=== PATIENT | female | born 1990 | race Caucasian/White ===

== ENCOUNTER 2019-01-01 15:24 | Inpatient (IN) | payer OTHER ==
[~2019-01-01] VITALS: Ht 180.3 cm; Wt 105.2 kg
[2019-01-01 16:10] VITALS: BP 137/78
[2019-01-01] MEDS ORDERED: IV DEXTROSE 5% 250 ML BAG. IV PRN (16:45)
[2019-01-01] MEDS ORDERED: HYOSCYAMINE 0.125 MG TAB.RAPDIS PO PRN (16:45)
[2019-01-01] MEDS ORDERED: hydrOXYzine 25 MG TABLET PO PRN (16:45)
[2019-01-01] MEDS ORDERED: traZODone 100 MG TABLET. PO PRN (16:45)
[2019-01-01] MEDS ORDERED: ONDANSETRON PF 4 MG/2 ML VIAL. IV PRN (16:45)
[2019-01-01] MEDS ORDERED: DEXTROSE 50% 25 GM / 50ML DISP.SYRIN. IV PRN (16:45)
[2019-01-01] MEDS: VANCOMYCIN PER PHARMACY MC PRN (16:48)
[2019-01-01] MEDS: LURASIDONE 40 MG TABLET. PO SCH (17:15)
[2019-01-01] MEDS: metFORMIN 500 MG TABLET PO SCH (17:15)
[2019-01-01] MEDS ORDERED: FLU VAX QS 2019-20 (36MOS+)/PF 0.5 ML SYRINGE. VAX IM ONE (17:15)
[2019-01-01] MEDS: HYDROmorphone 2 MG/ML VIAL IV PRN ×2 (17:16→20:37)
[2019-01-01] MEDS: INSULIN LISPRO 300 UNITS/3 ML VIAL. SQ SCH (17:24)
[2019-01-01 19:00] VITALS: BP 145/85
[2019-01-01] MEDS: FLUoxetine HCL 20 MG CAPSULE PO SCH (20:36)
[2019-01-01] MEDS: INSULIN GLARGINE SYRINGE. SQ SCH (20:51)
--- NOTE | 2019-01-01 20:52 | NUR ---
hold christiano/Dr Gaytan for tonight.
[2019-01-01] MEDS: IV NORMAL SALINE 1000ML BAG 1,000 ML IV SCH (21:22)
[2019-01-01 21:59] LABS: VANC TR 6.6 mcg/mL (10.0-20.0)
[2019-01-01] MEDS ORDERED: VANCOMYCIN 1.5 GM in IV NORMAL SALINE 500ML BAG 500 ML IV SCH (22:00)
[2019-01-01 23:00] VITALS: BP 134/77
[2019-01-02] VITALS (7 sets, daily range): BP systolic 107–138; BP diastolic 54–80
[2019-01-02] MEDS: VANCOMYCIN PER PHARMACY MC PRN ×2 (00:10→16:14)
--- NOTE | 2019-01-02 00:11 | NUR ---
Pharmacy Vancomycin Dosing Note S: Consulted to monitor and dose vancomycin started 12/30/18. O: NELDA SMALLWOOD is a 28 year old F with Abscess Cellulitis, . Other Antibiotics: LABS: Last BUN: 6 Last Creatinine: 0.5 Creatinine Clearance: >200 mL/min Last WBC: 4 Last Procalcitonin: Tmax (past 24 hours): 100 Microbiology: I/O: Drug Levels: Last Trough level: 6.6 on 01/01/19 at 2135 Last dose given 01/01/19 at 2250 Vancomycin Dosing: Dosing Weight: Actual Target Trough: 10-20 A: Based on: Trough, Actual Wt and CrCl P: 1. 01/02/19 0700 Increase Vancomycin 2000 mg IV q8h 2. Follow up Trough level on 01/03/19 at 0630 3. Pharmacy will continue to monitor, follow and adjust therapy as needed. MAYA STEVENSON RPH, 01/02/19 0011 Signed: 01/02/19 at 0012 by MAYA STEVENSON RPH PHA
[2019-01-02] MEDS: HYDROmorphone 2 MG/ML VIAL IV PRN ×5 (01:07→18:14)
[2019-01-02 05:10] LABS: CREATININE 0.5 mg/dL (0.6-1.0); GFR 146.9
[2019-01-02] MEDS: VANCOMYCIN 2 GM in IV NORMAL SALINE 500ML BAG 500 ML IV SCH ×3 (06:37→21:30)
[2019-01-02] MEDS: INSULIN LISPRO 300 UNITS/3 ML VIAL. SQ SCH ×3 (08:00→17:19)
--- NOTE | 2019-01-02 08:50 | PDOC2 ---
JUANA PIZANO Ina HEATING REPAIR TECHNICIAN 01/02/19 0850: CONSULT Date of Consult Date of Consult DATE: 01/02/19 TIME: 08:40 Reason for Consult Reason for Consult: gluteal abscess Referring Physician Referring Physician: Dr Gaytan Identification/Chief Complaint Chief Complaint buttock pain Source Source: Chart review, Patient History of Present Illness Reason for Visit: Reports 1 week of gluteal pain and swelling. No known injury. No similar skin infections in past. Treated with bedside I&D x 2, abx--has not improved US at [facility] reviewed, complex fluid collection vs phlegmon Past Medical History Past Medical History DM, factor V Leiden, hx dvt, bipolar Past Surgical History Past Surgical History: , Other (open heart surgery) Family History Family History: Other (noncontribuutory to current illness ) Social History Quit (over a year ago) ALCOHOL: rare Drugs: None Lives: with Family Current Medications Current Medications Current Medications Fluoxetine HCl (PROzac) 80 mg HS PO Last administered on 01/01/19at 20:37; Start 01/01/19 at 21:00 Hydromorphone HCl (Dilaudid) 1 mg PRN Q3HRS PRN IV PAIN Last administered on 01/02/19at 06:44; Start 01/01/19 at 16:45 Hyoscyamine (Anaspaz) 0.125 mg PRN Q4HRS PRN PO STOMACH CRAMPING; Start 01/01/19 at 16:45 Insulin Glargine (Lantus Syringe) 80 unit QHS SQ ; Start 01/01/19 at 21:00 Lurasidone HCl (Latuda) 120 mg DAILYWSUP PO Last administered on 01/01/19at 17:25; Start 01/01/19 at 17:00 Metoprolol Tartrate (Lopressor) 25 mg DAILY PO ; Start 01/02/19 at 09:00 Ondansetron HCl (Zofran) 4 mg PRN Q6HRS PRN IV NAUSEA/VOMITING; Start 01/01/19 at 16:45 Vancomycin HCl 1.5 gm/Sodium Chloride 500 ml @ 250 mls/hr Q8HRS IV Last administered on 01/01/19at 22:50; Start 01/01/19 at 22:00; Stop 01/02/19 at 00:03; Status DC Vancomycin HCl (Vanco Per Pharmacy) 1 each PRN DAILY PRN MC SEE COMMENTS Last administered on 01/02/19at 00:10; Start 01/01/19 at 16:45 Hydroxyzine HCl (Atarax) 25 mg PRN TID PRN PO ITCHING; Start 01/01/19 at 16:45 Metformin HCl (Glucophage) 1,000 mg BIDWMEALS PO Last administered on 01/01/19at 17:25; Start 01/01/19 at 17:00 Trazodone HCl (Desyrel) 100 mg PRN QHS PRN PO INSOMNIA; Start 01/01/19 at 16:45 Insulin Human Lispro (HumaLOG) 0-7 UNITS TIDWMEALS SQ Last administered on 01/01/19at 17:25; Start 01/01/19 at 17:00 Dextrose (Dextrose 50%-Water Syringe) 12.5 gm PRN Q15MIN PRN IV SEE COMMENTS; Start 01/01/19 at 16:45 Dextrose 250 ml PRN Q15MIN PRN IV SEE COMMENTS; Start 01/01/19 at 16:45 Vancomycin HCl (Vancomycin Trough Level) 1 each 1X ONCE MC Last administered on 01/01/19at 22:52; Start 01/01/19 at 21:30; Stop 01/01/19 at 21:31; Status DC Influenza Virus Vaccine Quadrival (Afluria Quad 2019-20 (3yr Up) Syringe) 0.5 ml ONCE ONCE VAX IM ; Start 01/01/19 at 17:15; Stop 01/01/19 at 17:16; Status UNV Sodium Chloride 1,000 ml @ 100 mls/hr Q10H IV Last administered on 01/01/19at 21:22; Start 01/01/19 at 21:00 Vancomycin HCl 2 gm/Sodium Chloride 500 ml @ 250 mls/hr Q8H IV Last administered on 01/02/19at 06:37; Start 01/02/19 at 07:00 Vancomycin HCl (Vancomycin Trough Level) 1 each 1X ONCE MC ; Start 01/03/19 at 06:30; Stop 01/03/19 at 06:31 Allergies Allergies: Coded Allergies: latex (Verified Allergy, Intermediate, 01/01/19) lisinopril (Verified Allergy, Intermediate, 01/01/19) quetiapine (Verified Allergy, Intermediate, 01/01/19) warfarin (Verified Allergy, Intermediate, 01/01/19) ROS General: No: Chills, Other (fevers ) PSYCHOLOGICAL ROS: No: Anxiety, Depression Eyes: No Blurry vision, No Double vision HEENT: No: Heacaches, Sore Throat Hematological and Lymphatic: YES: Bleeding Problems, Blood Clots Respiratory: No: Cough, Shortness of breath Cardiovascular: No Chest Pain, No Palpitations Gastrointestinal: No Nausea, No Vomiting, No Abdominal Pain Genitourinary: No Dysuria Musculoskeletal: No Joint Pain, No Muscle Pain Neurological: No Confusion, No Impaired Coord/balance Skin: Yes Other (see hpi) Physical Exam General: Alert, Oriented X3, Cooperative, No acute distress HEENT: Atraumatic, PERRLA Lungs: Clear to auscultation, Normal air movement Heart: Regular rate, Normal S1, Normal S2 Abdomen: Soft, No tenderness Extremities: No clubbing, No cyanosis Skin: Other (left buttock, small amount of drainage, some induration, some cent ral fluctuance) Neuro: Normal speech, Sensation intact Psych/Mental Status: Mental status NL, Mood NL MUSCULOSKELETAL: No deformity, No swelling Vitals VITALS Vital Signs Date Time Temp Pulse Resp B/P (MAP) Pulse Ox O2 Delivery O2 Flow Rate FiO2 01/02/19 08:21 Room Air 01/02/19 07:00 97.8 82 14 124/64 (84) 94 97.8 Labs Labs Laboratory Tests Test 01/01/19 17:07 01/01/19 20:40 01/01/19 21:35 01/02/19 04:05 Glucose (Fingerstick) 348 mg/dL (70-99) 229 mg/dL (70-99) Vancomycin Level Trough 6.6 mcg/mL (10.0-20.0) Vancomycin Last Dose Date Unk Vancomycin Last Dose Time Unk Creatinine 0.5 mg/dL (0.6-1.0) Estimated GFR (Cockcroft-Gault) 146.9 Test 01/02/19 07:44 Glucose (Fingerstick) 199 mg/dL (70-99) Laboratory Tests Test 01/01/19 17:07 01/01/19 20:40 01/01/19 21:35 01/02/19 04:05 Glucose (Fingerstick) 348 mg/dL (70-99) 229 mg/dL (70-99) Vancomycin Level Trough 6.6 mcg/mL (10.0-20.0) Vancomycin Last Dose Date Unk Vancomycin Last Dose Time Unk Creatinine 0.5 mg/dL (0.6-1.0) Estimated GFR (Cockcroft-Gault) 146.9 Test 01/02/19 07:44 Glucose (Fingerstick) 199 mg/dL (70-99) Assessment/Plan Assessment/Plan left buttock abscess I&D in ER x 2, abx-not improving will have Dr Iqbal FU and consider for surgical I&D MARCELLO IQBAL MD 01/02/19 0954: CONSULT Assessment/Plan Assessment/Plan pt seen interviewed and examined rec I and D explained risks including but not limited to bleeding, infection, DVT she will proceed thanks for consult JUANA PIZANO APRN Jan 02, 2019 08:50 MARCELLO IQBAL MD Jan 02, 2019 09:54
[2019-01-02] MEDS ORDERED: IV RINGERS,LACTATED 1000ML 1,000 ML IV SCH (09:56)
[2019-01-02] MEDS ORDERED: HYDROmorphone 2 MG/ML VIAL IV PRN (10:00)
[2019-01-02] MEDS ORDERED: fentaNYL PF VIAL 100 MCG/2 ML VIAL IV PRN (10:00)
[2019-01-02] MEDS ORDERED: BUPIVACAINE-EPI 0.5%-1:200000 MPF 30 ML VIAL. INJ ONE (10:00)
[2019-01-02] MEDS ORDERED: ONDANSETRON PF 4 MG/2 ML VIAL. IV PRN (10:00)
[2019-01-02] MEDS ORDERED: PROCHLORPERAZINE 10 MG/2 ML VIAL. IV PRN (10:00)
[2019-01-02] MEDS ORDERED: DEXAMETHASONE SOD PHOS 4 MG/ML VIAL ONE (10:03)
[2019-01-02] MEDS ORDERED: LIDOCAINE 2% PF 5 ML VIAL. ONE (10:03)
[2019-01-02] MEDS ORDERED: ONDANSETRON PF 4 MG/2 ML VIAL. ONE (10:03)
[2019-01-02] MEDS ORDERED: FAMOTIDINE 20 MG/2 ML VIAL ONE (10:03)
[2019-01-02] MEDS ORDERED: PROPOFOL 20 ML IV ONE ×2 (10:03→10:55)
[2019-01-02 10:24] LABS: PREG TEST PT QUAL NEGATIVE (NEG)
[2019-01-02] MEDS ORDERED: KETOROLAC 30 MG/ML VIAL. ONE (10:41)
[2019-01-02] MEDS ORDERED: KETAMINE HCL IN NACL, ISO-OSM 50 MG/5 ML SYRINGE ONE (10:41)
[2019-01-02] MEDS ORDERED: MIDAZOLAM HCL/PF 2 MG/2 ML VIAL. ONE (10:41)
[2019-01-02] MEDS ORDERED: SURGICEL HEMOSTAT 2X3 EACH. ONE (11:03)
[2019-01-02] MEDS ORDERED: SEVOFLURANE 31 TO 60 MINUTES. IH ONE (11:13)
[2019-01-02] MEDS ORDERED: IV NORMAL SALINE 1000ML BAG 1,000 ML IV SCH (11:25)
[2019-01-02] MEDS ORDERED: 0.9 % SODIUM CHLORIDE 10 ML DISP.SYRIN. IV PRN (11:30)
[2019-01-02] MEDS ORDERED: diphenhydrAMINE HCL 25 MG CAPSULE PO PRN (11:30)
[2019-01-02] MEDS ORDERED: oxyCODONE/APAP 5/325 1 TAB TABLET PO PRN (11:30)
[2019-01-02] MEDS ORDERED: NALOXONE 0.4 MG/ML VIAL. IV PRN (11:30)
--- NOTE | 2019-01-02 11:34 | PDOC ---
BRIEF OPERATIVE NOTE Date: Jan 02, 2019 Pre-Op Diagnosis left buttocks abscess Post-Op Diagnosis same Procedure Performed excisional debridement of skin and subcutaneous tissue Surgeon Rasheed Anesthesia Type: General Blood Loss 10cc IV Fluid 275cc Specimens Obtained culture Findings necrotic subcutaneous tissue Complications none Operative Note Wk # [id number] MARCELLO FLETCHER MD Jan 02, 2019 11:34
--- NOTE | 2019-01-02 11:47 | OP ---
DATE OF SURGERY: 01/02/2019 PREOPERATIVE DIAGNOSIS: Abscess, left buttock. POSTOPERATIVE DIAGNOSIS: Abscess, left buttock. PROCEDURE: Excisional debridement of skin and subcutaneous tissue. SURGEON: Marcello Fletcher MD ANESTHESIA: General LMA. ESTIMATED BLOOD LOSS: 10. INTRAVENOUS FLUIDS: 275. DESCRIPTION OF PROCEDURE: The patient brought to the OR, given a general LMA and placed in the dorsal lithotomy position. The left buttock and perianal area were prepped and draped in usual sterile fashion. The point of drainage was probed with a hemostat and using that as a guide, an ellipse of skin was incised and the skin and underlying necrotic fatty tissue was debrided. Culture made. Hemostasis with cautery after irrigating the wound with saline. Wound dressed with Surgicel, 1/2-inch plain Nu Gauze moistened with saline, 4 x 4s. The patient taken out of the lithotomy position, awakened from her anesthetic, and taken to the recovery room in satisfactory condition. MARCELLO FLETCHER MD DR: MARK/nts JOB#: [id number] / [id number]
[2019-01-02] MEDS ORDERED: fentaNYL PF VIAL 100 MCG/2 ML VIAL ONE (11:56)
[2019-01-02] MEDS: fentaNYL PF VIAL 100 MCG/2 ML VIAL IV PRN ×2 (12:00→12:08)
[2019-01-02] MEDS ORDERED: MORPHINE SULFATE 2 MG/ML VIAL. ONE (12:18)
[2019-01-02] MEDS: MORPHINE SULFATE 2 MG/ML VIAL. IV PRN ×2 (12:23→12:34)
[2019-01-02] MEDS: INSULIN LISPRO 100 UNIT/ML 3ML VIAL for OP,RR ONLY. SQ PRN ×2 (12:45→13:48)
[2019-01-02] MEDS: oxyCODONE/APAP 5/325 1 TAB TABLET PO PRN ×2 (13:32→17:15)
[2019-01-02] MEDS: metFORMIN 500 MG TABLET PO SCH ×2 (13:33→17:14)
[2019-01-02] MEDS: METOPROLOL TART IMMED RELEASE 25 MG TABLET. PO SCH (13:33)
--- NOTE | 2019-01-02 14:41 | NUR ---
wound care patient had surgery today for the left buttock wound, wound care will f/u tomorrow.
[2019-01-02] MEDS: IV NORMAL SALINE 1000ML BAG 1,000 ML IV SCH ×2 (15:01→21:30)
[2019-01-02] MEDS: ONDANSETRON PF 4 MG/2 ML VIAL. IV PRN (16:49)
[2019-01-02] MEDS: LURASIDONE 40 MG TABLET. PO SCH (17:15)
[2019-01-02] MEDS: DOCUSATE SODIUM 100 MG CAPSULE. PO SCH (21:28)
[2019-01-02] MEDS: LACTOBACILLUS RHAMNOSUS GG 1 CAPSULE. PO SCH (21:28)
[2019-01-02] MEDS: FLUoxetine HCL 20 MG CAPSULE PO SCH (21:28)
[2019-01-02] MEDS: ENOXAPARIN 40 MG/0.4 ML SYRINGE. SQ SCH (21:31)
[2019-01-02] MEDS: INSULIN GLARGINE SYRINGE. SQ SCH (21:36)
[2019-01-03] MEDS: ONDANSETRON PF 4 MG/2 ML VIAL. IV PRN ×2 (00:03→12:25)
[2019-01-03] MEDS: HYDROmorphone 2 MG/ML VIAL IV PRN ×6 (00:04→18:14)
[2019-01-03 03:00] VITALS: BP 124/78
[2019-01-03] MEDS: IV NORMAL SALINE 1000ML BAG 1,000 ML IV SCH ×3 (03:00→21:30)
[2019-01-03] MEDS: oxyCODONE/APAP 5/325 1 TAB TABLET PO PRN ×3 (03:23→13:41)
[2019-01-03 07:00] VITALS: BP 119/74
[2019-01-03 07:57] LABS: CREATININE 0.7 mg/dL (0.6-1.0); GFR 99.6
[2019-01-03] MEDS: INSULIN LISPRO 300 UNITS/3 ML VIAL. SQ SCH ×3 (08:00→17:13)
[2019-01-03] MEDS: metFORMIN 500 MG TABLET PO SCH ×2 (08:24→17:08)
[2019-01-03] MEDS: DOCUSATE SODIUM 100 MG CAPSULE. PO SCH ×2 (08:24→21:12)
[2019-01-03] MEDS: LACTOBACILLUS RHAMNOSUS GG 1 CAPSULE. PO SCH ×2 (08:24→21:12)
[2019-01-03] MEDS: ENOXAPARIN 40 MG/0.4 ML SYRINGE. SQ SCH ×2 (08:25→21:13)
[2019-01-03] MEDS: METOPROLOL TART IMMED RELEASE 25 MG TABLET. PO SCH (08:25)
[2019-01-03] MEDS: VANCOMYCIN PER PHARMACY MC PRN (08:25)
--- NOTE | 2019-01-03 08:25 | PDOC ---
SURGICAL PROGRESS NOTE Subjective up to bedside having regular breakfast still has pain Vital Signs Vital Signs Date Time Temp Pulse Resp B/P (MAP) Pulse Ox O2 Delivery O2 Flow Rate FiO2 01/03/19 07:00 97.6 64 14 119/74 (89) 98 Room Air 97.6 01/02/19 12:58 8.0 I&O Intake and Output 01/03/19 06:59 Intake Total 850 ml Output Total 10 ml Balance 840 ml Intake Oral 450 ml IV Total 400 ml Output Estimated Blood Loss 10 ml # Voids 3 PATIENT HAS A PICKENS: No General: Alert, No acute distress Labs Laboratory Tests Test 01/01/19 17:07 01/01/19 20:40 01/01/19 21:35 01/02/19 04:05 Glucose (Fingerstick) 348 mg/dL (70-99) 229 mg/dL (70-99) Vancomycin Level Trough 6.6 mcg/mL (10.0-20.0) Vancomycin Last Dose Date Unk Vancomycin Last Dose Time Unk Creatinine 0.5 mg/dL (0.6-1.0) Estimated GFR (Cockcroft-Gault) 146.9 Serum Test, Qualitative Negative (NEG) Test 01/02/19 07:44 01/02/19 12:30 01/02/19 13:41 01/02/19 16:33 Glucose (Fingerstick) 199 mg/dL (70-99) 326 mg/dL (70-99) 239 mg/dL (70-99) 256 mg/dL (70-99) Test 01/02/19 20:11 01/03/19 06:50 01/03/19 07:21 Glucose (Fingerstick) 303 mg/dL (70-99) 207 mg/dL (70-99) Creatinine 0.7 mg/dL (0.6-1.0) Estimated GFR (Cockcroft-Gault) 99.6 Vancomycin Level Trough 9.0 mcg/mL (10.0-20.0) Vancomycin Last Dose Date 01/02/19 Vancomycin Last Dose Time 2300 Laboratory Tests Test 01/02/19 12:30 01/02/19 13:41 01/02/19 16:33 01/02/19 20:11 Glucose (Fingerstick) 326 mg/dL (70-99) 239 mg/dL (70-99) 256 mg/dL (70-99) 303 mg/dL (70-99) Test 01/03/19 06:50 01/03/19 07:21 Creatinine 0.7 mg/dL (0.6-1.0) Estimated GFR (Cockcroft-Gault) 99.6 Vancomycin Level Trough 9.0 mcg/mL (10.0-20.0) Vancomycin Last Dose Date 01/02/19 Vancomycin Last Dose Time 2300 Glucose (Fingerstick) 207 mg/dL (70-99) Assessment/Plan POD 1 debridement left gluteal abscess wound care Dr Rodney available over the weekend if needed MARCELLO FLETCHER MD Jan 03, 2019 08:25
[2019-01-03] MEDS: VANCOMYCIN 2 GM in IV NORMAL SALINE 500ML BAG 500 ML IV SCH (08:27)
--- NOTE | 2019-01-03 08:28 | NUR ---
Pharmacy Vancomycin Dosing Note S:Consulted to monitor and dose vancomycin started 12/30/18. O:NELDA SMALLWOOD is a 28 year old F with left gluteal abscess/cellulitis. Height: 5 feet, 11 inches Weight: 105.083800 kg [place] Body Weight: 70.80 Adjusted Body Weight: 84.56 Dosing Weight: Actual Other Antibiotics: None LABS: Last BUN: 6 Last Creatinine: 0.7 Creatinine Clearance: >200 mL/min Last WBC: 4 Last Procalcitonin: None Tmax (past 24 hours): 98.5 [facility] culture: Staphylococcus aureus4 + AEROBIC RES 2 Preliminary Mixed skin catalina 4+ I/O: 850/10 + voids Drug Levels: Last Trough level: 9 on 01/03/19 @ 06:50, TRUE TROUGH ESTIMATED TO BE ABOUT 12-14 Last dose given 01/02/19 at 2136 Vancomycin Dosing: Loading Dose: x1 Dosing Weight: Actual Target Trough: 10-20 A: Based on: Patient's renal function, PMH, severity of suspected infection and vancomycin trough level drawn a little over an hour late P: 1. Continue Vancomycin 2000 mg IV q8h 2. Follow up Trough level as needed 3. Pharmacy will continue to monitor, follow and adjust therapy as needed. HERMAN KOWALSKI, [facility], 01/03/19 [id number]
[2019-01-03] MEDS ORDERED: cefTRIAXone IV Push 1 GM VIAL. IVP SCH (10:00)
[2019-01-03 11:00] VITALS: BP 133/83
--- NOTE | 2019-01-03 11:10 | PDOC ---
Infectious Disease Note Vital Sign Vital Signs Vital Signs Date Time Temp Pulse Resp B/P (MAP) Pulse Ox O2 Delivery O2 Flow Rate FiO2 01/03/19 09:26 16 98 Room Air 01/03/19 09:13 8.0 01/03/19 08:43 64 119/74 01/03/19 07:00 97.6 97.6 Labs Lab Laboratory Tests Test 01/02/19 12:30 01/02/19 13:41 01/02/19 16:33 01/02/19 20:11 Glucose (Fingerstick) 326 mg/dL (70-99) 239 mg/dL (70-99) 256 mg/dL (70-99) 303 mg/dL (70-99) Test 01/03/19 06:50 01/03/19 07:21 Creatinine 0.7 mg/dL (0.6-1.0) Estimated GFR (Cockcroft-Gault) 99.6 Vancomycin Level Trough 9.0 mcg/mL (10.0-20.0) Vancomycin Last Dose Date 01/02/19 Vancomycin Last Dose Time 2300 Glucose (Fingerstick) 207 mg/dL (70-99) Objective Assessment Buttock abscess s/p I and D 01/02 Staph aureus- failed Bactrim Yeast skin rash H/o MRSA screen + Obesity Dm Plan Plan of Care D/c high dose Vanc avoid DANYEL Begin Zyvox and fluconazole She s/p Dexamethasone 01/02 F/u staph aureus sens from [place] collected 12/30 Wound care per Gen surg/wound team Thank you # [id number] KAYLIE KITCHEN MD Jan 03, 2019 11:10
--- NOTE | 2019-01-03 11:16 | HP ---
ADMIT DATE: 01/01/2019 HISTORY OF PRESENT ILLNESS: The patient is a 28-year-old female patient who was originally admitted to [facility] on 12/30/2018. She was seen originally at 3 days prior to recent admission in the Emergency Room with left buttock cellulitis and abscess that was incised and drained. She was placed on Bactrim; however, although she has been taking her medication as prescribed, the area has grown in size and pain and was not getting any better. She could not follow with her primary care physician and therefore she came to the Emergency Room, and the abscess was incised and cultures were sent and she was started on IV vancomycin and ceftriaxone and was admitted for inpatient antibiotic treatment. However, we did ultrasound of that area. She continued to complain of pain and an ultrasound showed that there is a heterogenous collection at the site of concern in the left buttock region, which may be due to phlegmon or very complex fluid, does not have sonographic features suggestive of simple fluid and therefore, the patient was transferred to [facility] to consult the surgical team to do again surgical incision and drainage, as the other 2 incisions were done at the bedside. PAST MEDICAL HISTORY: Significant for type 2 diabetes mellitus. She has also factor V Leiden. She has deep vein thrombosis done twice before, bipolar disorder. PAST SURGICAL HISTORY: Significant for two C-sections, open heart surgery for atrial septal defect repair done which was about 18 years old. She has a left ring finger open reduction and internal fixation. ALLERGIES: SHE IS ALLERGIC TO LISINOPRIL, SHE DEVELOPED ANGIONEUROTIC EDEMA, COUMADIN CAUSED HIVES AND SEROQUEL CAUSED HALLUCINATION. FAMILY HISTORY: She has 2 brothers and 2 sisters, 1 brother and 1 sister older, one brother, one sister younger. Her father is alive at age of 50. He is alcoholic and mother is still alive and has Crohn's disease and she is 46 years old. SOCIAL HISTORY: She is . She has 2 sons. She does not smoke, drink alcohol or use any recreational drugs. She used marijuana about 2 weeks ago. She is [id number] mom and her boyfriend takes care of her and her children according to her. MEDICATIONS: She was transferred to this hospital to continue on following medications: She is on Lovenox 40 mg subcutaneously twice a day, oxycodone/APAP she takes 2 tablets every 4 hours, diphenhydramine 25 mg every 6 hours, metoprolol 25 mg twice a day, vancomycin as per pharmacy recommendation. She is on metformin 1000 mg twice a day, fluoxetine 80 mg at bedtime, Lantus insulin 80 units at bedtime. She is on trazodone 100 mg at bedtime, hydroxyzine 25 mg 3 times a day and Anaspaz 0.25 mg every 4 hours. PHYSICAL EXAMINATION: GENERAL: On arrival to [facility], she looked well and was clearly in no apparent respiratory distress. No pallor, jaundice, cyanosis or thyromegaly. No jugular venous distention. No lower limb edema. VITAL SIGNS: Her heart rate was 76, blood pressure was 137/78, temperature was 97.8, respiratory rate was 14 and oxygen saturation was 94%. HEAD, EYES, EARS, NOSE AND THROAT: Showed normocephalic, atraumatic. NECK: Supple. HEART: Showed normal first and second heart sounds with no gallop or murmur. CHEST: Clear to auscultation. No crepitation or rhonchi. ABDOMEN: Distended, soft, nontender. NEUROLOGIC: She is awake, alert, responding appropriately. Cranial nerves intact. EXTREMITIES: She moves extremities without difficulty. Examination of the left gluteal area shows she has left buttock abscess that apparently was incised twice at the Emergency Room and antibiotic and without any improvement despite IV antibiotic. We will consult surgical team for evaluation and possible further surgical incision and drainage. DONA WHITE MD DR: NAVEED/bhavik JOB#: [id number] / [id number]
[2019-01-03] MEDS: POLYETHYLENE GLYCOL 3350 17 GM PACKET. PO SCH (11:39)
[2019-01-03] MEDS: FLUCONAZOLE 100 MG TABLET. PO SCH (11:40)
[2019-01-03] MEDS: LINEZOLID 600 MG TABLET PO SCH ×2 (11:40→21:12)
--- NOTE | 2019-01-03 13:38 | NUR ---
Wound Care Wound care consult for left buttock abscess. Pt had I&D yesterday on left buttock abscess. Cleansed wound and applied wound vac with silver foam at 125 mmHg continuous pressure. No other wounds noted on full skin inspection. Pt educated on PU prevention and offloading of wound. Addendum: 01/03/19 at 1348 by VIRGINIA OTOOLE RN Home vac application done.
--- NOTE | 2019-01-03 14:50 | NUR ---
SW following pt for dc planning. Chart reviewed and pt lives at home with family. Pt is a transfer from [facility]. Wound care, ID and gen Sx following. No dc recommendations noted at this time. Will continue to follow pending dc needs.
[2019-01-03 15:00] VITALS: BP 138/81
[2019-01-03] MEDS: LURASIDONE 40 MG TABLET. PO SCH (17:07)
[2019-01-03 19:00] VITALS: BP 120/63
--- NOTE | 2019-01-03 20:41 | PN ---
DATE: 01/03/2019 SUBJECTIVE: The patient is resting slightly propped up in bed, in no apparent distress. She apparently continued to complain of severe pain. We did increase her hydromorphone to be given 2 mg every 2 hours. PHYSICAL EXAMINATION: GENERAL: When I examined her; however, she seemed to be flushed although continued to be afebrile. VITAL SIGNS: Her heart rate was 64, blood pressure was 119/74, temperature was 97.6, respiratory rate was 14 and oxygen saturation was 98%. HEAD, EYES, EARS, NOSE AND THROAT: Showed normocephalic, atraumatic. NECK: Supple. HEART: Showed normal first and second heart sounds. No gallop or murmur. CHEST: Clear to auscultation. No crepitation or rhonchi. ABDOMEN: Distended, soft, nontender. NEUROLOGIC: She was awake, alert, responding appropriately. Her cranial nerves are intact. EXTREMITIES: She moves extremities without difficulty. Her surgical incision in the left foot is covered with dressing. LABORATORY DATA: No lab works available today. Her vancomycin trough level was 9 mcg/mL and the vancomycin is adjusted by the pharmacy. PLAN: My plan is to continue with IV vancomycin. I added ceftriaxone and we will continue with pain management, IV antibiotic, wound care. I will consult also the Infectious Disease to assist with her management as she has had this abscess, this is third time. I did add ceftriaxone. DONA WHITE MD DR: NAVEED/bhavik JOB#: [id number] / [id number]
[2019-01-03] MEDS: FLUoxetine HCL 20 MG CAPSULE PO SCH (21:12)
[2019-01-03] MEDS: MULTIVITAMIN with MINERAL TABLET. PO SCH (21:12)
[2019-01-03] MEDS: INSULIN GLARGINE SYRINGE. SQ SCH (21:19)
[2019-01-03 23:00] VITALS: BP 125/65
[2019-01-04] MEDS: oxyCODONE/APAP 5/325 1 TAB TABLET PO PRN ×4 (00:21→17:33)
[2019-01-04] MEDS: HYDROmorphone 2 MG/ML VIAL IV PRN ×5 (01:49→18:19)
[2019-01-04 03:00] VITALS: BP 129/73
--- NOTE | 2019-01-04 05:20 | CONS ---
DATE OF CONSULTATION: 01/03/2019 LOCATION: The patient's room, 572. REQUESTING PHYSICIAN: Dr. Gaytan. REASON FOR CONSULTATION: Buttock abscess. HISTORY OF PRESENT ILLNESS: The patient is a 28-year-old female with history of morbid obesity, diabetes who developed gluteal pain approximately a week or so ago. She denies any known trauma. She does have a history of MRSA screen positive in her nose. She had been to [facility], underwent outpatient I and D x 2. She was placed on Bactrim. Despite taking Bactrim for 3 days, she continued to worsen and she was brought to [facility] and on 01/02 underwent I and D in the operating room by Dr. Iqbal. Cultures collected from the 12/30 are now showing a Staph aureus as well as some yeast. Currently, she is feeling some better. She did not have any fever, chills or sweats. She has no nausea or vomiting. She has passed her urine without complications. No diarrhea. PAST MEDICAL HISTORY: Positive for morbid obesity, diabetes, factor V Leiden, history of DVT, bipolar disorder. MRSA screen positive. PAST SURGICAL HISTORY: Positive for , also open heart surgery for a VSD. REVIEW OF SYSTEMS: Otherwise negative except for what is mentioned above. ALLERGIES: LISTED LATEX, LISINOPRIL, QUETIAPINE, AND WARFARIN. SOCIAL HISTORY: She has 2 children, ages 1 and 5. She quit smoking. Has a dog at home. Very rare alcohol. CURRENT MEDICATIONS: Include vancomycin 2 grams q.8 hours, IV Rocephin 1 g q.24, Lovenox, Prozac, insulin, lactobacillus, Latuda, metformin, trazodone. PHYSICAL EXAMINATION: VITAL SIGNS: She is afebrile, temperature 97.6, pulse 64, respirations 16, blood pressure 119/74, satting 98% on room air. CONSTITUTIONAL: She is a pleasant lady. She is sitting upright in bed. She is morbidly obese, in no acute distress. HEENT: Pupils are equal and reactive to light and accommodation. Oral cavity, pharynx is clear. NECK: Supple. Good range of motion. LUNGS: Clear to auscultation bilaterally. HEART: S1, S2. ABDOMEN: Morbidly obese, soft, nontender, no guarding or rebound. Left buttock area has an abscess approximately 3.5-4 x 2 x 3 x 2-3 deep. There is no surrounding gross erythema. There is no purulence. There is no drainage. She does have some yeast in her perineal area. SKIN: Otherwise, warm to touch without signs of rash. NEUROLOGIC: She is nonfocal. PSYCHIATRIC: Affect is appropriate. LABORATORY VALUES: She has creatinine of 0.7, glucose was 207. No imaging studies here. IMPRESSION: 1. Buttock abscess, status post I and D on 01/02. 2. Staph aureus, failed Bactrim. 3. Yeast skin rash. 4. History of positive methicillin-resistant Staphylococcus aureus screen. 5. Obesity. 6. Diabetes. RECOMMENDATIONS: We will discontinue the high dose vancomycin with acute kidney injury. Begin p.o. Zyvox, p.o. fluconazole. She is status post dexamethasone 01/02. Follow up Staph aureus sensitivities from [facility], collected on 12/30. Wound care per General Surgery and wound team. Dr. Gaytan, thank you for allowing me to participate in the patient's care. Should you have any further questions, please do not hesitate to contact me. KAYLIE KITCHEN MD DR: BOWEN/bhavik JOB#: [id number] / [id number]
[2019-01-04 06:04] LABS: CREATININE 0.6 mg/dL (0.6-1.0)
[2019-01-04] MEDS: IV NORMAL SALINE 1000ML BAG 1,000 ML IV SCH (06:51)
[2019-01-04 07:00] VITALS: BP 133/63
[2019-01-04] MEDS: INSULIN LISPRO 300 UNITS/3 ML VIAL. SQ SCH ×3 (08:00→17:00)
[2019-01-04] MEDS: ONDANSETRON PF 4 MG/2 ML VIAL. IV PRN ×2 (08:01→16:23)
[2019-01-04] MEDS: LACTOBACILLUS RHAMNOSUS GG 1 CAPSULE. PO SCH ×2 (08:58→20:37)
[2019-01-04] MEDS: FLUCONAZOLE 100 MG TABLET. PO SCH (08:58)
[2019-01-04] MEDS: metFORMIN 500 MG TABLET PO SCH ×2 (08:58→17:33)
[2019-01-04] MEDS: LINEZOLID 600 MG TABLET PO SCH ×2 (08:58→20:37)
[2019-01-04] MEDS: DOCUSATE SODIUM 100 MG CAPSULE. PO SCH ×2 (08:58→20:37)
[2019-01-04] MEDS: POLYETHYLENE GLYCOL 3350 17 GM PACKET. PO SCH (08:59)
[2019-01-04] MEDS: MULTIVITAMIN with MINERAL TABLET. PO SCH (08:59)
[2019-01-04] MEDS: ENOXAPARIN 40 MG/0.4 ML SYRINGE. SQ SCH ×2 (08:59→20:37)
[2019-01-04] MEDS: METOPROLOL TART IMMED RELEASE 25 MG TABLET. PO SCH (08:59)
--- NOTE | 2019-01-04 09:38 | PN ---
DATE: 01/04/2019 SUBJECTIVE: The patient is resting, slightly propped up in bed, in no apparent respiratory distress. She continued to complain of pain, requesting IV Dilaudid; however, her left buttock abscess was incised and drained surgically and her cultures collected on 12/30 showing Staphylococcus aureus as well as some yeast. PHYSICAL EXAMINATION: GENERAL: When I saw her this morning, she looked well and was clearly in no apparent respiratory distress. No pallor, jaundice, cyanosis or thyromegaly. No jugular venous distention. No limb edema. VITAL SIGNS: Her heart rate was 83, blood pressure was 133/63, temperature was 98.1, respiratory rate 20, and oxygen saturation was 99%. The rest of clinical exam is stable. Her left foot wound is covered with wound vacuum assisted closure device. Her intake and output were incompletely recorded. LABORATORY DATA: Her blood sugar seems to be much better controlled. Her lab work still pending at the time of this dictation. ASSESSMENT: 1. Left buttock abscess, status post surgical incision and drainage. Her cultures have grown methicillin-resistant Staphylococcus aureus as well as yeast. She was seen by Dr. Carver yesterday and was started her on oral Zyvox as well as fluconazole and discontinued all other medication. Other medical problems include type 2 diabetes, seems to be reasonably controlled. 2. Factor V Leiden with deep vein thrombosis twice; however, SHE IS ALLERGIC TO COUMADIN, bipolar disorder. PLAN: To continue with pain management. Continue with antibiotic. Continue with wound VAC. We will discontinue the IV fluid. DONA WHITE MD DR: NAVEED/bhavik JOB#: [id number] / [id number]
--- NOTE | 2019-01-04 10:15 | PDOC ---
Infectious Disease Note Subjective Subjective Comfortable Some nausea Denies F/C/S/vomiting/diarrhea ROS ROS per HPI Vital Sign Vital Signs Vital Signs Date Time Temp Pulse Resp B/P (MAP) Pulse Ox O2 Delivery O2 Flow Rate FiO2 01/04/19 09:00 Room Air 01/04/19 08:59 83 133/63 01/04/19 07:00 98.1 20 99 98.1 01/03/19 11:58 8.0 Physical Exam PHYSICAL EXAM GENERAL: Lying down, awake, NAD HEENT: Oral cavity, pharynx is clear. NECK: Supple. Good range of motion. LUNGS: Clear to auscultation bilaterally. HEART: S1, S2. ABDOMEN: Morbidly obese, soft, nontender SKIN: Left buttock wound vac in place, no area redness or induration NEUROLOGIC: Nonfocal. PIV Labs Lab Laboratory Tests Test 01/03/19 11:23 01/03/19 12:38 01/03/19 16:31 01/03/19 21:03 Glucose (Fingerstick) 63 mg/dL (70-99) 154 mg/dL (70-99) 162 mg/dL (70-99) 149 mg/dL (70-99) Test 01/04/19 05:30 01/04/19 07:16 Creatinine 0.6 mg/dL (0.6-1.0) Estimated GFR (Cockcroft-Gault) 119.0 Glucose (Fingerstick) 126 mg/dL (70-99) Micro 01/02. GRAM STAIN RES 2 Final No organisms seen Objective Assessment Buttock abscess, status post I and D on 01/02. culture pending Staph aureus, failed Bactrim. Yeast skin rash. History of positive methicillin-resistant Staphylococcus aureus screen. Obesity. Diabetes. Plan Plan of Care Continue Zyvox and fluconazole s/p Dexamethasone 01/02 F/u staph aureus sens from [place] collected 12/30 Wound care per Gen surg/wound team D/w nursing Attending Co-Sign The patient was seen and interviewed as well as examined at the bedside. The chart was reviewed. The case was discussed. Agree with the plan of care. DANA CUELLAR APRN Jan 04, 2019 10:15 GLORIA LUCAS MD Jan 04, 2019 12:09
[2019-01-04 11:00] VITALS: BP 133/87
[2019-01-04 15:00] VITALS: BP 127/79
[2019-01-04] MEDS: LURASIDONE 40 MG TABLET. PO SCH (17:32)
[2019-01-04 19:00] VITALS: BP 120/78
[2019-01-04] MEDS: FLUoxetine HCL 20 MG CAPSULE PO SCH (20:38)
[2019-01-04] MEDS: INSULIN GLARGINE SYRINGE. SQ SCH (20:45)
[2019-01-04 23:00] VITALS: BP 110/66
[2019-01-05 03:04] VITALS: BP 121/72
[2019-01-05 06:54] LABS: ALBUMIN 2.9 g/dL (3.4-5.0); ALBUMIN/GLOBULIN RATIO 0.8 (1.0-1.7); CALCIUM 9.4 mg/dL (8.5-10.1); CREATININE 0.5 mg/dL (0.6-1.0); GFR 146.9; POTASSIUM 3.8 mmol/L (3.5-5.1); TOTAL BILIRUBIN 0.2 mg/dL (0.2-1.0); TOTAL PROTEIN 6.5 g/dL (6.4-8.2)
[2019-01-05 06:55] LABS: HEMATOCRIT 33.9 % (36.0-47.0); HEMOGLOBIN 11.5 g/dL (12.0-15.5); RED BLOOD COUNT 3.75 x10^6/uL (3.50-5.40); RED CELL DISTRIBUTION WIDTH 14.1 % (11.5-14.5); WHITE BLOOD COUNT 4.2 x10^3/uL (4.0-11.0)
[2019-01-05 07:22] VITALS: BP 125/72
[2019-01-05] MEDS: oxyCODONE/APAP 5/325 1 TAB TABLET PO PRN ×3 (07:46→17:05)
[2019-01-05] MEDS: INSULIN LISPRO 300 UNITS/3 ML VIAL. SQ SCH ×3 (08:00→17:00)
--- NOTE | 2019-01-05 08:39 | PN ---
DATE: 01/05/2019 SUBJECTIVE: The patient is resting, slightly propped up in bed, in no apparent respiratory distress. She stated that she has continued to have pain. She had just received 2 Percocet tablets waiting for them to take effect, although apparently she has not received any pain medication overnight and slept well. PHYSICAL EXAMINATION: GENERAL: When I examined her, she looked well and was clearly in no apparent respiratory distress, slightly pale, but no jaundice, cyanosis or thyromegaly. No jugular venous distention. No limb edema. VITAL SIGNS: Her heart rate was 94, blood pressure was 125/72, temperature was 98.1, respiratory rate was 16, and oxygen saturation was 98%. HEAD, EYES, EARS, NOSE AND THROAT: Showed normocephalic, atraumatic. NECK: Supple. HEART: Showed normal first and second heart sounds. No gallop, rub or murmur. CHEST: Clear to auscultation. No crepitation or rhonchi. ABDOMEN: Distended, soft, nontender. NEUROLOGIC: She is awake, alert, responding appropriately. All cranial nerves intact. She moves extremities without difficulty. She ambulates without assistance or assistive devices. The wound in the left buttock area is covered with wound vacuum assisted closure device. Her intake was 514, output as recorded. LABORATORY DATA: Her lab work this morning showed a serum sodium 140, potassium 3.8, chloride 102, bicarbonate 29, anion gap of 9, BUN 13, creatinine 0.5, estimated GFR was 146 mL per minute. Her glucose 113, calcium was 9.4. Total bilirubin, AST, ALT, alkaline phosphatase were normal. Total protein was 6.5, albumin 2.9. White cell count was 4200, hemoglobin 11.5, hematocrit 33.9, MCV 90 and platelet count 264,000. ASSESSMENT: 1. Left buttock abscess, status post surgical incision and drainage. 2. Her cultures have grown methicillin-resistant Staphylococcus aureus as well as some yeast. She is now on oral Zyvox as well as fluconazole. 3. Other medical problems include: A. Type 2 diabetes mellitus. B. Factor V Leiden with history of deep vein thrombosis twice before. C. Bipolar disorder. PLAN: To continue with pain management. Continue with oral antibiotic. Continue with wound VAC. We will evaluate her tomorrow if she remains stable, she can be discharged home to continue with oral antibiotic and dressing changes can be done on a daily basis at [facility]. DONA WHITE MD DR: NAVEED/bhavik JOB#: [id number] / [id number]
[2019-01-05] MEDS: HYDROmorphone 2 MG/ML VIAL IV PRN ×3 (10:59→17:45)
[2019-01-05] MEDS: ONDANSETRON PF 4 MG/2 ML VIAL. IV PRN (10:59)
--- NOTE | 2019-01-05 11:07 | PDOC ---
Infectious Disease Note Subjective Subjective Sore, otherwise doing alright Denies F/C/S/N/V/D ROS ROS per HPI Vital Sign Vital Signs Vital Signs Date Time Temp Pulse Resp B/P (MAP) Pulse Ox O2 Delivery O2 Flow Rate FiO2 01/05/19 07:46 98 Room Air 8.0 01/05/19 07:22 98.1 94 16 125/72 (89) 98.1 Physical Exam PHYSICAL EXAM GENERAL: Lying down, awake, NAD HEENT: Oral cavity, pharynx is clear. NECK: Supple. Good range of motion. LUNGS: Clear to auscultation bilaterally. HEART: S1, S2. ABDOMEN: Morbidly obese, soft, nontender SKIN: Left buttock wound vac in place, no area redness or induration NEUROLOGIC: Nonfocal. PIV Labs Lab Laboratory Tests Test 01/04/19 11:23 01/04/19 16:42 01/04/19 20:20 01/05/19 05:15 Glucose (Fingerstick) 170 mg/dL (70-99) 141 mg/dL (70-99) 226 mg/dL (70-99) White Blood Count 4.2 x10^3/uL (4.0-11.0) Red Blood Count 3.75 x10^6/uL (3.50-5.40) Hemoglobin 11.5 g/dL (12.0-15.5) Hematocrit 33.9 % (36.0-47.0) Mean Corpuscular Volume 90 fL (79-100) Mean Corpuscular Hemoglobin 31 pg (25-35) Mean Corpuscular Hemoglobin Concent 34 g/dL (31-37) Red Cell Distribution Width 14.1 % (11.5-14.5) Platelet Count 264 x10^3/uL (140-400) Sodium Level 140 mmol/L (136-145) Potassium Level 3.8 mmol/L (3.5-5.1) Chloride Level 102 mmol/L (98-107) Carbon Dioxide Level 29 mmol/L (21-32) Anion Gap 9 (6-14) Blood Urea Nitrogen 13 mg/dL (7-20) Creatinine 0.5 mg/dL (0.6-1.0) Estimated GFR (Cockcroft-Gault) 146.9 BUN/Creatinine Ratio 26 (6-20) Glucose Level 113 mg/dL (70-99) Calcium Level 9.4 mg/dL (8.5-10.1) Total Bilirubin 0.2 mg/dL (0.2-1.0) Aspartate Amino Transf (AST/SGOT) 13 U/L (15-37) Alanine Aminotransferase (ALT/SGPT) 19 U/L (14-59) Alkaline Phosphatase 99 U/L (46-116) Total Protein 6.5 g/dL (6.4-8.2) Albumin 2.9 g/dL (3.4-5.0) Albumin/Globulin Ratio 0.8 (1.0-1.7) Test 01/05/19 07:58 Glucose (Fingerstick) 145 mg/dL (70-99) Micro ANAEROBIC RES 1 PENDING AEROBIC CULT Preliminary Preliminary report AEROBIC RES 1 Preliminary Comment No growth in 36 - 48 hours. 12/30. [facility] AEROBIC RES 1 Final Staphylococcus aureus AEROBIC RES 2 Final Mixed skin catalina Antibiotic RSLT#1 Ciprofloxacin S<=0.5 Clindamycin S<=0.25 Erythromycin R>=8 Gentamicin S<=0.5 Levofloxacin S =0.25 Linezolid S =2 Moxifloxacin S<=0.25 Oxacillin S =1 Penicillin R>=0.5 Quinupristin/Dalfopristin S<=0.25 Rifampin S<=0.5 Tetracycline S<=1 Trimethoprim/Sulfa S<=10 Vancomycin S =1 GRAM STAIN RESULT 2 Final Comment Many gram positive cocci. GRAM STAIN RESULT 3 Final Comment Small amount of yeast seen. Objective Assessment Buttock abscess, status post I and D on 01/02. culture neg so far MSSA from 12/30 ([facility]), failed Bactrim. Yeast skin rash. History of positive methicillin-resistant Staphylococcus aureus screen. Obesity. Diabetes. Plan Plan of Care Continue Zyvox and fluconazole Wound care per Gen surg/wound team Attending Co-Sign The patient was seen and interviewed as well as examined at the bedside. The chart was reviewed. The case was discussed. Agree with the plan of care. DANA CUELLAR APRN Jan 05, 2019 11:07 GLORIA LUCAS MD Jan 05, 2019 11:21
[2019-01-05 11:40] VITALS: BP 122/76
[2019-01-05] MEDS: POLYETHYLENE GLYCOL 3350 17 GM PACKET. PO SCH (12:11)
[2019-01-05] MEDS: MULTIVITAMIN with MINERAL TABLET. PO SCH (12:12)
[2019-01-05] MEDS: FLUCONAZOLE 100 MG TABLET. PO SCH (12:12)
[2019-01-05] MEDS: LACTOBACILLUS RHAMNOSUS GG 1 CAPSULE. PO SCH ×2 (12:12→21:00)
[2019-01-05] MEDS: DOCUSATE SODIUM 100 MG CAPSULE. PO SCH ×2 (12:12→21:00)
[2019-01-05] MEDS: metFORMIN 500 MG TABLET PO SCH ×2 (12:13→17:05)
[2019-01-05] MEDS: METOPROLOL TART IMMED RELEASE 25 MG TABLET. PO SCH (12:13)
[2019-01-05] MEDS: LINEZOLID 600 MG TABLET PO SCH ×2 (12:13→21:00)
[2019-01-05] MEDS: ENOXAPARIN 40 MG/0.4 ML SYRINGE. SQ SCH (12:18)
[2019-01-05 15:15] VITALS: BP 125/77
[2019-01-05] MEDS: LURASIDONE 40 MG TABLET. PO SCH (17:45)
[2019-01-05 19:00] VITALS: BP_SYST 136; BP_SYST 95; BP_DIAS 52; BP_DIAS 81
[2019-01-05] MEDS: FLUoxetine HCL 20 MG CAPSULE PO SCH (21:00)
[2019-01-05] MEDS: INSULIN GLARGINE SYRINGE. SQ SCH (21:05)
[2019-01-05 23:07] VITALS: BP 96/58
[2019-01-06 03:54] VITALS: BP 137/73
[2019-01-06] MEDS: oxyCODONE/APAP 5/325 1 TAB TABLET PO PRN ×3 (03:54→13:42)
[2019-01-06] MEDS: HYDROmorphone 2 MG/ML VIAL IV PRN ×2 (04:21→11:05)
[2019-01-06 07:00] VITALS: BP 107/65
[2019-01-06] MEDS: INSULIN LISPRO 300 UNITS/3 ML VIAL. SQ SCH ×2 (08:00→12:00)
--- NOTE | 2019-01-06 08:45 | PDOC ---
SURGICAL PROGRESS NOTE Subjective pain persists tolerating diet Vital Signs Vital Signs Date Time Temp Pulse Resp B/P (MAP) Pulse Ox O2 Delivery O2 Flow Rate FiO2 01/06/19 07:00 98.1 79 18 107/65 (79) 99 Room Air 98.1 01/05/19 07:46 8.0 I&O Intake and Output 01/06/19 06:59 Intake Total 240 ml Balance 240 ml Intake Oral 240 ml # Voids 1 General: Alert, Cooperative Skin: Other (vac in place) Labs Laboratory Tests Test 01/04/19 11:23 01/04/19 16:42 01/04/19 20:20 01/05/19 05:15 Glucose (Fingerstick) 170 mg/dL (70-99) 141 mg/dL (70-99) 226 mg/dL (70-99) White Blood Count 4.2 x10^3/uL (4.0-11.0) Red Blood Count 3.75 x10^6/uL (3.50-5.40) Hemoglobin 11.5 g/dL (12.0-15.5) Hematocrit 33.9 % (36.0-47.0) Mean Corpuscular Volume 90 fL (79-100) Mean Corpuscular Hemoglobin 31 pg (25-35) Mean Corpuscular Hemoglobin Concent 34 g/dL (31-37) Red Cell Distribution Width 14.1 % (11.5-14.5) Platelet Count 264 x10^3/uL (140-400) Sodium Level 140 mmol/L (136-145) Potassium Level 3.8 mmol/L (3.5-5.1) Chloride Level 102 mmol/L (98-107) Carbon Dioxide Level 29 mmol/L (21-32) Anion Gap 9 (6-14) Blood Urea Nitrogen 13 mg/dL (7-20) Creatinine 0.5 mg/dL (0.6-1.0) Estimated GFR (Cockcroft-Gault) 146.9 BUN/Creatinine Ratio 26 (6-20) Glucose Level 113 mg/dL (70-99) Calcium Level 9.4 mg/dL (8.5-10.1) Total Bilirubin 0.2 mg/dL (0.2-1.0) Aspartate Amino Transf (AST/SGOT) 13 U/L (15-37) Alanine Aminotransferase (ALT/SGPT) 19 U/L (14-59) Alkaline Phosphatase 99 U/L (46-116) Total Protein 6.5 g/dL (6.4-8.2) Albumin 2.9 g/dL (3.4-5.0) Albumin/Globulin Ratio 0.8 (1.0-1.7) Test 01/05/19 07:58 01/05/19 11:43 01/05/19 14:06 01/05/19 17:10 Glucose (Fingerstick) 145 mg/dL (70-99) 307 mg/dL (70-99) 150 mg/dL (70-99) 116 mg/dL (70-99) Test 01/05/19 20:50 01/06/19 03:35 01/06/19 04:07 01/06/19 07:31 Glucose (Fingerstick) 167 mg/dL (70-99) 51 mg/dL (70-99) 119 mg/dL (70-99) 129 mg/dL (70-99) Laboratory Tests Test 01/05/19 11:43 01/05/19 14:06 01/05/19 17:10 01/05/19 20:50 Glucose (Fingerstick) 307 mg/dL (70-99) 150 mg/dL (70-99) 116 mg/dL (70-99) 167 mg/dL (70-99) Test 01/06/19 03:35 01/06/19 04:07 01/06/19 07:31 Glucose (Fingerstick) 51 mg/dL (70-99) 119 mg/dL (70-99) 129 mg/dL (70-99) Problem List Problems Medical Problems: (1) Diabetes Status: Chronic (2) Skin yeast infection Status: Acute Assessment/Plan continue wound care JUANA PIZANO APRN Jan 06, 2019 08:45
[2019-01-06] MEDS ORDERED: ENOXAPARIN 40 MG/0.4 ML SYRINGE. SQ SCH (09:00)
[2019-01-06] MEDS: metFORMIN 500 MG TABLET PO SCH (09:00)
[2019-01-06] MEDS: FLUCONAZOLE 100 MG TABLET. PO SCH (09:00)
[2019-01-06] MEDS: METOPROLOL TART IMMED RELEASE 25 MG TABLET. PO SCH (09:01)
[2019-01-06] MEDS: LINEZOLID 600 MG TABLET PO SCH (09:01)
[2019-01-06] MEDS: MULTIVITAMIN with MINERAL TABLET. PO SCH (09:01)
[2019-01-06] MEDS: DOCUSATE SODIUM 100 MG CAPSULE. PO SCH (09:01)
[2019-01-06] MEDS: POLYETHYLENE GLYCOL 3350 17 GM PACKET. PO SCH (09:03)
[2019-01-06] MEDS ORDERED: OXYC1TAB15 PO (10:59)
[2019-01-06 11:00] VITALS: BP 124/77
--- NOTE | 2019-01-06 11:02 | SNU/HH DC ---
DISCHARGE WITH HOME HEALTH DISCHARGE INFORMATION: Discharge Date: Jan 06, 2019 Final Diagnosis: Problems Medical Problems: (1) Diabetes Status: Chronic (2) Skin yeast infection Status: Acute Condition on Discharge: Stable CODE STATUS: Code Status: Full HOME HEALTH: Face to Face: I certify this patient is under my care and that I, or a nurse practitioner or physician's clinical education assistant working with me, had a face to face encounter that meets the physician face to face encounter requirements with this patient on 01/06/19 Medical Complications: Other RN For Eval/Treatment: Yes Pt Meets Homebound Status: Other: POST DISCHARGE ORDERS: Activity Instructions for Disc: Resume previous activity DIET AFTER DISCHARGE: ADA Wound/Incision Care: Other, see below Other wound/incision instructi: the nurse change wound vac three times per week TREATMENT/EQUIPMENT ORDERS: Adaptive Equipment Issued: None CERTIFICATION STATEMENT: Certification Statement: Certification Statement: Based on the above finding, I certify that this patient is confined to the home and needs intermittent fci care, physical therapy and/or speech therapy, or continues to need occupational therapy.~ This patient is under my care, and I have initiated the establishment of the plan of care.~ This patient will be followed by myself or a community physician who will periodically review the plan of care. DONA WHITE MD Jan 06, 2019 11:02
--- NOTE | 2019-01-06 11:04 | PDOC ---
Infectious Disease Note Subjective Subjective Sore, otherwise doing alright Denies F/C/S/N/V/D Vital Sign Vital Signs Vital Signs Date Time Temp Pulse Resp B/P (MAP) Pulse Ox O2 Delivery O2 Flow Rate FiO2 01/06/19 09:03 Room Air 01/06/19 09:03 79 107/65 01/06/19 07:00 98.1 18 99 98.1 01/05/19 07:46 8.0 Physical Exam PHYSICAL EXAM GENERAL: Lying down, awake, NAD HEENT: Oral cavity, pharynx is clear. NECK: Supple. Good range of motion. LUNGS: Clear to auscultation bilaterally. HEART: S1, S2. ABDOMEN: Morbidly obese, soft, nontender SKIN: Left buttock wound vac in place, no area redness or induration NEUROLOGIC: Nonfocal. PIV Labs Lab Laboratory Tests Test 01/05/19 11:43 01/05/19 14:06 01/05/19 17:10 01/05/19 20:50 Glucose (Fingerstick) 307 mg/dL (70-99) 150 mg/dL (70-99) 116 mg/dL (70-99) 167 mg/dL (70-99) Test 01/06/19 03:35 01/06/19 04:07 01/06/19 07:31 Glucose (Fingerstick) 51 mg/dL (70-99) 119 mg/dL (70-99) 129 mg/dL (70-99) Micro Microbiology 01/02/19 Anaerobic/Aerobic Culture, Resulted Pending 01/02/19 Anaerobic Culture Result 1 (EDWIN), Resulted Pending 01/02/19 Aerobic Culture - Final, Resulted 01/02/19 Aerobic Culture Result 1 (EDWIN) - Final, Resulted 01/02/19 Gram Stain - Final, Resulted 01/02/19 Gram Stain Result 1 (EDWIN) - Final, Resulted 01/02/19 Gram Stain Result 2 (EDWIN) - Final, Resulted Objective Assessment Buttock abscess, status post I and D on 01/02. culture neg so far MSSA from 12/30 ([facility]), failed Bactrim. Yeast skin rash. History of positive methicillin-resistant Staphylococcus aureus screen. Obesity. Diabetes. Plan Plan of Care d/c on po augmentin wound care as per surgery GLORIA LUCAS MD Jan 06, 2019 11:04
[2019-01-06] MEDS: LACTOBACILLUS RHAMNOSUS GG 1 CAPSULE. PO SCH (11:05)
--- NOTE | 2019-01-06 11:29 | DS ---
DATE OF DISCHARGE: HOSPITAL COURSE: The patient is sitting on the edge of the bed comfortably in no apparent distress, awake, alert, continued to complain of pain in her left gluteal area. She has a wound VAC in place; however, she is hemodynamically stable, afebrile, and decision was made to discharge her home with home health to continue with wound VAC. Continue with oral antibiotic in the form of Augmentin. She will be discharged home with home health to continue with wound VAC. Continue with oral antibiotic. Continue with pain management. PHYSICAL EXAMINATION: GENERAL: When I examined her this morning, she looked well and was clearly in no apparent respiratory distress. No pallor, jaundice, cyanosis or thyromegaly. No jugular venous distention or limb edema. VITAL SIGNS: Her heart rate was 79, blood pressure was 107/65, temperature was 98.1, respiratory rate was 18 and oxygen saturation was 99%. HEAD, EYES, EARS, NOSE AND THROAT: Showed normocephalic, atraumatic. NECK: Supple. HEART: Showed normal first and second heart sounds. No gallop. No rub or murmur. CHEST: Clear to auscultation. No crepitation or rhonchi. ABDOMEN: Distended, soft, nontender. No guarding or rigidity. No organomegaly. All hernial orifice intact. Bowel sounds normal. NEUROLOGIC: She was awake, alert, responding appropriately. All cranial nerves intact. She moves extremities without difficulty. She ambulates without assistance or assistive devices. Her intake and output are incompletely recorded. LABORATORY DATA: Showed her white cell count was 4200, hemoglobin 11.5, hematocrit 33.9, MCV 90 and platelet count 264,000. Her chemistry showed a serum sodium 140, potassium 3.8, chloride 102, bicarbonate 29, anion gap of 9, BUN 13, creatinine 0.5, estimated GFR was 146 mL per minute. Her glucose was 113, calcium was 9.4. Total bilirubin, AST, ALT, alkaline phosphatase were normal. Total protein was 6.5, albumin 2.9. DISCHARGE MEDICATIONS: The patient was discharged home to continue on Augmentin 875 mg twice a day, multivitamin 1 tablet once a day, oxycodone/APAP 5/325 one to two tablets every 4 hours as needed, metoprolol tartrate 25 mg daily, Lantus insulin 80 units at bedtime, fluoxetine 80 mg at bedtime, metformin 1000 mg twice a day, Latuda 120 mg once a day. FINAL DISCHARGE DIAGNOSES: 1. Left buttock abscess, status post surgical incision and drainage. Cultures have grown methicillin-resistant Staphylococcus aureus as well as some yeast. She was on Zyvox and fluconazole and was discharged on p.o. Augmentin. 2. She has multiple other medical problems including: A. Type 2 diabetes mellitus. B. Factor V Leiden with history of deep vein thrombosis twice before. C. Bipolar disorder. DONA WHITE MD DR: NAVEED/bhavik JOB#: [id number] / [id number]
[2019-01-06 15:00] VITALS: BP 117/71
--- NOTE | 2019-01-06 15:21 | NUR ---
Wound Care: Pt to DC home today with home vac, consent signed. Vac dressing care education provided, no concerns. DC instructions described in packet. Pictured and measured (see detailed assessment). ashly AG packed into wound base, one piece of black foam, bridged to L anterior thigh. Will follow up with pt in clinic.
--- NOTE | 2019-01-06 15:51 | NUR ---
Discharge Note: NELDA SMALLWOOD [address] Discharge instructions and discharge home medications reviewed with Patient and a copy given. All questions have been answered and understanding verbalized. The following instructions and handouts were given: patient visit report, medication information, education. Discontinued lines and drains: peripheral IV, tip intact. Patient discharged to home with home health via private vehicle. Patient left unit awake, in stable condition with all personal belongings.
== END 2019-01-06 15:41 | disposition home health service (06) | DRG 571 ==
LOC: 5 SOUTH 16:27
PROVIDERS: ADMIT Internal Medicine; ATTEND Internal Medicine
PROC: 0JB90ZZ Excision of Buttock Subcutaneous Tissue and Fascia, Open Approach (ICD-10-PCS; principal; 2019-01-02 10:30)
DX: L02.31 Cutaneous abscess of buttock (principal); D68.51 Activated protein C resistance; L03.317 Cellulitis of buttock; B37.2 Candidiasis of skin and nail; E11.9 Type 2 diabetes mellitus without complications; E66.01 Morbid (severe) obesity due to excess calories; F31.9 Bipolar disorder, unspecified; Z86.718 Personal history of other venous thrombosis and embolism; Z87.74 Personal history of (corrected) congenital malformations of heart and circulatory system; Z87.891 Personal history of nicotine dependence; Z68.32 Body mass index [BMI] 32.0-32.9, adult; Z88.8 Allergy status to other drugs, medicaments and biological substances; Z91.040 Latex allergy status; Z86.14 Personal history of Methicillin resistant Staphylococcus aureus infection; Z79.4 Long term (current) use of insulin; Z79.899 Other long term (current) drug therapy
CPT/HCPCS: 36415; 80053; 80202; 82565; 82962; 84703; 85027; 87071; 87075; A7015; J1100; J1170; J1650; J1815; J1885; J2001; J2250; J2270; J2405; J2704; J3010; J3370; J3490; J7030; J7040; J7120; A4461; G0378

== ENCOUNTER 2019-01-16 16:49 | Inpatient (IN) | payer OTHER ==
[~2019-01-16] VITALS: Ht 180.3 cm; Wt 97.1 kg
[~2019-01-16 16:49] MED LIST: OXYC1TAB15 PO
[2019-01-16] MEDS ORDERED: INSULIN REGULAR 100 UNIT/ML 3ML VIAL. IV STA (17:14)
[2019-01-16] MEDS ORDERED: IV NORMAL SALINE 1000ML BAG 1,000 ML IV ONE ×2 (17:15→17:45)
--- NOTE | 2019-01-16 17:30 | PHYS DOC ---
Adult General Chief Complaint Chief Complaint: BLOOD SUGAR PROBLEM HPI HPI Patient is a 28 year old female who presents with shortness of breath, hyperglycemia, and tachycardia. She states that she woke up this morning her blood sugar was in the 200s and states his been going up all day long. The patient states taking her insulin at home she's post 2. The patient states he started feeling short of breath. The patient states she is been treated for a pressure ulcer on her behind and states she has a wound VAC attached her at this time for that. The patient also states she has a history of pulmonary embolisms and has factor V. She is not currently on any blood thinners. Review of Systems Review of Systems Constitutional: Denies fever or chills [] Eyes: Denies change in visual acuity, redness, or eye pain [] HENT: Denies nasal congestion or sore throat [] Respiratory: Reports shortness of breath [] Cardiovascular: No additional information not addressed in HPI [] GI: Denies abdominal pain, Reports nausea, vomiting, and diarrhea [] : Denies dysuria or hematuria [] Musculoskeletal: Denies back pain or joint pain [] Integument: Denies rash or skin lesions [] Neurologic: Denies headache, focal weakness or sensory changes [] Endocrine: Denies polyuria or polydipsia [] Complete systems were reviewed and found to be within normal limits, except as documented in this note. Current Medications Current Medications Current Medications Medications (Trade) Dose Ordered Sig/[facility] Start Time Stop Time Status Last Admin Dose Admin Enoxaparin Sodium (Lovenox 100mg Syringe) 100 mg 1X STAT 01/16/19 17:50 01/16/19 17:57 DC 01/16/19 18:10 100 MG Insulin Human Regular (HumuLIN R VIAL) 5 unit 1X STAT 01/16/19 17:14 01/16/19 17:19 DC 01/16/19 17:42 5 UNIT Ondansetron HCl (Zofran) 4 mg STK-MED ONCE 01/16/19 17:37 01/16/19 17:37 DC Sodium Chloride 1,000 ml @ 100 mls/hr Q10H 01/16/19 17:57 01/16/19 18:45 DC Allergies Allergies Allergies Coded Allergies Type Severity Reaction Last Updated Verified latex Allergy Intermediate 01/01/19 Yes lisinopril Allergy Intermediate 01/01/19 Yes quetiapine Allergy Intermediate 01/01/19 Yes warfarin Allergy Intermediate 01/01/19 Yes Physical Exam Physical Exam Constitutional: Well developed, well nourished, acute distress, toxic appearance. [] HENT: Normocephalic, atraumatic, bilateral external ears normal, oropharynx moist, no oral exudates, nose normal. [] Eyes: PERRLA, EOMI, conjunctiva normal, no discharge. [] Neck: Normal range of motion, no tenderness, supple, no stridor. [] Cardiovascular:Heart rate regular rhythm but tachycardic, no murmur [] Lungs & Thorax: Bilateral breath sounds clear to auscultation [] Abdomen: Bowel sounds normal, soft, no tenderness, no masses, no pulsatile masses. [] Skin: Warm, dry, no erythema, no rash. [] Back: No tenderness, no CVA tenderness. [] Extremities: No tenderness, no cyanosis, no clubbing, ROM intact, no edema. [] Neurologic: Alert and oriented X 3, normal motor function, normal sensory function, no focal deficits noted. [] Psychologic: Affect normal, judgement normal, mood normal. [] Current Patient Data Vital Signs Vital Signs Date Time Temp Pulse Resp B/P (MAP) Pulse Ox O2 Delivery O2 Flow Rate FiO2 01/16/19 17:34 114 115/71 (86) 99 Room Air 01/16/19 17:00 98.1 36 98.1 Lab Values Laboratory Tests Test 01/16/19 17:04 01/16/19 17:10 01/16/19 17:14 Glucose (Fingerstick) 456 mg/dL (70-99) H White Blood Count 6.2 x10^3/uL (4.0-11.0) Red Blood Count 4.52 x10^6/uL (3.50-5.40) Hemoglobin 13.9 g/dL (12.0-15.5) Hematocrit 41.3 % (36.0-47.0) Mean Corpuscular Volume 91 fL (79-100) Mean Corpuscular Hemoglobin 31 pg (25-35) Mean Corpuscular Hemoglobin Concent 34 g/dL (31-37) Red Cell Distribution Width 14.0 % (11.5-14.5) Platelet Count 304 x10^3/uL (140-400) Neutrophils (%) (Auto) 67 % (31-73) Lymphocytes (%) (Auto) 25 % (24-48) Monocytes (%) (Auto) 8 % (0-9) Eosinophils (%) (Auto) 1 % (0-3) Basophils (%) (Auto) 1 % (0-3) Neutrophils # (Auto) 4.1 x10^3/uL (1.8-7.7) Lymphocytes # (Auto) 1.5 x10^3/uL (1.0-4.8) Monocytes # (Auto) 0.5 x10^3/uL (0.0-1.1) Eosinophils # (Auto) 0.0 x10^3/uL (0.0-0.7) Basophils # (Auto) 0.0 x10^3/uL (0.0-0.2) Prothrombin Time 12.9 SEC (11.7-14.0) Prothrombin Time INR 1.0 (0.8-1.1) Activated Partial Thromboplast Time 27 SEC (24-38) Sodium Level 131 mmol/L (136-145) L Potassium Level 3.9 mmol/L (3.5-5.1) Chloride Level 96 mmol/L (98-107) L Carbon Dioxide Level 13 mmol/L (21-32) L Anion Gap 22 (6-14) H Blood Urea Nitrogen 8 mg/dL (7-20) Creatinine 1.4 mg/dL (0.6-1.0) H Estimated GFR (Cockcroft-Gault) 44.8 BUN/Creatinine Ratio 6 (6-20) Glucose Level 464 mg/dL (70-99) H Lactic Acid Level 10.1 mmol/L (0.4-2.0) *H Calcium Level 9.7 mg/dL (8.5-10.1) Total Bilirubin 0.4 mg/dL (0.2-1.0) Aspartate Amino Transferase (AST) 12 U/L (15-37) L Alanine Aminotransferase (ALT) 24 U/L (14-59) Alkaline Phosphatase 118 U/L (46-116) H Total Protein 8.0 g/dL (6.4-8.2) Albumin 3.8 g/dL (3.4-5.0) Albumin/Globulin Ratio 0.9 (1.0-1.7) L Serum Test, Qualitative Negative (NEG) Acetone Level Sm pos (NEG) O2 Saturation 99 % (92-99) Arterial Blood pH 7.44 (7.35-7.45) Arterial Blood pCO2 at Patient Temp 22 mmHg (35-46) L Arterial Blood pO2 at Patient Temp 116 mmHg (85-108) H Arterial Blood HCO3 14 mmol/L (21-28) L Arterial Blood Base Excess -8 mmol/L (-3-3) L Oxyhemoglobin 97.6 % Methemoglobin 0.2 % (0.0-1.9) Carbon Monoxide, Quantitative 0.8 % (0.0-1.9) FiO2 Room air Laboratory Tests 01/16/19 17:10 Laboratory Tests 01/16/19 17:10 EKG EKG EKG interpreted by Dr. Parrish Sinus tachycardia with rate of 128. No STEMI.[] Radiology/Procedures Radiology/Procedures [] Course & Med Decision Making Course & Med Decision Making Pertinent Labs and Imaging studies reviewed. (See chart for details) Patient has hx of PE with factor V and is tachycardic with shortness of breath--Will get CT angio. Patient has hx of DKA with Type 1 Diabetes and BS of 456 will get Labs, ABG, and give fluids/insulin. Patient is currently being treated for infection with wound vac will get labs and lactic. Labs: WBC is 6.2, Lactic acid is 10.1 likely elevated due to DKA., Acetone is positive, CO2 is 13, Gap is 22, Glucose is [address] angio due to GFR of 44.8. Will order V/Q scan and start on Lovenox overnight. Discussed case with Dr. Faye and he accepts admission to ICU at 1800. Dragon Disclaimer Dragon Disclaimer This electronic medical record was generated, in whole or in part, using a voice recognition dictation system. Departure Departure Impression: Primary Impression: DKA (diabetic ketoacidoses) Disposition: 09 ADMITTED INPATIENT Admitting Physician: AMMY Condition: CRITICAL Referrals: CLARISSA COLLADO MD (PCP) HAYES ROJAS APRN Jan 16, 2019 17:30
[2019-01-16 17:31] LABS: BASO % 1 % (0-3); EOS % 1 % (0-3); HEMATOCRIT 41.3 % (36.0-47.0); HEMOGLOBIN 13.9 g/dL (12.0-15.5); LYMPH # 1.5 x10^3/uL (1.0-4.8); LYMPH % 25 % (24-48); MEAN CORPUSCULAR HEMOGLOBIN 31 pg (25-35); MEAN CORPUSCULAR HGB CONC 34 g/dL (31-37); MEAN CORPUSCULAR VOLUME 91 fL (79-100); MONO # 0.5 x10^3/uL (0.0-1.1); MONO % 8 % (0-9); NEUT # 4.1 x10^3/uL (1.8-7.7); NEUT % 67 % (31-73); PLATELET COUNT 304 x10^3/uL (140-400); RED BLOOD COUNT 4.52 x10^6/uL (3.50-5.40); WHITE BLOOD COUNT 6.2 x10^3/uL (4.0-11.0)
[2019-01-16] MEDS ORDERED: ONDANSETRON PF 4 MG/2 ML VIAL. ONE (17:37)
[2019-01-16 17:41] LABS: PROTHROMBIN TIME PATIENT 12.9 SEC (11.7-14.0)
[2019-01-16 17:42] LABS: ANION GAP 22 (6-14); BLOOD UREA NITROGEN 8 mg/dL (7-20); BUN/CREATININE RATIO 6 (6-20); CALCIUM 9.7 mg/dL (8.5-10.1); CARBON DIOXIDE 13 mmol/L (21-32); CHLORIDE 96 mmol/L (98-107); CREATININE 1.4 mg/dL (0.6-1.0); GFR 44.8; GLUCOSE 464 mg/dL (70-99); POTASSIUM 3.9 mmol/L (3.5-5.1); SODIUM 131 mmol/L (136-145)
[2019-01-16 17:43] LABS: PREG TEST PT QUAL NEGATIVE (NEG)
[2019-01-16] MEDS ORDERED: ONDANSETRON PF 4 MG/2 ML VIAL. IV ONE (17:45)
[2019-01-16 17:47] LABS: ALBUMIN 3.8 g/dL (3.4-5.0); ALBUMIN/GLOBULIN RATIO 0.9 (1.0-1.7); ALK PHOS 118 U/L (46-116); AST (SGOT) 12 U/L (15-37); TOTAL BILIRUBIN 0.4 mg/dL (0.2-1.0)
[2019-01-16] MEDS ORDERED: IV NORMAL SALINE 1000ML BAG 1,000 ML IV SCH ×2 (17:57→18:45)
[2019-01-16] MEDS ORDERED: MORPHINE SULFATE 2 MG/ML VIAL. IV PRN (18:00)
[2019-01-16] MEDS ORDERED: INSULIN,REGULAR 150 UNIT DRIP 150 ML IV ONE (18:00)
[2019-01-16] MEDS ORDERED: ONDANSETRON PF 4 MG/2 ML VIAL. IV PRN (18:00)
[2019-01-16 18:14] LABS: ALT (SGPT) 24 U/L (14-59)
[2019-01-16 19:00] VITALS: BP 129/70
[2019-01-16 19:15] VITALS: BP 117/66
[2019-01-16 19:30] VITALS: BP 90/50
[2019-01-16 19:45] VITALS: BP 117/73
[2019-01-16] MEDS: MORPHINE SULFATE 4 MG/ML VIAL. IV PRN ×2 (19:49→23:01)
--- NOTE | 2019-01-16 19:51 | PDOC1 ---
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 She states that she woke up this morning her blood sugar was in the 200s and states his been going up all day long. She also notes on ROS that she has central sharp chest pain with associated shortness of breath. The patient states she is been treated for a pressure ulcer on her behind and She developed gluteal pain approximately 12/27/18 and was admitted to [facility], underwent outpatient I and D x 2. Failed bactrim outpatient therapy and came to [facility], 01/02 underwent I and D in the operating room by Dr. Iqbal. Cultures collected from the 12/30 operation show no growth. She continues to state her buttock wound had MRSA, she has just completed a course of augmentin. Upon review of cultures at [facility] this was MSSA, sensitive to augmentin. 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 In ED notably tachycardic in the 120s with glucose> 400 and HCO2 of 13, gap of 22. Cr 1.4 and Lactate of 10.1. Afebrile. Past Medical History Cardiovascular: No pertinent hx Pulmonary: No pertinent hx GI: No pertinent hx Heme/Onc: Other (FV) Hepatobiliary: No pertinent hx Psych: No pertinent hx Rheumatologic: No pertinent hx Infectious disease: No pertinent hx ENT: No pertinent hx Renal/: No pertinent hx Endocrine: Diabetes Dermatology: No pertinent hx Past Surgical History Past Surgical History: , Other (VSD repair) Family History Family History: Other Social History Smoke: No ALCOHOL: rare Drugs: None Current Medications Current Medications Current Medications Sodium Chloride 1,000 ml @ 1,000 mls/hr 1X ONCE IV Last administered on 01/16/19at 17:41; Start 01/16/19 at 17:15; Stop 01/16/19 at 18:14; Status DC Insulin Human Regular (HumuLIN R VIAL) 5 unit 1X STAT IV Last administered on 01/16/19at 17:42; Start 01/16/19 at 17:14; Stop 01/16/19 at 17:19; Status DC Sodium Chloride 1,000 ml @ 1,000 mls/hr 1X ONCE IV Last administered on 01/16/19at 17:41; Start 01/16/19 at 17:45; Stop 01/16/19 at 18:44; Status DC Ondansetron HCl (Zofran) 4 mg 1X ONCE IV Last administered on 01/16/19at 17:41; Start 01/16/19 at 17:45; Stop 01/16/19 at 17:46; Status DC Ondansetron HCl (Zofran) 4 mg STK-MED ONCE .ROUTE ; Start 01/16/19 at 17:37; Stop 01/16/19 at 17:37; Status DC Enoxaparin Sodium (Lovenox 100mg Syringe) 100 mg 1X STAT SQ Last administered on 01/16/19at 18:10; Start 01/16/19 at 17:50; Stop 01/16/19 at 17:57; Status DC Insulin Human Regular 150 ml @ 0 mls/hr 1X ONCE IV Last administered on 01/16/19at 18:23; Start 01/16/19 at 18:00; Stop 01/16/19 at 18:01; Status DC Ondansetron HCl (Zofran) 4 mg PRN Q8HRS PRN IV NAUSEA/VOMITING; Start 01/16/19 at 18:00; Stop 01/17/19 at 17:59 Morphine Sulfate (Morphine Sulfate) 2 mg PRN Q2HR PRN IV PAIN Last administered on 01/16/19at 18:10; Start 01/16/19 at 18:00; Stop 01/17/19 at 17:59 Sodium Chloride 1,000 ml @ 100 mls/hr Q10H IV ; Start 01/16/19 at 17:57; Stop 01/16/19 at 18:45; Status DC Sodium Chloride 1,000 ml @ 250 mls/hr Q4H IV ; Start 01/16/19 at 18:45 Morphine Sulfate (Morphine Sulfate) 4 mg PRN Q3HRS PRN IV MODERATE TO SEVERE PAIN; Start 01/16/19 at 19:45 Potassium Chloride/Water 100 ml @ 100 mls/hr Q1H IV ; Start 01/16/19 at 20:00; Stop 01/16/19 at 23:59 Active Scripts Active Percocet 5-325 Mg Tablet (Oxycodone/Acetaminophen) 1 Each Tablet 1 Tab PO Q4H PRN 10 Days Allergies Allergies: Coded Allergies: latex (Verified Allergy, Intermediate, 01/01/19) lisinopril (Verified Allergy, Intermediate, 01/01/19) quetiapine (Verified Allergy, Intermediate, 01/01/19) warfarin (Verified Allergy, Intermediate, 01/01/19) ROS General: YES: Fatigue, Malaise, Appetite; No: Chills, Night Sweats, Other PSYCHOLOGICAL ROS: YES: Anxiety; No: Behavioral Disorder, Concentration difficultie, Decreased libido, Depression, Disorientation, Hallucinations, Hostility, Irritablity, Memory difficulties, Mood Swings, Obsessive thoughts, Physical abuse, Sexual abuse, Sleep disturbances, Suicidal ideation, Other Eyes: No Blurry vision, No Decreased vision, No Double vision, No Dry eyes, No Excessive tearing, No Eye Pain, No Itchy Eyes, No Loss of vision, No Photophobia, No Scotomata, No Uses contacts, No Uses glasses, No Other HEENT: No: Heacaches, Visual Changes, Hearing change, Nasal congestion, Nasal discharge, Oral lesions, Sinus pain, Sore Throat, Epistaxis, Sneezing, Snoring, Tinnitus, Vertigo, Vocal changes, Other ALLERGY AND IMMUNOLOGY: No: Hives, Insect Bite Sensitivity, Itchy/Watery Eyes, Nasal Congestion, Post Nasal Drip, Seasonal Allergies, Other Hematological and Lymphatic: YES: Blood Clots; No: Bleeding Problems, Blood Transfusions, Brusing, Night Sweats, Pallor, Swollen Lymph Nodes, Other ENDOCRINE: No: Breast Changes, Galactorrhea, Hair Pattern Changes, Hot Flashes, Malaise/lethargy, Mood Swings, Palpitations, Polydipsia/polyuria, Skin Changes, Temperature Intolerance, Unexpected Weight Changes, Other Breast: No New/Changing Breast Lumps, No Nipple changes, No Nipple discharge, No Other Respiratory: YES: Cough, Shortness of breath; No: Hemoptysis, Orthopnea, Pleuritic Pain, SOB with excertion, Sputum Changes, Stridor, Tachypnea, Wheezing, Other Cardiovascular: yes Chest Pain; No Palpitations, No Orthopnea, No Paroxysmal Noc. Dyspnea, No Edema, No Lt Headedness, No Other Gastrointestinal: Yes Nausea, Yes Vomiting, Yes Abdominal Pain, Yes Diarrhea; No Constipation, No Melena, No Hematochezia, No Other Genitourinary: No Dysuria, No Frequency, No Incontinence, No Hematuria, No Retention, No Discharge, No Urgency, No Pain, No Flank Pain, No Other, No , No , No , No , No , No , No Musculoskeletal: No Gait Disturbance, No Joint Pain, No Joint Stiffness, No Joint Swelling, No Muscle Pain, No Muscular Weakness, No Pain In:, No Swelling In:, No Other Neurological: No Behavorial Changes, No Bowel/Bladder ControlChng, No Confusion, No Dizziness, No Gait Disturbance, No Headaches, No Impaired Coord/balance, No Memory Loss, No Numbness/Tingling, No Seizures, No Speech Problems, No Tremors, No Visual Changes, No Weakness, No Other Skin: Yes Rash, Yes Skin Lesion Changes; No Dry Skin, No Eczema, No Hair Changes, No Lumps, No Mole Changes, No Mottling, No Nail Changes, No Pruritus, No Other, No Acne Physical Exam General: Alert, Oriented X3, Cooperative, mild distress HEENT: Atraumatic, PERRLA, EOMI, Mucous membr. moist/pink Lungs: Clear to auscultation, Normal air movement Heart: S1S2, no gallops, no murmurs, other (Tachycardic) Abdomen: Normal bowel sounds, Soft, No tenderness, No hepatosplenomegaly, No masses Rectal Exam: not examined Extremities: No clubbing, No cyanosis, No edema, Normal pulses, No tenderness/swelling Skin: Other (Gluteal wound with wound vac in place) Neuro: Normal gait, Normal speech, Strength at 5/5 X4 ext, Normal tone, Sensation intact, Cranial nerves 3-12 NL, Reflexes 2+ Psych/Mental Status: Mood NL, Other (Unusual affect) Vitals Vitals Vital Signs Date Time Temp Pulse Resp B/P (MAP) Pulse Ox O2 Delivery O2 Flow Rate FiO2 01/16/19 18:40 20 98 Room Air 01/16/19 18:34 117/82 (94) 01/16/19 18:04 134 01/16/19 17:00 98.1 98.1 Labs Labs Laboratory Tests Test 01/16/19 17:04 01/16/19 17:10 01/16/19 18:12 01/16/19 19:00 Glucose (Fingerstick) 456 mg/dL (70-99) 425 mg/dL (70-99) 286 mg/dL (70-99) White Blood Count 6.2 x10^3/uL (4.0-11.0) Red Blood Count 4.52 x10^6/uL (3.50-5.40) Hemoglobin 13.9 g/dL (12.0-15.5) Hematocrit 41.3 % (36.0-47.0) Mean Corpuscular Volume 91 fL (79-100) Mean Corpuscular Hemoglobin 31 pg (25-35) Mean Corpuscular Hemoglobin Concent 34 g/dL (31-37) Red Cell Distribution Width 14.0 % (11.5-14.5) Platelet Count 304 x10^3/uL (140-400) Neutrophils (%) (Auto) 67 % (31-73) Lymphocytes (%) (Auto) 25 % (24-48) Monocytes (%) (Auto) 8 % (0-9) Eosinophils (%) (Auto) 1 % (0-3) Basophils (%) (Auto) 1 % (0-3) Neutrophils # (Auto) 4.1 x10^3/uL (1.8-7.7) Lymphocytes # (Auto) 1.5 x10^3/uL (1.0-4.8) Monocytes # (Auto) 0.5 x10^3/uL (0.0-1.1) Eosinophils # (Auto) 0.0 x10^3/uL (0.0-0.7) Basophils # (Auto) 0.0 x10^3/uL (0.0-0.2) Prothrombin Time 12.9 SEC (11.7-14.0) Prothromb Time International Ratio 1.0 (0.8-1.1) Activated Partial Thromboplast Time 27 SEC (24-38) Sodium Level 131 mmol/L (136-145) Potassium Level 3.9 mmol/L (3.5-5.1) Chloride Level 96 mmol/L (98-107) Carbon Dioxide Level 13 mmol/L (21-32) Anion Gap 22 (6-14) Blood Urea Nitrogen 8 mg/dL (7-20) Creatinine 1.4 mg/dL (0.6-1.0) Estimated GFR (Cockcroft-Gault) 44.8 BUN/Creatinine Ratio 6 (6-20) Glucose Level 464 mg/dL (70-99) Lactic Acid Level 10.1 mmol/L (0.4-2.0) Calcium Level 9.7 mg/dL (8.5-10.1) Total Bilirubin 0.4 mg/dL (0.2-1.0) Aspartate Amino Transf (AST/SGOT) 12 U/L (15-37) Alanine Aminotransferase (ALT/SGPT) 24 U/L (14-59) Alkaline Phosphatase 118 U/L (46-116) Total Protein 8.0 g/dL (6.4-8.2) Albumin 3.8 g/dL (3.4-5.0) Albumin/Globulin Ratio 0.9 (1.0-1.7) Serum Test, Qualitative Negative (NEG) Acetone Level Sm pos (NEG) Laboratory Tests Test 01/16/19 17:04 01/16/19 17:10 01/16/19 18:12 01/16/19 19:00 Glucose (Fingerstick) 456 mg/dL (70-99) 425 mg/dL (70-99) 286 mg/dL (70-99) White Blood Count 6.2 x10^3/uL (4.0-11.0) Red Blood Count 4.52 x10^6/uL (3.50-5.40) Hemoglobin 13.9 g/dL (12.0-15.5) Hematocrit 41.3 % (36.0-47.0) Mean Corpuscular Volume 91 fL (79-100) Mean Corpuscular Hemoglobin 31 pg (25-35) Mean Corpuscular Hemoglobin Concent 34 g/dL (31-37) Red Cell Distribution Width 14.0 % (11.5-14.5) Platelet Count 304 x10^3/uL (140-400) Neutrophils (%) (Auto) 67 % (31-73) Lymphocytes (%) (Auto) 25 % (24-48) Monocytes (%) (Auto) 8 % (0-9) Eosinophils (%) (Auto) 1 % (0-3) Basophils (%) (Auto) 1 % (0-3) Neutrophils # (Auto) 4.1 x10^3/uL (1.8-7.7) Lymphocytes # (Auto) 1.5 x10^3/uL (1.0-4.8) Monocytes # (Auto) 0.5 x10^3/uL (0.0-1.1) Eosinophils # (Auto) 0.0 x10^3/uL (0.0-0.7) Basophils # (Auto) 0.0 x10^3/uL (0.0-0.2) Prothrombin Time 12.9 SEC (11.7-14.0) Prothromb Time International Ratio 1.0 (0.8-1.1) Activated Partial Thromboplast Time 27 SEC (24-38) Sodium Level 131 mmol/L (136-145) Potassium Level 3.9 mmol/L (3.5-5.1) Chloride Level 96 mmol/L (98-107) Carbon Dioxide Level 13 mmol/L (21-32) Anion Gap 22 (6-14) Blood Urea Nitrogen 8 mg/dL (7-20) Creatinine 1.4 mg/dL (0.6-1.0) Estimated GFR (Cockcroft-Gault) 44.8 BUN/Creatinine Ratio 6 (6-20) Glucose Level 464 mg/dL (70-99) Lactic Acid Level 10.1 mmol/L (0.4-2.0) Calcium Level 9.7 mg/dL (8.5-10.1) Total Bilirubin 0.4 mg/dL (0.2-1.0) Aspartate Amino Transf (AST/SGOT) 12 U/L (15-37) Alanine Aminotransferase (ALT/SGPT) 24 U/L (14-59) Alkaline Phosphatase 118 U/L (46-116) Total Protein 8.0 g/dL (6.4-8.2) Albumin 3.8 g/dL (3.4-5.0) Albumin/Globulin Ratio 0.9 (1.0-1.7) Serum Test, Qualitative Negative (NEG) Acetone Level Sm pos (NEG) VTE Prophylaxis Ordered VTE Prophylaxis Devices: Yes VTE Pharmacological Prophylaxi: Yes Assessment/Plan Assessment/Plan A/P: DKA - with gap, hyperglcyemia, hyponatremia. Will start insulin GTT in ICU. DKA protocol Nausea/Vomiting/Diarrhea - possibly gastroenteritis, likely viral and possible etiology of her DKA Lactic acidosis - likely 2/2 DKA, but could be sign of sepsis, she does meet SIRS criteria, will trend Chest pain - with tachycardia and h/o VTE, will empirically treat for PE while awaiting VQ scan. After hydration she will likely be ok for CTPA. Will check echo as well, trend trops SIRS - with DANYEL as end organ dysfunction. It is not clearly sepsis as she is in DKA and it seems her gluteal wound is actually improved and resolving well. Culture blood x2, urine, wound DANYEL - cr 1.4, previously 0.5, likely vasomotor nephropathy from poor PO intake and DKA. Will hydrate aggressively Morbid obesity - counseled on weight loss, diet Diabetes - she is on metformin and high dose lantus outpatient. Unclear if she is actually type 2 Bipolar disorder - seems currently disorganized, manic. On trazodone, fluoxetine, and hydroxyzine outpatient. 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 Will try to obtain records. With prior DVT and PE if she is homozygous should be on lifelong anticoagulationio Gluteal wound - will consult wound care, culture wound. Empiric cefazolin after her cultures are obtained FEN - NPO for DKA PPX - therapeutic lovenox FULL CODE Dispo - ICU for DKA CC time 36 minutes JAMES KENT MD Jan 16, 2019 19:51
[2019-01-16] MEDS ORDERED: POTASSIUM CHLORIDE 10MEQ 100 ML IV SCH (20:00)
[2019-01-16] MEDS ORDERED: ACETAMINOPHEN 325 MG TABLET. PO PRN (20:15)
[2019-01-16] MEDS ORDERED: IV DEXTROSE 5% - 0.9 % NACL 1,000 ML IV SCH (20:30)
[2019-01-16 20:36] LABS: BASE EXCESS COOX -8 mmol/L (-3-3); HCO3 COOX 14 mmol/L (21-28); METHEMOGLOBIN 0.2 % (0.0-1.9); OXYHEMOGLOBIN 97.6 %; PCO2 COOX 22 mmHg (35-46); PO2 COOX 116 mmHg (85-108); SAT O2 COOX 99 % (92-99)
[2019-01-16] MEDS ORDERED: ZIPRASIDONE 20 MG CAPSULE PO PRN (20:45)
[2019-01-16] MEDS ORDERED: hydrOXYzine 25 MG TABLET PO PRN (20:45)
[2019-01-16 20:51] LABS: BILIRUBIN,URINE MODERATE (NEG); CLARITY,URINE CLEAR; COLOR,URINE YELLOW; NITRITE,URINE NEGATIVE (NEG); PROTEIN,URINE NEGATIVE (NEG-TRACE); UROBILINOGEN,URINE 0.2 mg/dL (0.2 mg/dL)
[2019-01-16 20:57] LABS: SQUAMOUS EPITHELIAL CELL,UR FEW /LPF
[2019-01-16 20:58] LABS: BACTERIA,URINE 0 /HPF (0-FEW); RBC,URINE 0 /HPF (0-2); YEAST,URINE PRESENT /HPF
[2019-01-16] MEDS: traZODone 100 MG TABLET. PO SCH (21:00)
[2019-01-16] MEDS ORDERED: INSULIN GLARGINE SYRINGE. SQ SCH (21:00)
--- NOTE | 2019-01-16 21:00 | NUR ---
Dr. Faye paged regarding pain medication and wound culture orders. Dr Stapleton ordered 4mg morphine Q3hrs and wanted to leave the wound vac on until wound care sees pt in the a.m. Wound vac removed due to battery dying and wet to dry dressing placed on pt wound.
[2019-01-16 21:18] LABS: CREATININE 0.9 mg/dL (0.6-1.0); GFR 74.6; MAGNESIUM 1.6 mg/dL (1.8-2.4); PHOSPHORUS 2.4 mg/dL (2.6-4.7); POTASSIUM 3.4 mmol/L (3.5-5.1)
[2019-01-16 21:23] LABS: BARBITURATES NEG (NEG); BENZODIAZEPINES NEG (NEG); CANNABINOIDS NEG (NEG); COCAINE NEG (NEG); METHADONE NEG (NEG); OPIATES POS (NEG); PHENCYCLIDINE NEG (NEG)
[2019-01-16 21:24] LABS: AMPHETAMINE/METHAMPHETAMINE NEG (NEG)
[2019-01-16 22:00] VITALS: BP 113/77
[2019-01-16] MEDS ORDERED: DEXTROSE 50% 25 GM / 50ML DISP.SYRIN. IV PRN (22:00)
[2019-01-16] MEDS: FLUoxetine HCL 20 MG CAPSULE PO SCH (22:11)
[2019-01-16] MEDS ORDERED: MAGNESIUM SULFATE 4GM 100 ML IV ONE (22:30)
[2019-01-16] MEDS: POTASSIUM CHLORIDE 10MEQ 100 ML IV SCH ×2 (22:37→23:54)
[2019-01-16] MEDS: INSULIN GLARGINE SYRINGE. SQ SCH (22:41)
[2019-01-16 23:00] VITALS: BP 105/81
[2019-01-16] MEDS: POTASSIUM & SODIUM PHOSPHATES PACKET. PO SCH (23:58)
[2019-01-17] VITALS (14 sets, daily range): BP systolic 106–186; BP diastolic 61–89
--- NOTE | 2019-01-17 | NUR ---
Dr. Faye Paged at 2330 regarding pt Gap closed. Dr. Faye returned page and ordered 40 units of Lantus now and to stop the insulin drip and fluid. Due to electrolyte imbalance, Dr. Faye ordered 40K, 4g Magnesium, and Potassium Phosphate oral powder to be given. Pt is currently stable will continue to monitor.
[2019-01-17] MEDS: POTASSIUM CHLORIDE 10MEQ 100 ML IV SCH ×4 (01:11→10:40)
[2019-01-17] MEDS: MORPHINE SULFATE 4 MG/ML VIAL. IV PRN ×7 (02:02→23:45)
[2019-01-17] MEDS ORDERED: MORPHINE SULFATE 4 MG/ML VIAL. IV ONE (03:00)
[2019-01-17] MEDS ORDERED: MORPHINE SULFATE 10 MG/ML VIAL. IV PRN (03:00)
[2019-01-17] MEDS: ONDANSETRON PF 4 MG/2 ML VIAL. IV PRN ×2 (03:44→17:09)
[2019-01-17 06:07] LABS: ALBUMIN 2.8 g/dL (3.4-5.0); CALCIUM 8.4 mg/dL (8.5-10.1); CREATININE 0.5 mg/dL (0.6-1.0); GFR 146.9; MAGNESIUM 2.1 mg/dL (1.8-2.4); PHOSPHORUS 3.9 mg/dL (2.6-4.7); POTASSIUM 3.6 mmol/L (3.5-5.1)
--- NOTE | 2019-01-17 06:14 | EKG ---
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
[2019-01-17] MEDS ORDERED: INFLUENZA VAX SCREEN BY RX. MC PRN (06:45)
[2019-01-17] MEDS: INSULIN LISPRO 300 UNITS/3 ML VIAL. SQ SCH ×3 (08:00→17:12)
[2019-01-17] MEDS ORDERED: FLU VAX QS 2019-20 (36MOS+)/PF 0.5 ML SYRINGE. VAX IM ONE (09:00)
--- NOTE | 2019-01-17 09:41 | RAD ---
Examination: LUNG VENT/PERFUSION SCAN(VQ) History: Chest pain, shortness of breath, dyspnea Comparison/Correlation: 01/16/2019 AP view of the chest Findings: 13 mCi xenon-133 gas was administered for ventilation imaging. Imaging in the anterior and posterior projections was performed. No ventilation defect identified. 5.5 mCi technetium 99m MAA was intravenously administered for perfusion imaging. Imaging was performed in 8 projections. No mismatch defects. No suspicious mass defect. Impression: Low probability for pulmonary embolism. Electronically signed by: Feng Rosa MD (01/17/2019 9:38 AM) [facility]
[2019-01-17] MEDS: POTASSIUM & SODIUM PHOSPHATES PACKET. PO SCH (09:43)
--- NOTE | 2019-01-17 09:45 | PDOC ---
PROGRESS NOTES Chief Complaint Chief Complaint DKA - with gap, h improved, off insulin gtt Nausea/Vomiting/Diarrhea - acute viral gastroenteritis, - improved Lactic acidosis - sepsis, improved, Chest pain VQ pending, still on lovenox, dm2 coag disorder well. [facility] DANYEL - vasomotor nephropathy and DKA. Bipolar disorder - seems currently disorganized, manic. On trazodone, fluoxetine, and hydroxyzine outpatient. Gluteal wound - will consult wound care, culture wound. Empiric cefazolin after her cultures are obtained History of Present Illness History of Present Illness feels better low blood sugar this AM, took 40 lantus, she reports not eating much last night, will try again transfer out of ICU wound care, may need wound vac Vitals Vitals Vital Signs Date Time Temp Pulse Resp B/P (MAP) Pulse Ox O2 Delivery O2 Flow Rate FiO2 01/17/19 09:00 94 16 123/77 (92) 100 Room Air 01/17/19 08:00 98.1 98.1 Physical Exam General: Alert, Oriented X3, Cooperative, mild distress Heart: Regular rate Abdomen: Normal bowel sounds, Soft, No tenderness, No hepatosplenomegaly, No masses Extremities: No clubbing, No cyanosis, No edema, Normal pulses, No tenderness/swelling Skin: Other (Gluteal wound with wound vac in place) Labs LABS Laboratory Tests Test 01/16/19 17:04 01/16/19 17:10 01/16/19 17:14 01/16/19 18:12 Glucose (Fingerstick) 456 mg/dL (70-99) 425 mg/dL (70-99) White Blood Count 6.2 x10^3/uL (4.0-11.0) Red Blood Count 4.52 x10^6/uL (3.50-5.40) Hemoglobin 13.9 g/dL (12.0-15.5) Hematocrit 41.3 % (36.0-47.0) Mean Corpuscular Volume 91 fL (79-100) Mean Corpuscular Hemoglobin 31 pg (25-35) Mean Corpuscular Hemoglobin Concent 34 g/dL (31-37) Red Cell Distribution Width 14.0 % (11.5-14.5) Platelet Count 304 x10^3/uL (140-400) Neutrophils (%) (Auto) 67 % (31-73) Lymphocytes (%) (Auto) 25 % (24-48) Monocytes (%) (Auto) 8 % (0-9) Eosinophils (%) (Auto) 1 % (0-3) Basophils (%) (Auto) 1 % (0-3) Neutrophils # (Auto) 4.1 x10^3/uL (1.8-7.7) Lymphocytes # (Auto) 1.5 x10^3/uL (1.0-4.8) Monocytes # (Auto) 0.5 x10^3/uL (0.0-1.1) Eosinophils # (Auto) 0.0 x10^3/uL (0.0-0.7) Basophils # (Auto) 0.0 x10^3/uL (0.0-0.2) Prothrombin Time 12.9 SEC (11.7-14.0) Prothromb Time International Ratio 1.0 (0.8-1.1) Activated Partial Thromboplast Time 27 SEC (24-38) Sodium Level 131 mmol/L (136-145) Potassium Level 3.9 mmol/L (3.5-5.1) Chloride Level 96 mmol/L (98-107) Carbon Dioxide Level 13 mmol/L (21-32) Anion Gap 22 (6-14) Blood Urea Nitrogen 8 mg/dL (7-20) Creatinine 1.4 mg/dL (0.6-1.0) Estimated GFR (Cockcroft-Gault) 44.8 BUN/Creatinine Ratio 6 (6-20) Glucose Level 464 mg/dL (70-99) Lactic Acid Level 10.1 mmol/L (0.4-2.0) Calcium Level 9.7 mg/dL (8.5-10.1) Total Bilirubin 0.4 mg/dL (0.2-1.0) Aspartate Amino Transf (AST/SGOT) 12 U/L (15-37) Alanine Aminotransferase (ALT/SGPT) 24 U/L (14-59) Alkaline Phosphatase 118 U/L (46-116) Total Protein 8.0 g/dL (6.4-8.2) Albumin 3.8 g/dL (3.4-5.0) Albumin/Globulin Ratio 0.9 (1.0-1.7) Serum Test, Qualitative Negative (NEG) Acetone Level Sm pos (NEG) O2 Saturation 99 % (92-99) Arterial Blood pH 7.44 (7.35-7.45) Arterial Blood pCO2 at Patient Temp 22 mmHg (35-46) Arterial Blood pO2 at Patient Temp 116 mmHg (85-108) Arterial Blood HCO3 14 mmol/L (21-28) Arterial Blood Base Excess -8 mmol/L (-3-3) Oxyhemoglobin 97.6 % Methemoglobin 0.2 % (0.0-1.9) Carbon Monoxide, Quantitative 0.8 % (0.0-1.9) FiO2 Room air Test 01/16/19 19:00 01/16/19 20:10 01/16/19 20:35 01/16/19 20:40 Glucose (Fingerstick) 286 mg/dL (70-99) 204 mg/dL (70-99) Sodium Level 137 mmol/L (136-145) Potassium Level 3.4 mmol/L (3.5-5.1) Chloride Level 105 mmol/L (98-107) Carbon Dioxide Level 20 mmol/L (21-32) Anion Gap 12 (6-14) Blood Urea Nitrogen 9 mg/dL (7-20) Creatinine 0.9 mg/dL (0.6-1.0) Estimated GFR (Cockcroft-Gault) 74.6 Glucose Level 234 mg/dL (70-99) Lactic Acid Level 4.0 mmol/L (0.4-2.0) Calcium Level 9.0 mg/dL (8.5-10.1) Phosphorus Level 2.4 mg/dL (2.6-4.7) Magnesium Level 1.6 mg/dL (1.8-2.4) Urine Collection Type Unknown Urine Color Yellow Urine Clarity Clear Urine pH 6.0 Urine Specific [place] >=1.030 Urine Protein Negative mg/dL (NEG-TRACE) Urine Glucose (UA) >=1000 mg/dL (NEG) Urine Ketones (Stick) Trace mg/dL (NEG) Urine Blood Negative (NEG) Urine Nitrite Negative (NEG) Urine Bilirubin Moderate (NEG) Urine Urobilinogen Dipstick 0.2 mg/dL (0.2 mg/dL) Urine Leukocyte Esterase Negative (NEG) Urine RBC 0 /HPF (0-2) Urine WBC 1-4 /HPF (0-4) Urine Squamous Epithelial Cells Few /LPF Urine Bacteria 0 /HPF (0-FEW) Urine Mucus Slight /LPF Urine Yeast Present /HPF Urine Opiates Screen Pos (NEG) Urine Methadone Screen Neg (NEG) Urine Barbiturates Neg (NEG) Urine Phencyclidine Screen Neg (NEG) Urine Amphetamine/Methamphetamine Neg (NEG) Urine Benzodiazepines Screen Neg (NEG) Urine Cocaine Screen Neg (NEG) Urine Cannabinoids Screen Neg (NEG) Urine Ethyl Alcohol Neg (NEG) Test 01/16/19 21:29 01/16/19 22:43 01/16/19 23:47 01/17/19 00:15 Glucose (Fingerstick) 154 mg/dL (70-99) 133 mg/dL (70-99) 93 mg/dL (70-99) Troponin I Quantitative < 0.017 ng/mL (0.000-0.055) Test 01/17/19 01:03 01/17/19 05:17 01/17/19 07:50 01/17/19 09:23 Glucose (Fingerstick) 122 mg/dL (70-99) 47 mg/dL (70-99) 122 mg/dL (70-99) Sodium Level 141 mmol/L (136-145) Potassium Level 3.6 mmol/L (3.5-5.1) Chloride Level 110 mmol/L (98-107) Carbon Dioxide Level 24 mmol/L (21-32) Anion Gap 7 (6-14) Blood Urea Nitrogen 7 mg/dL (7-20) Creatinine 0.5 mg/dL (0.6-1.0) Estimated GFR (Cockcroft-Gault) 146.9 Glucose Level 92 mg/dL (70-99) Calcium Level 8.4 mg/dL (8.5-10.1) Phosphorus Level 3.9 mg/dL (2.6-4.7) Magnesium Level 2.1 mg/dL (1.8-2.4) Troponin I Quantitative < 0.017 ng/mL (0.000-0.055) Albumin 2.8 g/dL (3.4-5.0) Review of Systems Review of Systems no n.v.d some abd pain slept well Comment Review of Relevant I have reviewed the following items lily (where applicable) has been applied. Labs Laboratory Tests Test 01/16/19 17:04 01/16/19 17:10 01/16/19 17:14 01/16/19 18:12 Glucose (Fingerstick) 456 mg/dL (70-99) 425 mg/dL (70-99) White Blood Count 6.2 x10^3/uL (4.0-11.0) Red Blood Count 4.52 x10^6/uL (3.50-5.40) Hemoglobin 13.9 g/dL (12.0-15.5) Hematocrit 41.3 % (36.0-47.0) Mean Corpuscular Volume 91 fL (79-100) Mean Corpuscular Hemoglobin 31 pg (25-35) Mean Corpuscular Hemoglobin Concent 34 g/dL (31-37) Red Cell Distribution Width 14.0 % (11.5-14.5) Platelet Count 304 x10^3/uL (140-400) Neutrophils (%) (Auto) 67 % (31-73) Lymphocytes (%) (Auto) 25 % (24-48) Monocytes (%) (Auto) 8 % (0-9) Eosinophils (%) (Auto) 1 % (0-3) Basophils (%) (Auto) 1 % (0-3) Neutrophils # (Auto) 4.1 x10^3/uL (1.8-7.7) Lymphocytes # (Auto) 1.5 x10^3/uL (1.0-4.8) Monocytes # (Auto) 0.5 x10^3/uL (0.0-1.1) Eosinophils # (Auto) 0.0 x10^3/uL (0.0-0.7) Basophils # (Auto) 0.0 x10^3/uL (0.0-0.2) Prothrombin Time 12.9 SEC (11.7-14.0) Prothromb Time International Ratio 1.0 (0.8-1.1) Activated Partial Thromboplast Time 27 SEC (24-38) Sodium Level 131 mmol/L (136-145) Potassium Level 3.9 mmol/L (3.5-5.1) Chloride Level 96 mmol/L (98-107) Carbon Dioxide Level 13 mmol/L (21-32) Anion Gap 22 (6-14) Blood Urea Nitrogen 8 mg/dL (7-20) Creatinine 1.4 mg/dL (0.6-1.0) Estimated GFR (Cockcroft-Gault) 44.8 BUN/Creatinine Ratio 6 (6-20) Glucose Level 464 mg/dL (70-99) Lactic Acid Level 10.1 mmol/L (0.4-2.0) Calcium Level 9.7 mg/dL (8.5-10.1) Total Bilirubin 0.4 mg/dL (0.2-1.0) Aspartate Amino Transf (AST/SGOT) 12 U/L (15-37) Alanine Aminotransferase (ALT/SGPT) 24 U/L (14-59) Alkaline Phosphatase 118 U/L (46-116) Total Protein 8.0 g/dL (6.4-8.2) Albumin 3.8 g/dL (3.4-5.0) Albumin/Globulin Ratio 0.9 (1.0-1.7) Serum Test, Qualitative Negative (NEG) Acetone Level Sm pos (NEG) O2 Saturation 99 % (92-99) Arterial Blood pH 7.44 (7.35-7.45) Arterial Blood pCO2 at Patient Temp 22 mmHg (35-46) Arterial Blood pO2 at Patient Temp 116 mmHg (85-108) Arterial Blood HCO3 14 mmol/L (21-28) Arterial Blood Base Excess -8 mmol/L (-3-3) Oxyhemoglobin 97.6 % Methemoglobin 0.2 % (0.0-1.9) Carbon Monoxide, Quantitative 0.8 % (0.0-1.9) FiO2 Room air Test 01/16/19 19:00 01/16/19 20:10 01/16/19 20:35 01/16/19 20:40 Glucose (Fingerstick) 286 mg/dL (70-99) 204 mg/dL (70-99) Sodium Level 137 mmol/L (136-145) Potassium Level 3.4 mmol/L (3.5-5.1) Chloride Level 105 mmol/L (98-107) Carbon Dioxide Level 20 mmol/L (21-32) Anion Gap 12 (6-14) Blood Urea Nitrogen 9 mg/dL (7-20) Creatinine 0.9 mg/dL (0.6-1.0) Estimated GFR (Cockcroft-Gault) 74.6 Glucose Level 234 mg/dL (70-99) Lactic Acid Level 4.0 mmol/L (0.4-2.0) Calcium Level 9.0 mg/dL (8.5-10.1) Phosphorus Level 2.4 mg/dL (2.6-4.7) Magnesium Level 1.6 mg/dL (1.8-2.4) Urine Collection Type Unknown Urine Color Yellow Urine Clarity Clear Urine pH 6.0 Urine Specific [place] >=1.030 Urine Protein Negative mg/dL (NEG-TRACE) Urine Glucose (UA) >=1000 mg/dL (NEG) Urine Ketones (Stick) Trace mg/dL (NEG) Urine Blood Negative (NEG) Urine Nitrite Negative (NEG) Urine Bilirubin Moderate (NEG) Urine Urobilinogen Dipstick 0.2 mg/dL (0.2 mg/dL) Urine Leukocyte Esterase Negative (NEG) Urine RBC 0 /HPF (0-2) Urine WBC 1-4 /HPF (0-4) Urine Squamous Epithelial Cells Few /LPF Urine Bacteria 0 /HPF (0-FEW) Urine Mucus Slight /LPF Urine Yeast Present /HPF Urine Opiates Screen Pos (NEG) Urine Methadone Screen Neg (NEG) Urine Barbiturates Neg (NEG) Urine Phencyclidine Screen Neg (NEG) Urine Amphetamine/Methamphetamine Neg (NEG) Urine Benzodiazepines Screen Neg (NEG) Urine Cocaine Screen Neg (NEG) Urine Cannabinoids Screen Neg (NEG) Urine Ethyl Alcohol Neg (NEG) Test 01/16/19 21:29 01/16/19 22:43 01/16/19 23:47 01/17/19 00:15 Glucose (Fingerstick) 154 mg/dL (70-99) 133 mg/dL (70-99) 93 mg/dL (70-99) Troponin I Quantitative < 0.017 ng/mL (0.000-0.055) Test 01/17/19 01:03 01/17/19 05:17 01/17/19 07:50 01/17/19 09:23 Glucose (Fingerstick) 122 mg/dL (70-99) 47 mg/dL (70-99) 122 mg/dL (70-99) Sodium Level 141 mmol/L (136-145) Potassium Level 3.6 mmol/L (3.5-5.1) Chloride Level 110 mmol/L (98-107) Carbon Dioxide Level 24 mmol/L (21-32) Anion Gap 7 (6-14) Blood Urea Nitrogen 7 mg/dL (7-20) Creatinine 0.5 mg/dL (0.6-1.0) Estimated GFR (Cockcroft-Gault) 146.9 Glucose Level 92 mg/dL (70-99) Calcium Level 8.4 mg/dL (8.5-10.1) Phosphorus Level 3.9 mg/dL (2.6-4.7) Magnesium Level 2.1 mg/dL (1.8-2.4) Troponin I Quantitative < 0.017 ng/mL (0.000-0.055) Albumin 2.8 g/dL (3.4-5.0) Laboratory Tests Test 01/16/19 17:04 01/16/19 17:10 01/16/19 17:14 01/16/19 18:12 Glucose (Fingerstick) 456 mg/dL (70-99) 425 mg/dL (70-99) White Blood Count 6.2 x10^3/uL (4.0-11.0) Red Blood Count 4.52 x10^6/uL (3.50-5.40) Hemoglobin 13.9 g/dL (12.0-15.5) Hematocrit 41.3 % (36.0-47.0) Mean Corpuscular Volume 91 fL (79-100) Mean Corpuscular Hemoglobin 31 pg (25-35) Mean Corpuscular Hemoglobin Concent 34 g/dL (31-37) Red Cell Distribution Width 14.0 % (11.5-14.5) Platelet Count 304 x10^3/uL (140-400) Neutrophils (%) (Auto) 67 % (31-73) Lymphocytes (%) (Auto) 25 % (24-48) Monocytes (%) (Auto) 8 % (0-9) Eosinophils (%) (Auto) 1 % (0-3) Basophils (%) (Auto) 1 % (0-3) Neutrophils # (Auto) 4.1 x10^3/uL (1.8-7.7) Lymphocytes # (Auto) 1.5 x10^3/uL (1.0-4.8) Monocytes # (Auto) 0.5 x10^3/uL (0.0-1.1) Eosinophils # (Auto) 0.0 x10^3/uL (0.0-0.7) Basophils # (Auto) 0.0 x10^3/uL (0.0-0.2) Prothrombin Time 12.9 SEC (11.7-14.0) Prothromb Time International Ratio 1.0 (0.8-1.1) Activated Partial Thromboplast Time 27 SEC (24-38) Sodium Level 131 mmol/L (136-145) Potassium Level 3.9 mmol/L (3.5-5.1) Chloride Level 96 mmol/L (98-107) Carbon Dioxide Level 13 mmol/L (21-32) Anion Gap 22 (6-14) Blood Urea Nitrogen 8 mg/dL (7-20) Creatinine 1.4 mg/dL (0.6-1.0) Estimated GFR (Cockcroft-Gault) 44.8 BUN/Creatinine Ratio 6 (6-20) Glucose Level 464 mg/dL (70-99) Lactic Acid Level 10.1 mmol/L (0.4-2.0) Calcium Level 9.7 mg/dL (8.5-10.1) Total Bilirubin 0.4 mg/dL (0.2-1.0) Aspartate Amino Transf (AST/SGOT) 12 U/L (15-37) Alanine Aminotransferase (ALT/SGPT) 24 U/L (14-59) Alkaline Phosphatase 118 U/L (46-116) Total Protein 8.0 g/dL (6.4-8.2) Albumin 3.8 g/dL (3.4-5.0) Albumin/Globulin Ratio 0.9 (1.0-1.7) Serum Test, Qualitative Negative (NEG) Acetone Level Sm pos (NEG) O2 Saturation 99 % (92-99) Arterial Blood pH 7.44 (7.35-7.45) Arterial Blood pCO2 at Patient Temp 22 mmHg (35-46) Arterial Blood pO2 at Patient Temp 116 mmHg (85-108) Arterial Blood HCO3 14 mmol/L (21-28) Arterial Blood Base Excess -8 mmol/L (-3-3) Oxyhemoglobin 97.6 % Methemoglobin 0.2 % (0.0-1.9) Carbon Monoxide, Quantitative 0.8 % (0.0-1.9) FiO2 Room air Test 01/16/19 19:00 01/16/19 20:10 01/16/19 20:35 01/16/19 20:40 Glucose (Fingerstick) 286 mg/dL (70-99) 204 mg/dL (70-99) Sodium Level 137 mmol/L (136-145) Potassium Level 3.4 mmol/L (3.5-5.1) Chloride Level 105 mmol/L (98-107) Carbon Dioxide Level 20 mmol/L (21-32) Anion Gap 12 (6-14) Blood Urea Nitrogen 9 mg/dL (7-20) Creatinine 0.9 mg/dL (0.6-1.0) Estimated GFR (Cockcroft-Gault) 74.6 Glucose Level 234 mg/dL (70-99) Lactic Acid Level 4.0 mmol/L (0.4-2.0) Calcium Level 9.0 mg/dL (8.5-10.1) Phosphorus Level 2.4 mg/dL (2.6-4.7) Magnesium Level 1.6 mg/dL (1.8-2.4) Urine Collection Type Unknown Urine Color Yellow Urine Clarity Clear Urine pH 6.0 Urine Specific [place] >=1.030 Urine Protein Negative mg/dL (NEG-TRACE) Urine Glucose (UA) >=1000 mg/dL (NEG) Urine Ketones (Stick) Trace mg/dL (NEG) Urine Blood Negative (NEG) Urine Nitrite Negative (NEG) Urine Bilirubin Moderate (NEG) Urine Urobilinogen Dipstick 0.2 mg/dL (0.2 mg/dL) Urine Leukocyte Esterase Negative (NEG) Urine RBC 0 /HPF (0-2) Urine WBC 1-4 /HPF (0-4) Urine Squamous Epithelial Cells Few /LPF Urine Bacteria 0 /HPF (0-FEW) Urine Mucus Slight /LPF Urine Yeast Present /HPF Urine Opiates Screen Pos (NEG) Urine Methadone Screen Neg (NEG) Urine Barbiturates Neg (NEG) Urine Phencyclidine Screen Neg (NEG) Urine Amphetamine/Methamphetamine Neg (NEG) Urine Benzodiazepines Screen Neg (NEG) Urine Cocaine Screen Neg (NEG) Urine Cannabinoids Screen Neg (NEG) Urine Ethyl Alcohol Neg (NEG) Test 01/16/19 21:29 01/16/19 22:43 01/16/19 23:47 01/17/19 00:15 Glucose (Fingerstick) 154 mg/dL (70-99) 133 mg/dL (70-99) 93 mg/dL (70-99) Troponin I Quantitative < 0.017 ng/mL (0.000-0.055) Test 01/17/19 01:03 01/17/19 05:17 01/17/19 07:50 01/17/19 09:23 Glucose (Fingerstick) 122 mg/dL (70-99) 47 mg/dL (70-99) 122 mg/dL (70-99) Sodium Level 141 mmol/L (136-145) Potassium Level 3.6 mmol/L (3.5-5.1) Chloride Level 110 mmol/L (98-107) Carbon Dioxide Level 24 mmol/L (21-32) Anion Gap 7 (6-14) Blood Urea Nitrogen 7 mg/dL (7-20) Creatinine 0.5 mg/dL (0.6-1.0) Estimated GFR (Cockcroft-Gault) 146.9 Glucose Level 92 mg/dL (70-99) Calcium Level 8.4 mg/dL (8.5-10.1) Phosphorus Level 3.9 mg/dL (2.6-4.7) Magnesium Level 2.1 mg/dL (1.8-2.4) Troponin I Quantitative < 0.017 ng/mL (0.000-0.055) Albumin 2.8 g/dL (3.4-5.0) Medications Current Medications Sodium Chloride 1,000 ml @ 1,000 mls/hr 1X ONCE IV Last administered on 01/16/19 17:41; Start 01/16/19 at 17:15; Stop 01/16/19 at 18:14; Status DC Insulin Human Regular (HumuLIN R VIAL) 5 unit 1X STAT IV Last administered on 01/16/19at 17:42; Start 01/16/19 at 17:14; Stop 01/16/19 at 17:19; Status DC Sodium Chloride 1,000 ml @ 1,000 mls/hr 1X ONCE IV Last administered on 01/16/19at 17:41; Start 01/16/19 at 17:45; Stop 01/16/19 at 18:44; Status DC Ondansetron HCl (Zofran) 4 mg 1X ONCE IV Last administered on 01/16/19at 17:41; Start 01/16/19 at 17:45; Stop 01/16/19 at 17:46; Status DC Ondansetron HCl (Zofran) 4 mg STK-MED ONCE .ROUTE ; Start 01/16/19 at 17:37; Stop 01/16/19 at 17:37; Status DC Enoxaparin Sodium (Lovenox 100mg Syringe) 100 mg 1X STAT SQ Last administered on 01/16/19at 18:10; Start 01/16/19 at 17:50; Stop 01/16/19 at 17:57; Status DC Insulin Human Regular 150 ml @ 0 mls/hr 1X ONCE IV Last administered on 01/16/19at 18:23; Start 01/16/19 at 18:00; Stop 01/16/19 at 21:57; Status DC Ondansetron HCl (Zofran) 4 mg PRN Q8HRS PRN IV NAUSEA/VOMITING; Start 01/16/19 at 18:00; Stop 01/16/19 at 20:10; Status DC Morphine Sulfate (Morphine Sulfate) 2 mg PRN Q2HR PRN IV PAIN Last administered on 01/16/19at 18:10; Start 01/16/19 at 18:00; Stop 01/16/19 at 20:10; Status DC Sodium Chloride 1,000 ml @ 100 mls/hr Q10H IV ; Start 01/16/19 at 17:57; Stop 01/16/19 at 18:45; Status DC Sodium Chloride 1,000 ml @ 250 mls/hr Q4H IV ; Start 01/16/19 at 18:45; Stop 01/16/19 at 20:22; Status DC Morphine Sulfate (Morphine Sulfate) 4 mg PRN Q3HRS PRN IV MODERATE TO SEVERE PAIN Last administered on 01/17/19at 07:24; Start 01/16/19 at 19:45 Potassium Chloride/Water 100 ml @ 100 mls/hr Q1H IV ; Start 01/16/19 at 20:00; Stop 01/16/19 at 22:06; Status DC Ondansetron HCl (Zofran) 4 mg PRN Q6HRS PRN IV NAUSEA/VOMITING Last administered on 01/17/19at 03:44; Start 01/16/19 at 20:15 Acetaminophen (Tylenol) 650 mg PRN Q6HRS PRN PO MILD PAIN / TEMP Last administered on 01/17/19at 03:44; Start 01/16/19 at 20:15 Enoxaparin Sodium (Lovenox 100mg Syringe) 100 mg Q12HR SQ ; Start 01/17/19 at 09:00 Cefazolin Sodium/ Dextrose 50 ml @ 100 mls/hr Q8HRS IV Last administered on 01/17/19at 06:20; Start 01/16/19 at 22:00 Dextrose/Sodium Chloride 1,000 ml @ 250 mls/hr Q4H IV ; Start 01/16/19 at 20:30; Stop 01/16/19 at 21:57; Status DC Fluoxetine HCl (PROzac) 40 mg QHS PO Last administered on 01/16/19at 22:11; Start 01/16/19 at 21:00 Trazodone HCl (Desyrel) 100 mg QHS PO ; Start 01/16/19 at 21:00 Hydroxyzine HCl (Atarax) 25 mg PRN Q6HRS PRN PO ITCHING; Start 01/16/19 at 20:45 Ziprasidone (Geodon) 20 mg PRN BID PRN PO AGITATION; Start 01/16/19 at 20:45 Insulin Glargine (Lantus Syringe) 40 unit QHS SQ ; Start 01/16/19 at 21:00; Status UNV Insulin Human Lispro (HumaLOG) 0-7 UNITS TIDWMEALS SQ ; Start 01/17/19 at 08:00 Dextrose (Dextrose 50%-Water Syringe) 12.5 gm PRN Q15MIN PRN IV SEE COMMENTS; Start 01/16/19 at 22:00 Potassium Phos/ Sodium Phos (Phos-Nak) 1 pkt DAILY PO Last administered on 01/16/19at 23:58; Start 01/16/19 at 22:00 Magnesium Sulfate 100 ml @ 25 mls/hr 1X ONCE IV Last administered on 01/16/19at 22:41; Start 01/16/19 at 22:30; Stop 01/17/19 at 02:29; Status DC Potassium Chloride/Water 100 ml @ 100 mls/hr Q1H IV Last administered on 01/17at 02:00; Start 01/16/19 at 22:30; Stop 01/17/19 at 02:29; Status DC Insulin Glargine (Lantus Syringe) 40 unit QHS SQ Last administered on 01/16/19at 22:41; Start 01/16/19 at 22:30 Morphine Sulfate (Morphine Sulfate) 4 mg 1X ONCE IV Last administered on 01/17/19at 03:17; Start 01/17/19 at 03:00; Stop 01/17/19 at 03:06; Status DC Morphine Sulfate (Morphine Sulfate) 10 mg PRN Q3HRS PRN IV PAIN; Start 01/17/19 at 03:00 Influenza Virus Vaccine Quadrival (Afluria Quad 2019-20 (3yr Up) Syringe) 0.5 ml ONCE ONCE VAX IM ; Start 01/17/19 at 09:00; Stop 01/17/19 at 09:01; Status DC Info (FLU VACCINE SCREEN per RX) 1 each PRN 1X PRN MC SEE COMMENTS; Start 01/17/19 at 06:45; Status Cancel Potassium Chloride/Water 100 ml @ 100 mls/hr Q1H IV Last administered on 01/17/19at 08:59; Start 01/17/19 at 08:30; Stop 01/17/19 at 10:29 Active Scripts Active Percocet 5-325 Mg Tablet (Oxycodone/Acetaminophen) 1 Each Tablet 1 Tab PO Q4H PRN 10 Days Vitals/I & O Vital Sign - Last 24 Hours 01/16/19 01/16/19 01/16/19 01/16/19 17:00 17:34 18:04 18:10 Temp 98.1 98.1 Pulse 127 114 134 Resp 36 18 20 B/P (MAP) 132/82 (99) 115/71 (86) 109/74 (86) Pulse Ox 99 99 99 99 O2 Delivery Room Air Room Air Room Air Room Air 01/16/19 01/16/19 01/16/19 01/16/19 18:34 18:40 19:00 19:00 Temp 98.5 98.5 Pulse 106 Resp 20 18 B/P (MAP) 117/82 (94) 129/70 (89) Pulse Ox 98 99 O2 Delivery Room Air Room Air Room Air Room Air 01/16/19 01/16/19 01/16/19 01/16/19 19:15 19:30 19:45 19:49 Pulse 106 104 112 Resp 24 14 26 18 B/P (MAP) 117/66 (83) 90/50 (63) 117/73 (88) Pulse Ox 99 99 98 98 O2 Delivery Room Air Room Air Room Air Room Air 01/16/19 01/16/19 01/16/19 01/16/19 20:00 22:00 22:13 23:00 Pulse 100 98 Resp 20 12 18 B/P (MAP) 113/77 (89) 105/81 (89) Pulse Ox 99 98 99 O2 Delivery Room Air Room Air Room Air Room Air 01/16/19 01/16/19 01/17/19 01/17/19 23:01 23:31 00:00 00:00 Temp 98.9 98.9 Pulse 96 Resp 18 17 B/P (MAP) 117/83 (94) Pulse Ox 98 98 98 O2 Delivery Room Air Room Air Room Air 01/17/19 01/17/19 01/17/19 01/17/19 01:00 02:00 02:02 02:32 Pulse 88 91 Resp 21 18 18 B/P (MAP) 106/63 (77) 116/71 (86) Pulse Ox 99 99 98 98 O2 Delivery Room Air Room Air Room Air Room Air 01/17/19 01/17/19 01/17/19 01/17/19 03:00 03:17 03:47 04:00 Pulse 92 Resp 16 18 B/P (MAP) 118/62 (80) Pulse Ox 98 98 98 O2 Delivery Room Air Room Air Room Air Room Air 01/17/19 01/17/19 01/17/19 01/17/19 04:00 05:00 06:00 07:00 Temp 98.6 98.6 Pulse 98 98 83 87 Resp 18 17 18 16 B/P (MAP) 115/66 (82) 109/61 (77) 114/61 (78) 109/62 (78) Pulse Ox 98 98 98 99 O2 Delivery Room Air Room Air Room Air Room Air 01/17/19 01/17/19 01/17/19 01/17/19 07:24 07:54 08:00 08:00 Temp 98.1 98.1 Pulse 95 Resp 16 16 32 B/P (MAP) 123/77 (92) Pulse Ox 99 99 99 O2 Delivery Room Air Room Air Room Air Room Air 01/17/19 09:00 Pulse 94 Resp 16 B/P (MAP) 123/77 (92) Pulse Ox 100 O2 Delivery Room Air Intake and Output 01/16/19 01/16/19 01/17/19 15:00 23:00 07:00 Intake Total 450 ml Output Total 220 ml 0 ml Balance -220 ml 450 ml LISA COFFMAN MD Jan 17, 2019 09:45
[2019-01-17] MEDS: ANTI-COAG MONITOR BY PHARMACY. MC PRN (10:10)
--- NOTE | 2019-01-17 10:21 | RAD ---
CHEST AP ONLY Clinical Indication: Shortness of breath Comparison: None. Findings: Upright portable frontal view chest was obtained. Sternal wires are present. The cardiomediastinal silhouette is normal. Lungs are clear. There is no pneumothorax. No pleural effusion is appreciated. No acute bone abnormality. IMPRESSION: No acute cardiopulmonary process. Electronically signed by: Feng Rosa MD (01/17/2019 10:18 AM) [facility]
--- NOTE | 2019-01-17 11:24 | CARD ---
MR#: [id number] Date of Study: 01/17/2019 Ordering Physician: JAMES KENT, Referring Physician: JAMES KENT, Tech: Donna Manuel APPROVED REPORT EXAM: Two-dimensional and M-mode echocardiogram with Doppler and color Doppler. Other Information Quality : AverageHR: 85bpm Rhythm : NSRAtrial Fibrillation INDICATION Chest Pain Surgery/Intervention ASD repair 10 years ago 2D DIMENSIONS RVDd3.6 (2.9-3.5cm)Left Atrium(2D)4.3 (1.6-4.0cm) IVSd0.9 (0.7-1.1cm)Aortic Root(2D)2.8 (2.0-3.7cm) LVDd4.9 (3.9-5.9cm)LVOT Diameter2.0 (1.8-2.4cm) PWd0.9 (0.7-1.1cm)LVDs3.7 (2.5-4.0cm) FS (%) 23.1 %SV51.2 ml Aortic Valve AoV Peak Thiago.134.8cm/sAoV VTI25.9cm AO Peak GR.7.3mmHgLVOT VTI 19.19cm AO Mean GR.4mmHg Mitral Valve MV E Dzdhkdxq81.3cm/sMV DECEL [id number] MV A Ezfztgbr89.3cm/sE/A Ratio1.4 TDI Lateral E' P. V12.49cm/sMedial E' P. V8.11cm/s E/Lateral E'6.4E/Medial E'9.9 Tricuspid Valve TR P. Ygqoznpl842ki/sRAP QTMAJFNG1onNe TR Peak Gr.[id number] Pulmonary Vein S1 Jgjmcfpg33.9cm/sS2 Jghfeduo40.31cm/s D2 Tmcwxmgj53.3cm/sPVa sjhhujqp81xbcm LEFT VENTRICLE The left ventricle is normal size. There is normal left ventricular wall thickness. The left ventricu lar systolic function is normal. The Ejection Fraction is 50-55%. There is normal LV segmental wall m otion. Transmitral Doppler flow pattern is Grade II-pseudonormal filling dynamics. RIGHT VENTRICLE The right ventricle is borderline dilated. There is normal right ventricular wall thickness. The righ t ventricular systolic function is normal. ATRIA The left atrium size is normal. The right atrium is borderline dilated. The interatrial septum is int act with no evidence for an atrial septal defect or patent foramen ovale as noted on 2-D or Doppler i maging. AORTIC VALVE The aortic valve is normal in structure and function. Doppler and Color Flow revealed no significant aortic regurgitation. There is no significant aortic valvular stenosis. MITRAL VALVE The mitral valve is normal in structure and function. There is no evidence of mitral valve prolapse. There is no mitral valve stenosis. Doppler and Color Flow revealed no mitral valve regurgitation note d. TRICUSPID VALVE The tricuspid valve is normal in structure and function. Doppler and Color Flow revealed trace tricus pid regurgitation with an estimated PAP of 20 mmHg. There is no tricuspid valve prolapse or vegetatio n. There is no tricuspid valve stenosis. PULMONIC VALVE The pulmonary valve is normal in structure and function. Doppler and Color Flow revealed no pulmonic valvular regurgitation. GREAT VESSELS The aortic root is normal in size. The IVC is normal in size and collapses >50% with inspiration. PERICARDIAL EFFUSION There is no evidence of significant pericardial effusion. Critical Notification Critical Value: No <Conclusion> The left ventricle is normal size. The left ventricular systolic function is normal. The Ejection Fraction is 50-55%. There is normal LV segmental wall motion. There is no significant aortic valvular stenosis. Doppler and Color Flow revealed no significant aortic regurgitation. Doppler and Color Flow revealed no mitral valve regurgitation noted. Doppler and Color Flow revealed trace tricuspid regurgitation with an estimated PAP of 20 mmHg. There is no evidence of significant pericardial effusion. Signed by : Edison Soler MD Electronically Approved : 01/17/2019 11:24:11
--- NOTE | 2019-01-17 12:52 | NUR ---
Report called to [facility] on .
--- NOTE | 2019-01-17 15:17 | NUR ---
Wound Care Wound care consult for left buttock abscess. Pt is known to team and is scheduled to follow in [facility] on Sunday. Cleansed wound, packed with medihoney alginate and covered with aquacel ag and foam dressing. Recommend to change dressing every 2 days. No other wounds noted on skin inspection. WC will continue to follow for possible changes. Pt educated on PU prevention.
--- NOTE | 2019-01-17 16:28 | NUR ---
SS following for discharge planning. SS reviewed pt chart. Pt is from home and is currently on room air. Pt previously on services with [facility], ; fax [phone]. SS will continue to follow for discharge planning.
[2019-01-17] MEDS: oxyCODONE/APAP 5/325 1 TAB TABLET PO PRN ×2 (18:27→22:52)
[2019-01-17] MEDS: FLUoxetine HCL 20 MG CAPSULE PO SCH (20:23)
[2019-01-17] MEDS: traZODone 100 MG TABLET. PO SCH (20:24)
[2019-01-17] MEDS: INSULIN GLARGINE SYRINGE. SQ SCH (22:18)
[2019-01-18 03:00] VITALS: BP 123/70
[2019-01-18] MEDS: MORPHINE SULFATE 4 MG/ML VIAL. IV PRN (05:44)
[2019-01-18 07:00] VITALS: BP 134/69
[2019-01-18] MEDS: INSULIN LISPRO 300 UNITS/3 ML VIAL. SQ SCH ×2 (08:00→14:30)
[2019-01-18] MEDS ORDERED: LACTOBACILLUS RHAMNOSUS GG 1 CAPSULE. PO SCH (09:00)
--- NOTE | 2019-01-18 09:02 | PDOC ---
PROGRESS NOTES Chief Complaint Chief Complaint A/P: DKA - with gap, h improved, off insulin gtt Nausea/Vomiting/Diarrhea - acute viral gastroenteritis, - improved Lactic acidosis - sepsis, improved, Chest pain VQ negative, lovenox d/c'd Dm Coag disorder well. FV leiden DANYEL - vasomotor nephropathy and DKA. Bipolar disorder - seems currently disorganized, manic. On trazodone, fluoxetine, and hydroxyzine outpatient. Gluteal wound - will consult wound care, culture wound. 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 She states that she woke up this morning her blood sugar was in the 200s and states his been going up all day long. She also notes on ROS that she has central sharp chest pain with associated shortness of breath. The patient states she is been treated for a pressure ulcer on her behind and She developed gluteal pain approximately 12/27/18 and was admitted to [facility], underwent outpatient I and D x 2. Failed bactrim outpatient therapy and came to [facility], 01/02 underwent I and D in the operating room by Dr. Iqbal. Cultures collected from the 12/30 operation show no growth. She continues to state her buttock wound had MRSA, she has just completed a course of augmentin. Upon review of cultures at [place] this was MSSA, sensitive to augmentin. She did have an MRSA nares positive, however, histo rically. In ED notably tachycardic in the 120s with glucose> 400 and HCO2 of 13, gap of 22. Cr 1.4 and Lactate of 10.1. Afebrile. 01/18: Feels better, low blood sugar this AM, took 40 lantus, she reports not eating much at night. Transferred out of ICU. Wound care, may need wound vac Feeling much better today. Labs normalized. Glucose improved. Has gluteal pain. Dressing changed per wound nurse and she has f/u on 01/20/19. Wishes to go home today. Vitals Vitals Vital Signs Date Time Temp Pulse Resp B/P (MAP) Pulse Ox O2 Delivery O2 Flow Rate FiO2 10/5/19 07:00 98.2 77 16 134/69 (90) 95 Room Air 98.2 Physical Exam General: Alert, Oriented X3, Cooperative, mild distress Heart: Regular rate Abdomen: Normal bowel sounds, Soft, No tenderness, No hepatosplenomegaly, No masses Extremities: No clubbing, No cyanosis, No edema, Normal pulses, No tenderness/swelling Skin: Other (Gluteal wound with wound vac in place) Labs LABS Laboratory Tests Test 01/17/19 09:23 01/17/19 12:08 01/17/19 16:54 01/17/19 21:16 Glucose (Fingerstick) 122 mg/dL (70-99) 158 mg/dL (70-99) 174 mg/dL (70-99) 281 mg/dL (70-99) Test 01/18/19 07:29 Glucose (Fingerstick) 110 mg/dL (70-99) Comment Review of Relevant I have reviewed the following items lily (where applicable) has been applied. Labs Laboratory Tests Test 01/16/19 17:04 01/16/19 17:10 01/16/19 17:14 01/16/19 18:12 Glucose (Fingerstick) 456 mg/dL (70-99) 425 mg/dL (70-99) White Blood Count 6.2 x10^3/uL (4.0-11.0) Red Blood Count 4.52 x10^6/uL (3.50-5.40) Hemoglobin 13.9 g/dL (12.0-15.5) Hematocrit 41.3 % (36.0-47.0) Mean Corpuscular Volume 91 fL (79-100) Mean Corpuscular Hemoglobin 31 pg (25-35) Mean Corpuscular Hemoglobin Concent 34 g/dL (31-37) Red Cell Distribution Width 14.0 % (11.5-14.5) Platelet Count 304 x10^3/uL (140-400) Neutrophils (%) (Auto) 67 % (31-73) Lymphocytes (%) (Auto) 25 % (24-48) Monocytes (%) (Auto) 8 % (0-9) Eosinophils (%) (Auto) 1 % (0-3) Basophils (%) (Auto) 1 % (0-3) Neutrophils # (Auto) 4.1 x10^3/uL (1.8-7.7) Lymphocytes # (Auto) 1.5 x10^3/uL (1.0-4.8) Monocytes # (Auto) 0.5 x10^3/uL (0.0-1.1) Eosinophils # (Auto) 0.0 x10^3/uL (0.0-0.7) Basophils # (Auto) 0.0 x10^3/uL (0.0-0.2) Prothrombin Time 12.9 SEC (11.7-14.0) Prothromb Time International Ratio 1.0 (0.8-1.1) Activated Partial Thromboplast Time 27 SEC (24-38) Sodium Level 131 mmol/L (136-145) Potassium Level 3.9 mmol/L (3.5-5.1) Chloride Level 96 mmol/L (98-107) Carbon Dioxide Level 13 mmol/L (21-32) Anion Gap 22 (6-14) Blood Urea Nitrogen 8 mg/dL (7-20) Creatinine 1.4 mg/dL (0.6-1.0) Estimated GFR (Cockcroft-Gault) 44.8 BUN/Creatinine Ratio 6 (6-20) Glucose Level 464 mg/dL (70-99) Lactic Acid Level 10.1 mmol/L (0.4-2.0) Calcium Level 9.7 mg/dL (8.5-10.1) Total Bilirubin 0.4 mg/dL (0.2-1.0) Aspartate Amino Transf (AST/SGOT) 12 U/L (15-37) Alanine Aminotransferase (ALT/SGPT) 24 U/L (14-59) Alkaline Phosphatase 118 U/L (46-116) Total Protein 8.0 g/dL (6.4-8.2) Albumin 3.8 g/dL (3.4-5.0) Albumin/Globulin Ratio 0.9 (1.0-1.7) Serum Test, Qualitative Negative (NEG) Acetone Level Sm pos (NEG) O2 Saturation 99 % (92-99) Arterial Blood pH 7.44 (7.35-7.45) Arterial Blood pCO2 at Patient Temp 22 mmHg (35-46) Arterial Blood pO2 at Patient Temp 116 mmHg (85-108) Arterial Blood HCO3 14 mmol/L (21-28) Arterial Blood Base Excess -8 mmol/L (-3-3) Oxyhemoglobin 97.6 % Methemoglobin 0.2 % (0.0-1.9) Carbon Monoxide, Quantitative 0.8 % (0.0-1.9) FiO2 Room air Test 01/16/19 19:00 01/16/19 20:10 01/16/19 20:35 01/16/19 20:40 Glucose (Fingerstick) 286 mg/dL (70-99) 204 mg/dL (70-99) Sodium Level 137 mmol/L (136-145) Potassium Level 3.4 mmol/L (3.5-5.1) Chloride Level 105 mmol/L (98-107) Carbon Dioxide Level 20 mmol/L (21-32) Anion Gap 12 (6-14) Blood Urea Nitrogen 9 mg/dL (7-20) Creatinine 0.9 mg/dL (0.6-1.0) Estimated GFR (Cockcroft-Gault) 74.6 Glucose Level 234 mg/dL (70-99) Lactic Acid Level 4.0 mmol/L (0.4-2.0) Calcium Level 9.0 mg/dL (8.5-10.1) Phosphorus Level 2.4 mg/dL (2.6-4.7) Magnesium Level 1.6 mg/dL (1.8-2.4) Urine Collection Type Unknown Urine Color Yellow Urine Clarity Clear Urine pH 6.0 Urine Specific [place] >=1.030 Urine Protein Negative mg/dL (NEG-TRACE) Urine Glucose (UA) >=1000 mg/dL (NEG) Urine Ketones (Stick) Trace mg/dL (NEG) Urine Blood Negative (NEG) Urine Nitrite Negative (NEG) Urine Bilirubin Moderate (NEG) Urine Urobilinogen Dipstick 0.2 mg/dL (0.2 mg/dL) Urine Leukocyte Esterase Negative (NEG) Urine RBC 0 /HPF (0-2) Urine WBC 1-4 /HPF (0-4) Urine Squamous Epithelial Cells Few /LPF Urine Bacteria 0 /HPF (0-FEW) Urine Mucus Slight /LPF Urine Yeast Present /HPF Urine Opiates Screen Pos (NEG) Urine Methadone Screen Neg (NEG) Urine Barbiturates Neg (NEG) Urine Phencyclidine Screen Neg (NEG) Urine Amphetamine/Methamphetamine Neg (NEG) Urine Benzodiazepines Screen Neg (NEG) Urine Cocaine Screen Neg (NEG) Urine Cannabinoids Screen Neg (NEG) Urine Ethyl Alcohol Neg (NEG) Test 01/16/19 21:29 01/16/19 22:43 01/16/19 23:47 01/17/19 00:15 Glucose (Fingerstick) 154 mg/dL (70-99) 133 mg/dL (70-99) 93 mg/dL (70-99) Troponin I Quantitative < 0.017 ng/mL (0.000-0.055) Test 01/17/19 01:03 01/17/19 05:17 01/17/19 07:50 01/17/19 09:23 Glucose (Fingerstick) 122 mg/dL (70-99) 47 mg/dL (70-99) 122 mg/dL (70-99) Sodium Level 141 mmol/L (136-145) Potassium Level 3.6 mmol/L (3.5-5.1) Chloride Level 110 mmol/L (98-107) Carbon Dioxide Level 24 mmol/L (21-32) Anion Gap 7 (6-14) Blood Urea Nitrogen 7 mg/dL (7-20) Creatinine 0.5 mg/dL (0.6-1.0) Estimated GFR (Cockcroft-Gault) 146.9 Glucose Level 92 mg/dL (70-99) Calcium Level 8.4 mg/dL (8.5-10.1) Phosphorus Level 3.9 mg/dL (2.6-4.7) Magnesium Level 2.1 mg/dL (1.8-2.4) Troponin I Quantitative < 0.017 ng/mL (0.000-0.055) Albumin 2.8 g/dL (3.4-5.0) Test 01/17/19 12:08 01/17/19 16:54 01/17/19 21:16 01/18/19 07:29 Glucose (Fingerstick) 158 mg/dL (70-99) 174 mg/dL (70-99) 281 mg/dL (70-99) 110 mg/dL (70-99) Laboratory Tests Test 01/17/19 09:23 01/17/19 12:08 01/17/19 16:54 01/17/19 21:16 Glucose (Fingerstick) 122 mg/dL (70-99) 158 mg/dL (70-99) 174 mg/dL (70-99) 281 mg/dL (70-99) Test 01/18/19 07:29 Glucose (Fingerstick) 110 mg/dL (70-99) Microbiology 01/16/19 Blood Culture - Preliminary, Resulted NO GROWTH AFTER 1 DAY Medications Current Medications Sodium Chloride 1,000 ml @ 1,000 mls/hr 1X ONCE IV Last administered on 01/16/19at 17:41; Start 01/16/19 at 17:15; Stop 01/16/19 at 18:14; Status DC Insulin Human Regular (HumuLIN R VIAL) 5 unit 1X STAT IV Last administered on 01/16/19at 17:42; Start 01/16/19 at 17:14; Stop 01/16/19 at 17:19; Status DC Sodium Chloride 1,000 ml @ 1,000 mls/hr 1X ONCE IV Last administered on 01/16/19at 17:41; Start 01/16/19 at 17:45; Stop 01/16/19 at 18:44; Status DC Ondansetron HCl (Zofran) 4 mg 1X ONCE IV Last administered on 01/16/19at 17:41; Start 01/16/19 at 17:45; Stop 01/16/19 at 17:46; Status DC Ondansetron HCl (Zofran) 4 mg STK-MED ONCE .ROUTE ; Start 01/16/19 at 17:37; Stop 01/16/19 at 17:37; Status DC Enoxaparin Sodium (Lovenox 100mg Syringe) 100 mg 1X STAT SQ Last administered on 01/16/19at 18:10; Start 01/16/19 at 17:50; Stop 01/16/19 at 17:57; Status DC Insulin Human Regular 150 ml @ 0 mls/hr 1X ONCE IV Last administered on 01/16/19at 18:23; Start 01/16/19 at 18:00; Stop 01/16/19 at 21:57; Status DC Ondansetron HCl (Zofran) 4 mg PRN Q8HRS PRN IV NAUSEA/VOMITING; Start 01/16/19 at 18:00; Stop 01/16/19 at 20:10; Status DC Morphine Sulfate (Morphine Sulfate) 2 mg PRN Q2HR PRN IV PAIN Last administered on 01/16/19at 18:10; Start 01/16/19 at 18:00; Stop 01/16/19 at 20:10; Status DC Sodium Chloride 1,000 ml @ 100 mls/hr Q10H IV ; Start 01/16/19 at 17:57; Stop 01/16/19 at 18:45; Status DC Sodium Chloride 1,000 ml @ 250 mls/hr Q4H IV ; Start 01/16/19 at 18:45; Stop 01/16/19 at 20:22; Status DC Morphine Sulfate (Morphine Sulfate) 4 mg PRN Q3HRS PRN IV MODERATE PAIN Last administered on 01/18/19at 05:44; Start 01/16/19 at 19:45 Potassium Chloride/Water 100 ml @ 100 mls/hr Q1H IV ; Start 01/16/19 at 20:00; Stop 01/16/19 at 22:06; Status DC Ondansetron HCl (Zofran) 4 mg PRN Q6HRS PRN IV NAUSEA/VOMITING Last administered on 01/17/19at 17:09; Start 01/16/19 at 20:15 Acetaminophen (Tylenol) 650 mg PRN Q6HRS PRN PO MILD PAIN / TEMP Last administered on 01/17/19at 03:44; Start 01/16/19 at 20:15 Enoxaparin Sodium (Lovenox 100mg Syringe) 100 mg Q12HR SQ Last administered on 01/17/19at 20:24; Start 01/17/19 at 09:00 Cefazolin Sodium/ Dextrose 50 ml @ 100 mls/hr Q8HRS IV Last administered on 01/18/19at 05:30; Start 01/16/19 at 22:00 Dextrose/Sodium Chloride 1,000 ml @ 250 mls/hr Q4H IV ; Start 01/16/19 at 20:30; Stop 01/16/19 at 21:57; Status DC Fluoxetine HCl (PROzac) 40 mg QHS PO Last administered on 01/17/19at 20:23; Start 01/16/19 at 21:00 Trazodone HCl (Desyrel) 100 mg QHS PO ; Start 01/16/19 at 21:00 Hydroxyzine HCl (Atarax) 25 mg PRN Q6HRS PRN PO ITCHING; Start 01/16/19 at 20:4 5 Ziprasidone (Geodon) 20 mg PRN BID PRN PO AGITATION; Start 01/16/19 at 20:45 Insulin Glargine (Lantus Syringe) 40 unit QHS SQ ; Start 01/16/19 at 21:00; Status UNV Insulin Human Lispro (HumaLOG) 0-7 UNITS TIDWMEALS SQ Last administered on 01/17/19at 17:12; Start 01/17/19 at 08:00 Dextrose (Dextrose 50%-Water Syringe) 12.5 gm PRN Q15MIN PRN IV SEE COMMENTS; Start 01/16/19 at 22:00 Potassium Phos/ Sodium Phos (Phos-Nak) 1 pkt DAILY PO Last administered on 01/17/19at 09:43; Start 01/16/19 at 22:00 Magnesium Sulfate 100 ml @ 25 mls/hr 1X ONCE IV Last administered on 01/16/19at 22:41; Start 01/16/19 at 22:30; Stop 01/17/19 at 02:29; Status DC Potassium Chloride/Water 100 ml @ 100 mls/hr Q1H IV Last administered on 01/17/19at 02:00; Start 01/16/19 at 22:30; Stop 01/17/19 at 02:29; Status DC Insulin Glargine (Lantus Syringe) 40 unit QHS SQ Last administered on 01/17/19at 22:18; Start 01/16/19 at 22:30 Morphine Sulfate (Morphine Sulfate) 4 mg 1X ONCE IV Last administered on 01/17/19at 03:17; Start 01/17/19 at 03:00; Stop 01/17/19 at 03:06; Status DC Morphine Sulfate (Morphine Sulfate) 10 mg PRN Q3HRS PRN IV SEVERE PAIN; Start 01/17/19 at 03:00 Influenza Virus Vaccine Quadrival (Afluria Quad 2019-20 (3yr Up) Syringe) 0.5 ml ONCE ONCE VAX IM Last administered on 01/17/19at 09:50; Start 01/17/19 at 09:00; Stop 01/17/19 at 09:01; Status DC Info (FLU VACCINE SCREEN per RX) 1 each PRN 1X PRN MC SEE COMMENTS; Start 01/17/19 at 06:45; Status Cancel Potassium Chloride/Water 100 ml @ 100 mls/hr Q1H IV Last administered on 01/17/19at 10:40; Start 01/17/19 at 08:30; Stop 01/17/19 at 10:29; Status DC Info (Anti-Coagulation Monitoring By Pharmacy) 1 each PRN DAILY PRN MC SEE COMMENTS Last administered on 01/17/19at 10:10; Start 01/17/19 at 10:15 Oxycodone/ Acetaminophen (Percocet 5/325) 1 tab PRN Q4HRS PRN PO MODERATE - SEVERE PAIN Last administered on 01/17/19at 22:52; Start 01/17/19 at 18:30 Lactobacillus Rhamnosus (Culturelle) 1 cap BID PO ; Start 01/18/19 at 09:00 Active Scripts Active Percocet 5-325 Mg Tablet (Oxycodone/Acetaminophen) 1 Each Tablet 1 Tab PO Q4H PRN 10 Days Vitals/I & O Vital Sign - Last 24 Hours 01/17/19 01/17/19 01/17/19 01/17/19 09:00 10:40 11:00 11:10 Temp 98.3 98.3 Pulse 94 80 Resp 16 18 23 16 B/P (MAP) 123/77 (92) 107/64 (78) Pulse Ox 100 99 100 98 O2 Delivery Room Air Room Air Room Air Room Air 01/17/19 01/17/19 01/17/19 01/17/19 13:54 14:39 15:00 15:12 Temp 97.5 97.5 Pulse 81 Resp 14 B/P (MAP) 130/74 (92) Pulse Ox 99 98 O2 Delivery Room Air Room Air Room Air Room Air 01/17/19 01/17/19 01/17/19 01/17/19 17:08 18:15 18:27 19:00 Temp 98.3 98.3 Pulse 77 Resp 20 B/P (MAP) 141/84 (103) Pulse Ox 98 98 O2 Delivery Room Air Room Air Room Air 01/17/19 01/17/19 01/17/19 01/17/19 19:33 20:00 20:14 20:44 O2 Delivery Room Air Room Air Room Air Room Air 01/17/19 01/17/19 01/17/19 01/17/19 22:52 23:00 23:45 23:54 Temp 97.9 97.9 Pulse 76 Resp 20 B/P (MAP) 134/77 (96) Pulse Ox 98 O2 Delivery Room Air Room Air Room Air Room Air 01/18/19 01/18/19 01/18/19 01/18/19 00:22 03:00 05:44 06:16 Temp 98.0 98.0 Pulse 75 Resp 18 B/P (MAP) 123/70 (87) Pulse Ox 96 O2 Delivery Room Air Room Air Room Air 01/18/19 07:00 Temp 98.2 98.2 Pulse 77 Resp 16 B/P (MAP) 134/69 (90) Pulse Ox 95 O2 Delivery Room Air Intake and Output 01/17/19 01/17/19 01/18/19 15:00 23:00 07:00 Intake Total 1040 ml 290 ml Output Total 900 ml Balance 140 ml 290 ml Nutrition Consultation Dietary Evaluation: Recommendations by RD: Protein supplementation Comments: Continue w/ADA diet as ordered, honor food preferences, and provide snacks as requested REC Jerardo BID - wound healing, either flavor REC MVI - wound healing Expected Outcomes/Goals: PO intake to meet >75% est needs Interpretation of weight loss: >20% in 1 year Malnutrition Findings: Food and Nutrition Intake (Mod: <75% est energy req 7days Weight Status: Overweight JAMES KENT MD Jan 18, 2019 09:01
[2019-01-18] MEDS: oxyCODONE/APAP 5/325 1 TAB TABLET PO PRN (09:54)
[2019-01-18] MEDS ORDERED: HYDR25TA PO (10:07)
[2019-01-18] MEDS ORDERED: TRAZ-86 PO (10:07)
[2019-01-18] MEDS ORDERED: INSU100V8 SQ (10:07)
[2019-01-18] MEDS ORDERED: ACET-704 PO (10:07)
[2019-01-18] MEDS ORDERED: ASPI325T11 PO (10:07)
[2019-01-18] MEDS ORDERED: FLUO20CA8 PO (10:07)
--- NOTE | 2019-01-18 10:12 | PDOC3 ---
Discharge Summary Visit Information Date of Admission: Jan 16, 2019 Date of Discharge: Jan 18, 2019 Admitting Diagnosis: DKA, gastroenteritis Final Diagnosis DKA, gastroenteritis, left gluteal wound Brief Hospital Course Allergies Allergies Coded Allergies Type Severity Reaction Last Updated Verified latex Allergy Intermediate 01/01/19 Yes lisinopril Allergy Intermediate 01/01/19 Yes quetiapine Allergy Intermediate 01/01/19 Yes warfarin Allergy Intermediate 01/01/19 Yes Vital Signs Vital Signs Date Time Temp Pulse Resp B/P (MAP) Pulse Ox O2 Delivery O2 Flow Rate FiO2 01/18/19 09:54 20 95 Room Air 01/18/19 07:00 98.2 77 134/69 (90) 98.2 Lab Results Laboratory Tests Test 01/16/19 17:04 01/16/19 17:10 01/16/19 17:14 01/16/19 18:12 Glucose (Fingerstick) 456 mg/dL (70-99) 425 mg/dL (70-99) White Blood Count 6.2 x10^3/uL (4.0-11.0) Red Blood Count 4.52 x10^6/uL (3.50-5.40) Hemoglobin 13.9 g/dL (12.0-15.5) Hematocrit 41.3 % (36.0-47.0) Mean Corpuscular Volume 91 fL (79-100) Mean Corpuscular Hemoglobin 31 pg (25-35) Mean Corpuscular Hemoglobin Concent 34 g/dL (31-37) Red Cell Distribution Width 14.0 % (11.5-14.5) Platelet Count 304 x10^3/uL (140-400) Neutrophils (%) (Auto) 67 % (31-73) Lymphocytes (%) (Auto) 25 % (24-48) Monocytes (%) (Auto) 8 % (0-9) Eosinophils (%) (Auto) 1 % (0-3) Basophils (%) (Auto) 1 % (0-3) Neutrophils # (Auto) 4.1 x10^3/uL (1.8-7.7) Lymphocytes # (Auto) 1.5 x10^3/uL (1.0-4.8) Monocytes # (Auto) 0.5 x10^3/uL (0.0-1.1) Eosinophils # (Auto) 0.0 x10^3/uL (0.0-0.7) Basophils # (Auto) 0.0 x10^3/uL (0.0-0.2) Prothrombin Time 12.9 SEC (11.7-14.0) Prothromb Time International Ratio 1.0 (0.8-1.1) Activated Partial Thromboplast Time 27 SEC (24-38) Sodium Level 131 mmol/L (136-145) Potassium Level 3.9 mmol/L (3.5-5.1) Chloride Level 96 mmol/L (98-107) Carbon Dioxide Level 13 mmol/L (21-32) Anion Gap 22 (6-14) Blood Urea Nitrogen 8 mg/dL (7-20) Creatinine 1.4 mg/dL (0.6-1.0) Estimated GFR (Cockcroft-Gault) 44.8 BUN/Creatinine Ratio 6 (6-20) Glucose Level 464 mg/dL (70-99) Lactic Acid Level 10.1 mmol/L (0.4-2.0) Calcium Level 9.7 mg/dL (8.5-10.1) Total Bilirubin 0.4 mg/dL (0.2-1.0) Aspartate Amino Transf (AST/SGOT) 12 U/L (15-37) Alanine Aminotransferase (ALT/SGPT) 24 U/L (14-59) Alkaline Phosphatase 118 U/L (46-116) Total Protein 8.0 g/dL (6.4-8.2) Albumin 3.8 g/dL (3.4-5.0) Albumin/Globulin Ratio 0.9 (1.0-1.7) Serum Test, Qualitative Negative (NEG) Acetone Level Sm pos (NEG) O2 Saturation 99 % (92-99) Arterial Blood pH 7.44 (7.35-7.45) Arterial Blood pCO2 at Patient Temp 22 mmHg (35-46) Arterial Blood pO2 at Patient Temp 116 mmHg (85-108) Arterial Blood HCO3 14 mmol/L (21-28) Arterial Blood Base Excess -8 mmol/L (-3-3) Oxyhemoglobin 97.6 % Methemoglobin 0.2 % (0.0-1.9) Carbon Monoxide, Quantitative 0.8 % (0.0-1.9) FiO2 Room air Test 01/16/19 19:00 01/16/19 20:10 01/16/19 20:35 01/16/19 20:40 Glucose (Fingerstick) 286 mg/dL (70-99) 204 mg/dL (70-99) Sodium Level 137 mmol/L (136-145) Potassium Level 3.4 mmol/L (3.5-5.1) Chloride Level 105 mmol/L (98-107) Carbon Dioxide Level 20 mmol/L (21-32) Anion Gap 12 (6-14) Blood Urea Nitrogen 9 mg/dL (7-20) Creatinine 0.9 mg/dL (0.6-1.0) Estimated GFR (Cockcroft-Gault) 74.6 Glucose Level 234 mg/dL (70-99) Lactic Acid Level 4.0 mmol/L (0.4-2.0) Calcium Level 9.0 mg/dL (8.5-10.1) Phosphorus Level 2.4 mg/dL (2.6-4.7) Magnesium Level 1.6 mg/dL (1.8-2.4) Urine Collection Type Unknown Urine Color Yellow Urine Clarity Clear Urine pH 6.0 Urine Specific [place] >=1.030 Urine Protein Negative mg/dL (NEG-TRACE) Urine Glucose (UA) >=1000 mg/dL (NEG) Urine Ketones (Stick) Trace mg/dL (NEG) Urine Blood Negative (NEG) Urine Nitrite Negative (NEG) Urine Bilirubin Moderate (NEG) Urine Urobilinogen Dipstick 0.2 mg/dL (0.2 mg/dL) Urine Leukocyte Esterase Negative (NEG) Urine RBC 0 /HPF (0-2) Urine WBC 1-4 /HPF (0-4) Urine Squamous Epithelial Cells Few /LPF Urine Bacteria 0 /HPF (0-FEW) Urine Mucus Slight /LPF Urine Yeast Present /HPF Urine Opiates Screen Pos (NEG) Urine Methadone Screen Neg (NEG) Urine Barbiturates Neg (NEG) Urine Phencyclidine Screen Neg (NEG) Urine Amphetamine/Methamphetamine Neg (NEG) Urine Benzodiazepines Screen Neg (NEG) Urine Cocaine Screen Neg (NEG) Urine Cannabinoids Screen Neg (NEG) Urine Ethyl Alcohol Neg (NEG) Test 01/16/19 21:29 01/16/19 22:43 01/16/19 23:47 01/17/19 00:15 Glucose (Fingerstick) 154 mg/dL (70-99) 133 mg/dL (70-99) 93 mg/dL (70-99) Troponin I Quantitative < 0.017 ng/mL (0.000-0.055) Test 01/17/19 01:03 01/17/19 05:17 01/17/19 07:50 01/17/19 09:23 Glucose (Fingerstick) 122 mg/dL (70-99) 47 mg/dL (70-99) 122 mg/dL (70-99) Sodium Level 141 mmol/L (136-145) Potassium Level 3.6 mmol/L (3.5-5.1) Chloride Level 110 mmol/L (98-107) Carbon Dioxide Level 24 mmol/L (21-32) Anion Gap 7 (6-14) Blood Urea Nitrogen 7 mg/dL (7-20) Creatinine 0.5 mg/dL (0.6-1.0) Estimated GFR (Cockcroft-Gault) 146.9 Glucose Level 92 mg/dL (70-99) Calcium Level 8.4 mg/dL (8.5-10.1) Phosphorus Level 3.9 mg/dL (2.6-4.7) Magnesium Level 2.1 mg/dL (1.8-2.4) Troponin I Quantitative < 0.017 ng/mL (0.000-0.055) Albumin 2.8 g/dL (3.4-5.0) Test 01/17/19 12:08 01/17/19 16:54 01/17/19 21:16 01/18/19 07:29 Glucose (Fingerstick) 158 mg/dL (70-99) 174 mg/dL (70-99) 281 mg/dL (70-99) 110 mg/dL (70-99) Laboratory Tests Test 01/17/19 12:08 01/17/19 16:54 01/17/19 21:16 01/18/19 07:29 Glucose (Fingerstick) 158 mg/dL (70-99) 174 mg/dL (70-99) 281 mg/dL (70-99) 110 mg/dL (70-99) Brief Hospital Course Ms Bright is a 28 yo F w/ PMHx morbid obesity, diabetes, bipolar disorder, 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 She states that she woke up the morning of admission her blood sugar was in the 200s She also notes on ROS that she has central sharp chest pain with associated shortness of breath. The patient states she is been treated for a pressure ulcer on her behind and she developed gluteal pain approximately 12/27/18 and was admitted to [facility], underwent outpatient I and D x 2. Failed bactrim outpatient therapy and came to [facility], 01/02 underwent I and D in the operating room by Dr. Iqbal. Cultures collected from the 12/30 operation show no growth. She continues to state her buttock wound had MRSA, she has just completed a course of augmentin. Upon review of cultures at [facility] this was MSSA, sensitive to augmentin. 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 In ED notably tachycardic in the 120s with glucose> 400 and HCO2 of 13, gap of 22. Cr 1.4 and Lactate of 10.1. Afebrile. 01/18: Feels better, low blood sugar this AM, took 40 lantus, she reports not eating much at night. Transferred out of ICU. Wound care, may need wound vac. Echo normal. VQ scan low probability of PE. Chest pain resolved. Feeling much better today. Labs normalized. Glucose improved. Has gluteal pain. Dressing changed per wound nurse and she has f/u on 01/20/19. Wishes to go home today. A/P: DKA - with gap, h improved, off insulin gtt Nausea/Vomiting/Diarrhea - acute viral gastroenteritis, - improved Lactic acidosis - sepsis, improved, Chest pain VQ negative, lovenox d/c'd Dm Coag disorder well. FV leiden. Will take ASA 325mg BID DANYEL - vasomotor nephropathy and DKA. Bipolar disorder - seems currently disorganized, manic. On trazodone, fluoxetine, and hydroxyzine outpatient. Gluteal wound - will consult wound care, culture wound. Empiric cefazolin after her cultures are obtained. will d/c on no antibiotics, completed augmentin course. Has wound care f/u Greater than 30 minutes spent on d/c Discharge Information Condition at Discharge: Improved Follow Up: Weeks (1) Disposition/Orders: D/C to Home Scheduled Aspirin (Aspirin Ec) 325 Mg Tablet., 1 TAB PO BID for FV Leiden for 30 Days, #60 Ref 11 Prescribed by: JAMES KENT MD on 01/18/19 1007 Fluoxetine Hcl (Fluoxetine Hcl) 20 Mg Capsule, 40 MG PO QHS for Mood for 30 Da ys, #60 Prescribed by: JAMES KENT MD on 01/18/19 1007 Insulin Glargine,Hum.rec.anlog (Lantus) 100 Unit/1 Ml Vial, 30 UNIT SQ QHS for DM for 30 Days, #1 Prescribed by: JAMES KENT MD on 01/18/19 1007 Trazodone Hcl (Trazodone Hcl) 100 Mg Tablet, 100 MG PO QHS for Mood for 30 Days, #30 Prescribed by: JAMES KNET MD on 01/18/19 1007 Scheduled PRN Acetaminophen With Codeine (Tylenol With Codeine #3 Tablet) 1 Each Tablet, 1 TAB PO PRN Q6HRS PRN for PAIN for 3 Days, #6 Prescribed by: JAMES KENT MD on 01/18/19 1007 Hydroxyzine Hcl (Hydroxyzine Hcl) 25 Mg Tablet, 25 MG PO PRN Q6HRS PRN for ANXIETY for 30 Days, #30 Prescribed by: JAMES KENT MD on 01/18/19 1007 Discontinued Medications Oxycodone/Apap 5-325 (Percocet 5-325 Mg Tablet ) 1 Each Tablet, 1 TAB PO Q4H PRN for PAIN for 10 Days, #60 Ref 0 Prescribed by: CHRISTOPHER CARCAMO on 01/06/19 1059 JAMES KENT MD Jan 18, 2019 10:12
[2019-01-18] MEDS: POTASSIUM & SODIUM PHOSPHATES PACKET. PO SCH (10:40)
[2019-01-18] MEDS: ANTI-COAG MONITOR BY PHARMACY. MC PRN (10:49)
[2019-01-18 11:00] VITALS: BP 126/78
[2019-01-18] MEDS ORDERED: MORPHINE SULFATE 4 MG/ML VIAL. IV PRN (11:00)
[2019-01-18 15:00] VITALS: BP 109/49
--- NOTE | 2019-01-18 16:51 | NUR ---
Discharge teaching provided written and verbal to pt,understanding verbalized. Dismissed to home with all belongings accompanied by her boyfriend. transported to exit per w/c at 1615.
[2019-01-18] MEDS ORDERED: INSULIN GLARGINE SYRINGE. SQ SCH (21:00)
== END 2019-01-18 16:15 | disposition home or self-care (01) | DRG 871 ==
LOC: ER 16:49 → 1 WEST ICU 17:59 → 5 SOUTH 01-17 13:50
PROVIDERS: ADMIT Internal Medicine; ATTEND Internal Medicine
DX: A41.9 Sepsis, unspecified organism (principal); E11.10 Type 2 diabetes mellitus with ketoacidosis without coma; N17.0 Acute kidney failure with tubular necrosis; E87.1 Hypo-osmolality and hyponatremia; D68.9 Coagulation defect, unspecified; A08.4 Viral intestinal infection, unspecified; L89.90 Pressure ulcer of unspecified site, unspecified stage; F31.9 Bipolar disorder, unspecified; E66.01 Morbid (severe) obesity due to excess calories; Z68.29 Body mass index [BMI] 29.0-29.9, adult; Z79.4 Long term (current) use of insulin; Z86.711 Personal history of pulmonary embolism; Z88.8 Allergy status to other drugs, medicaments and biological substances; Z91.040 Latex allergy status; Z86.718 Personal history of other venous thrombosis and embolism; Z86.14 Personal history of Methicillin resistant Staphylococcus aureus infection; Z22.322 Carrier or suspected carrier of Methicillin resistant Staphylococcus aureus; L89.329 Pressure ulcer of left buttock, unspecified stage
CPT/HCPCS: 36415; 36600; 71045; 78582; 80048; 80053; 80069; 80307; 81001; 82010; 82805; 82962; 83605; 83735; 84100; 84484; 84703; 85025; 85610; 85730; 87040; 90471; 90686; 93005; 93306; 96374; A9540; A9558; J0696; J1650; J1815; J2270; J2405; J3475; J3480; J7030; G0378

== ENCOUNTER 2019-01-27 19:02 | Inpatient (IN) | payer OTHER ==
[2019-01-27] VITALS (7 sets, daily range): BP systolic 94–124; BP diastolic 59–73
[~2019-01-27] VITALS: Ht 180.3 cm; Wt 112.1 kg
[~2019-01-27 19:02] MED LIST changes: +ACET-704 PO; +ASPI325T11 PO; +FLUO20CA8 PO; +HYDR25TA PO; +INSU100V8 SQ; +TRAZ-86 PO
--- NOTE | 2019-01-27 19:28 | PHYS DOC ---
Past Medical History Past Medical History: Bipolar, Diabetes-Type I, Hypertension, MRSA, Other Additional Past Medical Histor: boderline personality disorder, insomnia, ASD Past Surgical History: , Other Additional Past Surgical Histo: open heart (repair ASD), debridment Alcohol Use: Occasionally Drug Use: Marijuana Adult General Chief Complaint Chief Complaint: MULTIPLE COMPLAINTS HPI HPI Patient is a 28 year old female with history of diabetes type 1 on post, hypertension, open heart surgery for ASD repair, factor V defect not on any blood thinners who presents to the ED today with multiple complaints. Patient is complaining of high blood sugars since yesterday, she states her sugars have been running in the 450s. She is also complaining of substernal chest pain rated at 8 out of 10 described as sharp and constant radiating to her back, she states the pain began this morning. Patient denies any exacerbating or relieving factors to her pain. She is also complaining of nausea. Denies vomiting. Review of Systems Review of Systems Constitutional: Denies fever or chills [] Eyes: Denies change in visual acuity, redness, or eye pain [] HENT: Denies nasal congestion or sore throat [] Respiratory: Denies cough or shortness of breath [] Cardiovascular: Reports chest pain GI: Reports nausea. Denies abdominal pain, bloody stools or diarrhea [] : Denies dysuria or hematuria [] Musculoskeletal: Denies back pain or joint pain [] Integument: Denies rash or skin lesions [] Neurologic: Denies headache, focal weakness or sensory changes [] Endocrine: Reports hyperglycemia All other systems were reviewed and found to be within normal limits, except as documented in this note. Current Medications Current Medications Current Medications Medications (Trade) Dose Ordered Sig/[facility] Start Time Stop Time Status Last Admin Dose Admin Aspirin (Lynn Aspirin) 325 mg 1X ONCE 01/27/19 19:30 01/27/19 19:31 DC 01/27/19 19:43 325 MG Insulin Human Regular 150 ml @ 9.7 mls/hr 1X ONCE 01/27/19 20:15 01/28/19 11:42 01/27/19 20:35 9.7 MLS/HR Insulin Human Regular 150 unit/ Sodium Chloride 151.5 ml @ 0 mls/hr CONT PRN PRN 01/27/19 20:15 UNV Morphine Sulfate (Morphine Sulfate) 4 mg PRN Q15MIN PRN 01/27/19 19:30 01/28/19 19:29 01/27/19 19:43 4 MG Potassium Chloride/Water 100 ml @ 100 mls/hr PRN Q1HR PRN 01/27/19 20:15 Sodium Chloride 1,000 ml @ 125 mls/hr 1X ONCE 01/27/19 20:15 01/27/19 22:49 DC Allergies Allergies Allergies Coded Allergies Type Severity Reaction Last Updated Verified latex Allergy Intermediate 01/01/19 Yes lisinopril Allergy Intermediate 01/01/19 Yes quetiapine Allergy Intermediate 01/01/19 Yes warfarin Allergy Intermediate 01/01/19 Yes Physical Exam Physical Exam Constitutional: Well developed, well nourished, no acute distress, non-toxic appearance. [] HENT: Normocephalic, atraumatic, bilateral external ears normal, oropharynx moist, no oral exudates, nose normal. [] Eyes: PERRLA, EOMI, conjunctiva normal, no discharge. [] Neck: Normal range of motion, no tenderness, supple, no stridor. [] Cardiovascular:Old healed surgical incision midline chest. Heart rate regular rhythm, with aortic click Lungs & Thorax: Bilateral breath sounds clear to auscultation [] Abdomen: Bowel sounds normal, soft, no tenderness, no masses, no pulsatile masses. [] Skin: Warm, dry, no erythema, no rash. [] Back: No tenderness, no CVA tenderness. [] Extremities: No tenderness, no cyanosis, no clubbing, ROM intact, no edema. [] Neurologic: Alert and oriented X 3, normal motor function, normal sensory function, no focal deficits noted. [] Psychologic: Affect normal, judgement normal, mood normal. [] Current Patient Data Vital Signs Vital Signs Date Time Temp Pulse Resp B/P (MAP) Pulse Ox O2 Delivery O2 Flow Rate FiO2 01/27/19 20:19 109 139/61 (87) 98 Room Air 01/27/19 19:49 21 01/27/19 19:10 97.7 97.7 Lab Values Laboratory Tests Test 01/27/19 19:10 01/27/19 19:18 01/27/19 19:23 01/27/19 19:30 Urine Collection Type Unknown Urine Color Yellow Urine Clarity Clear Urine pH 5.5 Urine Specific [place] >=1.030 Urine Protein Negative mg/dL (NEG-TRACE) Urine Glucose (UA) >=1000 mg/dL (NEG) Urine Ketones (Stick) 15 mg/dL (NEG) Urine Blood Negative (NEG) Urine Nitrite Negative (NEG) Urine Bilirubin Small (NEG) Urine Urobilinogen Dipstick 0.2 mg/dL (0.2 mg/dL) Urine Leukocyte Esterase Negative (NEG) Urine RBC 0 /HPF (0-2) Urine WBC 1-4 /HPF (0-4) Urine Squamous Epithelial Cells Mod /LPF Urine Bacteria Few /HPF (0-FEW) Urine Mucus Slight /LPF Urine Yeast Present /HPF Urine Opiates Screen Neg (NEG) Urine Methadone Screen Neg (NEG) Urine Barbiturates Neg (NEG) Urine Phencyclidine Screen Neg (NEG) Urine Amphetamine/Methamphetamine Neg (NEG) Urine Benzodiazepines Screen Neg (NEG) Urine Cocaine Screen Neg (NEG) Urine Cannabinoids Screen Neg (NEG) Urine Ethyl Alcohol Neg (NEG) Glucose (Fingerstick) 513 mg/dL (70-99) *H POC Urine HCG, Qualitative Hcg negative (Negative) White Blood Count 5.5 x10^3/uL (4.0-11.0) Red Blood Count 4.72 x10^6/uL (3.50-5.40) Hemoglobin 14.4 g/dL (12.0-15.5) Hematocrit 43.6 % (36.0-47.0) Mean Corpuscular Volume 92 fL (79-100) Mean Corpuscular Hemoglobin 31 pg (25-35) Mean Corpuscular Hemoglobin Concent 33 g/dL (31-37) Red Cell Distribution Width 13.7 % (11.5-14.5) Platelet Count 321 x10^3/uL (140-400) Neutrophils (%) (Auto) 54 % (31-73) Lymphocytes (%) (Auto) 33 % (24-48) Monocytes (%) (Auto) 10 % (0-9) H Eosinophils (%) (Auto) 3 % (0-3) Basophils (%) (Auto) 0 % (0-3) Neutrophils # (Auto) 3.0 x10^3/uL (1.8-7.7) Lymphocytes # (Auto) 1.8 x10^3/uL (1.0-4.8) Monocytes # (Auto) 0.5 x10^3/uL (0.0-1.1) Eosinophils # (Auto) 0.2 x10^3/uL (0.0-0.7) Basophils # (Auto) 0.0 x10^3/uL (0.0-0.2) Prothrombin Time 12.8 SEC (11.7-14.0) Prothrombin Time INR 1.0 (0.8-1.1) D-Dimer (Kelli) 0.29 ug/mlFEU (0.00-0.50) Sodium Level 130 mmol/L (136-145) L Potassium Level 4.5 mmol/L (3.5-5.1) Chloride Level 98 mmol/L (98-107) Carbon Dioxide Level 12 mmol/L (21-32) L Anion Gap 20 (6-14) H Blood Urea Nitrogen 15 mg/dL (7-20) Creatinine 1.2 mg/dL (0.6-1.0) H Estimated GFR (Cockcroft-Gault) 53.5 BUN/Creatinine Ratio 13 (6-20) Glucose Level 555 mg/dL (70-99) *H Calcium Level 8.9 mg/dL (8.5-10.1) Phosphorus Level 2.6 mg/dL (2.6-4.7) Magnesium Level 2.2 mg/dL (1.8-2.4) Total Bilirubin 0.3 mg/dL (0.2-1.0) Aspartate Amino Transferase (AST) 12 U/L (15-37) L Alanine Aminotransferase (ALT) 23 U/L (14-59) Alkaline Phosphatase 122 U/L (46-116) H Creatine Kinase 44 U/L (26-192) Creatine Kinase MB (Mass) < 0.5 ng/mL (0.0-3.6) Creatine Kinase MB Relative Index % (0-4) Troponin I Quantitative < 0.017 ng/mL (0.000-0.055) AM-Cqb-U-Type Natriuretic Peptide 44 pg/mL (0-124) Total Protein 7.7 g/dL (6.4-8.2) Albumin 4.0 g/dL (3.4-5.0) Albumin/Globulin Ratio 1.1 (1.0-1.7) Lipase 82 U/L (73-393) Thyroid Stimulating Hormone (TSH) 1.253 uIU/mL (0.358-3.74) Ethyl Alcohol Level < 10 mg/dL (0-10) Test 01/27/19 20:28 Glucose (Fingerstick) 486 mg/dL (70-99) H Laboratory Tests 01/27/19 19:30 Laboratory Tests 01/27/19 19:30 EKG EKG [] Radiology/Procedures Radiology/Procedures []PROCEDURE: PORTABLE CHEST 1V AP chest x-ray HISTORY: Chest pain. COMPARISON: Chest x-ray January 16, 2019. FINDINGS: Median sternotomy again demonstrated with heart size normal. Mediastinal silhouette is normal. No pneumothorax, pulmonary opacities or pleural effusions. IMPRESSION: No acute process. Electronically signed by: Jacobo Streeter MD (01/27/2019 7:46 PM) [facility] DICTATED and SIGNED BY: JACOBO STREETER MD DATE: 01/27/191945 Course & Med Decision Making Course & Med Decision Making Pertinent Labs and Imaging studies reviewed. (See chart for details) This is a 28-year-old female patient presenting to the ED today with hy perglycemia, chest pain radiating to the back and nausea. Symptoms began yesterday with hyperglycemia and have progressed to chest pain. CBC with a normal WBC, CMP with NA of 130, CO2 12, Glucose 555 Gap 20, creatinine 1.2, ketones 15. Patient was given 2 L of IV fluids in the ED and started on the DKA protocol Spoke with Dr. Benavides who accepted patient for admission Dragon Disclaimer Dragon Disclaimer This electronic medical record was generated, in whole or in part, using a voice recognition dictation system. The HEART Score for CP Pts HEART Score for Chest Pain: HEART Score for Chest Pain Response (Comments) Value History Slighlty/Non-Suspicious 0 ECG Normal 0 Age < 45 0 Risk Factors 1 or 2 Risk Factors 1 Troponin < Normal Limit 0 Total 1 Risk Factors: Risk Factors: DM, Current or recent (<one month) smoker, HTN, HLP, family history of CAD, obesity. Risk Scores: Score 0 - 3: 2.5% MACE over next 6 weeks - Discharge Home Score 4 - 6: 20.3% MACE over next 6 weeks - Admit for Clinical Observation Score 7 - 10: 72.7% MACE over next 6 weeks - Early Invasive Strategies Departure Departure Impression: Primary Impression: DKA (diabetic ketoacidoses) Additional Impression: Chest pain Disposition: 09 ADMITTED INPATIENT Condition: STABLE Referrals: CLARISSA COLLADO MD (PCP) Problem Qualifiers Primary Impression: DKA (diabetic ketoacidoses) Diabetes mellitus type: type 1 Diabetes mellitus complication detail: without coma Qualified Codes: E10.10 - Type 1 diabetes mellitus with ketoacidosis without coma Additional Impression: Chest pain Chest pain type: unspecified Qualified Codes: R07.9 - Chest pain, unspecified MUTUNGA,HONG [employer] FOUNDER AND DIRECTOR Jan 27, 2019 19:28
[2019-01-27 19:29] LABS: BILIRUBIN,URINE SMALL (NEG); CLARITY,URINE CLEAR; COLOR,URINE YELLOW; NITRITE,URINE NEGATIVE (NEG); PH,URINE 5.5; PROTEIN,URINE NEGATIVE (NEG-TRACE); UROBILINOGEN,URINE 0.2 mg/dL (0.2 mg/dL)
[2019-01-27] MEDS ORDERED: IV NORMAL SALINE 1000ML BAG 1,000 ML IV ONE ×4 (19:30→22:30)
[2019-01-27] MEDS ORDERED: ASPIRIN 325 MG TABLET PO ONE (19:30)
[2019-01-27] MEDS ORDERED: MORPHINE SULFATE 4 MG/ML VIAL. IV/SQ PRN (19:30)
[2019-01-27 19:36] LABS: AMPHETAMINE/METHAMPHETAMINE NEG (NEG); BARBITURATES NEG (NEG); BENZODIAZEPINES NEG (NEG); CANNABINOIDS NEG (NEG); COCAINE NEG (NEG); METHADONE NEG (NEG); OPIATES NEG (NEG); PHENCYCLIDINE NEG (NEG)
[2019-01-27 19:38] LABS: BASO % 0 % (0-3); EOS # 0.2 x10^3/uL (0.0-0.7); EOS % 3 % (0-3); HEMATOCRIT 43.6 % (36.0-47.0); HEMOGLOBIN 14.4 g/dL (12.0-15.5); LYMPH # 1.8 x10^3/uL (1.0-4.8); LYMPH % 33 % (24-48); MEAN CORPUSCULAR HEMOGLOBIN 31 pg (25-35); MEAN CORPUSCULAR HGB CONC 33 g/dL (31-37); MEAN CORPUSCULAR VOLUME 92 fL (79-100); MONO # 0.5 x10^3/uL (0.0-1.1); MONO % 10 % (0-9); NEUT % 54 % (31-73); PLATELET COUNT 321 x10^3/uL (140-400); RED BLOOD COUNT 4.72 x10^6/uL (3.50-5.40); RED CELL DISTRIBUTION WIDTH 13.7 % (11.5-14.5); WHITE BLOOD COUNT 5.5 x10^3/uL (4.0-11.0)
[2019-01-27 19:39] LABS: BACTERIA,URINE FEW /HPF (0-FEW); RBC,URINE 0 /HPF (0-2); SQUAMOUS EPITHELIAL CELL,UR MOD /LPF; YEAST,URINE PRESENT /HPF
[2019-01-27 19:47] LABS: PROTHROMBIN TIME PATIENT 12.8 SEC (11.7-14.0)
--- NOTE | 2019-01-27 19:48 | RAD ---
AP chest x-ray HISTORY: Chest pain. COMPARISON: Chest x-ray January 16, 2019. FINDINGS: Median sternotomy again demonstrated with heart size normal. Mediastinal silhouette is normal. No pneumothorax, pulmonary opacities or pleural effusions. IMPRESSION: No acute process. Electronically signed by: Arias Streeter MD (01/27/2019 7:46 PM) [facility]
[2019-01-27 19:50] LABS: D-DIMER 0.29 ug/mlFEU (0.00-0.50)
[2019-01-27 19:57] LABS: ALBUMIN/GLOBULIN RATIO 1.1 (1.0-1.7); CALCIUM 8.9 mg/dL (8.5-10.1); CREATININE 1.2 mg/dL (0.6-1.0); GFR 53.5; MAGNESIUM 2.2 mg/dL (1.8-2.4); POTASSIUM 4.5 mmol/L (3.5-5.1); TOTAL BILIRUBIN 0.3 mg/dL (0.2-1.0); TOTAL PROTEIN 7.7 g/dL (6.4-8.2)
[2019-01-27 20:06] LABS: CREATINE KINASE 44 U/L (26-192)
[2019-01-27] MEDS ORDERED: POTASSIUM CHLORIDE 10MEQ 100 ML IV PRN ×2 (20:15)
[2019-01-27] MEDS ORDERED: INSULIN,REGULAR 150 UNIT DRIP 150 ML IV ONE (20:15)
[2019-01-27] MEDS ORDERED: INSULIN REGULAR VIAL 150 UNIT in 0.9 % SODIUM CHLORIDE 150ML 150 ML IV PRN (20:15)
[2019-01-27] MEDS ORDERED: METOCLOPRAMIDE HCL 10 MG/2 ML VIAL. IVP ONE (20:45)
[2019-01-27] MEDS ORDERED: fentaNYL PF VIAL 100 MCG/2 ML VIAL IVP ONE (20:45)
[2019-01-27 21:12] LABS: BASE EXCESS COOX -16 mmol/L (-3-3); HCO3 COOX 9 mmol/L (21-28); METHEMOGLOBIN 0.4 % (0.0-1.9); OXYHEMOGLOBIN 96.9 %; PO2 COOX 109 mmHg (85-108); SAT O2 COOX 98 % (92-99)
[2019-01-27 21:15] LABS: PCO2 COOX 20 mmHg (35-46)
[2019-01-27] MEDS ORDERED: ACETAMINOPHEN 325 MG TABLET. PO PRN (22:15)
--- NOTE | 2019-01-27 22:15 | NUR ---
Patient admitted to room 112 from ED via cart, accompanied by ED RN. Patient alert/oriented x4, cooperative, and complaining of chest pain midsternal, without radiation or associated symptoms (shortness of air, diaphoresis, dizziness)--patient states pain is now 5/10 after receiving Fentanyl IV in ED. Patient has Insulin infusing at 5.4 UNITS/HR through right AC IV--dosing per gyrostabilizer. Patient educated on ICU routine, nursing call light, TV/Bed control, Numeric pain scale, side rail policy, diet, activity, and POC to include need for close monitoring of FSBS with Insulin gtt. Patient verbalizes understanding of all the above. Also encouraged patient to call for assistance if she needs to use BSC. 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 See Admission information.
[2019-01-27] MEDS: fentaNYL PF VIAL 100 MCG/2 ML VIAL IV PRN (22:49)
[2019-01-27] MEDS: IV DEXTROSE 5% - 0.9 % NACL 1,000 ML IV SCH (22:50)
[2019-01-27] MEDS: ONDANSETRON PF 4 MG/2 ML VIAL. IV PRN (23:08)
[2019-01-27 23:09] LABS: CALCIUM 8.7 mg/dL (8.5-10.1); CREATININE 0.7 mg/dL (0.6-1.0); GFR 99.6
[2019-01-27 23:13] LABS: MAGNESIUM 1.9 mg/dL (1.8-2.4); PHOSPHORUS 1.1 mg/dL (2.6-4.7)
[2019-01-27 23:15] LABS: POTASSIUM 3.5 mmol/L (3.5-5.1)
[2019-01-27] MEDS ORDERED: INSU100I17 SQ (23:35)
[2019-01-27] MEDS ORDERED: CYCL10TA2 PO (23:35)
[2019-01-27] MEDS ORDERED: LURA120T PO (23:35)
[2019-01-27] MEDS ORDERED: METF10007 PO (23:35)
[2019-01-27] MEDS ORDERED: INSU100I27 SQ (23:35)
[2019-01-27] MEDS ORDERED: OXYC-411 PO (23:35)
[2019-01-27] MEDS ORDERED: HYDR50CA2 PO (23:35)
[2019-01-27] MEDS ORDERED: OMEP20CA10 PO (23:35)
[2019-01-27] MEDS ORDERED: TRAZ-86 PO (23:35)
[2019-01-27] MEDS ORDERED: METO25TA4 PO (23:35)
[2019-01-27] MEDS: POTASSIUM CHLORIDE 10MEQ 100 ML IV PRN (23:58)
[2019-01-28] VITALS (17 sets, daily range): BP systolic 80–123; BP diastolic 53–79
[2019-01-28] MEDS: MAGNESIUM SULFATE 4GM 100 ML IV SCH ×2 (00:13→09:05)
[2019-01-28] MEDS: INSULIN GLARGINE SYRINGE. SQ SCH ×2 (00:13→21:01)
[2019-01-28] MEDS: fentaNYL PF VIAL 100 MCG/2 ML VIAL IV PRN ×7 (01:06→17:24)
[2019-01-28] MEDS: POTASSIUM CHLORIDE 10MEQ 100 ML IV PRN ×3 (01:18→03:04)
[2019-01-28] MEDS: IV DEXTROSE 5% - 0.9 % NACL 1,000 ML IV SCH ×5 (03:37→20:02)
--- NOTE | 2019-01-28 05:50 | EKG ---
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
[2019-01-28 06:09] LABS: BASO % 0 % (0-3); EOS # 0.2 x10^3/uL (0.0-0.7); EOS % 5 % (0-3); HEMATOCRIT 35.9 % (36.0-47.0); LYMPH # 1.9 x10^3/uL (1.0-4.8); LYMPH % 45 % (24-48); MEAN CORPUSCULAR HEMOGLOBIN 30 pg (25-35); MEAN CORPUSCULAR HGB CONC 33 g/dL (31-37); MEAN CORPUSCULAR VOLUME 91 fL (79-100); MONO # 0.4 x10^3/uL (0.0-1.1); MONO % 10 % (0-9); NEUT # 1.7 x10^3/uL (1.8-7.7); NEUT % 40 % (31-73); PLATELET COUNT 252 x10^3/uL (140-400); RED BLOOD COUNT 3.95 x10^6/uL (3.50-5.40); RED CELL DISTRIBUTION WIDTH 13.7 % (11.5-14.5); WHITE BLOOD COUNT 4.3 x10^3/uL (4.0-11.0)
[2019-01-28 06:36] LABS: CALCIUM 8.4 mg/dL (8.5-10.1); CREATININE 0.6 mg/dL (0.6-1.0); PHOSPHORUS 2.4 mg/dL (2.6-4.7); POTASSIUM 4.2 mmol/L (3.5-5.1)
[2019-01-28] MEDS: INSULIN LISPRO 300 UNITS/3 ML VIAL. SQ SCH ×3 (08:00→17:00)
[2019-01-28] MEDS ORDERED: MAGNESIUM SULFATE 4GM 100 ML IV SCH (09:00)
--- NOTE | 2019-01-28 09:03 | NUR ---
Wound Care Wound care consult for abscess to L buttock. Pt is [facility] pt and will continue to follow up there. Cleansed wound and applied collagen, contact layer and foam dressing, recommend to change every 3 days. No other wounds noted, WC will continue to follow for possible changes.
[2019-01-28] MEDS: ONDANSETRON PF 4 MG/2 ML VIAL. IV PRN ×2 (10:11→17:14)
--- NOTE | 2019-01-28 10:35 | NUR ---
SS following for discharge planning. SS reviewed pt chart. Pt is from home and is currently on room air. SS will continue to follow for discharge planning.
[2019-01-28] MEDS ORDERED: traZODone 100 MG TABLET. PO PRN (11:00)
[2019-01-28] MEDS: METOPROLOL TART IMMED RELEASE 25 MG TABLET. PO SCH ×3 (11:00→20:01)
[2019-01-28] MEDS ORDERED: hydrOXYzine 25 MG TABLET PO PRN (11:15)
--- NOTE | 2019-01-28 11:31 | PDOC2 ---
MOON SILVA JOHANA 01/28/19 1131: CARDIAC CONSULT DATE OF CONSULT Date of Consult DATE: 01/28/19 TIME: 11:24 REASON FOR CONSULT Reason for Consult: Chest pain H/o ASD REFERRING PHYSICIAN Referring Physician: Erendira Alaniz APRN SOURCE Source: Chart review, Patient HISTORY OF PRESENT ILLNESS HISTORY OF PRESENT ILLNESS This is a 28 yo female who presented secondary to chest pain and elevated blood glucose. Patient reports she hasn't been feeling well for the last couple of days. Woke up yesterday from a nap. Was slightly short of breath. Had pain in her left chest. Describes as squeezing in nature. Pain wraps around her left side. Is worse with deep breathing. No associated nausea, dizziness, or diap horesis. Did notice some palpitations. Has a history of ASD repair at the age of 18 at [facility] and Factor V Leiden with h/o DVT and PE. Does not take OAC as she is not able to afford. Takes ASA BID. Was here earlier this month with similar presentation including CP. Echo showed preserved LV systolic function. VQ scan was low probability for PE. PAST MEDICAL HISTORY Cardiovascular: HTN, Hyperlipidemia, Other (ASD) CENTRAL NERVOUS SYSTEM: Seizure GI: GERD Heme/Onc: Other (Facor V deficiency, PE, DVT) Psych: Anxiety, Depression, Other (PTSD ) Endocrine: Diabetes (Type 1) PAST SURGICAL HISTORY Past Surgical History: Other (ASD repair ) FAMILY HISTORY Family History: Other (Crohns disease) SOCIAL HISTORY Smoke: No ALCOHOL: none Drugs: Marijuana Lives: with Family CURRENT MEDICATIONS CURRENT MEDICATIONS Current Medications Medications (Trade) Dose Ordered Sig/Kelvin Route PRN Reason Start Time Stop Time Status Last Admin Dose Admin Aspirin (Lynn Aspirin) 325 mg 1X ONCE PO 01/27/19 19:30 01/27/19 19:31 DC 01/27/19 19:43 Morphine Sulfate (Morphine Sulfate) 4 mg PRN Q15MIN PRN IV/SQ PAIN GREATER THAN 3/10 01/27/19 19:30 01/28/19 19:29 01/27/19 19:43 Sodium Chloride 1,000 ml @ 1,000 mls/hr 1X ONCE IV 01/27/19 19:30 01/27/19 20:29 DC 01/27/19 19:33 Sodium Chloride 1,000 ml @ 1,000 mls/hr 1X ONCE IV 01/27/19 19:30 01/27/19 20:29 DC 01/27/19 19:44 Potassium Chloride/Water 100 ml @ 100 mls/hr PRN Q1HR PRN IV SEE COMMENTS 01/27/19 20:15 01/28/19 03:04 Insulin Human Regular 150 ml @ 9.7 mls/hr 1X ONCE IV 01/27/19 20:15 01/28/19 11:42 01/27/19 20:35 Fentanyl Citrate (Fentanyl 2ml Vial) 50 mcg 1X ONCE IVP 01/27/19 20:45 01/27/19 20:46 DC 01/27/19 20:59 Metoclopramide HCl (Reglan Vial) 10 mg 1X ONCE IVP 01/27/19 20:45 01/27/19 20:46 DC 01/27/19 20:59 Ondansetron HCl (Zofran) 4 mg PRN Q8HRS PRN IV NAUSEA/VOMITING 1ST CHOICE 01/27/19 22:15 01/28/19 22:14 01/28/19 10:11 Fentanyl Citrate (Fentanyl 2ml Vial) 50 mcg PRN Q1HR PRN IV SEVERE PAIN 7-10 01/27/19 22:15 01/28/19 22:14 01/28/19 10:12 Dextrose/Sodium Chloride 1,000 ml @ 250 mls/hr Q4H IV 01/27/19 22:45 01/28/19 07:44 Insulin Glargine (Lantus Syringe) 50 unit QHS SQ 01/28/19 00:00 01/28/19 00:13 Magnesium Sulfate 100 ml @ 25 mls/hr DAILY IV 01/28/19 00:30 01/30/19 00:29 01/28/19 09:05 Metoprolol Tartrate (Lopressor) 25 mg BID PO 01/28/19 11:00 01/28/19 11:10 Hydroxyzine HCl (Atarax) 50 mg PRN Q8HRS PRN PO ITCHING 01/28/19 11:15 01/28/19 11:10 ALLERGIES ALLERGIES: Coded Allergies: latex (Verified Allergy, Intermediate, 01/01/19) lisinopril (Verified Allergy, Intermediate, 01/01/19) quetiapine (Verified Allergy, Intermediate, 01/01/19) warfarin (Verified Allergy, Intermediate, 01/01/19) ROS Review of System 14 point ROS conducted with pertinent positives noted above in HPI. PHYSICAL EXAM General: Alert, Oriented X3, Cooperative, No acute distress HEENT: Atraumatic, Mucous membr. moist/pink Lungs: Clear to auscultation, Normal air movement Heart: Regular rate, Normal S1, Normal S2 Abdomen: Soft Extremities: No edema, Normal pulses Skin: No significant lesion Neuro: Normal speech, Sensation intact Psych/Mental Status: Mental status NL, Mood NL MUSCULOSKELETAL: Osteoarthritic changes both hands VITALS/I&O VITALS/I&O: Vital Signs Date Time Temp Pulse Resp B/P (MAP) Pulse Ox O2 Delivery O2 Flow Rate FiO2 01/28/19 11:10 96 123/75 01/28/19 11:01 16 Room Air 01/28/19 10:08 100 01/28/19 08:05 98.2 98.2 I & O 0 01/27/19 01/27/19 01/28/19 14:59 22:59 06:59 Intake Total 2000 ml 2534 ml Balance 2000 ml 2534 ml LABS Lab: Laboratory Tests Test 01/27/19 19:10 01/27/19 19:18 01/27/19 19:23 01/27/19 19:30 Urine Collection Type Unknown Urine Color Yellow Urine Clarity Clear Urine pH 5.5 Urine Specific Hixson >=1.030 Urine Protein Negative mg/dL (NEG-TRACE) Urine Glucose (UA) >=1000 mg/dL (NEG) Urine Ketones (Stick) 15 mg/dL (NEG) Urine Blood Negative (NEG) Urine Nitrite Negative (NEG) Urine Bilirubin Small (NEG) Urine Urobilinogen Dipstick 0.2 mg/dL (0.2 mg/dL) Urine Leukocyte Esterase Negative (NEG) Urine RBC 0 /HPF (0-2) Urine WBC 1-4 /HPF (0-4) Urine Squamous Epithelial Cells Mod /LPF Urine Bacteria Few /HPF (0-FEW) Urine Mucus Slight /LPF Urine Yeast Present /HPF Urine Opiates Screen Neg (NEG) Urine Methadone Screen Neg (NEG) Urine Barbiturates Neg (NEG) Urine Phencyclidine Screen Neg (NEG) Urine Amphetamine/Methamphetamine Neg (NEG) Urine Benzodiazepines Screen Neg (NEG) Urine Cocaine Screen Neg (NEG) Urine Cannabinoids Screen Neg (NEG) Urine Ethyl Alcohol Neg (NEG) Glucose (Fingerstick) 513 mg/dL (70-99) *H POC Urine HCG, Qualitative Hcg negative (Negative) White Blood Count 5.5 x10^3/uL (4.0-11.0) Red Blood Count 4.72 x10^6/uL (3.50-5.40) Hemoglobin 14.4 g/dL (12.0-15.5) Hematocrit 43.6 % (36.0-47.0) Mean Corpuscular Volume 92 fL (79-100) Mean Corpuscular Hemoglobin 31 pg (25-35) Mean Corpuscular Hemoglobin Concent 33 g/dL (31-37) Red Cell Distribution Width 13.7 % (11.5-14.5) Platelet Count 321 x10^3/uL (140-400) Neutrophils (%) (Auto) 54 % (31-73) Lymphocytes (%) (Auto) 33 % (24-48) Monocytes (%) (Auto) 10 % (0-9) H Eosinophils (%) (Auto) 3 % (0-3) Basophils (%) (Auto) 0 % (0-3) Neutrophils # (Auto) 3.0 x10^3/uL (1.8-7.7) Lymphocytes # (Auto) 1.8 x10^3/uL (1.0-4.8) Monocytes # (Auto) 0.5 x10^3/uL (0.0-1.1) Eosinophils # (Auto) 0.2 x10^3/uL (0.0-0.7) Basophils # (Auto) 0.0 x10^3/uL (0.0-0.2) Prothrombin Time 12.8 SEC (11.7-14.0) Prothrombin Time INR 1.0 (0.8-1.1) D-Dimer (Kelli) 0.29 ug/mlFEU (0.00-0.50) Sodium Level 130 mmol/L (136-145) L Potassium Level 4.5 mmol/L (3.5-5.1) Chloride Level 98 mmol/L (98-107) Carbon Dioxide Level 12 mmol/L (21-32) L Anion Gap 20 (6-14) H Blood Urea Nitrogen 15 mg/dL (7-20) Creatinine 1.2 mg/dL (0.6-1.0) H Estimated GFR (Cockcroft-Gault) 53.5 BUN/Creatinine Ratio 13 (6-20) Glucose Level 555 mg/dL (70-99) *H Calcium Level 8.9 mg/dL (8.5-10.1) Phosphorus Level 2.6 mg/dL (2.6-4.7) Magnesium Level 2.2 mg/dL (1.8-2.4) Total Bilirubin 0.3 mg/dL (0.2-1.0) Aspartate Amino Transferase (AST) 12 U/L (15-37) L Alanine Aminotransferase (ALT) 23 U/L (14-59) Alkaline Phosphatase 122 U/L (46-116) H Creatine Kinase 44 U/L (26-192) Creatine Kinase MB (Mass) < 0.5 ng/mL (0.0-3.6) Creatine Kinase MB Relative Index % (0-4) Troponin I Quantitative < 0.017 ng/mL (0.000-0.055) QR-[id number]-Type Natriuretic Peptide 44 pg/mL (0-124) Total Protein 7.7 g/dL (6.4-8.2) Albumin 4.0 g/dL (3.4-5.0) Albumin/Globulin Ratio 1.1 (1.0-1.7) Lipase 82 U/L (73-393) Thyroid Stimulating Hormone (TSH) 1.253 uIU/mL (0.358-3.74) Ethyl Alcohol Level < 10 mg/dL (0-10) Test 01/27/19 20:28 01/27/19 21:10 01/27/19 21:29 01/27/19 22:38 Glucose (Fingerstick) 486 mg/dL (70-99) H 330 mg/dL (70-99) H 140 mg/dL (70-99) H O2 Saturation 98 % (92-99) Arterial Blood pH 7.26 (7.35-7.45) L Arterial Blood pCO2 at Patient Temp 20 mmHg (35-46) *L Arterial Blood pO2 at Patient Temp 109 mmHg (85-108) H Arterial Blood HCO3 9 mmol/L (21-28) L Arterial Blood Base Excess -16 mmol/L (-3-3) L Oxyhemoglobin 96.9 % Methemoglobin 0.4 % (0.0-1.9) Carbon Monoxide, Quantitative 0.3 % (0.0-1.9) Test 01/27/19 22:55 01/28/19 04:51 01/28/19 05:30 01/28/19 08:10 Sodium Level 137 mmol/L (136-145) 141 mmol/L (136-145) Potassium Level 3.5 mmol/L (3.5-5.1) # 4.2 mmol/L (3.5-5.1) Chloride Level 108 mmol/L (98-107) H 109 mmol/L (98-107) H Carbon Dioxide Level 17 mmol/L (21-32) L 20 mmol/L (21-32) L Anion Gap 12 (6-14) 12 (6-14) Blood Urea Nitrogen 11 mg/dL (7-20) 9 mg/dL (7-20) Creatinine 0.7 mg/dL (0.6-1.0) 0.6 mg/dL (0.6-1.0) Estimated GFR (Cockcroft-Gault) 99.6 119.0 Glucose Level 120 mg/dL (70-99) H 141 mg/dL (70-99) H Calcium Level 8.7 mg/dL (8.5-10.1) 8.4 mg/dL (8.5-10.1) L Phosphorus Level 1.1 mg/dL (2.6-4.7) L 2.4 mg/dL (2.6-4.7) L Magnesium Level 1.9 mg/dL (1.8-2.4) Glucose (Fingerstick) 136 mg/dL (70-99) H 118 mg/dL (70-99) H White Blood Count 4.3 x10^3/uL (4.0-11.0) Red Blood Count 3.95 x10^6/uL (3.50-5.40) Hemoglobin 12.0 g/dL (12.0-15.5) Hematocrit 35.9 % (36.0-47.0) L Mean Corpuscular Volume 91 fL (79-100) Mean Corpuscular Hemoglobin 30 pg (25-35) Mean Corpuscular Hemoglobin Concent 33 g/dL (31-37) Red Cell Distribution Width 13.7 % (11.5-14.5) Platelet Count 252 x10^3/uL (140-400) Neutrophils (%) (Auto) 40 % (31-73) Lymphocytes (%) (Auto) 45 % (24-48) Monocytes (%) (Auto) 10 % (0-9) H Eosinophils (%) (Auto) 5 % (0-3) H Basophils (%) (Auto) 0 % (0-3) Neutrophils # (Auto) 1.7 x10^3/uL (1.8-7.7) L Lymphocytes # (Auto) 1.9 x10^3/uL (1.0-4.8) Monocytes # (Auto) 0.4 x10^3/uL (0.0-1.1) Eosinophils # (Auto) 0.2 x10^3/uL (0.0-0.7) Basophils # (Auto) 0.0 x10^3/uL (0.0-0.2) Troponin I Quantitative < 0.017 ng/mL (0.000-0.055) Laboratory Tests 01/27/19 19:30 01/28/19 05:30 Laboratory Tests 01/27/19 19:30 01/27/19 22:55 01/28/19 05:30 ECHOCARDIOGRAM ECHOCARDIOGRAM Conclusion> The left ventricle is normal size. The left ventricular systolic function is normal. The Ejection Fraction is 50-55%. There is normal LV segmental wall motion. There is no significant aortic valvular stenosis. Doppler and Color Flow revealed no significant aortic regurgitation. Doppler and Color Flow revealed no mitral valve regurgitation noted. Doppler and Color Flow revealed trace tricuspid regurgitation with an estimated PAP of 20 mmHg. There is no evidence of significant pericardial effusion. DATE: 01/17/191117 ASSESSMENT/PLAN ASSESSMENT/PLAN 1. Chest pain, atypical; AMI ruled out. Recent echo with preserved LV systolic function 2. DKA; BS > 500 upon arrival. 3. Diabetes, Type1 4. Hyperlipidemia 5. Hypertension; controlled 6. ASD s/p repair 7. 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 Not on OAC 8. Anxiety, depression, bipolar Recommendations Lipid panel Continue metoprolol Resume ASA Given recurrent chest pain and significant risk factors incluidng T1D, will proceed with stress test in am to r/o ischemia MONICA DOWNS MD 01/29/19 0804: CARDIAC CONSULT ASSESSMENT/PLAN ASSESSMENT/PLAN Late entry for 01/28/2019 Pt. seen and examined. 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 Due to patient's age, significant DM history and multiple risk factors, will r ule out occult ischemia as noted above. Thanks MOON SILVA APRN Jan 28, 2019 11:31 MONICA DOWNS MD Jan 29, 2019 08:04
[2019-01-28] MEDS: PANTOPRAZOLE 40 MG TABLET.DR. PO SCH (12:09)
--- NOTE | 2019-01-28 12:15 | HP ---
ADMIT DATE: 01/28/2019 CHIEF COMPLAINT: High blood sugar. HISTORY OF PRESENT ILLNESS: The patient is a pleasant 28-year-old female who has had diabetes since she was 12. She presented to the ER with DKA. We have admitted the patient. She is now in the ICU, on an insulin drip. PAST MEDICAL HISTORY: Bipolar, depression, diabetes, hypertension, MRSA, borderline personality, insomnia, ASD with surgical repair, , marijuana use, and debridement. ALLERGIES: LATEX, LISINOPRIL, AND COUMADIN. FAMILY HISTORY: Coronary artery disease. SOCIAL HISTORY: She does not drink, smoke, or take drugs. MEDICATIONS: Reviewed, please refer to the MRAD. REVIEW OF SYSTEMS: GENERAL: She complains of weakness. SKIN: No bruising, hair changes or rashes. EYES: No blurred, double or loss of vision. NOSE AND THROAT: No history of nosebleeds, hoarseness or sore throat. HEART: No history of palpitations, chest pain or shortness of breath on exertion. LUNGS: Denies cough, hemoptysis, wheezing or shortness of breath. GASTROINTESTINAL: Denies changes in appetite, nausea, vomiting, diarrhea or constipation. GENITOURINARY: No history of frequency, urgency, hesitancy or nocturia. NEUROLOGIC: Denies history of numbness, tingling, tremor or weakness. PSYCHIATRIC: She complains of depression. ENDOCRINE: She complains of hyperglycemia. EXTREMITIES: Denies muscle weakness, joint pain, pain on walking or stiffness. PHYSICAL EXAMINATION: VITALS: Within normal limits and are stable. GENERAL: No apparent distress. Alert and oriented. HEENT: Head is normocephalic, atraumatic, pupils were equally round and reactive to light and accommodation. NECK: Supple, no JVD, no thyromegaly was noted. LUNGS: Clear to auscultation in all lung travis without rhonchi or wheezing. HEART: RRR, S1, S2 present. Peripheral pulses intact, no obvious murmurs were noted. ABDOMEN: Soft, nontender. Positive bowel sounds no organomegaly, normal bowel sounds. EXTREMITIES: Without any cyanosis, clubbing, or edema. Pedal pulses intact, Homans sign is negative. NEUROLOGIC: Normal speech, normal tone. A & O x3, moves all extremities, no obvious focal deficits. PSYCHIATRIC: Normal affect, normal mood. Stable. SKIN: No ulcerations or rashes, good skin turgor, no jaundice. VASCULAR: Good capillary refill, neurovascular bundle appears to be intact. LABORATORY DATA: White count is 5, anion gap was 20, and glucose 555. ASSESSMENT AND PLAN: Diabetic ketoacidosis. The patient has been admitted. She was given insulin drip, IV fluids, ICU monitoring. DVT prophylaxis. Full code. Home meds. MEERA CARSON DO DR: ANGEL/bhavik JOB#: [id number] / [id number]
[2019-01-28 16:14] LABS: CHOLESTEROL/HDL RATIO 5.6
[2019-01-28] MEDS: metFORMIN 500 MG TABLET PO SCH ×2 (17:00→18:03)
--- NOTE | 2019-01-28 17:49 | NUR ---
Pt's BS was at 67, gave pt a juice and restarted her IV of dextrose 5% that was occluded.
[2019-01-28] MEDS: FLUoxetine HCL 20 MG CAPSULE PO SCH (20:00)
[2019-01-28] MEDS: HYDROcodone/APAP 5/325MG 1 TAB TABLET PO PRN (20:01)
[2019-01-28] MEDS: CYCLOBENZAPRINE 10 MG TABLET. PO PRN (20:07)
[2019-01-28] MEDS: MORPHINE SULFATE 2 MG/ML VIAL. IV PRN ×2 (20:54→23:44)
[2019-01-28] MEDS: LURASIDONE 40 MG TABLET. PO SCH (23:44)
[2019-01-29] MEDS: MORPHINE SULFATE 2 MG/ML VIAL. IV PRN ×6 (02:20→20:49)
[2019-01-29] MEDS: IV DEXTROSE 5% - 0.9 % NACL 1,000 ML IV SCH ×3 (02:45→07:41)
[2019-01-29 03:55] VITALS: BP 107/53
[2019-01-29 07:00] VITALS: BP 128/78
[2019-01-29] MEDS: PANTOPRAZOLE 40 MG TABLET.DR. PO SCH (07:30)
[2019-01-29] MEDS: metFORMIN 500 MG TABLET PO SCH ×2 (08:00→17:28)
[2019-01-29] MEDS: ASPIRIN ENTERIC COATED 81 MG TABLET.DR. PO SCH (08:00)
[2019-01-29] MEDS: INSULIN LISPRO 300 UNITS/3 ML VIAL. SQ SCH ×5 (08:00→17:32)
[2019-01-29] MEDS: MAGNESIUM SULFATE 4GM 100 ML IV SCH (09:00)
[2019-01-29] MEDS: METOPROLOL TART IMMED RELEASE 25 MG TABLET. PO SCH ×2 (09:00→20:50)
--- NOTE | 2019-01-29 09:17 | NUR ---
SW following pt. Pt is a transfer from ICU. Discharge disposition is home. No needs identified at this time. SW will be available as needed.
[2019-01-29] MEDS ORDERED: DEXTROSE 50% 25 GM / 50ML DISP.SYRIN. IV PRN (09:45)
[2019-01-29] MEDS: IV NORMAL SALINE 1000ML BAG 1,000 ML IV SCH ×2 (09:56→22:00)
--- NOTE | 2019-01-29 10:49 | PDOC ---
PROGRESS NOTES History of Present Illness History of Present Illness ASSESSMENT AND PLAN: Diabetic ketoacidosis. chest pain Bipolar disorder depression morbid obesity hx ASD repair admitted. out of icu, insulin drip, IV fluids, tele monitoring. DVT prophylaxis. Full code. Home meds. serial troponin i ECHO Cardiology consult stress test today 37 min pt exam, chart review,> 50% of time spent with exam, chart review, pt care coordination Vitals Vitals Vital Signs Date Time Temp Pulse Resp B/P (MAP) Pulse Ox O2 Delivery O2 Flow Rate FiO2 01/29/19 09:56 19 97 Room Air 01/29/19 07:00 98.1 77 128/78 (95) 98.1 Physical Exam General: Alert, Oriented X3, Cooperative, No acute distress Heart: Regular rate, Normal S1, Normal S2 Lungs: Clear Abdomen: Normal bowel sounds, Soft Extremities: No clubbing, No cyanosis, No edema, Normal pulses Skin: No rashes, No significant lesion Labs LABS HISTORY: Chest pain. COMPARISON: Chest x-ray January 16, 2019. FINDINGS: Median sternotomy again demonstrated with heart size normal. Mediastinal silhouette is normal. No pneumothorax, pulmonary opacities or pleural effusions. IMPRESSION: No acute process. Electronically signed by: Arias Streeter MD (01/27/2019 7:46 PM) [facility] Laboratory Tests Test 01/28/19 12:03 01/28/19 15:56 01/28/19 17:37 01/28/19 20:22 Glucose (Fingerstick) 220 mg/dL (70-99) 67 mg/dL (70-99) 181 mg/dL (70-99) 366 mg/dL (70-99) Test 01/29/19 07:28 Glucose (Fingerstick) 236 mg/dL (70-99) Assessment and Plan Assessmemt and Plan PAST MEDICAL HISTORY Cardiovascular: HTN, Hyperlipidemia, Other (ASD) CENTRAL NERVOUS SYSTEM: Seizure GI: GERD Heme/Onc: Other (Facor V deficiency, PE, DVT) Psych: Anxiety, Depression, Other (PTSD ) Endocrine: Diabetes (Type 1) PAST SURGICAL HISTORY Past Surgical History: Other (ASD repair ) FAMILY HISTORY Family History: Other (Crohns disease) SOCIAL HISTORY Smoke: No ALCOHOL: none Drugs: Marijuana Lives: with Family Comment Review of Relevant I have reviewed the following items lily (where applicable) has been applied. Labs Laboratory Tests Test 01/27/19 19:10 01/27/19 19:18 01/27/19 19:23 01/27/19 19:30 Urine Collection Type Unknown Urine Color Yellow Urine Clarity Clear Urine pH 5.5 Urine Specific [place] >=1.030 Urine Protein Negative mg/dL (NEG-TRACE) Urine Glucose (UA) >=1000 mg/dL (NEG) Urine Ketones (Stick) 15 mg/dL (NEG) Urine Blood Negative (NEG) Urine Nitrite Negative (NEG) Urine Bilirubin Small (NEG) Urine Urobilinogen Dipstick 0.2 mg/dL (0.2 mg/dL) Urine Leukocyte Esterase Negative (NEG) Urine RBC 0 /HPF (0-2) Urine WBC 1-4 /HPF (0-4) Urine Squamous Epithelial Cells Mod /LPF Urine Bacteria Few /HPF (0-FEW) Urine Mucus Slight /LPF Urine Yeast Present /HPF Urine Opiates Screen Neg (NEG) Urine Methadone Screen Neg (NEG) Urine Barbiturates Neg (NEG) Urine Phencyclidine Screen Neg (NEG) Urine Amphetamine/Methamphetamine Neg (NEG) Urine Benzodiazepines Screen Neg (NEG) Urine Cocaine Screen Neg (NEG) Urine Cannabinoids Screen Neg (NEG) Urine Ethyl Alcohol Neg (NEG) Glucose (Fingerstick) 513 mg/dL (70-99) Bedside Urine HCG, Qualitative Hcg negative (Negative) White Blood Count 5.5 x10^3/uL (4.0-11.0) Red Blood Count 4.72 x10^6/uL (3.50-5.40) Hemoglobin 14.4 g/dL (12.0-15.5) Hematocrit 43.6 % (36.0-47.0) Mean Corpuscular Volume 92 fL (79-100) Mean Corpuscular Hemoglobin 31 pg (25-35) Mean Corpuscular Hemoglobin Concent 33 g/dL (31-37) Red Cell Distribution Width 13.7 % (11.5-14.5) Platelet Count 321 x10^3/uL (140-400) Neutrophils (%) (Auto) 54 % (31-73) Lymphocytes (%) (Auto) 33 % (24-48) Monocytes (%) (Auto) 10 % (0-9) Eosinophils (%) (Auto) 3 % (0-3) Basophils (%) (Auto) 0 % (0-3) Neutrophils # (Auto) 3.0 x10^3/uL (1.8-7.7) Lymphocytes # (Auto) 1.8 x10^3/uL (1.0-4.8) Monocytes # (Auto) 0.5 x10^3/uL (0.0-1.1) Eosinophils # (Auto) 0.2 x10^3/uL (0.0-0.7) Basophils # (Auto) 0.0 x10^3/uL (0.0-0.2) Prothrombin Time 12.8 SEC (11.7-14.0) Prothromb Time International Ratio 1.0 (0.8-1.1) D-Dimer (Kelli) 0.29 ug/mlFEU (0.00-0.50) Sodium Level 130 mmol/L (136-145) Potassium Level 4.5 mmol/L (3.5-5.1) Chloride Level 98 mmol/L (98-107) Carbon Dioxide Level 12 mmol/L (21-32) Anion Gap 20 (6-14) Blood Urea Nitrogen 15 mg/dL (7-20) Creatinine 1.2 mg/dL (0.6-1.0) Estimated GFR (Cockcroft-Gault) 53.5 BUN/Creatinine Ratio 13 (6-20) Glucose Level 555 mg/dL (70-99) Calcium Level 8.9 mg/dL (8.5-10.1) Phosphorus Level 2.6 mg/dL (2.6-4.7) Magnesium Level 2.2 mg/dL (1.8-2.4) Total Bilirubin 0.3 mg/dL (0.2-1.0) Aspartate Amino Transf (AST/SGOT) 12 U/L (15-37) Alanine Aminotransferase (ALT/SGPT) 23 U/L (14-59) Alkaline Phosphatase 122 U/L (46-116) Creatine Kinase 44 U/L (26-192) Creatine Kinase MB (Mass) < 0.5 ng/mL (0.0-3.6) Creatine Kinase MB Relative Index % (0-4) Troponin I Quantitative < 0.017 ng/mL (0.000-0.055) VS-Zbu-B-Type Natriuretic Peptide 44 pg/mL (0-124) Total Protein 7.7 g/dL (6.4-8.2) Albumin 4.0 g/dL (3.4-5.0) Albumin/Globulin Ratio 1.1 (1.0-1.7) Lipase 82 U/L (73-393) Thyroid Stimulating Hormone (TSH) 1.253 uIU/mL (0.358-3.74) Ethyl Alcohol Level < 10 mg/dL (0-10) Test 01/27/19 20:28 01/27/19 21:10 01/27/19 21:29 01/27/19 22:30 Glucose (Fingerstick) 486 mg/dL (70-99) 330 mg/dL (70-99) O2 Saturation 98 % (92-99) Arterial Blood pH 7.26 (7.35-7.45) Arterial Blood pCO2 at Patient Temp 20 mmHg (35-46) Arterial Blood pO2 at Patient Temp 109 mmHg (85-108) Arterial Blood HCO3 9 mmol/L (21-28) Arterial Blood Base Excess -16 mmol/L (-3-3) Oxyhemoglobin 96.9 % Methemoglobin 0.4 % (0.0-1.9) Carbon Monoxide, Quantitative 0.3 % (0.0-1.9) Nasal Screen MRSA (PCR) Negative (Negative) Test 01/27/19 22:38 01/27/19 22:55 01/28/19 04:51 01/28/19 05:30 Glucose (Fingerstick) 140 mg/dL (70-99) 136 mg/dL (70-99) Sodium Level 137 mmol/L (136-145) 141 mmol/L (136-145) Potassium Level 3.5 mmol/L (3.5-5.1) 4.2 mmol/L (3.5-5.1) Chloride Level 108 mmol/L (98-107) 109 mmol/L (98-107) Carbon Dioxide Level 17 mmol/L (21-32) 20 mmol/L (21-32) Anion Gap 12 (6-14) 12 (6-14) Blood Urea Nitrogen 11 mg/dL (7-20) 9 mg/dL (7-20) Creatinine 0.7 mg/dL (0.6-1.0) 0.6 mg/dL (0.6-1.0) Estimated GFR (Cockcroft-Gault) 99.6 119.0 Glucose Level 120 mg/dL (70-99) 141 mg/dL (70-99) Calcium Level 8.7 mg/dL (8.5-10.1) 8.4 mg/dL (8.5-10.1) Phosphorus Level 1.1 mg/dL (2.6-4.7) 2.4 mg/dL (2.6-4.7) Magnesium Level 1.9 mg/dL (1.8-2.4) White Blood Count 4.3 x10^3/uL (4.0-11.0) Red Blood Count 3.95 x10^6/uL (3.50-5.40) Hemoglobin 12.0 g/dL (12.0-15.5) Hematocrit 35.9 % (36.0-47.0) Mean Corpuscular Volume 91 fL (79-100) Mean Corpuscular Hemoglobin 30 pg (25-35) Mean Corpuscular Hemoglobin Concent 33 g/dL (31-37) Red Cell Distribution Width 13.7 % (11.5-14.5) Platelet Count 252 x10^3/uL (140-400) Neutrophils (%) (Auto) 40 % (31-73) Lymphocytes (%) (Auto) 45 % (24-48) Monocytes (%) (Auto) 10 % (0-9) Eosinophils (%) (Auto) 5 % (0-3) Basophils (%) (Auto) 0 % (0-3) Neutrophils # (Auto) 1.7 x10^3/uL (1.8-7.7) Lymphocytes # (Auto) 1.9 x10^3/uL (1.0-4.8) Monocytes # (Auto) 0.4 x10^3/uL (0.0-1.1) Eosinophils # (Auto) 0.2 x10^3/uL (0.0-0.7) Basophils # (Auto) 0.0 x10^3/uL (0.0-0.2) Troponin I Quantitative < 0.017 ng/mL (0.000-0.055) Triglycerides Level 421 mg/dL (0-150) Cholesterol Level 196 mg/dL (0-200) LDL Cholesterol, Calculated 77 mg/dL (0-100) VLDL Cholesterol, Calculated 84 mg/dL (0-40) Non-HDL Cholesterol Calculated 161 mg/dL (0-129) HDL Cholesterol 35 mg/dL (40-60) Cholesterol/HDL Ratio 5.6 Test 01/28/19 08:10 01/28/19 12:03 01/28/19 15:56 01/28/19 17:37 Glucose (Fingerstick) 118 mg/dL (70-99) 220 mg/dL (70-99) 67 mg/dL (70-99) 181 mg/dL (70-99) Test 01/28/19 20:22 01/29/19 07:28 Glucose (Fingerstick) 366 mg/dL (70-99) 236 mg/dL (70-99) Laboratory Tests Test 01/28/19 12:03 01/28/19 15:56 01/28/19 17:37 01/28/19 20:22 Glucose (Fingerstick) 220 mg/dL (70-99) 67 mg/dL (70-99) 181 mg/dL (70-99) 366 mg/dL (70-99) Test 01/29/19 07:28 Glucose (Fingerstick) 236 mg/dL (70-99) Medications Current Medications Aspirin ([employer] Aspirin) 325 mg 1X ONCE PO Last administered on 01/27/19at 19:43; Start 01/27/19 at 19:30; Stop 01/27/19 at 19:31; Status DC Morphine Sulfate (Morphine Sulfate) 4 mg PRN Q15MIN PRN IV/SQ PAIN GREATER THAN 3/10 Last administered on 01/27/19at 19:43; Start 01/27/19 at 19:30; Stop 01/28/19 at 19:29; Status DC Sodium Chloride 1,000 ml @ 1,000 mls/hr 1X ONCE IV Last administered on 01/27/19at 19:33; Start 01/27/19 at 19:30; Stop 01/27/19 at 20:29; Status DC Sodium Chloride 1,000 ml @ 1,000 mls/hr 1X ONCE IV Last administered on 01/27/19at 19:44; Start 01/27/19 at 19:30; Stop 01/27/19 at 20:29; Status DC Insulin Human Regular 150 unit/ Sodium Chloride 151.5 ml @ 0 mls/hr CONT PRN PRN IV PER PROTOCOL; Start 01/27/19 at 20:15; Status UNV Potassium Chloride/Water 100 ml @ 100 mls/hr PRN Q1HR PRN IV SEE COMMENTS; Start 01/27/19 at 20:15 Potassium Chloride/Water 100 ml @ 100 mls/hr PRN Q1HR PRN IV SEE COMMENTS Last administered on 01/28/19at 03:04; Start 01/27/19 at 20:15 Potassium Chloride/Water 100 ml @ 100 mls/hr PRN Q1HR PRN IV SEE COMMENTS; Start 01/27/19 at 20:15 Sodium Chloride 1,000 ml @ 125 mls/hr 1X ONCE IV ; Start 01/27/19 at 20:15; Stop 01/27/19 at 22:49; Status DC Insulin Human Regular 150 ml @ 9.7 mls/hr 1X ONCE IV Last administered on 01/27/19at 20:35; Start 01/27/19 at 20:15; Stop 01/28/19 at 11:42; Status DC Fentanyl Citrate (Fentanyl 2ml Vial) 50 mcg 1X ONCE IVP Last administered on 01/27/19at 20:59; Start 01/27/19 at 20:45; Stop 01/28/19 at 18:29; Status DC Metoclopramide HCl (Reglan Vial) 10 mg 1X ONCE IVP Last administered on 01/27/19at 20:59; Start 01/27/19 at 20:45; Stop 01/27/19 at 20:46; Status DC Ondansetron HCl (Zofran) 4 mg PRN Q8HRS PRN IV NAUSEA/VOMITING 1ST CHOICE Last administered on 01/28/19at 17:14; Start 01/27/19 at 22:15; Stop 01/28/19 at 22:14; Status DC Fentanyl Citrate (Fentanyl 2ml Vial) 50 mcg PRN Q1HR PRN IV SEVERE PAIN 7-10 Last administered on 01/28/19at 17:24; Start 01/27/19 at 22:15; Stop 01/28/19 at 18:29; Status DC Acetaminophen (Tylenol) 650 mg PRN Q4HRS PRN PO FEVER; Start 01/27/19 at 22:15; Stop 01/28/19 at 22:14; Status DC Sodium Chloride 1,000 ml @ 125 mls/hr 1X ONCE IV ; Start 01/27/19 at 22:30; Stop 01/27/19 at 22:49; Status DC Dextrose/Sodium Chloride 1,000 ml @ 250 mls/hr Q4H IV Last administered on 01/29/19at 07:41; Start 01/27/19 at 22:45; Stop 01/29/19 at 09:40; Status DC Magnesium Sulfate 100 ml @ 25 mls/hr DAILY IV ; Start 01/28/19 at 09:00; Stop 01/28/19 at 00:01; Status DC Insulin Human Lispro (HumaLOG) 35 units TIDWMEALS SQ Last administered on 01/28/19at 12:11; Start 01/28/19 at 08:00 Insulin Glargine (Lantus Syringe) 50 unit QHS SQ Last administered on 01/28/19at 21:01; Start 01/28/19 at 00:00 Magnesium Sulfate 100 ml @ 25 mls/hr DAILY IV Last administered on 01/28/19at 09:05; Start 01/28/19 at 00:30; Stop 01/30/19 at 00:29 Cyclobenzaprine HCl (Flexeril) 10 mg PRN TID PRN PO MUSCLE SPASMS Last administered on 01/28/19 20:07; Start 01/28/19 at 11:00 Fluoxetine HCl (PROzac) 40 mg QHS PO Last administered on 01/28/19at 20:00; Start 01/28/19 at 21:00 Metoprolol Tartrate (Lopressor) 25 mg BID PO Last administered on 01/28/19at 20:01; Start 01/28/19 at 11:00 Trazodone HCl (Desyrel) 100 mg PRN QHS PRN PO INSOMNIA; Start 01/28/19 at 11:00 Hydroxyzine HCl (Atarax) 50 mg PRN Q8HRS PRN PO ITCHING Last administered on 01/28/19at 11:10; Start 01/28/19 at 11:15 Lurasidone HCl (Latuda) 120 mg QHS PO Last administered on 01/28/19at 23:44; Start 01/28/19 at 21:30 Metformin HCl (Glucophage) 1,000 mg BIDWMEALS PO Last administered on 01/28/19at 18:03; Start 01/28/19 at 17:00 Pantoprazole Sodium (Protonix) 40 mg DAILYAC PO Last administered on 01/28/19at 12:09; Start 01/28/19 at 12:00 Aspirin (Ecotrin) 81 mg DAILYWBKFT PO ; Start 01/29/19 at 08:00 Acetaminophen/ Hydrocodone Bitart (Lortab 5/325) 1 tab PRN Q4HRS PRN PO PAIN Last administered on 01/28/19at 20:01; Start 01/28/19 at 18:30 Morphine Sulfate (Morphine Sulfate) 2 mg PRN Q2HR PRN IV PAIN Last administered on 01/29/19at 09:56; Start 01/28/19 at 18:30 Insulin Human Lispro (HumaLOG) 0-5 UNITS TIDWMEALS SQ ; Start 01/29/19 at 12:00 Dextrose (Dextrose 50%-Water Syringe) 12.5 gm PRN Q15MIN PRN IV SEE COMMENTS; Start 01/29/19 at 09:45 Sodium Chloride 1,000 ml @ 100 mls/hr Q10H IV Last administered on 01/29/19at 09:56; Start 01/29/19 at 09:45 Active Scripts Active Aspirin Ec (Aspirin) 325 Mg Tablet. 1 Tab PO BID 30 Days Fluoxetine Hcl 20 Mg Capsule 40 Mg PO QHS 30 Days Reported Trazodone Hcl 100 Mg Tablet 100 Mg PO PRN QHS PRN Latuda (Lurasidone Hcl) 120 Mg Tablet 120 Mg PO QHS Levemir Flextouch (Insulin Detemir) 100 Unit/1 Ml Insuln.pen 50 Unit SQ QHS Metoprolol Tartrate 25 Mg Tablet 25 Mg PO BID Novolog Flexpen (Insulin Aspart) 100 Unit/1 Ml Insuln.pen 35 Unit SQ TIDAC Metformin Hcl 1,000 Mg Tablet 1,000 Mg PO BID Omeprazole 20 Mg Capsule. 20 Mg PO DAILY Oxycodone-Acetaminophen 10-325 (Oxycodone Hcl/Acetaminophen) 1 Each Tablet 1 Tab PO PRN Q4HRS PRN Cyclobenzaprine Hcl 10 Mg Tablet 10 Mg PO PRN TID Hydroxyzine Pamoate 50 Mg Capsule 50 Mg PO PRN TID PRN Vitals/I & O Vital Sign - Last 24 Hours 01/28/19 01/28/19 01/28/19 01/28/19 11:01 12:17 13:38 14:56 Resp 16 16 16 16 O2 Delivery Room Air Room Air Room Air Room Air 01/28/19 01/28/19 01/28/19 01/28/19 15:00 16:00 17:24 18:01 Temp 97.6 97.6 Pulse 96 Resp 18 B/P (MAP) 118/79 (92) Pulse Ox 97 97 97 97 O2 Delivery Room Air Room Air Room Air Room Air 01/28/19 01/28/19 01/28/19 01/28/19 19:57 20:00 20:01 20:01 Temp 97.9 97.9 Pulse 86 Resp 20 B/P (MAP) 118/68 (85) 118/68 Pulse Ox 98 O2 Delivery Room Air Room Air Room Air 01/28/19 01/28/19 01/28/19 01/28/19 20:54 21:01 21:24 23:44 O2 Delivery Room Air Room Air Room Air Room Air 01/28/19 01/29/19 01/29/19 01/29/19 23:58 00:14 02:20 02:50 Temp 97.9 97.9 Pulse 75 Resp 20 B/P (MAP) 100/53 (69) Pulse Ox 100 O2 Delivery Room Air Room Air Room Air Room Air 01/29/19 01/29/19 01/29/19 01/29/19 03:55 07:00 08:00 09:56 Temp 98.2 98.1 98.2 98.1 Pulse 84 77 Resp 24 17 19 B/P (MAP) 107/53 (71) 128/78 (95) Pulse Ox 92 97 97 O2 Delivery Room Air Room Air Room Air Room Air Intake and Output 01/28/19 01/28/19 01/29/19 14:59 22:59 06:59 Intake Total 700 ml Balance 700 ml MARTÍN JUAN MD Jan 29, 2019 10:49
[2019-01-29 11:00] VITALS: BP 123/77
[2019-01-29] MEDS ORDERED: ONDANSETRON PF 4 MG/2 ML VIAL. IVP PRN (12:30)
--- NOTE | 2019-01-29 13:15 | PDOC ---
RANI ALANIZ [employer] 01/29/19 1314: CARDIO Progress Notes Date and Time Date of Service 01/29/2019 Time of Evaluation 1250 Subjective Subjective: No Chest Pain, No shortness of breath, No Palpitations Vitals Vitals Vital Signs Date Time Temp Pulse Resp B/P (MAP) Pulse Ox O2 Delivery O2 Flow Rate FiO2 01/29/19 12:28 20 97 Room Air 01/29/19 11:00 98.3 95 123/77 (92) 98.3 Weight Weight [ ] Input and Output Intake and Output Intake and Output 01/29/19 07:00 Intake Total 700 ml Balance 700 ml Intake Oral 700 ml # Voids 4 Laboratory Labs Laboratory Tests Test 01/28/19 15:56 01/28/19 17:37 01/28/19 20:22 01/29/19 07:28 Glucose (Fingerstick) 67 mg/dL (70-99) 181 mg/dL (70-99) 366 mg/dL (70-99) 236 mg/dL (70-99) Test 01/29/19 11:31 Glucose (Fingerstick) 157 mg/dL (70-99) Physical Exam HEENT: Neck Supple W Full Motion Chest: Symmetric LUNGS: Clear to Auscultation Heart: S1S2, RRR (SR no ectopies) Abdomen: Soft N/T Extremities: No Edema, No Calf Tenderness Neurology: alert, oriented, follow commands Assessment Assessment 1. Atypical CP: MPI with significnat risk factors. 2. DKA; BG still erratic 3. DM1 4. DLP 5. HTN: controlled 6. ASD s/p repair 7. 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 last episode at 18 yo and had placental clot >yr ago and was placed on lovenox by [employer] and stopped after few months due to no ins coverage 8. Anxiety, depression, bipolar Recommendations 1. Follow up with Dr. Saldivar as an outpt, her PCP, to address and further OAC or referral to hematology 2. Continue with ASA. start on statin 3. Continue metoprolol 4. May DC per cardiac standpoint if MPI is unremarkable. 5. Follow up with outpt endocrinology from [facility]. MONICA DOWNS MD 01/29/19 6837: CARDIO Progress Notes Plan Plan Pt. seen and examined. Agree with above [employer] note. Normal MPI. Low risk from CV standpoint. Ok to DC and f/u with PCP. Thanks. RANI ALANIZ APRN Jan 29, 2019 13:14 MONICA DOWNS MD Jan 29, 2019 17:58
--- NOTE | 2019-01-29 13:23 | RAD ---
MR#: [id number] Date of Study: 01/29/2019 Ordering Physician: MOON SILVA, Referring Physician: JOSE ANGEL SAINI Tech: RORO Harrell APPROVED REPORT Test Type: Exercise Stress Nurse/Tech: Ann Rincon RN Test Indications: Chest pain,Shortness of air Cardiac History: Hypertension, Diabetes, High cholesterol, CABG 2009 Medications: See Electronic Medical Record Medical History: See Electronic Medical Record Resting ECG: ST Resting Heart Rate: 104 bpm Resting Blood Pressure: 129/81mmHg Pretest Chest Pain: Atypical angina Nurse/Tech Notes S1,S2 and lungs are clear to auscultation. Patient complains of chest pain under her left breast in h er ribcage area. Consent: The procedure was explained to the patient in lay terms. Informed consent was witnessed. Alonzo eout was entered into [employer]opogo. History and Stress Test performed by Ann Rincon RN Stress Symptoms Dyspnea,Fatigue, chest pain in the same area (left breast/ribcage). POST EXERCISE Reason for Termination: Reached target heart rate, Fatigue Target HR: Yes Max HR: 205 bpm 125% of Maximum Predicted HR: 163 bpm Exercise duration: 8:01 min:sec, 2 Stage Exercise capacity: 10METs Max Blood Pressure: 148/78mmHg Blood Pressure response to exercise: Normal blood pressure response during stress. Heart Rate response to exercise: WNL Chest Pain: Yes. see above note Arrhythmia: No. ST Change: No. INTERPRETATION Stress EKG Conclusion: Baseline EKG showed sinus rhythm. No ischemic changes at peak stress. No arr hythmias. Imaging Protocol IMAGE PROTOCOL: Rest Tc-99m/stress Tc-99m 1 day Rest: Stress: Viability: Radiopharm.Tc99m VucnpvedoIl05m Sestamibi [id number] 33mCi Duration 15min. 10min. Img Date 01/29/2019 01/29/2019 Inj-Img [id number]. 90min. Rest Admin Site:IV - Right AntecubitalAdministrator:JASMEET Baeza, ARRT (R)(N) Stress Admin Site: IV - Right AntecubitalAdministrator: Harish Chaudhari, RT (R)(N) STRESS DATA End Diast. Vol.135.0mlAv. Heart Rate86.0bpm End Syst. Vol.35.0mlCO Index BSA0.0L/min Myocardial Hbhr352.0gEject. Jtbyfqpp31.0% Stress Rates Pk. Fill Rate3.54EDV/secLVtime Pk. Fill 135.43msec Pk. Empty Rate3.64ESV/secLVtime Pk. Hvoev149.02msec 04/18 Pk. Fill1.43EDV/sec Stress Scores Regional WT0.00Summed WT3.00 Regional WM0.00Summed WM1.00 Study quality was good. Left Ventricular size was Normal at Rest and Stress. Lung uptake was . Left Ventricular ejection fraction is 74%. The rest and stress images show normal perfusion, normal contraction and thickening. LV Perf. Quant 17 Seg. SSS0.00 17 Seg. SRS0.00 17 Seg. SDS0.00 Stress Defect Extent (% LAD)0.00Rest Defect Extent (% LAD)0.00Rev. Defect Extent (% LAD)0.00 Stress Defect Extent (% LCX) 0.00Rest Defect Extent (% LCX)0.00Rev. Defect Extent (% LCX)0.00 Stress Defect Extent (% RCA)0.00Rest Defect Extent (% RCA)0.00Rev. Defect Extent (% RCA)0.00 Stress Defect Extent (% MARIAJOSE)0.00Rest Defect Extent (% MARIAJOSE)0.00Rev. Defect Extent (% MARIAJOSE)0.00 Conclusion 1. Treadmill exercise cardioisotope stress test did not show any evidence of ischemia or infarct. 2. Normal left ventricular systolic function with ejection fraction calculated at 74%. 3. Patient had good activity tolerance. Low risk for cardiac events. Signed by : Daniel Marie, Electronically Approved : 01/29/2019 13:22:34
[2019-01-29] MEDS: HYDROcodone/APAP 5/325MG 1 TAB TABLET PO PRN (14:42)
[2019-01-29 15:00] VITALS: BP 126/76
[2019-01-29] MEDS: CYCLOBENZAPRINE 10 MG TABLET. PO PRN (18:24)
[2019-01-29 19:38] VITALS: BP 119/67
[2019-01-29] MEDS: LURASIDONE 40 MG TABLET. PO SCH (20:47)
[2019-01-29] MEDS: FLUoxetine HCL 20 MG CAPSULE PO SCH (20:48)
[2019-01-29] MEDS: INSULIN GLARGINE SYRINGE. SQ SCH (20:56)
[2019-01-29] MEDS ORDERED: ATORVASTATIN CALCIUM 20 MG TABLET PO SCH (21:00)
[2019-01-29 23:48] VITALS: BP 115/62
[2019-01-30 03:27] VITALS: BP 111/69
[2019-01-30] MEDS: IV NORMAL SALINE 1000ML BAG 1,000 ML IV SCH (05:45)
[2019-01-30 07:38] LABS: CALCIUM 8.4 mg/dL (8.5-10.1); CREATININE 0.4 mg/dL (0.6-1.0); GFR 190.1; POTASSIUM 3.5 mmol/L (3.5-5.1)
[2019-01-30 07:54] VITALS: BP 101/51
[2019-01-30] MEDS: INSULIN LISPRO 300 UNITS/3 ML VIAL. SQ SCH ×3 (08:00→12:00)
[2019-01-30] MEDS: HYDROcodone/APAP 5/325MG 1 TAB TABLET PO PRN (08:27)
--- NOTE | 2019-01-30 08:42 | PDOC ---
PROGRESS NOTES History of Present Illness History of Present Illness DISCHARGE DX Diabetic ketoacidosis. chest pain, NORMAL MPI 10-16 Bipolar disorder depression morbid obesity hx ASD repair admitted. out of icu, insulin drip, IV fluids, tele monitoring. DVT prophylaxis. Full code. Home meds. serial troponin i NEG X 4 ECHO Cardiology consult stress test NOTED ADJUST INSULIN NEEDS 34 min pt exam D/C PLANNING , chart review,> 50% of time spent with exam, chart review, pt care coordination Vitals Vitals Vital Signs Date Time Temp Pulse Resp B/P (MAP) Pulse Ox O2 Delivery O2 Flow Rate FiO2 01/30/19 08:27 96 Room Air 01/30/19 07:54 97.5 76 12 101/51 (68) 97.5 Physical Exam General: Alert, Oriented X3, Cooperative, No acute distress Heart: Regular rate, Normal S1, Normal S2 Lungs: Clear Abdomen: Normal bowel sounds, Soft Extremities: No clubbing, No cyanosis, No edema, Normal pulses Skin: No rashes, No significant lesion Labs LABS Laboratory Tests Test 01/29/19 11:31 01/29/19 16:12 01/29/19 20:41 01/29/19 21:58 Glucose (Fingerstick) 157 mg/dL (70-99) 302 mg/dL (70-99) 68 mg/dL (70-99) 65 mg/dL (70-99) Test 01/29/19 22:33 01/30/19 05:58 01/30/19 07:17 01/30/19 07:51 Glucose (Fingerstick) 102 mg/dL (70-99) 60 mg/dL (70-99) 62 mg/dL (70-99) Sodium Level 142 mmol/L (136-145) Potassium Level 3.5 mmol/L (3.5-5.1) Chloride Level 107 mmol/L (98-107) Carbon Dioxide Level 28 mmol/L (21-32) Anion Gap 7 (6-14) Blood Urea Nitrogen 11 mg/dL (7-20) Creatinine 0.4 mg/dL (0.6-1.0) Estimated GFR (Cockcroft-Gault) 190.1 Glucose Level 53 mg/dL (70-99) Calcium Level 8.4 mg/dL (8.5-10.1) Test 01/30/19 08:20 Glucose (Fingerstick) 112 mg/dL (70-99) Comment Review of Relevant I have reviewed the following items lily (where applicable) has been applied. Labs Laboratory Tests Test 01/28/19 12:03 01/28/19 15:56 01/28/19 17:37 01/28/19 20:22 Glucose (Fingerstick) 220 mg/dL (70-99) 67 mg/dL (70-99) 181 mg/dL (70-99) 366 mg/dL (70-99) Test 01/29/19 07:28 01/29/19 11:31 01/29/19 16:12 01/29/19 20:41 Glucose (Fingerstick) 236 mg/dL (70-99) 157 mg/dL (70-99) 302 mg/dL (70-99) 68 mg/dL (70-99) Test 01/29/19 21:58 01/29/19 22:33 01/30/19 05:58 01/30/19 07:17 Glucose (Fingerstick) 65 mg/dL (70-99) 102 mg/dL (70-99) 60 mg/dL (70-99) Sodium Level 142 mmol/L (136-145) Potassium Level 3.5 mmol/L (3.5-5.1) Chloride Level 107 mmol/L (98-107) Carbon Dioxide Level 28 mmol/L (21-32) Anion Gap 7 (6-14) Blood Urea Nitrogen 11 mg/dL (7-20) Creatinine 0.4 mg/dL (0.6-1.0) Estimated GFR (Cockcroft-Gault) 190.1 Glucose Level 53 mg/dL (70-99) Calcium Level 8.4 mg/dL (8.5-10.1) Test 01/30/19 07:51 01/30/19 08:20 Glucose (Fingerstick) 62 mg/dL (70-99) 112 mg/dL (70-99) Laboratory Tests Test 01/29/19 11:31 01/29/19 16:12 01/29/19 20:41 01/29/19 21:58 Glucose (Fingerstick) 157 mg/dL (70-99) 302 mg/dL (70-99) 68 mg/dL (70-99) 65 mg/dL (70-99) Test 01/29/19 22:33 01/30/19 05:58 01/30/19 07:17 01/30/19 07:51 Glucose (Fingerstick) 102 mg/dL (70-99) 60 mg/dL (70-99) 62 mg/dL (70-99) Sodium Level 142 mmol/L (136-145) Potassium Level 3.5 mmol/L (3.5-5.1) Chloride Level 107 mmol/L (98-107) Carbon Dioxide Level 28 mmol/L (21-32) Anion Gap 7 (6-14) Blood Urea Nitrogen 11 mg/dL (7-20) Creatinine 0.4 mg/dL (0.6-1.0) Estimated GFR (Cockcroft-Gault) 190.1 Glucose Level 53 mg/dL (70-99) Calcium Level 8.4 mg/dL (8.5-10.1) Test 01/30/19 08:20 Glucose (Fingerstick) 112 mg/dL (70-99) Medications Current Medications Aspirin ([place] Aspirin) 325 mg 1X ONCE PO Last administered on 01/27/19 19:43; Start 01/27/19 at 19:30; Stop 01/27/19 at 19:31; Status DC Morphine Sulfate (Morphine Sulfate) 4 mg PRN Q15MIN PRN IV/SQ PAIN GREATER THAN 3/10 Last administered on 01/27/19at 19:43; Start 01/27/19 at 19:30; Stop 01/28/19 at 19:29; Status DC Sodium Chloride 1,000 ml @ 1,000 mls/hr 1X ONCE IV Last administered on 01/27/19at 19:33; Start 01/27/19 at 19:30; Stop 01/27/19 at 20:29; Status DC Sodium Chloride 1,000 ml @ 1,000 mls/hr 1X ONCE IV Last administered on 01/27/19at 19:44; Start 01/27/19 at 19:30; Stop 01/27/19 at 20:29; Status DC Insulin Human Regular 150 unit/ Sodium Chloride 151.5 ml @ 0 mls/hr CONT PRN PRN IV PER PROTOCOL; Start 01/27/19 at 20:15; Status UNV Potassium Chloride/Water 100 ml @ 100 mls/hr PRN Q1HR PRN IV SEE COMMENTS; Start 01/27/19 at 20:15 Potassium Chloride/Water 100 ml @ 100 mls/hr PRN Q1HR PRN IV SEE COMMENTS Last administered on 01/28/19at 03:04; Start 01/27/19 at 20:15 Potassium Chloride/Water 100 ml @ 100 mls/hr PRN Q1HR PRN IV SEE COMMENTS; Start 01/27/19 at 20:15 Sodium Chloride 1,000 ml @ 125 mls/hr 1X ONCE IV ; Start 01/27/19 at 20:15; Stop 01/27/19 at 22:49; Status DC Insulin Human Regular 150 ml @ 9.7 mls/hr 1X ONCE IV Last administered on 01/27/19at 20:35; Start 01/27/19 at 20:15; Stop 01/28/19 at 11:42; Status DC Fentanyl Citrate (Fentanyl 2ml Vial) 50 mcg 1X ONCE IVP Last administered on 01/27/19at 20:59; Start 01/27/19 at 20:45; Stop 01/28/19 at 18:29; Status DC Metoclopramide HCl (Reglan Vial) 10 mg 1X ONCE IVP Last administered on 01/27/19at 20:59; Start 01/27/19 at 20:45; Stop 01/27/19 at 20:46; Status DC Ondansetron HCl (Zofran) 4 mg PRN Q8HRS PRN IV NAUSEA/VOMITING 1ST CHOICE Last administered on 01/28/19at 17:14; Start 01/27/19 at 22:15; Stop 01/28/19 at 22:14; Status DC Fentanyl Citrate (Fentanyl 2ml Vial) 50 mcg PRN Q1HR PRN IV SEVERE PAIN 7-10 Last administered on 01/28/19at 17:24; Start 01/27/19 at 22:15; Stop 01/28/19 at 18:29; Status DC Acetaminophen (Tylenol) 650 mg PRN Q4HRS PRN PO FEVER; Start 01/27/19 at 22:15; Stop 01/28/19 at 22:14; Status DC Sodium Chloride 1,000 ml @ 125 mls/hr 1X ONCE IV ; Start 01/27/19 at 22:30; Stop 01/27/19 at 22:49; Status DC Dextrose/Sodium Chloride 1,000 ml @ 250 mls/hr Q4H IV Last administered on 01/29/19 07:41; Start 01/27/19 at 22:45; Stop 01/29/19 at 09:40; Status DC Magnesium Sulfate 100 ml @ 25 mls/hr DAILY IV ; Start 01/28/19 at 09:00; Stop 01/28/19 at 00:01; Status DC Insulin Human Lispro (HumaLOG) 35 units TIDWMEALS SQ Last administered on 01/29/19at 17:32; Start 01/28/19 at 08:00 Insulin Glargine (Lantus Syringe) 50 unit QHS SQ Last administered on 01/29/19at 20:56; Start 01/28/19 at 00:00 Magnesium Sulfate 100 ml @ 25 mls/hr DAILY IV Last administered on 01/28/19 09:05; Start 01/28/19 at 00:30; Stop 01/30/19 at 00:29; Status DC Cyclobenzaprine HCl (Flexeril) 10 mg PRN TID PRN PO MUSCLE SPASMS Last administered on 01/29/19 18:24; Start 01/28/19 at 11:00 Fluoxetine HCl (PROzac) 40 mg QHS PO Last administered on 01/29/19 20:48; Start 01/28/19 at 21:00 Metoprolol Tartrate (Lopressor) 25 mg BID PO Last administered on 01/29/19at 20:50; Start 01/28/19 at 11:00 Trazodone HCl (Desyrel) 100 mg PRN QHS PRN PO INSOMNIA; Start 01/28/19 at 11:00 Hydroxyzine HCl (Atarax) 50 mg PRN Q8HRS PRN PO ITCHING Last administered on 01/28/19at 11:10; Start 01/28/19 at 11:15 Lurasidone HCl (Latuda) 120 mg QHS PO Last administered on 01/29/19at 20:47; Start 01/28/19 at 21:30 Metformin HCl (Glucophage) 1,000 mg BIDWMEALS PO Last administered on 01/29/19at 17:28; Start 01/28/19 at 17:00 Pantoprazole Sodium (Protonix) 40 mg DAILYAC PO Last administered on 01/28/19 12:09; Start 01/28/19 at 12:00 Aspirin (Ecotrin) 81 mg DAILYWBKFT PO ; Start 01/29/19 at 08:00 Acetaminophen/ Hydrocodone Bitart (Lortab 5/325) 1 tab PRN Q4HRS PRN PO PAIN Last administered on 01/30/19 08:27; Start 01/28/19 at 18:30 Morphine Sulfate (Morphine Sulfate) 2 mg PRN Q2HR PRN IV PAIN Last administered on 01/29/19 20:49; Start 01/28/19 at 18:30 Insulin Human Lispro (HumaLOG) 0-5 UNITS TIDWMEALS SQ Last administered on 01/14 13:17; Start 01/29/19 at 12:00 Dextrose (Dextrose 50%-Water Syringe) 12.5 gm PRN Q15MIN PRN IV SEE COMMENTS; Start 01/29/19 at 09:45 Sodium Chloride 1,000 ml @ 100 mls/hr Q10H IV Last administered on 01/29/19 22:00; Start 01/29/19 at 09:45 Ondansetron HCl (Zofran) 4 mg PRN Q6HRS PRN IVP NAUSEA/VOMITING Last administered on 01/29/19 12:22; Start 01/29/19 at 12:30 Atorvastatin Calcium (Lipitor) 20 mg QHS PO Last administered on 01/29/19 20:47; Start 01/29/19 at 21:00 Active Scripts Active Aspirin Ec (Aspirin) 325 Mg Tablet.dr 1 Tab PO BID 30 Days Fluoxetine Hcl 20 Mg Capsule 40 Mg PO QHS 30 Days Reported Trazodone Hcl 100 Mg Tablet 100 Mg PO PRN QHS PRN Latuda (Lurasidone Hcl) 120 Mg Tablet 120 Mg PO QHS Levemir Flextouch (Insulin Detemir) 100 Unit/1 Ml Insuln.pen 50 Unit SQ QHS Metoprolol Tartrate 25 Mg Tablet 25 Mg PO BID Novolog Flexpen (Insulin Aspart) 100 Unit/1 Ml Insuln.pen 35 Unit SQ TIDAC Metformin Hcl 1,000 Mg Tablet 1,000 Mg PO BID Omeprazole 20 Mg Capsule.dr 20 Mg PO DAILY Oxycodone-Acetaminophen 10-325 (Oxycodone Hcl/Acetaminophen) 1 Each Tablet 1 Tab PO PRN Q4HRS PRN Cyclobenzaprine Hcl 10 Mg Tablet 10 Mg PO PRN TID Hydroxyzine Pamoate 50 Mg Capsule 50 Mg PO PRN TID PRN Vitals/I & O Vital Sign - Last 24 Hours 01/29/19 01/29/19 01/29/19 01/29/19 09:56 10:30 11:00 12:28 Temp 98.3 98.3 Pulse 95 Resp 19 19 18 20 B/P (MAP) 123/77 (92) Pulse Ox 97 97 97 97 O2 Delivery Room Air Room Air Room Air Room Air 01/29/19 01/29/19 01/29/19 01/29/19 13:00 14:42 15:00 15:32 Temp 97.9 97.9 Pulse 92 Resp 20 18 19 B/P (MAP) 126/76 (93) Pulse Ox 97 97 97 97 O2 Delivery Room Air Room Air Room Air Room Air 01/29/19 01/29/19 01/29/19 01/29/19 15:45 16:05 18:26 19:38 Temp 98.0 98.0 Pulse 103 Resp 20 18 18 20 B/P (MAP) 119/67 (84) Pulse Ox 97 97 97 99 O2 Delivery Room Air Room Air Room Air Room Air 01/29/19 01/29/19 01/29/19 01/30/19 20:49 20:50 23:48 03:27 Temp 97.9 97.7 97.9 97.7 Pulse 103 79 74 Resp 18 20 B/P (MAP) 119/67 115/62 (79) 111/69 (83) Pulse Ox 97 99 O2 Delivery Room Air Room Air Room Air 01/30/19 01/30/19 07:54 08:27 Temp 97.5 97.5 Pulse 76 Resp 12 B/P (MAP) 101/51 (68) Pulse Ox 96 96 O2 Delivery Room Air Room Air Intake and Output 01/29/19 01/29/19 01/30/19 14:59 22:59 06:59 Intake Total 240 ml 250 ml Balance 240 ml 250 ml MARTÍN JUAN MD Jan 30, 2019 08:42
--- NOTE | 2019-01-30 08:55 | NUR ---
IP: Pt has a negative mrsa screen and buttock wound is not growing an MDRO, therfore pt can be removed from contact precautions. Unable to verify any history of mrsa.
[2019-01-30] MEDS: METOPROLOL TART IMMED RELEASE 25 MG TABLET. PO SCH (09:00)
--- NOTE | 2019-01-30 09:10 | PDOC3 ---
Discharge Summary Date of Admission: Jan 28, 2019 Date of Discharge: Jan 30, 2019 Follow-Up: 3-5 days Admitting Diagnosis comment: DISCHARGE DX Diabetic ketoacidosis. chest pain, NORMAL MPI 10-16 Bipolar disorder depression morbid obesity hx ASD repair admitted. out of icu, insulin drip, IV fluids, tele monitoring. DVT prophylaxis. Full code. Home meds. serial troponin i NEG X 4 ECHO Cardiology consult stress test NOTED ADJUST INSULIN NEEDS 34 min pt exam D/C PLANNING , chart review,> 50% of time spent with exam, chart review, pt care coordination Vitals Vitals Vital Signs Date Time Temp Pulse Resp B/P (MAP) Pulse Ox O2 Delivery O2 Flow Rate FiO2 01/30/19 08:27 96 Room Air 01/30/19 07:54 97.5 76 12 101/51 (68) 97.5 Physical Exam General: Alert, Oriented X3, Cooperative, No acute distress Heart: Regular rate, Normal S1, Normal S2 Lungs: Clear Abdomen: Normal bowel sounds, Soft Extremities: No clubbing, No cyanosis, No edema, Normal pulses Skin: No rashes, No significant lesion Brief Hospital Course Ms. Bright is a 28 old [sex] who presented with [ACUTE DKA ] CONDITION AT DISCHARGE: Improved Discharge Medications Current Medications Aspirin (Lynn Aspirin) 325 mg 1X ONCE PO Last administered on 01/27/19at 19:43; Start 01/27/19 at 19:30; Stop 01/27/19 at 19:31; Status DC Morphine Sulfate (Morphine Sulfate) 4 mg PRN Q15MIN PRN IV/SQ PAIN GREATER THAN 3/10 Last administered on 01/27/19at 19:43; Start 01/27/19 at 19:30; Stop 01/28/19 at 19:29; Status DC Sodium Chloride 1,000 ml @ 1,000 mls/hr 1X ONCE IV Last administered on 01/27/19at 19:33; Start 01/27/19 at 19:30; Stop 01/27/19 at 20:29; Status DC Sodium Chloride 1,000 ml @ 1,000 mls/hr 1X ONCE IV Last administered on 01/27/19at 19:44; Start 01/27/19 at 19:30; Stop 01/27/19 at 20:29; Status DC Insulin Human Regular 150 unit/ Sodium Chloride 151.5 ml @ 0 mls/hr CONT PRN PRN IV PER PROTOCOL; Start 01/27/19 at 20:15; Status UNV Potassium Chloride/Water 100 ml @ 100 mls/hr PRN Q1HR PRN IV SEE COMMENTS; Start 01/27/19 at 20:15 Potassium Chloride/Water 100 ml @ 100 mls/hr PRN Q1HR PRN IV SEE COMMENTS Last administered on 01/28/19at 03:04; Start 01/27/19 at 20:15 Potassium Chloride/Water 100 ml @ 100 mls/hr PRN Q1HR PRN IV SEE COMMENTS; Start 01/27/19 at 20:15 Sodium Chloride 1,000 ml @ 125 mls/hr 1X ONCE IV ; Start 01/27/19 at 20:15; Stop 01/27/19 at 22:49; Status DC Insulin Human Regular 150 ml @ 9.7 mls/hr 1X ONCE IV Last administered on 01/27/19at 20:35; Start 01/27/19 at 20:15; Stop 01/28/19 at 11:42; Status DC Fentanyl Citrate (Fentanyl 2ml Vial) 50 mcg 1X ONCE IVP Last administered on 01/27/19at 20:59; Start 01/27/19 at 20:45; Stop 01/28/19 at 18:29; Status DC Metoclopramide HCl (Reglan Vial) 10 mg 1X ONCE IVP Last administered on 01/27/19at 20:59; Start 01/27/19 at 20:45; Stop 01/27/19 at 20:46; Status DC Ondansetron HCl (Zofran) 4 mg PRN Q8HRS PRN IV NAUSEA/VOMITING 1ST CHOICE Last administered on 01/28/19at 17:14; Start 01/27/19 at 22:15; Stop 01/28/19 at 22:14; Status DC Fentanyl Citrate (Fentanyl 2ml Vial) 50 mcg PRN Q1HR PRN IV SEVERE PAIN 7-10 Last administered on 01/28/19at 17:24; Start 01/27/19 at 22:15; Stop 01/28/19 at 18:29; Status DC Acetaminophen (Tylenol) 650 mg PRN Q4HRS PRN PO FEVER; Start 01/27/19 at 22:15; Stop 01/28/19 at 22:14; Status DC Sodium Chloride 1,000 ml @ 125 mls/hr 1X ONCE IV ; Start 01/27/19 at 22:30; Stop 01/27/19 at 22:49; Status DC Dextrose/Sodium Chloride 1,000 ml @ 250 mls/hr Q4H IV Last administered on 01/29/19at 07:41; Start 01/27/19 at 22:45; Stop 01/29/19 at 09:40; Status DC Magnesium Sulfate 100 ml @ 25 mls/hr DAILY IV ; Start 01/28/19 at 09:00; Stop 01/28/19 at 00:01; Status DC Insulin Human Lispro (HumaLOG) 35 units TIDWMEALS SQ Last administered on 01/29/19at 17:32; Start 01/28/19 at 08:00 Insulin Glargine (Lantus Syringe) 50 unit QHS SQ Last administered on 01/29/19at 20:56; Start 01/28/19 at 00:00 Magnesium Sulfate 100 ml @ 25 mls/hr DAILY IV Last administered on 01/28/19at 09:05; Start 01/28/19 at 00:30; Stop 01/30/19 at 00:29; Status DC Cyclobenzaprine HCl (Flexeril) 10 mg PRN TID PRN PO MUSCLE SPASMS Last administered on 01/29/19at 18:24; Start 01/28/19 at 11:00 Fluoxetine HCl (PROzac) 40 mg QHS PO Last administered on 01/29/19at 20:48; Start 01/28/19 at 21:00 Metoprolol Tartrate (Lopressor) 25 mg BID PO Last administered on 01/29/19at 2 0:50; Start 01/28/19 at 11:00 Trazodone HCl (Desyrel) 100 mg PRN QHS PRN PO INSOMNIA; Start 01/28/19 at 11:00 Hydroxyzine HCl (Atarax) 50 mg PRN Q8HRS PRN PO ITCHING Last administered on 01/28/19at 11:10; Start 01/28/19 at 11:15 Lurasidone HCl (Latuda) 120 mg QHS PO Last administered on 01/29/19at 20:47; Start 01/28/19 at 21:30 Metformin HCl (Glucophage) 1,000 mg BIDWMEALS PO Last administered on 01/29/19at 17:28; Start 01/28/19 at 17:00 Pantoprazole Sodium (Protonix) 40 mg DAILYAC PO Last administered on 01/28/19at 12:09; Start 01/28/19 at 12:00 Aspirin (Ecotrin) 81 mg DAILYWBKFT PO ; Start 01/29/19 at 08:00 Acetaminophen/ Hydrocodone Bitart (Lortab 5/325) 1 tab PRN Q4HRS PRN PO PAIN Last administered on 01/30/19 08:27; Start 01/28/19 at 18:30 Morphine Sulfate (Morphine Sulfate) 2 mg PRN Q2HR PRN IV PAIN Last administered on 01/29/19 20:49; Start 01/28/19 at 18:30 Insulin Human Lispro (HumaLOG) 0-5 UNITS TIDWMEALS SQ Last administered on 01/29/19 13:17; Start 01/29/19 at 12:00 Dextrose (Dextrose 50%-Water Syringe) 12.5 gm PRN Q15MIN PRN IV SEE COMMENTS; Start 01/29/19 at 09:45 Sodium Chloride 1,000 ml @ 100 mls/hr Q10H IV Last administered on 01/29/19 22:00; Start 01/29/19 at 09:45 Ondansetron HCl (Zofran) 4 mg PRN Q6HRS PRN IVP NAUSEA/VOMITING Last administered on 01/29/19at 12:22; Start 01/29/19 at 12:30 Atorvastatin Calcium (Lipitor) 20 mg QHS PO Last administered on 01/29/19at 20:47; Start 01/29/19 at 21:00 Active Scripts Active Aspirin Ec (Aspirin) 325 Mg Tablet.dr 1 Tab PO BID 30 Days Fluoxetine Hcl 20 Mg Capsule 40 Mg PO QHS 30 Days Reported Trazodone Hcl 100 Mg Tablet 100 Mg PO PRN QHS PRN Latuda (Lurasidone Hcl) 120 Mg Tablet 120 Mg PO QHS Levemir Flextouch (Insulin Detemir) 100 Unit/1 Ml Insuln.pen 50 Unit SQ QHS Metoprolol Tartrate 25 Mg Tablet 25 Mg PO BID Novolog Flexpen (Insulin Aspart) 100 Unit/1 Ml Insuln.pen 35 Unit SQ TIDAC Metformin Hcl 1,000 Mg Tablet 1,000 Mg PO BID Omeprazole 20 Mg Capsule.dr 20 Mg PO DAILY Oxycodone-Acetaminophen 10-325 (Oxycodone Hcl/Acetaminophen) 1 Each Tablet 1 Tab PO PRN Q4HRS PRN Cyclobenzaprine Hcl 10 Mg Tablet 10 Mg PO PRN TID Hydroxyzine Pamoate 50 Mg Capsule 50 Mg PO PRN TID PRN Vital Signs Vital Signs Date Time Temp Pulse Resp B/P (MAP) Pulse Ox O2 Delivery O2 Flow Rate FiO2 01/30/19 08:27 96 Room Air 01/30/19 07:54 97.5 76 12 101/51 (68) 97.5 Labs Laboratory Tests Test 01/28/19 12:03 01/28/19 15:56 01/28/19 17:37 01/28/19 20:22 Glucose (Fingerstick) 220 mg/dL (70-99) 67 mg/dL (70-99) 181 mg/dL (70-99) 366 mg/dL (70-99) Test 01/29/19 07:28 01/29/19 11:31 01/29/19 16:12 01/29/19 20:41 Glucose (Fingerstick) 236 mg/dL (70-99) 157 mg/dL (70-99) 302 mg/dL (70-99) 68 mg/dL (70-99) Test 01/29/19 21:58 01/29/19 22:33 01/30/19 05:58 01/30/19 07:17 Glucose (Fingerstick) 65 mg/dL (70-99) 102 mg/dL (70-99) 60 mg/dL (70-99) Sodium Level 142 mmol/L (136-145) Potassium Level 3.5 mmol/L (3.5-5.1) Chloride Level 107 mmol/L (98-107) Carbon Dioxide Level 28 mmol/L (21-32) Anion Gap 7 (6-14) Blood Urea Nitrogen 11 mg/dL (7-20) Creatinine 0.4 mg/dL (0.6-1.0) Estimated GFR (Cockcroft-Gault) 190.1 Glucose Level 53 mg/dL (70-99) Calcium Level 8.4 mg/dL (8.5-10.1) Test 01/30/19 07:51 01/30/19 08:20 Glucose (Fingerstick) 62 mg/dL (70-99) 112 mg/dL (70-99) Laboratory Tests Test 01/29/19 11:31 01/29/19 16:12 01/29/19 20:41 01/29/19 21:58 Glucose (Fingerstick) 157 mg/dL (70-99) 302 mg/dL (70-99) 68 mg/dL (70-99) 65 mg/dL (70-99) Test 01/29/19 22:33 01/30/19 05:58 01/30/19 07:17 01/30/19 07:51 Glucose (Fingerstick) 102 mg/dL (70-99) 60 mg/dL (70-99) 62 mg/dL (70-99) Sodium Level 142 mmol/L (136-145) Potassium Level 3.5 mmol/L (3.5-5.1) Chloride Level 107 mmol/L (98-107) Carbon Dioxide Level 28 mmol/L (21-32) Anion Gap 7 (6-14) Blood Urea Nitrogen 11 mg/dL (7-20) Creatinine 0.4 mg/dL (0.6-1.0) Estimated GFR (Cockcroft-Gault) 190.1 Glucose Level 53 mg/dL (70-99) Calcium Level 8.4 mg/dL (8.5-10.1) Test 01/30/19 08:20 Glucose (Fingerstick) 112 mg/dL (70-99) Allergies Allergies Coded Allergies Type Severity Reaction Last Updated Verified latex Allergy Intermediate 01/01/19 Yes lisinopril Allergy Intermediate 01/01/19 Yes quetiapine Allergy Intermediate 01/01/19 Yes warfarin Allergy Intermediate 01/01/19 Yes Disposition/Orders: D/C to Home Patient Instructions D/C PLANNING 34 MIN MARTÍN JUAN MD Jan 30, 2019 09:10
[2019-01-30] MEDS ORDERED: ATOR20TA58 PO (09:12)
[2019-01-30] MEDS ORDERED: ASPI-612 PO (09:12)
--- NOTE | 2019-01-30 09:13 | DISCH ---
DISCHARGE INSTRUCTIONS Condition on Discharge Condition on Discharge: Stable Activity After Discharge Activity Instructions for Disc: Activity as tolerated Lifting Instructions after Dis: No heavy lifting, No pulling or pushing Exercise Instruction after Dis: Walk 10 min, 3 x per day Driving Instructions after Dis: Do not drive today Diet after Discharge Diet after Discharge: Diabetic No Calorie Level Wound Incision Care Wound/Incision Care: Ice to area for comfort, Do not change dressing Wound Care Equipment: Wound vac Checks after Discharge Checks after discharge: Check blood press - daily, Check blood sugar, ac/hs Contacting the DR. after DC Call your doctor for: If your condition worsens Treatment/Equipment after DC Adaptive Equipment Issued: None MARTÍN JUAN MD Jan 30, 2019 09:13
[2019-01-30 11:00] VITALS: BP 125/82
[2019-01-30] MEDS: PANTOPRAZOLE 40 MG TABLET.DR. PO SCH (12:20)
[2019-01-30] MEDS: ASPIRIN ENTERIC COATED 81 MG TABLET.DR. PO SCH (12:20)
[2019-01-30] MEDS: metFORMIN 500 MG TABLET PO SCH (12:20)
--- NOTE | 2019-01-30 12:35 | SNU/HH DC ---
DISCHARGE WITH HOME HEALTH DISCHARGE INFORMATION: Discharge Date: Jan 30, 2019 Condition on Discharge: Stable CODE STATUS: Code Status: Full HOME HEALTH: Face to Face: I certify this patient is under my care and that I, or a nurse practitioner or [employer] assistant principal working with me, had a face to face encounter that meets the physician face to face encounter requirements with this patient on []. Medical Complications: DM, Other (chronic pain) [facility] For: Admin/Educate Injections, Assess & Educate Safety, Medication Management, Pain Management RN For Eval/Treatment: Yes Physical Therapy For: Safety Occupational Therapy For: Evaluation/Treatment Home Health Aide For: Self-care ACOUSTIC ENGINEER For: Community Resources Pt Meets Homebound Status: Psychological condition POST DISCHARGE ORDERS: Activity Instructions for Disc: Activity as tolerated Weight Bearing Status after Di: As tolerated DIET AFTER DISCHARGE: ADA Wound/Incision Care: Ice to area for comfort, Do not change dressing CHECKS AFTER DISCHARGE: Checks after discharge: Check blood press - daily, Check blood sugar, ac/hs FOLLOW-UP: PCP to follow Home Health: pcp next week TREATMENT/EQUIPMENT ORDERS: Adaptive Equipment Issued: None CERTIFICATION STATEMENT: Certification Statement: Certification Statement: Based on the above finding, I certify that this patient is confined to the home and needs intermittent senior care care, physical therapy and/or speech therapy, or continues to need occupational therapy.~ This patient is under my care, and I have initiated the establishment of the plan of care.~ This patient will be followed by myself or a community physician who will periodically review the plan of care. Home Meds Active Scripts Aspirin (ASPIRIN EC) 81 Mg Tablet., 81 MG PO DAILYWBKFT for HEART HEALTH for 30 Days, #30 TAB.SR Prov:MARTÍN JUAN MD 01/30/19 Atorvastatin Calcium (ATORVASTATIN CALCIUM) 20 Mg Tablet, 20 MG PO QHS for CHOLESTEROL for 30 Days, #30 TAB Prov:MARTÍN JUAN MD 01/30/19 Fluoxetine Hcl (FLUOXETINE HCL) 20 Mg Capsule, 40 MG PO QHS for Mood for 30 Days, #60 CAP Prov:JAMES KENT MD 01/18/19 Reported Medications Trazodone Hcl (TRAZODONE HCL) 100 Mg Tablet, 100 MG PO PRN QHS PRN for , TAB 01/27/19 Lurasidone Hcl (LATUDA) 120 Mg Tablet, 120 MG PO QHS for 01/27/19 Insulin Detemir (Levemir Flextouch) 100 Unit/1 Ml Insuln.pen, 50 UNIT SQ QHS for 01/27/19 Metoprolol Tartrate (METOPROLOL TARTRATE) 25 Mg Tablet, 25 MG PO BID for 01/27/19 Insulin Aspart (NOVOLOG FLEXPEN) 100 Unit/1 Ml Insuln.pen, 35 UNIT SQ TIDAC for 01/27/19 Metformin Hcl (METFORMIN HCL) 1,000 Mg Tablet, 1000 MG PO BID for 01/27/19 Omeprazole (OMEPRAZOLE) 20 Mg Capsule.dr, 20 MG PO DAILY for 01/27/19 Hydroxyzine Pamoate (HYDROXYZINE PAMOATE) 50 Mg Capsule, 50 MG PO PRN TID PRN for ANXIETY / AGITATION 01/27/19 Discontinued Reported Medications Oxycodone Hcl/Acetaminophen (OXYCODONE-ACETAMINOPHEN 10-325) 1 Each Tablet, 1 TAB PO PRN Q4HRS PRN for 01/27/19 Cyclobenzaprine Hcl (CYCLOBENZAPRINE HCL) 10 Mg Tablet, 10 MG PO PRN TID for 01/27/19 Discontinued Scripts Aspirin (ASPIRIN EC) 325 Mg Tablet., 1 TAB PO BID for [facility] for 30 Days, #60 TAB 11 Refills Prov:JAMES KENT MD 01/18/19 MARTÍN JUAN MD Jan 30, 2019 12:35
--- NOTE | 2019-01-30 13:58 | RAD ---
ABDOMEN COMPLETE History: Abdominal pain Comparison: None. Findings: Multiple sonographic images of the abdomen are submitted. Pancreas is not well-visualized due to bowel gas. There is coarsening of the hepatic echotexture. Right lobe of the liver measured 22.4 cm longitudinal. Right kidney measured 15 x 6.2 x 7.2 cm. Left kidney measured 14 x 6.8 x 6.8 cm. There is no hydronephrosis of either kidney. Abdominal aortic caliber proximally is within normal limits at 2.1 cm although otherwise obscured by bowel gas. There is segmental visualization of the inferior vena cava. Spleen measured 12.7 cm. Gallbladder is present without intraluminal abnormality, wall thickening, pericholecystic fluid. Common bile duct is within normal limits at 0.3 cm. Impression: 1. There is bilateral nephromegaly although may be due to patient's body habitus, also hepatomegaly. There is coarsening of the hepatic echotexture which may be due to steatosis. 2. Midline structures are incompletely visualized. Electronically signed by: Zach Ortega MD (01/30/2019 1:55 PM) [id number]
--- NOTE | 2019-01-30 14:24 | NUR ---
Pt was escorted via wheelchair with family by Cassidy CASTILLO.
== END 2019-01-30 09:20 | disposition home or self-care (01) | DRG 637 ==
LOC: ER 19:02 → 1 WEST ICU 20:35 → 6 SOUTH 01-28 14:13
PROVIDERS: ADMIT Internal Medicine; ATTEND Internal Medicine
DX: E10.10 Type 1 diabetes mellitus with ketoacidosis without coma (principal); N17.0 Acute kidney failure with tubular necrosis; D68.51 Activated protein C resistance; I10 Essential (primary) hypertension; F60.3 Borderline personality disorder; F31.9 Bipolar disorder, unspecified; G47.00 Insomnia, unspecified; E78.5 Hyperlipidemia, unspecified; K21.9 Gastro-esophageal reflux disease without esophagitis; F43.10 Post-traumatic stress disorder, unspecified; E66.01 Morbid (severe) obesity due to excess calories; Z98.891 History of uterine scar from previous surgery; Z88.8 Allergy status to other drugs, medicaments and biological substances; Z91.040 Latex allergy status; Z82.49 Family history of ischemic heart disease and other diseases of the circulatory system; Z86.718 Personal history of other venous thrombosis and embolism; Z87.74 Personal history of (corrected) congenital malformations of heart and circulatory system; Z86.711 Personal history of pulmonary embolism; Z68.34 Body mass index [BMI] 34.0-34.9, adult; Z79.82 Long term (current) use of aspirin; Z79.4 Long term (current) use of insulin
CPT/HCPCS: 36415; 36600; 71045; 76700; 78452; 80048; 80053; 80061; 80307; 81001; 81025; 82553; 82805; 82962; 83690; 83735; 83880; 84100; 84443; 84484; 85025; 85379; 85610; 87641; 93005; 93017; 96365; A9500; G0480; J1815; J2270; J2405; J2765; J3010; J3475; J3480; J7030; J7042; 99285-25; G0378

== ENCOUNTER 2019-02-19 18:26 | Inpatient (IN) | payer OTHER ==
[~2019-02-19] VITALS: Ht 180.3 cm; Wt 105.9 kg
[~2019-02-19 18:26] MED LIST changes: +ASPI-612 PO; +ATOR20TA58 PO; +CYCL10TA2 PO; +HYDR50CA2 PO; +INSU100I17 SQ; +INSU100I27 SQ; +LURA120T PO; +METF10007 PO; +METO25TA4 PO; +OMEP20CA10 PO; +OXYC-411 PO
[2019-02-19 18:53] LABS: BILIRUBIN,URINE NEGATIVE (NEG); CLARITY,URINE CLEAR; COLOR,URINE YELLOW; NITRITE,URINE NEGATIVE (NEG); PROTEIN,URINE NEGATIVE (NEG-TRACE); UROBILINOGEN,URINE 0.2 mg/dL (0.2 mg/dL)
[2019-02-19 18:59] LABS: BACTERIA,URINE 0 /HPF (0-FEW); RBC,URINE 0 /HPF (0-2); SQUAMOUS EPITHELIAL CELL,UR FEW /LPF; WBC,URINE 0 /HPF (0-4); YEAST,URINE PRESENT /HPF
[2019-02-19] MEDS ORDERED: INSULIN REGULAR 100 UNIT/ML 3ML VIAL. SQ ONE (19:00)
[2019-02-19] MEDS ORDERED: IV NORMAL SALINE 1000ML BAG 1,000 ML IV ONE (19:00)
[2019-02-19 19:10] LABS: BASO % 1 % (0-3); EOS # 0.1 x10^3/uL (0.0-0.7); EOS % 2 % (0-3); HEMATOCRIT 39.7 % (36.0-47.0); HEMOGLOBIN 13.2 g/dL (12.0-15.5); LYMPH # 1.9 x10^3/uL (1.0-4.8); LYMPH % 29 % (24-48); MEAN CORPUSCULAR HEMOGLOBIN 30 pg (25-35); MEAN CORPUSCULAR HGB CONC 33 g/dL (31-37); MEAN CORPUSCULAR VOLUME 91 fL (79-100); MONO # 0.4 x10^3/uL (0.0-1.1); MONO % 6 % (0-9); NEUT # 4.2 x10^3/uL (1.8-7.7); NEUT % 63 % (31-73); PLATELET COUNT 250 x10^3/uL (140-400); RED BLOOD COUNT 4.35 x10^6/uL (3.50-5.40); RED CELL DISTRIBUTION WIDTH 13.1 % (11.5-14.5); WHITE BLOOD COUNT 6.7 x10^3/uL (4.0-11.0)
[2019-02-19] MEDS ORDERED: KETOROLAC 15 MG/ML VIAL. IVP ONE (19:15)
[2019-02-19] MEDS ORDERED: fentaNYL PF VIAL 100 MCG/2 ML VIAL IVP ONE (19:15)
[2019-02-19] MEDS ORDERED: METOCLOPRAMIDE HCL 10 MG/2 ML VIAL. IVP ONE (19:15)
[2019-02-19 19:23] LABS: ALBUMIN 3.8 g/dL (3.4-5.0); CALCIUM 8.6 mg/dL (8.5-10.1); CREATININE 0.8 mg/dL (0.6-1.0); GFR 85.4; MAGNESIUM 1.7 mg/dL (1.8-2.4); POTASSIUM 4.6 mmol/L (3.5-5.1); TOTAL BILIRUBIN 1.4 mg/dL (0.2-1.0); TOTAL PROTEIN 7.6 g/dL (6.4-8.2)
--- NOTE | 2019-02-19 20:06 | PHYS DOC ---
Past Medical History Past Medical History: Bipolar, Diabetes-Type I, Hypertension, MRSA, Other Additional Past Medical Histor: boderline personality disorder, insomnia, ASD Past Surgical History: , Other Additional Past Surgical Histo: open heart (repair ASD), debridment Smoking: Quit Greater Than 1 Year Alcohol Use: Occasionally Drug Use: Marijuana Adult General Chief Complaint Chief Complaint: HYPERGLYCEMIA HPI HPI Ms. Bright is a 28yo F w/ PMH significant for uncontrolled diabetes, HTN, and bipolar disorder presents w/ hyperglycemia, dysuria, and low back pain. Has been experiencing low back pain, left greater than right, intermittent, sharp, 7/10 as well as dysuria for 3 days. States that she was released from wound care today for a "low back abscess." Took Percocet and Flexeril at 2pm, which have not helped. Nothing makes it better or worse. No recent medication changes and has taken all medications as prescribed. At home glucose measurements are "unreadable" but she stated that her sugar level has been uncontrollable and high. Has had prior kidney stones and UTIs. Review of Systems Review of Systems Constitutional: Denies fever or chills Eyes: Denies redness or eye pain HENT: Reports dry mouth. Denies nasal congestion or sore throat Respiratory: Denies cough or shortness of breath Cardiovascular: Denies chest pain or palpitations GI: Reports left flank abdominal pain and nausea. Denies vomiting : Reports dysuria. Denies hematuria Musculoskeletal: Reports low back pain. Denies joint pain Integument: Denies rash or skin lesions Neurologic: Reports loss of sensation in b/l feet (chronic). Denies headache, focal weakness or other sensory changes Complete systems were reviewed and found to be within normal limits, except as documented in this note. Current Medications Current Medications Current Medications Medications (Trade) Dose Ordered Sig/Kelvin Start Time Stop Time Status Last Admin Dose Admin Dextrose/Sodium Chloride 1,000 ml @ 250 mls/hr Q4H 02/19/19 20:24 Fentanyl Citrate (Fentanyl 2ml Vial) 50 mcg PRN Q2HRS PRN 02/19/19 20:30 Fluconazole (Diflucan) 200 mg 1X ONCE 02/19/19 20:15 02/19/19 20:16 DC 02/19/19 20:18 200 MG Insulin Human Regular (HumuLIN R VIAL) 10 unit 1X ONCE 02/19/19 19:00 02/19/19 19:01 DC 02/19/19 19:28 10 UNIT Insulin Human Regular 150 unit/ Sodium Chloride 151.5 ml @ 0 mls/hr CONT PRN PRN 02/19/19 20:30 Ketorolac Tromethamine (Toradol 15mg Vial) 15 mg 1X ONCE 02/19/19 19:15 02/19/19 19:16 DC 02/19/19 19:24 15 MG Metoclopramide HCl (Reglan Vial) 10 mg 1X ONCE 02/19/19 19:15 02/19/19 19:16 DC 02/19/19 19:23 10 MG Morphine Sulfate (Morphine Sulfate) 4 mg 1X ONCE 02/19/19 21:00 02/19/19 21:01 DC 02/19/19 20:58 4 MG Ondansetron HCl (Zofran) 4 mg 1X ONCE 02/19/19 21:00 02/19/19 21:01 DC 02/19/19 20:58 4 MG Potassium Chloride/Water 100 ml @ 100 mls/hr PRN Q1HR PRN 02/19/19 20:30 Sodium Chloride 1,000 ml @ 250 mls/hr Q4H 02/19/19 20:24 Allergies Allergies Allergies Coded Allergies Type Severity Reaction Last Updated Verified latex Allergy Intermediate 01/01/19 Yes lisinopril Allergy Intermediate 01/01/19 Yes quetiapine Allergy Intermediate 01/01/19 Yes warfarin Allergy Intermediate 01/01/19 Yes Physical Exam Physical Exam Constitutional: Well developed, obese, no acute distress, non-toxic appearance HENT: Normocephalic, atraumatic, oropharynx dry Eyes: Conjunctiva normal, no discharge Neck: Normal range of motion, no tenderness, supple Cardiovascular: Heart rate normal, regular rhythm Lungs & Thorax: Bilateral breath sounds clear to auscultation, no wheezing Abdomen: Soft, no tenderness Skin: Warm, dry, no erythema, no rash Back: Lumbar paraspinal tenderness, b/l CVA tenderness Extremities: No tenderness, ROM intact, no edema Neurologic: Alert and oriented X 3, normal motor function, no sensory function in b/l feet (baseline), no focal deficits noted Psychologic: Affect normal, judgement normal Current Patient Data Vital Signs Vital Signs Date Time Temp Pulse Resp B/P (MAP) Pulse Ox O2 Delivery O2 Flow Rate FiO2 02/19/19 20:58 Room Air 02/19/19 18:32 97.8 98 12 130/87 (101) 100 97.8 Lab Values Laboratory Tests Test 02/19/19 18:41 02/19/19 18:42 02/19/19 18:43 02/19/19 19:02 Glucose (Fingerstick) 571 mg/dL (70-99) *H Urine Collection Type Void Urine Color Yellow Urine Clarity Clear Urine pH 5.0 Urine Specific [place] >=1.030 Urine Protein Negative mg/dL (NEG-TRACE) Urine Glucose (UA) >=1000 mg/dL (NEG) Urine Ketones (Stick) >=80 mg/dL (NEG) Urine Blood Negative (NEG) Urine Nitrite Negative (NEG) Urine Bilirubin Negative (NEG) Urine Urobilinogen Dipstick 0.2 mg/dL (0.2 mg/dL) Urine Leukocyte Esterase Negative (NEG) Urine RBC 0 /HPF (0-2) Urine WBC 0 /HPF (0-4) Urine Squamous Epithelial Cells Few /LPF Urine Bacteria 0 /HPF (0-FEW) Urine Yeast Present /HPF POC Urine HCG, Qualitative Hcg negative (Negative) White Blood Count 6.7 x10^3/uL (4.0-11.0) Red Blood Count 4.35 x10^6/uL (3.50-5.40) Hemoglobin 13.2 g/dL (12.0-15.5) Hematocrit 39.7 % (36.0-47.0) Mean Corpuscular Volume 91 fL (79-100) Mean Corpuscular Hemoglobin 30 pg (25-35) Mean Corpuscular Hemoglobin Concent 33 g/dL (31-37) Red Cell Distribution Width 13.1 % (11.5-14.5) Platelet Count 250 x10^3/uL (140-400) Neutrophils (%) (Auto) 63 % (31-73) Lymphocytes (%) (Auto) 29 % (24-48) Monocytes (%) (Auto) 6 % (0-9) Eosinophils (%) (Auto) 2 % (0-3) Basophils (%) (Auto) 1 % (0-3) Neutrophils # (Auto) 4.2 x10^3/uL (1.8-7.7) Lymphocytes # (Auto) 1.9 x10^3/uL (1.0-4.8) Monocytes # (Auto) 0.4 x10^3/uL (0.0-1.1) Eosinophils # (Auto) 0.1 x10^3/uL (0.0-0.7) Basophils # (Auto) 0.0 x10^3/uL (0.0-0.2) Sodium Level 129 mmol/L (136-145) L Potassium Level 4.6 mmol/L (3.5-5.1) Chloride Level 92 mmol/L (98-107) L Carbon Dioxide Level 16 mmol/L (21-32) L Anion Gap 21 (6-14) H Blood Urea Nitrogen 15 mg/dL (7-20) Creatinine 0.8 mg/dL (0.6-1.0) Estimated GFR (Cockcroft-Gault) 85.4 BUN/Creatinine Ratio 19 (6-20) Glucose Level 606 mg/dL (70-99) *H Calcium Level 8.6 mg/dL (8.5-10.1) Magnesium Level 1.7 mg/dL (1.8-2.4) L Total Bilirubin 1.4 mg/dL (0.2-1.0) H Aspartate Amino Transferase (AST) 15 U/L (15-37) Alanine Aminotransferase (ALT) 21 U/L (14-59) Alkaline Phosphatase 119 U/L (46-116) H Total Protein 7.6 g/dL (6.4-8.2) Albumin 3.8 g/dL (3.4-5.0) Albumin/Globulin Ratio 1.0 (1.0-1.7) Lipase 80 U/L (73-393) Acetone Level Mod pos (NEG) Laboratory Tests 02/19/19 19:02 Laboratory Tests 02/19/19 19:02 EKG EKG [] Radiology/Procedures Radiology/Procedures PROCEDURE: CT ABDOMEN PELVIS WO CONTRAST CT abdomen pelvis without contrast dated 02/19/2019. No comparison available. CLINICAL INDICATION: Left greater than right flank pain. TECHNIQUE: Per contiguous axial imaging of the abdomen and pelvis performed without the administration of IV or oral contrast. One or more of the following individualized dose reduction techniques were utilized for this examination: 1. Automated exposure control 2. Adjustment of the mA and/or kV according to patient size 3. Use of iterative reconstruction technique. FINDINGS: Limited images of lung bases are clear. Heart size within normal limits. No pleural or pericardial effusion. Solid abdominal viscera not well evaluated in the absence of contrast medial. No apparent attenuation abnormality of the liver or spleen. Pancreas, adrenal glands, gallbladder and kidneys are unremarkable. No stone or hydronephrosis. Unopacified GI tract normal in caliber and contour. No focal bowel wall thickening. No inflammatory stranding in the mesentery. The appendix is normal in caliber. No ascites or lymphadenopathy. Images of pelvis a nondistended urinary bladder. Uterus and adnexa are unremarkable. 3.9 cm left ovarian cyst. No free fluid or pelvic lymphadenopathy. Borderline enlarged bilateral inguinal lymph nodes measure 8 mm short axis. Bone windows show no acute findings. IMPRESSION: 1. No acute abnormality of abdomen or pelvis. No renal stone or hydronephrosis. 2. Normal appendix. 3. Suspected small left ovarian cyst. Electronically signed by: Antonio Polk MD (02/19/2019 8:01 PM) [facility] Course & Med Decision Making Course & Med Decision Making Pertinent Labs and Imaging studies reviewed. (See chart for details) Ms. Bright presented with hyperglycemia, low back pain, and dysuria. Normal temp, 98 pulse. Glucose 606 (fingerstick 571), Na 129 (corrected 141.1), AG 21, ALK 119, acetone mod pos, UA pos yeast. Diflucan [address] abd/pelvis without acute process. Insulint gtt initiated for DKA. Magnesium replaced. Patient requiring admission for further evaluation and treatment. Discussed with Dr. Clarke(hospitalist) who is in agreement with admission. Discussed findings and plan with patient and family, who acknowledge understanding and agreement. Dragon Disclaimer Dragon Disclaimer This electronic medical record was generated, in whole or in part, using a voice recognition dictation system. Departure Departure Impression: Primary Impression: DKA (diabetic ketoacidoses) Additional Impression: Hypomagnesemia Disposition: ADMITTED INPATIENT Admitting Physician: AMMY Andrews) Condition: GUARDED Referrals: CLARISSA COLLADO MD (PCP) Critical Care Time Critical care time was 30 minutes which includes time at bedside, spent in discussion of patient's care with specialists and/or family members, with interpretation of laboratory and/or radiological studies and is exclusive of pro cedures. Problem Qualifiers Primary Impression: DKA (diabetic ketoacidoses) Diabetes mellitus type: other specified (including ABA) Diabetes mellitus complication detail: without coma Qualified Codes: E13.10 - Other specified diabetes mellitus with ketoacidosis without coma ANTONIO GALLAGHER DO Feb 19, 2019 20:06
[2019-02-19] MEDS ORDERED: FLUCONAZOLE 100 MG TABLET. PO ONE (20:15)
[2019-02-19] MEDS ORDERED: IV 1/2 NORMAL SALINE 1,000 ML IV SCH ×2 (20:24→21:30)
[2019-02-19] MEDS ORDERED: IV DEXTROSE 5 %-0.45 % NACL 1,000 ML IV SCH (20:24)
[2019-02-19] MEDS ORDERED: POTASSIUM CHLORIDE 10MEQ 100 ML IV PRN (20:30)
[2019-02-19] MEDS ORDERED: INSULIN REGULAR VIAL 150 UNIT in 0.9 % SODIUM CHLORIDE 150ML 150 ML IV PRN (20:30)
[2019-02-19] MEDS ORDERED: ONDANSETRON PF 4 MG/2 ML VIAL. IVP ONE (21:00)
[2019-02-19] MEDS ORDERED: MORPHINE SULFATE 4 MG/ML VIAL. IV ONE (21:00)
[2019-02-19 21:16] LABS: BASE EXCESS COOX -13 mmol/L (-3-3); HCO3 COOX 12 mmol/L (21-28); METHEMOGLOBIN 0.5 % (0.0-1.9); OXYHEMOGLOBIN 89.4 %; PCO2 COOX 23 mmHg (35-46); PO2 COOX 60 mmHg (85-108); SAT O2 COOX 91 % (92-99)
[2019-02-19 21:30] VITALS: BP 131/80
[2019-02-19 21:45] VITALS: BP 118/75
[2019-02-19 22:00] VITALS: BP 119/77
[2019-02-19] MEDS: fentaNYL PF VIAL 100 MCG/2 ML VIAL IV PRN (22:03)
[2019-02-19 22:15] VITALS: BP 124/78
--- NOTE | 2019-02-19 22:35 | PDOC1 ---
History and Physical Date of Admission Date of Admission DATE: 02/19/19 TIME: 22:35 Source Source: Chart review, Patient History of Present Illness History of Present Illness Ms. Birght is a 28yo female, admit from ER to ICU with Ketoacidosis. she has had DM1 since age 11, currently has no endocrineologist, she is disabled for dm1 and psych issues. She has uncontrolled diabetes, HTN, and bipolar disorder and came to the ER for back pain, found to have ketoneuria and acidosis and hyperglycemia Has been experiencing low back pain, left greater than right, intermittent, sharp, 7/10 as well as dysuria for 3 days, she took flexeril and percocet at home today . States that she was released from wound care today for a "low back abscess." . No recent medication changes and has taken all medications as prescribed. At home glucose measurements are "unreadable" but she stated that her sugar level has been uncontrollable and high. Has had prior kidney stones and UTIs. Past Medical History Cardiovascular: HTN, Hyperlipidemia, Other Pulmonary: No pertinent hx CENTRAL NERVOUS SYSTEM: Seizure GI: GERD Heme/Onc: Other Hepatobiliary: No pertinent hx Psych: Anxiety, Depression, Other Rheumatologic: No pertinent hx Infectious disease: No pertinent hx Renal/: No pertinent hx Endocrine: Diabetes Past Surgical History Past Surgical History: Other Family History Family History: Other Social History Smoke: Quit (2 years ago) ALCOHOL: none Drugs: Marijuana Current Problem List Problem List Problems Medical Problems: (1) Hypomagnesemia Status: Acute Current Medications Current Medications Current Medications Sodium Chloride 1,000 ml @ 1,000 mls/hr 1X ONCE IV Last administered on 02/19/19at 19:00; Start 02/19/19 at 19:00; Stop 02/19/19 at 19:59; Status DC Insulin Human Regular (HumuLIN R VIAL) 10 unit 1X ONCE SQ Last administered on 02/19/19at 19:28; Start 02/19/19 at 19:00; Stop 02/19/19 at 19:01; Status DC Ketorolac Tromethamine (Toradol 15mg Vial) 15 mg 1X ONCE IVP Last administered on 02/19/19at 19:24; Start 02/19/19 at 19:15; Stop 02/19/19 at 19:16; Status DC Metoclopramide HCl (Reglan Vial) 10 mg 1X ONCE IVP Last administered on 02/19/19at 19:23; Start 02/19/19 at 19:15; Stop 02/19/19 at 19:16; Status DC Fentanyl Citrate (Fentanyl 2ml Vial) 50 mcg 1X ONCE IVP Last administered on 02/19/19at 19:24; Start 02/19/19 at 19:15; Stop 02/19/19 at 19:16; Status DC Fluconazole (Diflucan) 200 mg 1X ONCE PO Last administered on 02/19/19at 20:18; Start 02/19/19 at 20:15; Stop 02/19/19 at 20:16; Status DC Sodium Chloride 1,000 ml @ 250 mls/hr Q4H IV ; Start 02/19/19 at 20:24 Dextrose/Sodium Chloride 1,000 ml @ 250 mls/hr Q4H IV ; Start 02/19/19 at 20:24 Insulin Human Regular 150 unit/ Sodium Chloride 151.5 ml @ 0 mls/hr CONT PRN PRN IV PER PROTOCOL; Start 02/19/19 at 20:30 Potassium Chloride/Water 100 ml @ 100 mls/hr PRN Q1HR PRN IV SEE COMMENTS; Start 02/19/19 at 20:30 Ondansetron HCl (Zofran) 4 mg PRN Q8HRS PRN IV NAUSEA/VOMITING; Start 02/19/19 at 20:30; Stop 02/20/19 at 20:29 Fentanyl Citrate (Fentanyl 2ml Vial) 50 mcg PRN Q2HRS PRN IV PAIN Last administered on 02/19/19at 22:03; Start 02/19/19 at 20:30 Morphine Sulfate (Morphine Sulfate) 4 mg 1X ONCE IV Last administered on 02/19/19at 20:58; Start 02/19/19 at 21:00; Stop 02/19/19 at 21:01; Status DC Ondansetron HCl (Zofran) 4 mg 1X ONCE IVP Last administered on 02/19/19at 20:58; Start 02/19/19 at 21:00; Stop 02/19/19 at 21:01; Status DC Sodium Chloride 1,000 ml @ 500 mls/hr Q2H IV Last administered on 02/19/19at 21:36; Start 02/19/19 at 21:30; Stop 02/19/19 at 21:31; Status DC Active Scripts Active Aspirin Ec (Aspirin) 81 Mg Tablet. 81 Mg PO [id number] 30 Days Atorvastatin Calcium 20 Mg Tablet 20 Mg PO QHS 30 Days Fluoxetine Hcl 20 Mg Capsule 40 Mg PO QHS 30 Days Reported Trazodone Hcl 100 Mg Tablet 100 Mg PO PRN QHS PRN Latuda (Lurasidone Hcl) 120 Mg Tablet 120 Mg PO QHS Levemir Flextouch (Insulin Detemir) 100 Unit/1 Ml Insuln.pen 50 Unit SQ QHS Metoprolol Tartrate 25 Mg Tablet 25 Mg PO BID Novolog Flexpen (Insulin Aspart) 100 Unit/1 Ml Insuln.pen 35 Unit SQ TIDAC Metformin Hcl 1,000 Mg Tablet 1,000 Mg PO BID Omeprazole 20 Mg Capsule. 20 Mg PO DAILY Hydroxyzine Pamoate 50 Mg Capsule 50 Mg PO PRN TID PRN Allergies Allergies: Coded Allergies: latex (Verified Allergy, Intermediate, 01/01/19) lisinopril (Verified Allergy, Intermediate, 01/01/19) quetiapine (Verified Allergy, Intermediate, 01/01/19) warfarin (Verified Allergy, Intermediate, 01/01/19) ROS General: YES: Chills, Fatigue, Malaise PSYCHOLOGICAL ROS: YES: Irritablity, Sleep disturbances Eyes: No Blurry vision, No Decreased vision, No Double vision, No Dry eyes, No Excessive tearing, No Eye Pain, No Itchy Eyes, No Loss of vision, No Photophobia, No Scotomata, No Uses contacts, No Uses glasses, No Other HEENT: No: Heacaches, Visual Changes, Hearing change, Nasal congestion, Nasal discharge, Oral lesions, Sinus pain, Sore Throat, Epistaxis, Sneezing, Snoring, Tinnitus, Vertigo, Vocal changes, Other Respiratory: No: Cough, Hemoptysis, Orthopnea, Pleuritic Pain, Shortness of breath, SOB with excertion, Sputum Changes, Stridor, Tachypnea, Wheezing, Other Cardiovascular: yes Chest Pain; No Palpitations, No Orthopnea, No Paroxysmal Noc. Dyspnea, No Edema, No Lt Headedness, No Other Gastrointestinal: Yes Nausea Genitourinary: No Dysuria, No Frequency, No Incontinence, No Hematuria, No Retention, No Discharge, No Urgency, No Pain, No Flank Pain, No Other, No , No , No , No , No , No , No Musculoskeletal: Yes Joint Pain, Yes Joint Stiffness, Yes Muscle Pain, Yes Pain In: (back) Neurological: No Behavorial Changes, No Bowel/Bladder ControlChng, No Confusion, No Dizziness, No Gait Disturbance, No Headaches, No Impaired Coord/balance, No Memory Loss, No Numbness/Tingling, No Seizures, No Speech Problems, No Tremors, No Visual Changes, No Weakness, No Other Skin: Yes Dry Skin; No Eczema, No Hair Changes, No Lumps, No Mole Changes, No Mottling, No Nail Changes, No Pruritus, No Rash, No Skin Lesion Changes, No Other, No Acne Physical Exam General: Alert, Oriented X3, Cooperative, mild distress HEENT: Atraumatic, PERRLA Heart: S1S2, RRR, no thrills Abdomen: Normal bowel sounds, Soft Rectal Exam: not examined Extremities: No clubbing, No edema Skin: No rashes, No breakdown, No significant lesion Neuro: Normal gait, Normal speech, Normal tone, Sensation intact Psych/Mental Status: Mental status NL, Mood NL Vitals Vitals Vital Signs Date Time Temp Pulse Resp B/P (MAP) Pulse Ox O2 Delivery O2 Flow Rate FiO2 02/19/19 22:03 20 100 Room Air 02/19/19 20:38 75 109/56 (73) 02/19/19 18:32 97.8 97.8 Labs Labs Laboratory Tests Test 02/19/19 18:41 02/19/19 18:42 02/19/19 18:43 02/19/19 19:02 Glucose (Fingerstick) 571 mg/dL (70-99) Urine Collection Type Void Urine Color Yellow Urine Clarity Clear Urine pH 5.0 Urine Specific [place] >=1.030 Urine Protein Negative mg/dL (NEG-TRACE) Urine Glucose (UA) >=1000 mg/dL (NEG) Urine Ketones (Stick) >=80 mg/dL (NEG) Urine Blood Negative (NEG) Urine Nitrite Negative (NEG) Urine Bilirubin Negative (NEG) Urine Urobilinogen Dipstick 0.2 mg/dL (0.2 mg/dL) Urine Leukocyte Esterase Negative (NEG) Urine RBC 0 /HPF (0-2) Urine WBC 0 /HPF (0-4) Urine Squamous Epithelial Cells Few /LPF Urine Bacteria 0 /HPF (0-FEW) Urine Yeast Present /HPF Bedside Urine HCG, Qualitative Hcg negative (Negative) White Blood Count 6.7 x10^3/uL (4.0-11.0) Red Blood Count 4.35 x10^6/uL (3.50-5.40) Hemoglobin 13.2 g/dL (12.0-15.5) Hematocrit 39.7 % (36.0-47.0) Mean Corpuscular Volume 91 fL (79-100) Mean Corpuscular Hemoglobin 30 pg (25-35) Mean Corpuscular Hemoglobin Concent 33 g/dL (31-37) Red Cell Distribution Width 13.1 % (11.5-14.5) Platelet Count 250 x10^3/uL (140-400) Neutrophils (%) (Auto) 63 % (31-73) Lymphocytes (%) (Auto) 29 % (24-48) Monocytes (%) (Auto) 6 % (0-9) Eosinophils (%) (Auto) 2 % (0-3) Basophils (%) (Auto) 1 % (0-3) Neutrophils # (Auto) 4.2 x10^3/uL (1.8-7.7) Lymphocytes # (Auto) 1.9 x10^3/uL (1.0-4.8) Monocytes # (Auto) 0.4 x10^3/uL (0.0-1.1) Eosinophils # (Auto) 0.1 x10^3/uL (0.0-0.7) Basophils # (Auto) 0.0 x10^3/uL (0.0-0.2) Sodium Level 129 mmol/L (136-145) Potassium Level 4.6 mmol/L (3.5-5.1) Chloride Level 92 mmol/L (98-107) Carbon Dioxide Level 16 mmol/L (21-32) Anion Gap 21 (6-14) Blood Urea Nitrogen 15 mg/dL (7-20) Creatinine 0.8 mg/dL (0.6-1.0) Estimated GFR (Cockcroft-Gault) 85.4 BUN/Creatinine Ratio 19 (6-20) Glucose Level 606 mg/dL (70-99) Calcium Level 8.6 mg/dL (8.5-10.1) Magnesium Level 1.7 mg/dL (1.8-2.4) Total Bilirubin 1.4 mg/dL (0.2-1.0) Aspartate Amino Transf (AST/SGOT) 15 U/L (15-37) Alanine Aminotransferase (ALT/SGPT) 21 U/L (14-59) Alkaline Phosphatase 119 U/L (46-116) Total Protein 7.6 g/dL (6.4-8.2) Albumin 3.8 g/dL (3.4-5.0) Albumin/Globulin Ratio 1.0 (1.0-1.7) Lipase 80 U/L (73-393) Acetone Level Mod pos (NEG) Test 02/19/19 20:49 02/19/19 21:47 O2 Saturation 91 % (92-99) Arterial Blood pH 7.31 (7.35-7.45) Arterial Blood pCO2 at Patient Temp 23 mmHg (35-46) Arterial Blood pO2 at Patient Temp 60 mmHg (85-108) Arterial Blood HCO3 12 mmol/L (21-28) Arterial Blood Base Excess -13 mmol/L (-3-3) Oxyhemoglobin 89.4 % Methemoglobin 0.5 % (0.0-1.9) Carbon Monoxide, Quantitative 0.7 % (0.0-1.9) FiO2 21 Glucose (Fingerstick) 341 mg/dL (70-99) Laboratory Tests Test 02/19/19 18:41 02/19/19 18:42 02/19/19 18:43 02/19/19 19:02 Glucose (Fingerstick) 571 mg/dL (70-99) Urine Collection Type Void Urine Color Yellow Urine Clarity Clear Urine pH 5.0 Urine Specific [place] >=1.030 Urine Protein Negative mg/dL (NEG-TRACE) Urine Glucose (UA) >=1000 mg/dL (NEG) Urine Ketones (Stick) >=80 mg/dL (NEG) Urine Blood Negative (NEG) Urine Nitrite Negative (NEG) Urine Bilirubin Negative (NEG) Urine Urobilinogen Dipstick 0.2 mg/dL (0.2 mg/dL) Urine Leukocyte Esterase Negative (NEG) Urine RBC 0 /HPF (0-2) Urine WBC 0 /HPF (0-4) Urine Squamous Epithelial Cells Few /LPF Urine Bacteria 0 /HPF (0-FEW) Urine Yeast Present /HPF Bedside Urine HCG, Qualitative Hcg negative (Negative) White Blood Count 6.7 x10^3/uL (4.0-11.0) Red Blood Count 4.35 x10^6/uL (3.50-5.40) Hemoglobin 13.2 g/dL (12.0-15.5) Hematocrit 39.7 % (36.0-47.0) Mean Corpuscular Volume 91 fL (79-100) Mean Corpuscular Hemoglobin 30 pg (25-35) Mean Corpuscular Hemoglobin Concent 33 g/dL (31-37) Red Cell Distribution Width 13.1 % (11.5-14.5) Platelet Count 250 x10^3/uL (140-400) Neutrophils (%) (Auto) 63 % (31-73) Lymphocytes (%) (Auto) 29 % (24-48) Monocytes (%) (Auto) 6 % (0-9) Eosinophils (%) (Auto) 2 % (0-3) Basophils (%) (Auto) 1 % (0-3) Neutrophils # (Auto) 4.2 x10^3/uL (1.8-7.7) Lymphocytes # (Auto) 1.9 x10^3/uL (1.0-4.8) Monocytes # (Auto) 0.4 x10^3/uL (0.0-1.1) Eosinophils # (Auto) 0.1 x10^3/uL (0.0-0.7) Basophils # (Auto) 0.0 x10^3/uL (0.0-0.2) Sodium Level 129 mmol/L (136-145) Potassium Level 4.6 mmol/L (3.5-5.1) Chloride Level 92 mmol/L (98-107) Carbon Dioxide Level 16 mmol/L (21-32) Anion Gap 21 (6-14) Blood Urea Nitrogen 15 mg/dL (7-20) Creatinine 0.8 mg/dL (0.6-1.0) Estimated GFR (Cockcroft-Gault) 85.4 BUN/Creatinine Ratio 19 (6-20) Glucose Level 606 mg/dL (70-99) Calcium Level 8.6 mg/dL (8.5-10.1) Magnesium Level 1.7 mg/dL (1.8-2.4) Total Bilirubin 1.4 mg/dL (0.2-1.0) Aspartate Amino Transf (AST/SGOT) 15 U/L (15-37) Alanine Aminotransferase (ALT/SGPT) 21 U/L (14-59) Alkaline Phosphatase 119 U/L (46-116) Total Protein 7.6 g/dL (6.4-8.2) Albumin 3.8 g/dL (3.4-5.0) Albumin/Globulin Ratio 1.0 (1.0-1.7) Lipase 80 U/L (73-393) Acetone Level Mod pos (NEG) Test 02/19/19 20:49 02/19/19 21:47 O2 Saturation 91 % (92-99) Arterial Blood pH 7.31 (7.35-7.45) Arterial Blood pCO2 at Patient Temp 23 mmHg (35-46) Arterial Blood pO2 at Patient Temp 60 mmHg (85-108) Arterial Blood HCO3 12 mmol/L (21-28) Arterial Blood Base Excess -13 mmol/L (-3-3) Oxyhemoglobin 89.4 % Methemoglobin 0.5 % (0.0-1.9) Carbon Monoxide, Quantitative 0.7 % (0.0-1.9) FiO2 21 Glucose (Fingerstick) 341 mg/dL (70-99) VTE Prophylaxis Ordered VTE Prophylaxis Devices: Yes VTE Pharmacological Prophylaxi: Yes Assessment/Plan Assessment/Plan DKA, DM1 back pain, acute on chronc with spasm bipolar disorder, stable on latuda depression, SSRI insomnia, trazodone LISA COFFMAN MD Feb 19, 2019 22:35
[2019-02-19] MEDS ORDERED: traZODone 100 MG TABLET. PO PRN (22:45)
[2019-02-19] MEDS ORDERED: hydrOXYzine 25 MG TABLET PO PRN (22:45)
[2019-02-19] MEDS: ATORVASTATIN CALCIUM 20 MG TABLET PO SCH (22:58)
[2019-02-19] MEDS: METOPROLOL TART IMMED RELEASE 25 MG TABLET. PO SCH (22:59)
[2019-02-19] MEDS: FLUoxetine HCL 20 MG CAPSULE PO SCH (22:59)
[2019-02-19 23:00] VITALS: BP 114/63
[2019-02-19] MEDS ORDERED: IV NORMAL SALINE 1000ML BAG 1,000 ML IV SCH (23:00)
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
[2019-02-20] VITALS (15 sets, daily range): BP systolic 86–148; BP diastolic 46–82
[2019-02-20] MEDS: fentaNYL PF VIAL 100 MCG/2 ML VIAL IV PRN ×8 (00:06→19:49)
[2019-02-20 00:38] LABS: CALCIUM 8.3 mg/dL (8.5-10.1); MAGNESIUM 1.8 mg/dL (1.8-2.4); PHOSPHORUS 3.1 mg/dL (2.6-4.7); POTASSIUM 3.7 mmol/L (3.5-5.1)
[2019-02-20] MEDS: POTASSIUM CHLORIDE 10MEQ 100 ML IV PRN ×4 (00:58→04:41)
[2019-02-20] MEDS: ONDANSETRON PF 4 MG/2 ML VIAL. IV PRN ×2 (01:10→11:03)
[2019-02-20] MEDS: IV DEXTROSE 5% - 0.9 % NACL 1,000 ML IV SCH ×4 (02:19→14:15)
[2019-02-20 06:01] LABS: ALBUMIN 3.1 g/dL (3.4-5.0); ALBUMIN/GLOBULIN RATIO 0.9 (1.0-1.7); CALCIUM 8.3 mg/dL (8.5-10.1); CREATININE 0.6 mg/dL (0.6-1.0); MAGNESIUM 1.9 mg/dL (1.8-2.4); PHOSPHORUS 3.5 mg/dL (2.6-4.7); POTASSIUM 4.2 mmol/L (3.5-5.1); TOTAL BILIRUBIN 0.3 mg/dL (0.2-1.0); TOTAL PROTEIN 6.5 g/dL (6.4-8.2)
--- NOTE | 2019-02-20 06:12 | NUR ---
Notified Dr. Sigala of closed anion gap, received the order to give 10 units Lantus now and start NS at 100 mls/hr.
[2019-02-20] MEDS ORDERED: INSULIN GLARGINE SYRINGE. SQ ONE (07:00)
[2019-02-20] MEDS: PANTOPRAZOLE 40 MG TABLET.DR. PO SCH (08:31)
[2019-02-20] MEDS: ASPIRIN ENTERIC COATED 81 MG TABLET.DR. PO SCH (08:31)
[2019-02-20] MEDS: METOPROLOL TART IMMED RELEASE 25 MG TABLET. PO SCH ×2 (08:32→21:22)
[2019-02-20] MEDS: IV NORMAL SALINE 1000ML BAG 1,000 ML IV SCH ×2 (08:41→21:27)
[2019-02-20] MEDS: INSULIN LISPRO 300 UNITS/3 ML VIAL. SQ SCH ×3 (08:52→17:01)
--- NOTE | 2019-02-20 10:53 | NUR ---
SS following for discharge planning. SS reviewed pt chart. Pt is from home and is currently on room air. SS will continue to follow for discharge planning.
--- NOTE | 2019-02-20 12:27 | PDOC ---
[facility] PROGRESS NOTE Chief Complaint Chief Complaint DKA, Hypomagnesemia History of Present Illness History of Present Illness Ms. Bright is a 28yo F w/ PMH significant for uncontrolled diabetes, HTN, and bipolar disorder presents w/ hyperglycemia, dysuria, and low back pain. Has been experiencing low back pain, left greater than right, intermittent, sharp, 7/10 as well as dysuria for 3 days. States that she was released from wound care today for a "low back abscess." Took Percocet and Flexeril at 2pm, which have not helped. Nothing makes it better or worse. No recent medication changes and has taken all medications as prescribed. At home glucose measurements are "unreadable" but she stated that her sugar level has been uncontrollable and high. Has had prior kidney stones and UTIs. 02/20: Patient seen and examined in ICU, patient is noted to be alert and oriented X3, is up talking and eating crackers with peanut butter. We hope to transfer her out of the ICU today when anion gap has closed, will continue IV fluids and administer insulin. Hope to discharge when patient returns to her baseline. Vitals/I&O Vitals/I&O: Vital Signs Date Time Temp Pulse Resp B/P (MAP) Pulse Ox O2 Delivery O2 Flow Rate FiO2 02/20/19 11:44 98.0 87 27 109/66 (80) 100 Room Air 98.0 I & O 02/19/19 02/19/19 02/20/19 15:00 23:00 07:00 Intake Total 1000 ml 2409 ml Output Total 1200 ml Balance 1000 ml 1209 ml Physical Exam General: Alert, Oriented X3, Cooperative, mild distress Heart: Regular rate, Normal S1, Normal S2, No murmurs, Gallops Lungs: Clear Abdomen: Normal bowel sounds, Soft Extremities: No clubbing, No cyanosis, No edema Skin: No rashes, No breakdown, No significant lesion Labs Labs: Laboratory Tests Test 02/19/19 18:41 02/19/19 18:42 02/19/19 18:43 02/19/19 19:02 Glucose (Fingerstick) 571 mg/dL (70-99) Urine Collection Type Void Urine Color Yellow Urine Clarity Clear Urine pH 5.0 Urine Specific [place] >=1.030 Urine Protein Negative mg/dL (NEG-TRACE) Urine Glucose (UA) >=1000 mg/dL (NEG) Urine Ketones (Stick) >=80 mg/dL (NEG) Urine Blood Negative (NEG) Urine Nitrite Negative (NEG) Urine Bilirubin Negative (NEG) Urine Urobilinogen Dipstick 0.2 mg/dL (0.2 mg/dL) Urine Leukocyte Esterase Negative (NEG) Urine RBC 0 /HPF (0-2) Urine WBC 0 /HPF (0-4) Urine Squamous Epithelial Cells Few /LPF Urine Bacteria 0 /HPF (0-FEW) Urine Yeast Present /HPF Bedside Urine HCG, Qualitative Hcg negative (Negative) White Blood Count 6.7 x10^3/uL (4.0-11.0) Red Blood Count 4.35 x10^6/uL (3.50-5.40) Hemoglobin 13.2 g/dL (12.0-15.5) Hematocrit 39.7 % (36.0-47.0) Mean Corpuscular Volume 91 fL (79-100) Mean Corpuscular Hemoglobin 30 pg (25-35) Mean Corpuscular Hemoglobin Concent 33 g/dL (31-37) Red Cell Distribution Width 13.1 % (11.5-14.5) Platelet Count 250 x10^3/uL (140-400) Neutrophils (%) (Auto) 63 % (31-73) Lymphocytes (%) (Auto) 29 % (24-48) Monocytes (%) (Auto) 6 % (0-9) Eosinophils (%) (Auto) 2 % (0-3) Basophils (%) (Auto) 1 % (0-3) Neutrophils # (Auto) 4.2 x10^3/uL (1.8-7.7) Lymphocytes # (Auto) 1.9 x10^3/uL (1.0-4.8) Monocytes # (Auto) 0.4 x10^3/uL (0.0-1.1) Eosinophils # (Auto) 0.1 x10^3/uL (0.0-0.7) Basophils # (Auto) 0.0 x10^3/uL (0.0-0.2) Sodium Level 129 mmol/L (136-145) Potassium Level 4.6 mmol/L (3.5-5.1) Chloride Level 92 mmol/L (98-107) Carbon Dioxide Level 16 mmol/L (21-32) Anion Gap 21 (6-14) Blood Urea Nitrogen 15 mg/dL (7-20) Creatinine 0.8 mg/dL (0.6-1.0) Estimated GFR (Cockcroft-Gault) 85.4 BUN/Creatinine Ratio 19 (6-20) Glucose Level 606 mg/dL (70-99) Calcium Level 8.6 mg/dL (8.5-10.1) Magnesium Level 1.7 mg/dL (1.8-2.4) Total Bilirubin 1.4 mg/dL (0.2-1.0) Aspartate Amino Transf (AST/SGOT) 15 U/L (15-37) Alanine Aminotransferase (ALT/SGPT) 21 U/L (14-59) Alkaline Phosphatase 119 U/L (46-116) Total Protein 7.6 g/dL (6.4-8.2) Albumin 3.8 g/dL (3.4-5.0) Albumin/Globulin Ratio 1.0 (1.0-1.7) Lipase 80 U/L (73-393) Acetone Level Mod pos (NEG) Test 02/19/19 20:49 02/19/19 21:47 02/19/19 23:15 02/19/19 23:35 O2 Saturation 91 % (92-99) Arterial Blood pH 7.31 (7.35-7.45) Arterial Blood pCO2 at Patient Temp 23 mmHg (35-46) Arterial Blood pO2 at Patient Temp 60 mmHg (85-108) Arterial Blood HCO3 12 mmol/L (21-28) Arterial Blood Base Excess -13 mmol/L (-3-3) Oxyhemoglobin 89.4 % Methemoglobin 0.5 % (0.0-1.9) Carbon Monoxide, Quantitative 0.7 % (0.0-1.9) FiO2 21 Glucose (Fingerstick) 341 mg/dL (70-99) 260 mg/dL (70-99) Sodium Level 135 mmol/L (136-145) Potassium Level 3.7 mmol/L (3.5-5.1) Chloride Level 99 mmol/L (98-107) Carbon Dioxide Level 17 mmol/L (21-32) Anion Gap 19 (6-14) Blood Urea Nitrogen 13 mg/dL (7-20) Creatinine 1.0 mg/dL (0.6-1.0) Estimated GFR (Cockcroft-Gault) 66.0 Glucose Level 267 mg/dL (70-99) Calcium Level 8.3 mg/dL (8.5-10.1) Phosphorus Level 3.1 mg/dL (2.6-4.7) Magnesium Level 1.8 mg/dL (1.8-2.4) Test 02/20/19 00:50 02/20/19 02:09 02/20/19 03:39 02/20/19 04:43 Glucose (Fingerstick) 296 mg/dL (70-99) 248 mg/dL (70-99) 140 mg/dL (70-99) 115 mg/dL (70-99) Test 02/20/19 05:10 02/20/19 05:59 02/20/19 07:13 02/20/19 08:30 Sodium Level 139 mmol/L (136-145) Potassium Level 4.2 mmol/L (3.5-5.1) Chloride Level 105 mmol/L (98-107) Carbon Dioxide Level 23 mmol/L (21-32) Anion Gap 11 (6-14) Blood Urea Nitrogen 9 mg/dL (7-20) Creatinine 0.6 mg/dL (0.6-1.0) Estimated GFR (Cockcroft-Gault) 119.0 BUN/Creatinine Ratio 15 (6-20) Glucose Level 136 mg/dL (70-99) Calcium Level 8.3 mg/dL (8.5-10.1) Phosphorus Level 3.5 mg/dL (2.6-4.7) Magnesium Level 1.9 mg/dL (1.8-2.4) Total Bilirubin 0.3 mg/dL (0.2-1.0) Aspartate Amino Transf (AST/SGOT) 11 U/L (15-37) Alanine Aminotransferase (ALT/SGPT) 16 U/L (14-59) Alkaline Phosphatase 90 U/L (46-116) Total Protein 6.5 g/dL (6.4-8.2) Albumin 3.1 g/dL (3.4-5.0) Albumin/Globulin Ratio 0.9 (1.0-1.7) Glucose (Fingerstick) 167 mg/dL (70-99) 177 mg/dL (70-99) 145 mg/dL (70-99) Test 02/20/19 11:15 Glucose (Fingerstick) 88 mg/dL (70-99) Review of Systems Review of Systems: Patient complains of lower back pain, patient denies SOB Assessment and Plan Assessmemt and Plan Problems Medical Problems: (1) Hypomagnesemia Status: Acute Assessment: DKA, Hypomagnesemia, lower back pain Plan: 1. ICU monitoring 2. Trend anion gap 3. Insulin 4. Continue IV fluids 5. transfer out of ICU 6. Hope to discharge today Comment Review of Relevant I have reviewed the following items lily (where applicable) has been applied. Medications: Current Medications Medications (Trade) Dose Ordered Sig/Kelvin Route PRN Reason Start Time Stop Time Status Last Admin Dose Admin Sodium Chloride 1,000 ml @ 1,000 mls/hr 1X ONCE IV 02/19/19 19:00 02/19/19 19:59 DC 02/19/19 19:00 Insulin Human Regular (HumuLIN R VIAL) 10 unit 1X ONCE SQ 02/19/19 19:00 02/19/19 19:01 DC 02/19/19 19:28 Ketorolac Tromethamine (Toradol 15mg Vial) 15 mg 1X ONCE IVP 02/19/19 19:15 02/19/19 19:16 DC 02/19/19 19:24 Metoclopramide HCl (Reglan Vial) 10 mg 1X ONCE IVP 02/19/19 19:15 02/19/19 19:16 DC 02/19/19 19:23 Fentanyl Citrate (Fentanyl 2ml Vial) 50 mcg 1X ONCE IVP 02/19/19 19:15 02/19/19 19:16 DC 02/19/19 19:24 Fluconazole (Diflucan) 200 mg 1X ONCE PO 02/19/19 20:15 02/19/19 20:16 DC 02/19/19 20:18 Insulin Human Regular 150 unit/ Sodium Chloride 151.5 ml @ 0 mls/hr CONT PRN PRN IV PER PROTOCOL 02/19/19 20:30 02/20/19 00:59 Ondansetron HCl (Zofran) 4 mg PRN Q8HRS PRN IV NAUSEA/VOMITING 02/19/19 20:30 02/20/19 20:29 02/20/19 11:03 Fentanyl Citrate (Fentanyl 2ml Vial) 50 mcg PRN Q2HRS PRN IV PAIN 02/19/19 20:30 02/20/19 11:03 Morphine Sulfate (Morphine Sulfate) 4 mg 1X ONCE IV 02/19/19 21:00 02/19/19 21:01 DC 02/19/19 20:58 Ondansetron HCl (Zofran) 4 mg 1X ONCE IVP 02/19/19 21:00 02/19/19 21:01 DC 02/19/19 20:58 Sodium Chloride 1,000 ml @ 500 mls/hr Q2H IV 02/19/19 21:30 02/19/19 21:31 DC 02/19/19 21:36 Aspirin (Ecotrin) 81 mg DAILYWBKFT PO 02/20/19 08:00 02/20/19 08:31 Atorvastatin Calcium (Lipitor) 20 mg QHS PO 02/19/19 23:00 02/19/19 22:58 Fluoxetine HCl (PROzac) 40 mg QHS PO 02/19/19 23:00 02/19/19 22:59 Metoprolol Tartrate (Lopressor) 25 mg BID PO 02/19/19 23:00 02/20/19 08:32 Insulin Human Lispro (HumaLOG) 35 units TIDWMEALS SQ 02/20/19 08:00 02/20/19 08:52 Pantoprazole Sodium (Protonix) 40 mg DAILYAC PO 02/20/19 07:30 02/20/19 08:31 Sodium Chloride 1,000 ml @ 250 mls/hr Q4H IV 02/19/19 23:00 02/20/19 02:11 DC 02/20/19 00:07 Potassium Chloride/Water 100 ml @ 100 mls/hr PRN Q1HR PRN IV SEE COMMENTS 02/20/19 00:45 02/20/19 04:41 Dextrose/Sodium Chloride 1,000 ml @ 250 mls/hr Q4H IV 02/20/19 02:15 02/20/19 06:21 Insulin Glargine (Lantus Syringe) 10 unit 1X ONCE SQ 02/20/19 07:00 02/20/19 07:01 DC 02/20/19 06:22 Sodium Chloride 1,000 ml @ 100 mls/hr Q10H IV 02/20/19 07:00 02/20/19 08:41 MEERA CARSON III DO Feb 20, 2019 12:27
[2019-02-20] MEDS ORDERED: CYCLOBENZAPRINE 10 MG TABLET. PO PRN (13:30)
--- NOTE | 2019-02-20 13:45 | NUR ---
Patient transferred to 5th floor via wheelchair, report had been given to Whitney & she was notified when patient arrived.
[2019-02-20] MEDS: LIDOCAINE (700MG/PATCH) PATCH. TD SCH ×2 (14:52→21:27)
[2019-02-20] MEDS: oxyCODONE/APAP 10/325 1 TAB TABLET PO PRN (14:52)
[2019-02-20] MEDS: NEOMY/BACITR/POLYMYXIN OINT PACKET. TP SCH ×2 (16:56→21:22)
--- NOTE | 2019-02-20 17:47 | CONS ---
DATE OF CONSULTATION: 02/20/2019 I saw her on 02/20/2019 at the request of Dr. Benavides for rehab evaluation. HISTORY OF PRESENT ILLNESS: This is a 28-year-old right-handed female admitted on 02/19/2019 with diabetic ketoacidosis. She apparently had similar episodes several times. The patient with known diabetic since age 11. The patient had been on disability, also had some problem with stress. She had 2 children also going to school online, also with known hypertension and bipolar disorder. She was admitted through the Emergency Room with back pain, found with ketones in urine and acidosis and hyperglycemia. She admits chronic lower back pain and had radiological studies done and was told that she had a pinching of the nerve in the back and the patient has been taking Flexeril and Percocet 10/325 mg on as needed basis for pain. The patient has been independent with her mobility and self-care prior to the present hospitalization. PAST MEDICAL HISTORY: Also includes gastroesophageal reflux disease, seizure disorder, anxiety, depression. ALLERGIES: SHE IS KNOWN ALLERGIC TO LATEX, LISINOPRIL, QUETIAPINE, WARFARIN. The patient quit smoking about 2 years ago. She takes marijuana. The patient was also being treated for hypomagnesemia. PHYSICAL EXAMINATION: Today revealed young female, patient is obese. She is alert, oriented to time, place, person and circumstance and follows commands appropriately, moves all 4 extremities voluntarily where she had 5/5 grade muscle strength. Deep tendon reflexes are 1-2+ and symmetrical with absent ankle jerks and she had equal perception of touch and pinprick sensation bilaterally. She had tenderness to palpation over lumbar paraspinal muscles extending over to sacroiliac joint area and to some extent over trochanteric bursa. Straight leg raising test is negative bilaterally. She had painful range of motion of both hip and knee joints. She is independent with bed mobility. I have not tested her transfers or ambulation skills at this time. ASSESSMENT: Young female with diabetic ketoacidosis, obesity, chronic lower back pain from degenerative disk disease of lumbar vertebrae with associated mild trochanteric bursitis. No clinical evidence of ongoing lumbar radiculopathy, clinical evidence of peripheral neuropathy. The patient also with hypertension, hyperlipidemia, anxiety, depression, gastroesophageal reflux disease. RECOMMENDATION: To ask physical therapy to see her to try physical modalities and instruct her in home exercise program. Home when medically stable with outpatient followup. Dr. Benavides, I appreciate asking me to participate in the care of this interesting patient. I will be glad to see her for followup with you on as needed basis. JAMES VIRK MD DR: LALY/bhavik JOB#: [id number] / [id number]
[2019-02-20] MEDS ORDERED: PATCH REMOVAL. MC SCH (21:00)
[2019-02-20] MEDS ORDERED: NEOMY/BACITR/POLYMYXIN OINT PACKET. TP SCH (21:00)
[2019-02-20] MEDS ORDERED: INSULIN GLARGINE SYRINGE. SQ SCH (21:00)
[2019-02-20] MEDS ORDERED: LURASIDONE 40 MG TABLET. PO SCH (21:00)
[2019-02-20] MEDS: ATORVASTATIN CALCIUM 20 MG TABLET PO SCH (21:22)
[2019-02-20] MEDS: FLUoxetine HCL 20 MG CAPSULE PO SCH (21:22)
[2019-02-21 03:00] VITALS: BP 119/75
[2019-02-21] MEDS: IV NORMAL SALINE 1000ML BAG 1,000 ML IV SCH (03:00)
[2019-02-21 07:00] VITALS: BP 123/78
[2019-02-21] MEDS: PANTOPRAZOLE 40 MG TABLET.DR. PO SCH (07:52)
[2019-02-21] MEDS: INSULIN LISPRO 300 UNITS/3 ML VIAL. SQ SCH ×2 (08:20→12:25)
[2019-02-21] MEDS ORDERED: CYCL10TA2 PO (08:51)
[2019-02-21] MEDS ORDERED: OXYC1TAB22 PO (08:51)
[2019-02-21] MEDS ORDERED: LIDO700A21 TD (08:51)
[2019-02-21] MEDS: METOPROLOL TART IMMED RELEASE 25 MG TABLET. PO SCH (08:52)
[2019-02-21] MEDS: NEOMY/BACITR/POLYMYXIN OINT PACKET. TP SCH (08:52)
[2019-02-21] MEDS: ASPIRIN ENTERIC COATED 81 MG TABLET.DR. PO SCH (08:53)
[2019-02-21] MEDS: LIDOCAINE (700MG/PATCH) PATCH. TD SCH (08:53)
--- NOTE | 2019-02-21 09:54 | PDOC ---
PROGRESS NOTES Subjective Subjective She admits continued low back pain. Objective Objective Vital Signs Date Time Temp Pulse Resp B/P (MAP) Pulse Ox O2 Delivery O2 Flow Rate FiO2 02/21/19 08:52 78 123/78 02/21/19 07:00 98.1 16 98 Room Air 98.1 Intake and Output 02/21/19 07:00 Intake Total 1000 ml Balance 1000 ml IV Total 1000 ml # Voids 2 Physical Exam Physical Exam She is alert and comfortable and she remains independent with her mobility and self care despite continued low back pain with mobility with tenderness to palpation over lumbar paraspinal muscles and sacroiliac joints. Assessment Assessment Problems Medical Problems: (1) Hypomagnesemia Status: Acute Plan Plan of [facility] when medically stable. Comment Review of Relevant I have reviewed the following items lily (where applicable) has been applied. Labs Laboratory Tests Test 02/19/19 18:41 02/19/19 18:42 02/19/19 18:43 02/19/19 19:02 Glucose (Fingerstick) 571 mg/dL (70-99) Urine Collection Type Void Urine Color Yellow Urine Clarity Clear Urine pH 5.0 Urine Specific [place] >=1.030 Urine Protein Negative mg/dL (NEG-TRACE) Urine Glucose (UA) >=1000 mg/dL (NEG) Urine Ketones (Stick) >=80 mg/dL (NEG) Urine Blood Negative (NEG) Urine Nitrite Negative (NEG) Urine Bilirubin Negative (NEG) Urine Urobilinogen Dipstick 0.2 mg/dL (0.2 mg/dL) Urine Leukocyte Esterase Negative (NEG) Urine RBC 0 /HPF (0-2) Urine WBC 0 /HPF (0-4) Urine Squamous Epithelial Cells Few /LPF Urine Bacteria 0 /HPF (0-FEW) Urine Yeast Present /HPF Bedside Urine HCG, Qualitative Hcg negative (Negative) White Blood Count 6.7 x10^3/uL (4.0-11.0) Red Blood Count 4.35 x10^6/uL (3.50-5.40) Hemoglobin 13.2 g/dL (12.0-15.5) Hematocrit 39.7 % (36.0-47.0) Mean Corpuscular Volume 91 fL (79-100) Mean Corpuscular Hemoglobin 30 pg (25-35) Mean Corpuscular Hemoglobin Concent 33 g/dL (31-37) Red Cell Distribution Width 13.1 % (11.5-14.5) Platelet Count 250 x10^3/uL (140-400) Neutrophils (%) (Auto) 63 % (31-73) Lymphocytes (%) (Auto) 29 % (24-48) Monocytes (%) (Auto) 6 % (0-9) Eosinophils (%) (Auto) 2 % (0-3) Basophils (%) (Auto) 1 % (0-3) Neutrophils # (Auto) 4.2 x10^3/uL (1.8-7.7) Lymphocytes # (Auto) 1.9 x10^3/uL (1.0-4.8) Monocytes # (Auto) 0.4 x10^3/uL (0.0-1.1) Eosinophils # (Auto) 0.1 x10^3/uL (0.0-0.7) Basophils # (Auto) 0.0 x10^3/uL (0.0-0.2) Sodium Level 129 mmol/L (136-145) Potassium Level 4.6 mmol/L (3.5-5.1) Chloride Level 92 mmol/L (98-107) Carbon Dioxide Level 16 mmol/L (21-32) Anion Gap 21 (6-14) Blood Urea Nitrogen 15 mg/dL (7-20) Creatinine 0.8 mg/dL (0.6-1.0) Estimated GFR (Cockcroft-Gault) 85.4 BUN/Creatinine Ratio 19 (6-20) Glucose Level 606 mg/dL (70-99) Calcium Level 8.6 mg/dL (8.5-10.1) Magnesium Level 1.7 mg/dL (1.8-2.4) Total Bilirubin 1.4 mg/dL (0.2-1.0) Aspartate Amino Transf (AST/SGOT) 15 U/L (15-37) Alanine Aminotransferase (ALT/SGPT) 21 U/L (14-59) Alkaline Phosphatase 119 U/L (46-116) Total Protein 7.6 g/dL (6.4-8.2) Albumin 3.8 g/dL (3.4-5.0) Albumin/Globulin Ratio 1.0 (1.0-1.7) Lipase 80 U/L (73-393) Acetone Level Mod pos (NEG) Test 02/19/19 20:49 02/19/19 21:47 02/19/19 22:00 02/19/19 23:15 O2 Saturation 91 % (92-99) Arterial Blood pH 7.31 (7.35-7.45) Arterial Blood pCO2 at Patient Temp 23 mmHg (35-46) Arterial Blood pO2 at Patient Temp 60 mmHg (85-108) Arterial Blood HCO3 12 mmol/L (21-28) Arterial Blood Base Excess -13 mmol/L (-3-3) Oxyhemoglobin 89.4 % Methemoglobin 0.5 % (0.0-1.9) Carbon Monoxide, Quantitative 0.7 % (0.0-1.9) FiO2 21 Glucose (Fingerstick) 341 mg/dL (70-99) Nasal Screen MRSA (PCR) Negative (Negative) Sodium Level 135 mmol/L (136-145) Potassium Level 3.7 mmol/L (3.5-5.1) Chloride Level 99 mmol/L (98-107) Carbon Dioxide Level 17 mmol/L (21-32) Anion Gap 19 (6-14) Blood Urea Nitrogen 13 mg/dL (7-20) Creatinine 1.0 mg/dL (0.6-1.0) Estimated GFR (Cockcroft-Gault) 66.0 Glucose Level 267 mg/dL (70-99) Calcium Level 8.3 mg/dL (8.5-10.1) Phosphorus Level 3.1 mg/dL (2.6-4.7) Magnesium Level 1.8 mg/dL (1.8-2.4) Test 02/19/19 23:35 02/20/19 00:50 02/20/19 02:09 02/20/19 03:39 Glucose (Fingerstick) 260 mg/dL (70-99) 296 mg/dL (70-99) 248 mg/dL (70-99) 140 mg/dL (70-99) Test 02/20/19 04:43 02/20/19 05:10 02/20/19 05:59 02/20/19 07:13 Glucose (Fingerstick) 115 mg/dL (70-99) 167 mg/dL (70-99) 177 mg/dL (70-99) Sodium Level 139 mmol/L (136-145) Potassium Level 4.2 mmol/L (3.5-5.1) Chloride Level 105 mmol/L (98-107) Carbon Dioxide Level 23 mmol/L (21-32) Anion Gap 11 (6-14) Blood Urea Nitrogen 9 mg/dL (7-20) Creatinine 0.6 mg/dL (0.6-1.0) Estimated GFR (Cockcroft-Gault) 119.0 BUN/Creatinine Ratio 15 (6-20) Glucose Level 136 mg/dL (70-99) Hemoglobin A1c 11.0 % (4.8-5.6) Calcium Level 8.3 mg/dL (8.5-10.1) Phosphorus Level 3.5 mg/dL (2.6-4.7) Magnesium Level 1.9 mg/dL (1.8-2.4) Total Bilirubin 0.3 mg/dL (0.2-1.0) Aspartate Amino Transf (AST/SGOT) 11 U/L (15-37) Alanine Aminotransferase (ALT/SGPT) 16 U/L (14-59) Alkaline Phosphatase 90 U/L (46-116) Total Protein 6.5 g/dL (6.4-8.2) Albumin 3.1 g/dL (3.4-5.0) Albumin/Globulin Ratio 0.9 (1.0-1.7) Test 02/20/19 08:30 02/20/19 11:15 02/20/19 12:28 02/20/19 16:49 Glucose (Fingerstick) 145 mg/dL (70-99) 88 mg/dL (70-99) 95 mg/dL (70-99) 286 mg/dL (70-99) Test 02/20/19 20:59 02/21/19 07:36 Glucose (Fingerstick) 231 mg/dL (70-99) 243 mg/dL (70-99) Laboratory Tests Test 02/20/19 11:15 02/20/19 12:28 02/20/19 16:49 02/20/19 20:59 Glucose (Fingerstick) 88 mg/dL (70-99) 95 mg/dL (70-99) 286 mg/dL (70-99) 231 mg/dL (70-99) Test 02/21/19 07:36 Glucose (Fingerstick) 243 mg/dL (70-99) Medications Current Medications Sodium Chloride 1,000 ml @ 1,000 mls/hr 1X ONCE IV Last administered on 02/19/19at 19:00; Start 02/19/19 at 19:00; Stop 02/19/19 at 19:59; Status DC Insulin Human Regular (HumuLIN R VIAL) 10 unit 1X ONCE SQ Last administered on 02/19/19at 19:28; Start 02/19/19 at 19:00; Stop 02/19/19 at 19:01; Status DC Ketorolac Tromethamine (Toradol 15mg Vial) 15 mg 1X ONCE IVP Last administered on 02/19/19at 19:24; Start 02/19/19 at 19:15; Stop 02/19/19 at 19:16; Status DC Metoclopramide HCl (Reglan Vial) 10 mg 1X ONCE IVP Last administered on 02/19/19at 19:23; Start 02/19/19 at 19:15; Stop 02/19/19 at 19:16; Status DC Fentanyl Citrate (Fentanyl 2ml Vial) 50 mcg 1X ONCE IVP Last administered on 02/19/19at 19:24; Start 02/19/19 at 19:15; Stop 02/19/19 at 19:16; Status DC Fluconazole (Diflucan) 200 mg 1X ONCE PO Last administered on 02/19/19at 20:18; Start 02/19/19 at 20:15; Stop 02/19/19 at 20:16; Status DC Sodium Chloride 1,000 ml @ 250 mls/hr Q4H IV ; Start 02/19/19 at 20:24; Stop 02/19/19 at 22:53; Status DC Dextrose/Sodium Chloride 1,000 ml @ 250 mls/hr Q4H IV ; Start 02/19/19 at 20:24; Stop 02/19/19 at 22:53; Status DC Insulin Human Regular 150 unit/ Sodium Chloride 151.5 ml @ 0 mls/hr CONT PRN PRN IV PER PROTOCOL Last administered on 02/20/19at 00:59; Start 02/19/19 at 20:30; Stop 02/21/19 at 08:49; Status DC Potassium Chloride/Water 100 ml @ 100 mls/hr PRN Q1HR PRN IV SEE COMMENTS; Start 02/19/19 at 20:30; Stop 02/21/19 at 08:49; Status DC Ondansetron HCl (Zofran) 4 mg PRN Q8HRS PRN IV NAUSEA/VOMITING Last administered on 02/20/19 11:03; Start 02/19/19 at 20:30; Stop 02/20/19 at 2 0:29; Status DC Fentanyl Citrate (Fentanyl 2ml Vial) 50 mcg PRN Q2HRS PRN IV PAIN Last administered on 02/20/19 19:49; Start 02/19/19 at 20:30 Morphine Sulfate (Morphine Sulfate) 4 mg 1X ONCE IV Last administered on 02/19/19 20:58; Start 02/19/19 at 21:00; Stop 02/19/19 at 21:01; Status DC Ondansetron HCl (Zofran) 4 mg 1X ONCE IVP Last administered on 02/19/19 20:58; Start 02/19/19 at 21:00; Stop 02/19/19 at 21:01; Status DC Sodium Chloride 1,000 ml @ 500 mls/hr Q2H IV Last administered on 02/19/19 21:36; Start 02/19/19 at 21:30; Stop 02/19/19 at 21:31; Status DC Aspirin (Ecotrin) 81 mg DAILYWBKFT PO Last administered on 02/21/19 08:53; Start 02/20/19 at 08:00 Atorvastatin Calcium (Lipitor) 20 mg QHS PO Last administered on 02/20/19 21:22; Start 02/19/19 at 23:00 Fluoxetine HCl (PROzac) 40 mg QHS PO Last administered on 02/20/19 21:22; Start 02/19/19 at 23:00 Metoprolol Tartrate (Lopressor) 25 mg BID PO Last administered on 02/21/19 08:52; Start 02/19/19 at 23:00 Trazodone HCl (Desyrel) 100 mg PRN QHS PRN PO INSOMNIA; Start 02/19/19 at 22:45 Hydroxyzine HCl (Atarax) 50 mg PRN TID PRN PO ANXIETY/; Start 02/19/19 at 22:45 Insulin Human Lispro (HumaLOG) 35 units TIDWMEALS SQ Last administered on 02/21/19 08:20; Start 02/20/19 at 08:00 Insulin Glargine (Lantus Syringe) 50 unit QHS SQ Last administered on 02/20/19 21:00; Start 02/20/19 at 21:00 Lurasidone HCl (Latuda) 120 mg QHS PO Last administered on 02/20/19 21:21; Start 02/20/19 at 21:00 Pantoprazole Sodium (Protonix) 40 mg DAILYAC PO Last administered on 02/21/19 07:52; Start 02/20/19 at 07:30 Sodium Chloride 1,000 ml @ 250 mls/hr Q4H IV Last administered on 02/20/19 00:07; Start 02/19/19 at 23:00; Stop 02/20/19 at 02:11; Status DC Potassium Chloride/Water 100 ml @ 100 mls/hr PRN Q1HR PRN IV SEE COMMENTS Last administered on 02/20/19 04:41; Start 02/20/19 at 00:45 Dextrose/Sodium Chloride 1,000 ml @ 250 mls/hr Q4H IV Last administered on 02/20/19 06:21; Start 02/20/19 at 02:15; Stop 02/20/19 at 14:27; Status DC Insulin Glargine (Lantus Syringe) 10 unit 1X ONCE SQ Last administered on 02/20/19 06:22; Start 02/20/19 at 07:00; Stop 02/20/19 at 07:01; Status DC Sodium Chloride 1,000 ml @ 100 mls/hr Q10H IV Last administered on 02/20/19 21:27; Start 02/20/19 at 07:00 Cyclobenzaprine HCl (Flexeril) 10 mg PRN Q6HRS PRN PO MUSCLE SPASMS Last administered on 02/20/19 18:11; Start 02/20/19 at 13:30 Oxycodone/ Acetaminophen (Percocet 10/325) 1 tab PRN Q6HRS PRN PO PAIN Last administered on 02/20/19 14:52; Start 02/20/19 at 13:30 Lidocaine (Lidoderm) 1 patch DAILY TD Last administered on 02/21/19 08:53; Start 02/20/19 at 13:30 Miscellaneous (Lidoderm Patch Removal) 1 ea QHS MC Last administered on 02/20/19at 21:00; Start 02/20/19 at 21:00 Neomycin/ Polymyxin/ Bacitracin (Triple Antibiotic Ointment) 1 pkt BID TP ; Start 02/20/19 at 21:00; Stop 02/20/19 at 16:35; Status DC Neomycin/ Polymyxin/ Bacitracin (Triple Antibiotic Ointment) 1 pkt BID TP Last administered on 02/21/19at 08:52; Start 02/20/19 at 16:45 Active Scripts Active Lidocaine PATCH (Lidocaine) 1 Each Adh..patch 1 Patch TD DAILY Cyclobenzaprine Hcl 10 Mg Tablet 10 Mg PO PRN Q6HRS PRN Percocet 10-325 Mg Tablet (Oxycodone/Acetaminophen) 1 Each Tablet 1 Tab PO PRN Q6HRS PRN Aspirin Ec (Aspirin) 81 Mg Tablet. 81 Mg PO [id number] 30 Days Atorvastatin Calcium 20 Mg Tablet 20 Mg PO QHS 30 Days Fluoxetine Hcl 20 Mg Capsule 40 Mg PO QHS 30 Days Reported Trazodone Hcl 100 Mg Tablet 100 Mg PO PRN QHS PRN Latuda (Lurasidone Hcl) 120 Mg Tablet 120 Mg PO QHS Levemir Flextouch (Insulin Detemir) 100 Unit/1 Ml Insuln.pen 50 Unit SQ QHS Metoprolol Tartrate 25 Mg Tablet 25 Mg PO BID Novolog Flexpen (Insulin Aspart) 100 Unit/1 Ml Insuln.pen 35 Unit SQ TIDAC Metformin Hcl 1,000 Mg Tablet 1,000 Mg PO BID Omeprazole 20 Mg Capsule. 20 Mg PO DAILY Hydroxyzine Pamoate 50 Mg Capsule 50 Mg PO PRN TID PRN Vitals/I & O Vital Sign - Last 24 Hours 02/20/19 02/20/19 02/20/19 02/20/19 11:00 11:03 11:33 11:44 Temp 98.0 98.0 Pulse 82 87 Resp 20 27 B/P (MAP) 109/66 (80) Pulse Ox 100 O2 Delivery Room Air Room Air Room Air Room Air 02/20/19 02/20/19 02/20/19 02/20/19 12:59 13:57 14:52 15:00 Temp 98.0 98.0 Pulse 99 Resp 16 B/P (MAP) 119/79 (92) Pulse Ox 98 O2 Delivery Room Air Room Air Room Air Room Air 02/20/19 02/20/19 02/20/19 02/20/19 15:08 16:53 16:57 18:03 Pulse Ox 98 O2 Delivery Room Air Room Air Room Air Room Air 02/20/19 02/20/19 02/20/19 02/20/19 19:00 19:49 20:00 20:19 Temp 97.7 97.7 Pulse 96 Resp 16 B/P (MAP) 120/79 (93) Pulse Ox 98 O2 Delivery Room Air Room Air Room Air Room Air 02/20/19 02/20/19 02/21/19 02/21/19 21:22 23:00 03:00 07:00 Temp 97.9 97.9 98.1 97.9 97.9 98.1 Pulse 96 83 79 78 Resp 16 16 16 B/P (MAP) 120/79 113/60 (77) 119/75 (90) 123/78 (93) Pulse Ox 97 97 98 O2 Delivery Room Air Room Air Room Air 02/21/19 08:52 Pulse 78 B/P (MAP) 123/78 Intake and Output 02/20/19 02/20/19 02/21/19 15:00 23:00 07:00 Intake Total 1000 ml Balance 1000 ml JAMES VIRK MD Feb 21, 2019 09:54
[2019-02-21] MEDS: oxyCODONE/APAP 10/325 1 TAB TABLET PO PRN (10:02)
--- NOTE | 2019-02-21 10:15 | NUR ---
Patient removed from Contact Isolation per Angelika Monroe RN instruction as per patient had MRSA "years ago". Patient verb. understanding POC.
[2019-02-21 11:00] VITALS: BP 123/83
--- NOTE | 2019-02-21 11:10 | PDOC3 ---
Discharge Summary Visit Information Date of Admission: Feb 19, 2019 Date of Discharge: Feb 21, 2019 Admitting Diagnosis Comment: DKA s/p DM type 1 since age 11 Chronic low back pain Bipolar d/o on disability Final Diagnosis Problems Medical Problems: (1) Hypomagnesemia Status: Acute Brief Hospital Course Allergies Allergies Coded Allergies Type Severity Reaction Last Updated Verified latex Allergy Intermediate 01/01/19 Yes lisinopril Allergy Intermediate 01/01/19 Yes quetiapine Allergy Intermediate 01/01/19 Yes warfarin Allergy Intermediate 01/01/19 Yes Vital Signs Vital Signs Date Time Temp Pulse Resp B/P (MAP) Pulse Ox O2 Delivery O2 Flow Rate FiO2 02/21/19 10:02 18 Room Air 02/21/19 08:52 78 123/78 02/21/19 07:00 98.1 98 98.1 Lab Results Laboratory Tests Test 02/19/19 18:41 02/19/19 18:42 02/19/19 18:43 02/19/19 19:02 Glucose (Fingerstick) 571 mg/dL (70-99) Urine Collection Type Void Urine Color Yellow Urine Clarity Clear Urine pH 5.0 Urine Specific [place] >=1.030 Urine Protein Negative mg/dL (NEG-TRACE) Urine Glucose (UA) >=1000 mg/dL (NEG) Urine Ketones (Stick) >=80 mg/dL (NEG) Urine Blood Negative (NEG) Urine Nitrite Negative (NEG) Urine Bilirubin Negative (NEG) Urine Urobilinogen Dipstick 0.2 mg/dL (0.2 mg/dL) Urine Leukocyte Esterase Negative (NEG) Urine RBC 0 /HPF (0-2) Urine WBC 0 /HPF (0-4) Urine Squamous Epithelial Cells Few /LPF Urine Bacteria 0 /HPF (0-FEW) Urine Yeast Present /HPF Bedside Urine HCG, Qualitative Hcg negative (Negative) White Blood Count 6.7 x10^3/uL (4.0-11.0) Red Blood Count 4.35 x10^6/uL (3.50-5.40) Hemoglobin 13.2 g/dL (12.0-15.5) Hematocrit 39.7 % (36.0-47.0) Mean Corpuscular Volume 91 fL (79-100) Mean Corpuscular Hemoglobin 30 pg (25-35) Mean Corpuscular Hemoglobin Concent 33 g/dL (31-37) Red Cell Distribution Width 13.1 % (11.5-14.5) Platelet Count 250 x10^3/uL (140-400) Neutrophils (%) (Auto) 63 % (31-73) Lymphocytes (%) (Auto) 29 % (24-48) Monocytes (%) (Auto) 6 % (0-9) Eosinophils (%) (Auto) 2 % (0-3) Basophils (%) (Auto) 1 % (0-3) Neutrophils # (Auto) 4.2 x10^3/uL (1.8-7.7) Lymphocytes # (Auto) 1.9 x10^3/uL (1.0-4.8) Monocytes # (Auto) 0.4 x10^3/uL (0.0-1.1) Eosinophils # (Auto) 0.1 x10^3/uL (0.0-0.7) Basophils # (Auto) 0.0 x10^3/uL (0.0-0.2) Sodium Level 129 mmol/L (136-145) Potassium Level 4.6 mmol/L (3.5-5.1) Chloride Level 92 mmol/L (98-107) Carbon Dioxide Level 16 mmol/L (21-32) Anion Gap 21 (6-14) Blood Urea Nitrogen 15 mg/dL (7-20) Creatinine 0.8 mg/dL (0.6-1.0) Estimated GFR (Cockcroft-Gault) 85.4 BUN/Creatinine Ratio 19 (6-20) Glucose Level 606 mg/dL (70-99) Calcium Level 8.6 mg/dL (8.5-10.1) Magnesium Level 1.7 mg/dL (1.8-2.4) Total Bilirubin 1.4 mg/dL (0.2-1.0) Aspartate Amino Transf (AST/SGOT) 15 U/L (15-37) Alanine Aminotransferase (ALT/SGPT) 21 U/L (14-59) Alkaline Phosphatase 119 U/L (46-116) Total Protein 7.6 g/dL (6.4-8.2) Albumin 3.8 g/dL (3.4-5.0) Albumin/Globulin Ratio 1.0 (1.0-1.7) Lipase 80 U/L (73-393) Acetone Level Mod pos (NEG) Test 02/19/19 20:49 02/19/19 21:47 02/19/19 22:00 02/19/19 23:15 O2 Saturation 91 % (92-99) Arterial Blood pH 7.31 (7.35-7.45) Arterial Blood pCO2 at Patient Temp 23 mmHg (35-46) Arterial Blood pO2 at Patient Temp 60 mmHg (85-108) Arterial Blood HCO3 12 mmol/L (21-28) Arterial Blood Base Excess -13 mmol/L (-3-3) Oxyhemoglobin 89.4 % Methemoglobin 0.5 % (0.0-1.9) Carbon Monoxide, Quantitative 0.7 % (0.0-1.9) FiO2 21 Glucose (Fingerstick) 341 mg/dL (70-99) Nasal Screen MRSA (PCR) Negative (Negative) Sodium Level 135 mmol/L (136-145) Potassium Level 3.7 mmol/L (3.5-5.1) Chloride Level 99 mmol/L (98-107) Carbon Dioxide Level 17 mmol/L (21-32) Anion Gap 19 (6-14) Blood Urea Nitrogen 13 mg/dL (7-20) Creatinine 1.0 mg/dL (0.6-1.0) Estimated GFR (Cockcroft-Gault) 66.0 Glucose Level 267 mg/dL (70-99) Calcium Level 8.3 mg/dL (8.5-10.1) Phosphorus Level 3.1 mg/dL (2.6-4.7) Magnesium Level 1.8 mg/dL (1.8-2.4) Test 02/19/19 23:35 02/20/19 00:50 02/20/19 02:09 02/20/19 03:39 Glucose (Fingerstick) 260 mg/dL (70-99) 296 mg/dL (70-99) 248 mg/dL (70-99) 140 mg/dL (70-99) Test 02/20/19 04:43 02/20/19 05:10 02/20/19 05:59 02/20/19 07:13 Glucose (Fingerstick) 115 mg/dL (70-99) 167 mg/dL (70-99) 177 mg/dL (70-99) Sodium Level 139 mmol/L (136-145) Potassium Level 4.2 mmol/L (3.5-5.1) Chloride Level 105 mmol/L (98-107) Carbon Dioxide Level 23 mmol/L (21-32) Anion Gap 11 (6-14) Blood Urea Nitrogen 9 mg/dL (7-20) Creatinine 0.6 mg/dL (0.6-1.0) Estimated GFR (Cockcroft-Gault) 119.0 BUN/Creatinine Ratio 15 (6-20) Glucose Level 136 mg/dL (70-99) Hemoglobin A1c 11.0 % (4.8-5.6) Calcium Level 8.3 mg/dL (8.5-10.1) Phosphorus Level 3.5 mg/dL (2.6-4.7) Magnesium Level 1.9 mg/dL (1.8-2.4) Total Bilirubin 0.3 mg/dL (0.2-1.0) Aspartate Amino Transf (AST/SGOT) 11 U/L (15-37) Alanine Aminotransferase (ALT/SGPT) 16 U/L (14-59) Alkaline Phosphatase 90 U/L (46-116) Total Protein 6.5 g/dL (6.4-8.2) Albumin 3.1 g/dL (3.4-5.0) Albumin/Globulin Ratio 0.9 (1.0-1.7) Test 02/20/19 08:30 02/20/19 11:15 02/20/19 12:28 02/20/19 16:49 Glucose (Fingerstick) 145 mg/dL (70-99) 88 mg/dL (70-99) 95 mg/dL (70-99) 286 mg/dL (70-99) Test 02/20/19 20:59 02/21/19 07:36 Glucose (Fingerstick) 231 mg/dL (70-99) 243 mg/dL (70-99) Laboratory Tests Test 02/20/19 11:15 02/20/19 12:28 02/20/19 16:49 02/20/19 20:59 Glucose (Fingerstick) 88 mg/dL (70-99) 95 mg/dL (70-99) 286 mg/dL (70-99) 231 mg/dL (70-99) Test 02/21/19 07:36 Glucose (Fingerstick) 243 mg/dL (70-99) Brief Hospital Course Ms. Bright is a 28 old DM type 1 since age 11, admitted icu DKA no coma, Better after 2 MN, we just resumed her home insulin regimen which is 35 TID and 50 qhs, NO scripts needed aside from lidoderm patch some percocet she got some during her stay, She requests Outpt PT for low back pain and pain mx referral. I gave those scripts. PT seen and examined I provided copy of her CT abd which was neg NO consults, no procedures done dc < 30 Discharge Information Condition at Discharge: Improved, Stable Follow Up: Weeks (pcp re DM, pain mx re low back pain per her request) Disposition/Orders: D/C to Home Scheduled Aspirin (Aspirin Ec) 81 Mg Tablet., 81 MG PO DAILYWBKFT for HEART HEALTH for 30 Days, #30 Prescribed by: MARTÍN JUAN MD on 01/30/19911 Last Action: Continued on 02/19/192235 by LISA COFFMAN Atorvastatin Calcium (Atorvastatin Calcium) 20 Mg Tablet, 20 MG PO QHS for CHOLESTEROL for 30 Days, #30 Prescribed by: MARTÍN JUAN MD on 01/30/19911 Last Action: Continued on 02/19/192235 by LISA COFFMAN Fluoxetine Hcl (Fluoxetine Hcl) 20 Mg Capsule, 40 MG PO QHS for Mood for 30 Da ys, #60 Prescribed by: JAMES KENT MD on 01/18/19 1007 Last Action: Continued on 02/19/192235 by LISA COFFMAN Insulin Aspart (Novolog Flexpen) 100 Unit/1 Ml Insuln.pen, 35 UNIT SQ TIDAC for , (Reported) Entered as Reported by: TONYA KINSEY RN on 01/27/192334 Last Action: Converted on 02/19/192235 by LISA COFFMAN Insulin Detemir (Levemir Flextouch) 100 Unit/1 Ml Insuln.pen, 50 UNIT SQ QHS for , (Reported) Entered as Reported by: TONYA KINSEY RN on 01/27/192334 Last Action: Converted on 02/19/192235 by LISA COFFMAN Lidocaine (Lidocaine PATCH ) 1 Each Adh..patch, 1 PATCH TD DAILY for msk pain, #10 Prescribed by: RYAN REYES on 02/21/19 0851 Lurasidone Hcl (Latuda) 120 Mg Tablet, 120 MG PO QHS for , (Reported) Entered as Reported by: TONYA KINSEY RN on 01/27/192334 Last Action: Converted on 02/19/192235 by LISA COFFMAN Metformin Hcl (Metformin Hcl) 1,000 Mg Tablet, 1,000 MG PO BID for , (Reported) Entered as Reported by: TONYA KINSEY RN on 01/27/192334 Last Action: HELD on 02/19/192235 by LISA COFFMAN Metoprolol Tartrate (Metoprolol Tartrate) 25 Mg Tablet, 25 MG PO BID for , (Reported) Entered as Reported by: TONYA KINSEY RN on 01/27/192334 Last Action: Continued on 02/19/192235 by LISA COFFMAN Omeprazole (Omeprazole) 20 Mg Capsule.dr, 20 MG PO DAILY for , (Reported) Entered as Reported by: TONYA KINSEY RN on 01/27/192334 Last Action: Converted on 02/19/192235 by LISA COFFMAN Scheduled PRN Cyclobenzaprine Hcl (Cyclobenzaprine Hcl) 10 Mg Tablet, 10 MG PO PRN Q6HRS PRN for MUSCLE SPASMS, #30 Prescribed by: RYAN REYES on 02/21/1951 Hydroxyzine Pamoate (Hydroxyzine Pamoate) 50 Mg Capsule, 50 MG PO PRN TID PRN for ANXIETY / AGITATION, (Reported) Entered as Reported by: TONYA KINSEY RN on 01/27/192334 Last Action: Converted on 02/19/192235 by LISA COFFMAN Oxycodone/Apap 10-325 (Percocet 10-325 Mg Tablet ) 1 Each Tablet, 1 TAB PO PRN Q6HRS PRN for PAIN, #20 Prescribed by: RYAN REYES on 02/21/1951 Trazodone Hcl (Trazodone Hcl) 100 Mg Tablet, 100 MG PO PRN QHS PRN for , (Reported) Entered as Reported by: TONYA KINSEY RN on 01/27/192334 Last Action: Continued on 02/19/192235 by RYAN EDGAR MD Feb 21, 2019 11:10
[2019-02-21] MEDS: fentaNYL PF VIAL 100 MCG/2 ML VIAL IV PRN (11:28)
--- NOTE | 2019-02-21 13:29 | NUR ---
Discharge instructions, medications and prescriptions reviewed with patient, she verb. understanding all instructions and denies questions. Patient discharge to home with family with all belongings, instructions and prescriptions.
== END 2019-02-21 13:49 | disposition home or self-care (01) | DRG 638 ==
LOC: ER 18:26 → 1 WEST ICU 20:20 → 5 SOUTH 02-20 14:09
PROVIDERS: ADMIT Internal Medicine; ATTEND Internal Medicine
DX: E10.10 Type 1 diabetes mellitus with ketoacidosis without coma (principal); L02.212 Cutaneous abscess of back [any part, except buttock and flank]; E83.42 Hypomagnesemia; M70.60 Trochanteric bursitis, unspecified hip; Z88.8 Allergy status to other drugs, medicaments and biological substances; Z91.040 Latex allergy status; E66.9 Obesity, unspecified; E78.5 Hyperlipidemia, unspecified; F31.9 Bipolar disorder, unspecified; F41.9 Anxiety disorder, unspecified; F60.9 Personality disorder, unspecified; G40.909 Epilepsy, unspecified, not intractable, without status epilepticus; G47.00 Insomnia, unspecified; G89.29 Other chronic pain; I10 Essential (primary) hypertension; K21.9 Gastro-esophageal reflux disease without esophagitis; M51.36 Other intervertebral disc degeneration, lumbar region; Z79.4 Long term (current) use of insulin; Z87.442 Personal history of urinary calculi; Z87.891 Personal history of nicotine dependence
CPT/HCPCS: 36415; 36600; 74176; 80048; 80053; 81001; 81025; 82010; 82805; 82962; 83036; 83690; 83735; 83930; 84100; 85025; 87641; 96361; 96372; 96374; 96375; J1815; J1885; J2270; J2405; J2765; J3010; J3480; J7030; J7042; 99291-25; G0378

== ENCOUNTER → 2019-05-07 | Outpatient (CLI) | payer MEDICARE, OTHER ==
[~2019-05-07] MED LIST changes: +FLUO20CA19 PO; -FLUO20CA8 PO; +LIDO700A21 TD; -OMEP20CA10 PO; +OMEP20CA16 PO; +OXYC1TAB22 PO; +PRAZ1CAP2 PO; +TRAZ-123 PO; -TRAZ-86 PO
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
== END | disposition home or self-care (01) ==
LOC: PNCL 10:08
PROVIDERS: ATTEND Anesthesiology
DX: M79.604 Pain in right leg (principal); M25.561 Pain in right knee; M25.511 Pain in right shoulder; I10 Essential (primary) hypertension; E11.9 Type 2 diabetes mellitus without complications; E66.9 Obesity, unspecified; E78.5 Hyperlipidemia, unspecified; F90.9 Attention-deficit hyperactivity disorder, unspecified type; F32.9 Major depressive disorder, single episode, unspecified; F41.9 Anxiety disorder, unspecified; Z88.8 Allergy status to other drugs, medicaments and biological substances
CPT/HCPCS: G0463

== ENCOUNTER → 2019-05-08 | Outpatient (CLI) | payer MEDICARE, OTHER ==
--- NOTE | 2019-05-08 16:52 | KCIC ---
Examination: KNEE BILAT 3V History: Pain greater on the right Comparison/Correlation: None Findings: Three-view exam right knee and three-view exam left knee was provided. Joint spaces are adequate. No joint effusion. No fracture. Multiple ossicles are present anterior to the proximal tibial metaphysis. These are smoothly marginated and ovoid mostly. No corresponding finding involves the proximal left tibia. Impression: No acute process. Multiple bony ossicles anterior to the right proximal tibial metaphysis. These are of indeterminate significant. Correlate for possibility of [place]-Schlatter disease. No aggressive features. Electronically signed by: Feng Rosa MD (05/08/2019 4:49 PM) [facility]
--- NOTE | 2019-05-08 17:41 | KCIC ---
MRI of the lumbar spine without contrast 05/08/2019 CLINICAL HISTORY: Low back pain which radiates down the right leg. TECHNIQUE: Unenhanced T1-weighted and T2-weighted sagittal and axial and inversion recovery sagittal images of the lumbar spine were obtained. FINDINGS: The patient appears to have transitional vertebral anatomy. For the purposes of this dictation the transitional vertebral segment will be referred to by the letter T. It is partially sacralized. A hypoplastic disc is seen at T-S1. Very mild S-shaped curvature of the thoracolumbar spine is seen. Degenerative signal changes and loss of height are seen involving the L4-5 and L5-T discs. Degenerative signal changes are seen within the marrow surrounding these discs. The conus medullaris is normal morphology, position, and signal characteristics. A 3 cm high signal intensity lesion is seen involving the left ovary on the T2-weighted images. This likely represents a cyst. The L1-2, L2-3 and L3-4 disc spaces are within normal limits. At the L4-5 disc space there is a mild generalized disc bulge. Superimposed on this disc bulge is a focal central disc protrusion. This measures 3 mm in AP diameter. Degenerative changes are seen involving the facet joints bilaterally. There is mild ligamentum flavum hypertrophy bilaterally. These findings when combined do not result in significant central spinal canal or neural foraminal stenosis. At the L5-T disc space there is a mild generalized disc bulge. Superimposed on this disc bulge is a central/right paracentral focal disc protrusion. This measures 3.5 mm in AP diameter. Degenerative changes are seen involving the facet joints bilaterally. There is mild ligamentum flavum hypertrophy bilaterally. These findings when combined do not result in significant central spinal canal or neural foraminal stenosis. The T-S1 disc space is within normal limits. IMPRESSION: The changes of degenerative disc disease are seen throughout the mid and lower lumbar spine. These findings do not result in significant central spinal canal or neural foraminal stenosis. Electronically signed by: Brendan Berry MD (05/08/2019 5:39 PM) [id number]
--- NOTE | 2019-05-08 17:43 | KCIC ---
Three-view right shoulder radiographs 05/08/2019 CLINICAL HISTORY: Right shoulder pain. AP internal and external rotation and transscapular digital radiographs of the right shoulder were obtained. No fracture or dislocation right shoulder is seen. No Degenerative changes are noted. IMPRESSION: No fracture or dislocation of the right shoulder is seen. Electronically signed by: Brendan Berry MD (05/08/2019 5:40 PM) [id number]
== END | disposition home or self-care (01) ==
LOC: KCIC MRI 15:07
PROVIDERS: ATTEND Anesthesiology
DX: M79.661 Pain in right lower leg (principal); M92.52 Juvenile osteochondrosis of tibia tubercle; M92.51 Juvenile osteochondrosis of proximal tibia; M51.36 Other intervertebral disc degeneration, lumbar region; E11.9 Type 2 diabetes mellitus without complications; E66.9 Obesity, unspecified; M48.061 Spinal stenosis, lumbar region without neurogenic claudication; I10 Essential (primary) hypertension; E78.5 Hyperlipidemia, unspecified; F31.9 Bipolar disorder, unspecified; Z98.890 Other specified postprocedural states; Z79.82 Long term (current) use of aspirin; Z79.4 Long term (current) use of insulin; Z79.899 Other long term (current) drug therapy; Z79.84 Long term (current) use of oral hypoglycemic drugs; Z88.8 Allergy status to other drugs, medicaments and biological substances; Z82.61 Family history of arthritis; Z91.040 Latex allergy status
CPT/HCPCS: 72148; 73030; 73562

== ENCOUNTER 2019-05-14 08:03 | Emergency (ER) | payer MEDICARE, OTHER ==
[~2019-05-14] VITALS: Ht 180.3 cm; Wt 114.0 kg
[~2019-05-14 08:03] MED LIST changes: -FLUO20CA19 PO; +FLUO20CA20 PO
--- NOTE | 2019-05-14 10:01 | PHYS DOC ---
Past Medical History Past Medical History: Bipolar, Diabetes-Type I, Hypertension, MRSA, Other Additional Past Medical Histor: boderline personality disorder, insomnia, ASD Past Surgical History: , Other Additional Past Surgical Histo: open heart (repair ASD), debridment Alcohol Use: Occasionally Drug Use: Marijuana Adult General Chief Complaint Chief Complaint: BLOOD SUGAR PROBLEM HPI HPI Patient is a 28 year old female with history of uncontrolled diabetes type 1, hypertension, bipolar, who presents to the ED today complaining of hyperglycemia for the last 2 days. Patient reports her home glucometer has been reading high for 2 days. She reports she's tried using her Levemir and NovoLog and the numbers are not coming down. She is also complaining of nausea and vomiting. Denies any abdominal pain. PCP Dr. pritchard Review of Systems Review of Systems Constitutional: Denies fever or chills [] Eyes: Denies change in visual acuity, redness, or eye pain [] HENT: Denies nasal congestion or sore throat [] Respiratory: Denies cough or shortness of breath [] Cardiovascular: No additional information not addressed in HPI [] GI: Reports nausea and vomiting. Denies abdominal pain,bloody stools or diarrhea [] : Denies dysuria or hematuria [] Musculoskeletal: Denies back pain or joint pain [] Integument: Denies rash or skin lesions [] Neurologic: Denies headache, focal weakness or sensory changes [] Endocrine: Reports hypoglycemia All other systems were reviewed and found to be within normal limits, except as documented in this note. Current Medications Current Medications Current Medications Medications (Trade) Dose Ordered Sig/Kelvin Start Time Stop Time Status Last Admin Dose Admin Fentanyl Citrate (Fentanyl 2ml Vial) 50 mcg 1X ONCE 05/14/19 11:30 05/14/19 11:31 DC 05/14/19 11:33 50 MCG Ondansetron HCl (Zofran) 4 mg 1X ONCE 05/14/19 10:30 05/14/19 10:31 DC 05/14/19 10:10 4 MG Sodium Chloride 1,000 ml @ 1,000 mls/hr 1X ONCE 05/14/19 10:30 05/14/19 11:29 DC 05/14/19 10:50 1,000 MLS/HR Allergies Allergies Allergies Coded Allergies Type Severity Reaction Last Updated Verified latex Allergy Intermediate 01/01/19 Yes lisinopril Allergy Intermediate 01/01/19 Yes quetiapine Allergy Intermediate 01/01/19 Yes warfarin Allergy Intermediate 01/01/19 Yes Physical Exam Physical Exam Constitutional: Lethargic appearing patient. Well developed, well nourished HENT: Normocephalic, atraumatic, bilateral external ears normal, oropharynx moist, no oral exudates, nose normal. [] Eyes: PERRLA, EOMI, conjunctiva normal, no discharge. [] Neck: Normal range of motion, no tenderness, supple, no stridor. [] Cardiovascular: Old healed surgical incision noted midline chest. Heart rate regular rhythm Lungs & Thorax: Bilateral breath sounds clear to auscultation [] Abdomen: Bowel sounds normal, soft, no tenderness, no masses, no pulsatile masses. [] Skin: Very dry mucous membranes, no erythema, no rash. [] Back: No tenderness, no CVA tenderness. [] Extremities: No tenderness, no cyanosis, no clubbing, ROM intact, no edema. [] Neurologic: Alert and oriented X 3, normal motor function, normal sensory function, no focal deficits noted. Cranial nose 2 through 12 intact Psychologic: Flat affect, Current Patient Data Vital Signs Vital Signs Date Time Temp Pulse Resp B/P (MAP) Pulse Ox O2 Delivery O2 Flow Rate FiO2 05/14/19 11:33 18 99 Room Air 05/14/19 09:55 97.6 103 156/90 (112) 97.6 Lab Values Laboratory Tests Test 05/14/19 08:31 05/14/19 10:00 Urine Collection Type Unknown Urine Color Renetta Urine Clarity Cloudy Urine pH 5.0 Urine Specific Welsh 1.025 Urine Protein 100 mg/dL (NEG-TRACE) Urine Glucose (UA) >=1000 mg/dL (NEG) Urine Ketones (Stick) 40 mg/dL (NEG) Urine Blood Large (NEG) Urine Nitrite Negative (NEG) Urine Bilirubin Large (NEG) Urine Urobilinogen Dipstick 1.0 mg/dL (0.2 mg/dL) Urine Leukocyte Esterase Trace (NEG) Urine RBC >40 /HPF (0-2) Urine WBC Occ /HPF (0-4) Urine Bacteria Few /HPF (0-FEW) Urine Hyaline Casts Few /HPF Urine Granular Casts Few /HPF Urine Opiates Screen Neg (NEG) Urine Methadone Screen Neg (NEG) Urine Barbiturates Neg (NEG) Urine Phencyclidine Screen Neg (NEG) Urine Amphetamine/Methamphetamine Neg (NEG) Urine Benzodiazepines Screen Neg (NEG) Urine Cocaine Screen Neg (NEG) Urine Cannabinoids Screen Neg (NEG) Urine Ethyl Alcohol Neg (NEG) White Blood Count 7.5 x10^3/uL (4.0-11.0) Red Blood Count 5.27 x10^6/uL (3.50-5.40) Hemoglobin 15.0 g/dL (12.0-15.5) Hematocrit 45.4 % (36.0-47.0) Mean Corpuscular Volume 86 fL (79-100) Mean Corpuscular Hemoglobin 29 pg (25-35) Mean Corpuscular Hemoglobin Concent 33 g/dL (31-37) Red Cell Distribution Width 13.9 % (11.5-14.5) Platelet Count 317 x10^3/uL (140-400) Neutrophils (%) (Auto) 60 % (31-73) Lymphocytes (%) (Auto) 31 % (24-48) Monocytes (%) (Auto) 7 % (0-9) Eosinophils (%) (Auto) 1 % (0-3) Basophils (%) (Auto) 1 % (0-3) Neutrophils # (Auto) 4.5 x10^3/uL (1.8-7.7) Lymphocytes # (Auto) 2.3 x10^3/uL (1.0-4.8) Monocytes # (Auto) 0.5 x10^3/uL (0.0-1.1) Eosinophils # (Auto) 0.1 x10^3/uL (0.0-0.7) Basophils # (Auto) 0.1 x10^3/uL (0.0-0.2) Sodium Level 135 mmol/L (136-145) L Potassium Level 3.9 mmol/L (3.5-5.1) Chloride Level 100 mmol/L (98-107) Carbon Dioxide Level 15 mmol/L (21-32) L Anion Gap 20 (6-14) H Blood Urea Nitrogen 20 mg/dL (7-20) Creatinine 0.9 mg/dL (0.6-1.0) Estimated GFR (Cockcroft-Gault) 74.6 BUN/Creatinine Ratio 22 (6-20) H Glucose Level 100 mg/dL (70-99) H Calcium Level 9.8 mg/dL (8.5-10.1) Total Bilirubin 0.5 mg/dL (0.2-1.0) Aspartate Amino Transferase (AST) 11 U/L (15-37) L Alanine Aminotransferase (ALT) 20 U/L (14-59) Alkaline Phosphatase 132 U/L (46-116) H Total Protein 8.6 g/dL (6.4-8.2) H Albumin 4.2 g/dL (3.4-5.0) Albumin/Globulin Ratio 1.0 (1.0-1.7) Ethyl Alcohol Level < 10 mg/dL (0-10) Acetone Level Neg (NEG) Laboratory Tests 05/14/19 10:00 Laboratory Tests 05/14/19 10:00 EKG EKG [] Radiology/Procedures Radiology/Procedures [] Course & Med Decision Making Course & Med Decision Making Pertinent Labs and Imaging studies reviewed. (See chart for details) This is a 28-year-old female patient presenting to the ED today complaining of hyperglycemia for 2 days. Has history of uncontrolled diabetes type 1. Currently on Levemir and NovoLog. She used 20 units of NovoLog this morning. CBC with no acute findings, CMP with glucose of 100, anion gap is 20. Patient was given 2 L of fluids. She feels better. Was discharged to home. Instructed to push fluids. Instructed to follow-up with the PCP in the course of this week. Dragon Disclaimer Dragon Disclaimer This electronic medical record was generated, in whole or in part, using a voice recognition dictation system. Departure Departure Impression: Primary Impression: Hyperglycemia Disposition: HOME, SELF-CARE Condition: STABLE Referrals: CLARISSA PRITCHARD MD (PCP) follow up tomorrow Patient Instructions: Hyperglycemia, [id number] Additional Instructions: You were evaluated in the emergency room, your glucose was 100. Please push fluids, continue using your diabetes medicine. Follow-up with your own doctor in the course of this week HONG MARTINES APRN May 14, 2019 10:01
[2019-05-14 10:09] LABS: BILIRUBIN,URINE LARGE (NEG); CLARITY,URINE CLOUDY; NITRITE,URINE NEGATIVE (NEG); PROTEIN,URINE 100 mg/dL (NEG-TRACE)
[2019-05-14 10:13] LABS: BASO # 0.1 x10^3/uL (0.0-0.2); BASO % 1 % (0-3); EOS # 0.1 x10^3/uL (0.0-0.7); EOS % 1 % (0-3); HEMATOCRIT 45.4 % (36.0-47.0); LYMPH # 2.3 x10^3/uL (1.0-4.8); LYMPH % 31 % (24-48); MEAN CORPUSCULAR HEMOGLOBIN 29 pg (25-35); MEAN CORPUSCULAR HGB CONC 33 g/dL (31-37); MEAN CORPUSCULAR VOLUME 86 fL (79-100); MONO # 0.5 x10^3/uL (0.0-1.1); MONO % 7 % (0-9); NEUT # 4.5 x10^3/uL (1.8-7.7); NEUT % 60 % (31-73); PLATELET COUNT 317 x10^3/uL (140-400); RED BLOOD COUNT 5.27 x10^6/uL (3.50-5.40); RED CELL DISTRIBUTION WIDTH 13.9 % (11.5-14.5); WHITE BLOOD COUNT 7.5 x10^3/uL (4.0-11.0)
[2019-05-14 10:17] LABS: BARBITURATES NEG (NEG); BENZODIAZEPINES NEG (NEG); CANNABINOIDS NEG (NEG); COCAINE NEG (NEG); METHADONE NEG (NEG); OPIATES NEG (NEG); PHENCYCLIDINE NEG (NEG)
[2019-05-14 10:19] LABS: AMPHETAMINE/METHAMPHETAMINE NEG (NEG)
[2019-05-14 10:23] LABS: CALCIUM 9.8 mg/dL (8.5-10.1); CREATININE 0.9 mg/dL (0.6-1.0); GFR 74.6; POTASSIUM 3.9 mmol/L (3.5-5.1)
[2019-05-14 10:25] LABS: COLOR,URINE AMBER
[2019-05-14 10:26] LABS: RBC,URINE >40 /HPF (0-2)
[2019-05-14 10:27] LABS: BACTERIA,URINE FEW /HPF (0-FEW); WBC,URINE OCC /HPF (0-4)
[2019-05-14 10:28] LABS: ALBUMIN 4.2 g/dL (3.4-5.0); TOTAL BILIRUBIN 0.5 mg/dL (0.2-1.0); TOTAL PROTEIN 8.6 g/dL (6.4-8.2)
[2019-05-14 10:30] LABS: GRANULAR CASTS,URINE FEW /HPF; HYALINE CASTS, URINE FEW /HPF
[2019-05-14] MEDS ORDERED: IV NORMAL SALINE 1000ML BAG 1,000 ML IV ONE ×2 (10:30)
[2019-05-14] MEDS ORDERED: ONDANSETRON PF 4 MG/2 ML VIAL. IVP ONE (10:30)
[2019-05-14] MEDS ORDERED: fentaNYL PF VIAL 100 MCG/2 ML VIAL IVP ONE (11:30)
[2019-05-14 12:54] VITALS: BP 129/79
== END 2019-05-14 12:59 | disposition home or self-care (01) ==
LOC: ER 08:03
DX: E10.65 Type 1 diabetes mellitus with hyperglycemia (principal); I10 Essential (primary) hypertension; F31.9 Bipolar disorder, unspecified; Z86.14 Personal history of Methicillin resistant Staphylococcus aureus infection; Z91.040 Latex allergy status; Z88.8 Allergy status to other drugs, medicaments and biological substances
CPT/HCPCS: 36415; 80053; 80307; 81001; 82010; 85025; 96361; 96374; 96375; 99285; G0480; J2405; J3010; J7030

== ENCOUNTER → 2019-05-20 | Outpatient (CLI) | payer MEDICARE, OTHER ==
[2019-05-14 12:54] VITALS: BP 129/79
--- NOTE | 2019-05-20 12:49 | PAIN ---
DATE OF SERVICE: 05/20/2019 PROGRESS NOTE FOR PAIN CLINIC DIAGNOSES: 1. Lumbar radiculopathy with lumbar degenerative disk disease. 2. Right shoulder joint pain. 3. Right knee joint pain. HISTORY OF PRESENT ILLNESS: The patient is a 28-year-old female who returns for followup status post initial evaluation and we did order MRI scan of the lumbar spine as well as plain films of the right knee and right shoulder. The patient returns today with those results. We discussed these with the patient today showing no significant change in the shoulder or the knee, but significant degenerative changes at L4-L5 and L5-S1 with superimposed central disk protrusions more to the right at L5 and at the central on L4-L5. The patient reports still significant radicular pain in the right lower extremity, posterior gluteus, posterior lateral thigh, lateral anterior thigh, anterior medial thigh, into the medial knee and calf on the right side. The patient reports that 10 on a scale of 10 at its worst over the past week, 8 on average, 7 at its least and is an 8 today. The patient reports it is sharp, constant, severe, unbearable at times, worse with walking, standing, changing positions, still some pain in the right shoulder and the knee, but mainly in the back and the right leg. The patient reports it awakens her from sleep about 4-5 times a night. The patient reports no new motor or sensory deficits, no new bowel or bladder incontinence. PHYSICAL EXAMINATION: VITAL SIGNS: The patient's blood pressure 130/80, pulse 98, respirations 16, temperature 98.2 degrees Fahrenheit, height is 5 feet 11 inches, weight is 251 pounds. GENERAL: The patient is awake, alert, oriented, appropriate, very pleasant demeanor. HEENT: Shows normocephalic, atraumatic. Extraocular movements are intact and symmetrical. Oral cavity: Mucous membranes moist and pink. Dentition is intact. NECK: Shows anterior throat supple. CHEST: Shows normal on inspection. Breath sounds clear to auscultation bilaterally. HEART: Shows S1, S2 clear. No murmurs auscultated. ABDOMEN: Soft, nontender, nondistended. BACK: Shows spine grossly in the midline. Normal appearing thoracic kyphosis, some minor flattening of lumbar lordotic curvature. Lumbar paraspinous muscle shows symmetrical on inspection, with palpation shows some moderate tenderness diffusely bilaterally going diffusely without significant radiation. The patient has good rotational motion of lumbar spine, both laterally as well as extension and flexion. EXTREMITIES: Lower extremities show deep tendon reflexes 1+ in the patellar and tendo calcaneus tendons. Motor exam is approximately 4 on a scale of 5 on the right, 5/5 on the left with dorsiflexion, extension, quadriceps and hamstring flexion. Peripheral pulses are 1+ posterior tibia. No peripheral edema is noted. The patient continues to have a mild right positive straight leg raise at about 40-45 degrees, decreased with knee flexion, left side is negative. Options were discussed with the patient. The patient's old chart was reviewed as her current medication regimen updated. Current review of systems updated today as well. We will preauthorize the patient for a lumbar epidural steroid injection with the recent MRI scan results as well as significant radicular pain in the right lower extremity at L4-L5 dermatomal distribution. I will plan on translaminar approach at the L4-L5 level for lumbar epidural steroid injection. The patient will continue doing stretching and strengthening exercises in the meantime and walking daily as tolerated and we will have her return for a lumbar epidural steroid injection once approved. NICHOLAS RICE MD DR: WILLIAM/bhavik JOB#: [id number] / [id number]
== END | disposition home or self-care (01) ==
LOC: PNCL 10:23
PROVIDERS: ATTEND Anesthesiology
DX: M51.16 Intervertebral disc disorders with radiculopathy, lumbar region (principal); M25.511 Pain in right shoulder; M25.561 Pain in right knee
CPT/HCPCS: G0463

== ENCOUNTER → 2019-06-03 | Outpatient (CLI) | payer MEDICARE, OTHER ==
[2019-05-14 12:54] VITALS: BP 129/79
[~2019-06-03] MED LIST changes: +IOHEXOL 180 MG/ML 10 ML VIAL. ONE; +methylPREDNISolone ACETATE 40 MG/ML VIAL. ONE; +methylPREDNISolone ACETATE 80 MG/ML VIAL. ONE
--- NOTE | 2019-06-03 12:17 | PAIN ---
DATE OF SERVICE: 06/03/2019 PROGRESS NOTE FOR PAIN CLINIC DIAGNOSIS: Lumbar radiculopathy with lumbar degenerative disk disease. HISTORY OF PRESENT ILLNESS: The patient is a 28-year-old female who returns for followup status post initial evaluation and preauthorization for lumbar epidural steroid injection. The patient has obtained this and would like to proceed. She still has pain in the low back and right lower extremity as it was previously. The patient reports it is a 10 on a scale of 10 at its worst over the past week, 8 on average, 6 at its least, and is an 8 today. The patient reports it is constant and becoming more sharp and shooting in the low back and right leg, posterior gluteus, posterior thigh, lateral thigh, anterior thigh, medial thigh, into the ankle and foot on the right side. The patient reports that it is worse with walking, standing, and changing positions, better with sitting or lying down, but it awakens her from sleep occasionally. PHYSICAL EXAMINATION: VITAL SIGNS: The patient's blood pressure is 131/80, pulse 107, respirations 18, temperature 98.1 degrees Fahrenheit, and weight is 264 pounds. GENERAL: The patient is awake, alert, oriented, and appropriate with very pleasant demeanor. HEENT: Normocephalic and atraumatic. Extraocular movements are intact and symmetrical. Oral cavity: Mucous membranes moist and pink. Dentition is intact. NECK: Anterior throat supple without palpable lymphadenopathy noted. Swallow reflex symmetrical. CHEST: Normal on inspection with palpation. MUSCULOSKELETAL: The patient's back shows spine grossly in midline. Normal appearing thoracic kyphosis and minor flattening of lumbar lordotic curvature. Lumbar paraspinous muscle shows symmetrical on inspection AND with palpation shows some moderate tenderness diffusely throughout the middle and lower distribution of paraspinous muscles bilaterally, but only diffusely without significant radiation. The patient has good rotational motion of lumbar spine, both laterally as well as extension and flexion without difficulty. EXTREMITIES: Lower extremities show deep tendon reflexes at 1+ in the patellar and tendo calcaneus tendons. Motor exam is approximately 4 on a scale of 5 on the right and 5/5 on the left with dorsiflexion and extension. Peripheral pulses are 1+ posterior tibia. No peripheral edema is noted. Options were discussed with the patient. The patient's old chart was reviewed and her current medication regimen updated. Current review of systems updated today as well. We will proceed with a lumbar epidural steroid injection today, the first in this series with fluoroscopic guidance. Risks were discussed including but not limited to bleeding, infection, possibility of epidural hematoma, subsequent neurological compromise, dural puncture, headaches, spinal cord and/or nerve damage, side effects of steroid medication and poor results regarding pain control. The patient understands and wishes to proceed. The patient will return to clinic in approximately 2 weeks for followup. She was counseled as to return appointment, activity level, and side effects to be aware of. DIAGNOSIS: Lumbar radiculopathy with lumbar degenerative disk disease. PROCEDURE: Lumbar epidural steroid injection, translaminar approach at the L4-L5 level using C-arm under fluoroscopic guidance under sterile prep and drape using local anesthetic. MEDICATION INJECTED: A total of 120 mg of Depo-Medrol plus 10 mL of preservative-free normal saline and 2 mL of contrast. CONDITION AT DISCHARGE: Stable. The patient tolerated procedure well and had no complications. NICHOLAS RICE MD DR: WILLIAM/bhavik JOB#: [id number] / [id number]
== END ==
LOC: PNCL 09:58
PROVIDERS: ATTEND Anesthesiology
DX: M51.16 Intervertebral disc disorders with radiculopathy, lumbar region (principal)
CPT/HCPCS: 62323; J1030; J1040; Q9965

== ENCOUNTER → 2019-06-17 | Outpatient (CLI) | payer MEDICARE, OTHER ==
[~2019-06-17] MED LIST changes: +GABA-585 PO; -IOHEXOL 180 MG/ML 10 ML VIAL. ONE; -methylPREDNISolone ACETATE 40 MG/ML VIAL. ONE; -methylPREDNISolone ACETATE 80 MG/ML VIAL. ONE
--- NOTE | 2019-06-18 01:26 | PAIN ---
DATE OF SERVICE: 06/17/2019 PROGRESS NOTE FOR PAIN CLINIC DIAGNOSES: Lumbar radiculopathy with lumbar degenerative disk disease. HISTORY OF PRESENT ILLNESS: The patient is a 28-year-old female who returns for followup status post lumbar epidural steroid injection x 1. The patient reports about 50% improvement for the past 3-1/2 weeks in the low back and right lower extremity. The patient reports her leg is doing much better, but the back is still significantly painful. The patient reports it as 10 on a scale of 10 at its worst over the past week, 5 on average, 3 at its least and is a 5 today. The patient reports it is sharp, tight, shooting, on and off in intensity in the right lower extremity, mostly in the posterior gluteus, posterolateral thigh, lateral anterior thigh, anterior medial thigh, medial lower leg, but again significantly decreasing pain in the legs, but the back is still significantly painful in the right posterior gluteus. The patient reports it is worse with walking, standing, changing positions, carrying her 2-year old, standing at the counter or sitting for too long. It does not awaken her from sleep at night, better with lying down. The patient reports no new motor or sensory deficits, no new bowel or bladder incontinence. PHYSICAL EXAMINATION: VITAL SIGNS: The patient's blood pressure is 131/88, pulse 107, respirations 16, temperature 98.0 degrees Fahrenheit, weight is 269 pounds. GENERAL: The patient is awake, alert, oriented, appropriate, very pleasant demeanor. HEENT: Head shows normocephalic, atraumatic. Extraocular movements are intact and symmetrical. Oral cavity: Mucous membranes moist and pink. Dentition is intact. NECK: Shows anterior throat supple without palpable lymphadenopathy noted. Swallow reflex is symmetrical. CHEST: Shows normal on inspection. Breath sounds are clear bilaterally. HEART: Shows S1, S2 clear. No murmurs auscultated. ABDOMEN: Soft, nontender, nondistended. BACK: Shows spine grossly in the midline. Normal appearing thoracic kyphosis. Minor flattening of lumbar lordotic curvature. Lumbar paraspinous muscle shows symmetrical on inspection, on palpation shows some moderate tenderness diffusely bilaterally going diffusely without significant radiation. The patient has good rotational motion of lumbar spine without significant pain or difficulty. EXTREMITIES: Lower extremities show deep tendon reflexes 1+ in the patellar and tendocalcaneus tendons. Motor exam is approximately 4 on a scale of 5 on the right, 5/5 on the left. Peripheral pulses are 1+ posterior tibia. No peripheral edema is noted. Options were discussed with the patient. The patient's old chart was reviewed as her current medication regimen updated. Current review of systems updated today as well. We will preauthorize the patient for a second lumbar epidural steroid injection. She still has clinical radiculopathy in the L4-L5 nerve root distribution on the right. We will plan on translaminar approach L4-L5 level for lumbar epidural steroid injection. The patient will continue with stretching and strengthening exercises, walking as tolerated. In the meantime, I will have her return to clinic as scheduled. NICHOLAS RICE MD DR: WILLIAM/bhavik JOB#: [id number] / [id number]
== END | disposition home or self-care (01) ==
LOC: PNCL 09:44
PROVIDERS: ATTEND Anesthesiology
DX: M51.16 Intervertebral disc disorders with radiculopathy, lumbar region (principal)
CPT/HCPCS: G0463

== ENCOUNTER → 2019-07-01 | Outpatient (CLI) | payer MEDICARE, OTHER ==
[~2019-07-01] MED LIST changes: +IOHEXOL 180 MG/ML 10 ML VIAL. ONE; +methylPREDNISolone ACETATE 40 MG/ML VIAL. ONE; +methylPREDNISolone ACETATE 80 MG/ML VIAL. ONE
--- NOTE | 2019-07-01 14:51 | PAIN ---
DATE OF SERVICE: 07/01/2019 PROGRESS NOTE FOR PAIN CLINIC DIAGNOSES: Lumbar radiculopathy with lumbar degenerative disk disease. HISTORY OF PRESENT ILLNESS: The patient is a 28-year-old female who returns for followup status post lumbar epidural steroid injection x 1 with about 50% improvement after the first injection. The patient is waiting for preauthorization for the second injection. She has obtained that now and would like to proceed. There is still pain in the low back, right lower extremity, posterior gluteus, posterolateral thigh, lateral anterior thigh, and medial thigh on the right side, radiating as it was previously. The patient reports that it is 10 on a scale of 10 at its worse over the past week, 7 on average, 5 at its least, and is a 7 today. The patient reports it is sharp and shooting, becoming more severe across the low back and the right lower extremity. No new motor or sensory deficits. No new bowel or bladder incontinence. The patient reports it is worse with walking, standing, and changing positions. It awakens him from sleep about every 4-5 hours. Initially, she was doing much better with distance walking and doing household activities with greater ease and comfort. Now, the pain is returning and she would like to proceed with injection today. PHYSICAL EXAMINATION: VITAL SIGNS: The patient's blood pressure is 128/83, pulse 103, respirations 16, temperature 98.6 degrees Fahrenheit, and weight is 278 pounds. GENERAL: The patient is awake, alert, oriented, and appropriate. Very pleasant demeanor. HEENT: Normocephalic and atraumatic. Extraocular movements are intact and symmetrical. Oral cavity: Mucous membranes are moist and pink. Dentition is intact. NECK: Anterior throat supple without palpable lymphadenopathy noted. Swallow reflex symmetrical. CHEST: Normal on inspection. Breath sounds are clear to auscultation bilaterally. HEART: S1, S2 clear. No murmurs auscultated. ABDOMEN: Obese, soft, nontender, and nondistended. No palpable organomegaly is noted. No rebound or guarding demonstrated. BACK: Spine grossly in the midline. Normal appearing thoracic kyphosis and minor flattening of lumbar lordotic curvature. Lumbar paraspinous muscle shows symmetrical on inspection and palpation shows some moderate tenderness diffusely bilaterally, but only diffusely without significant radiation. EXTREMITIES: The patient's lower extremities show deep tendon reflexes at 1+ in the patellar and tendo calcaneus tendons. Motor exam is strong with dorsiflexion, extension, quadriceps, and hamstring flexion and symmetrical. Peripheral pulses are 1+ posterior tibia. No peripheral edema bilaterally. Options were discussed with the patient. The patient's old chart was reviewed. Her current medication regimen updated. Current review of systems updated today as well. We will proceed with a second in a series of lumbar epidural steroid injection today under fluoroscopic guidance. Risks were again discussed including but not limited to bleeding, infection, possibility of epidural hematoma, subsequent neurological compromise, dural puncture, headaches, spinal cord and/or nerve damage, side effects of steroid medication, and poor results regarding pain control. The patient understands and wished to proceed. The patient will return to clinic in approximately 2 weeks for followup. She was counseled on return appointment, activity level, and side effects to be aware of. DIAGNOSIS: Lumbar radiculopathy with lumbar degenerative disk disease. PROCEDURE: Lumbar epidural steroid injection, translaminar approach, at L4-L5 level using C-arm fluoroscopic guidance under sterile prep and drape using local anesthetic. MEDICATION INJECTED: A total of 120 mg Depo-Medrol plus 10 mL of preservative-free normal saline and 2 mL of contrast. CONDITION AT DISCHARGE: Stable. The patient tolerated procedure well and had no complications. NICHOLAS RICE MD DR: WILLIAM/bhavik JOB#: [id number] / [id number]
== END ==
LOC: PNCL 10:28
PROVIDERS: ATTEND Anesthesiology
DX: M51.16 Intervertebral disc disorders with radiculopathy, lumbar region (principal)
CPT/HCPCS: 62323; J1030; J1040; Q9965

== ENCOUNTER 2019-09-20 17:19 | Emergency (ER) | payer MEDICARE, OTHER ==
[~2019-09-20] VITALS: Ht 175.3 cm; Wt 97.0 kg
[~2019-09-20 17:19] MED LIST changes: +HYDR50CA PO; -IOHEXOL 180 MG/ML 10 ML VIAL. ONE; +MELO15TA23 PO; +OXYC5CAP PO; -methylPREDNISolone ACETATE 40 MG/ML VIAL. ONE; -methylPREDNISolone ACETATE 80 MG/ML VIAL. ONE
[2019-09-20 17:52] VITALS: BP 132/79
--- NOTE | 2019-09-20 18:19 | PHYS DOC ---
Past Medical History Past Medical History: Bipolar, Diabetes-Type I, DVT, High Cholesterol, Hy pertension, MRSA, Other Additional Past Medical Histor: boderline personality disorder, insomnia, ASD, BACK PAIN, DJD, ULCER (HONG MARTINES APRN) Past Surgical History: , Other Additional Past Surgical Histo: open heart (repair ASD), debridment (HONG MARTINES APRN) Smoking Status: Former Smoker Alcohol Use: Occasionally Drug Use: Marijuana (HONG MARTINES APRN) General Adult EDM: Chief Complaint: EYE PROBLEMS HPI: HPI: Patient is a 29 year old female with a history of diabetes type 1 with an insulin pump, hypertension, high cholesterol, bipolar, who presents to the ED today complaining of a stye on the right lower eyelid that she has had for couple days. Patient denies any vision loss. (HONG MARTINES APRN) Review of Systems: Review of Systems: Constitutional: Denies fever or chills. [] Eyes: Reports stye to the right lower eyelid. Denies change in visual acuity. [] Musculoskeletal: Denies back pain or joint pain. [] Integument: Denies rash. [] Neurologic: Denies headache, focal weakness or sensory changes. [] Psychiatric: Denies depression or anxiety. [] (HONG MARTINES APRN) Heart Score: Risk Factors: Risk Factors: DM, Current or recent (<one month) smoker, HTN, HLP, family history of CAD, obesity. Risk Scores: Score 0 - 3: 2.5% MACE over next 6 weeks - Discharge Home Score 4 - 6: 20.3% MACE over next 6 weeks - Admit for Clinical Observation Score 7 - 10: 72.7% MACE over next 6 weeks - Early Invasive Strategies (HONG MARTINES APRN) Allergies: Allergies: Allergies Coded Allergies Type Severity Reaction Last Updated Verified latex Allergy Intermediate 01/01/19 Yes lisinopril Allergy Intermediate 01/01/19 Yes quetiapine Allergy Intermediate 01/01/19 Yes warfarin Allergy Intermediate 01/01/19 Yes (HONG MARTINES APRN) Physical Exam: PE: Constitutional: Well developed, well nourished, no acute distress, non-toxic appearance. [] HENT: Normocephalic, atraumatic, bilateral external ears normal, oropharynx moist, no oral exudates, nose normal. [] Eyes: PERRLA, EOMI, conjunctiva normal, no discharge. [] Right lower eyelid inner canthus with an area of induration consistent with an external stye. No drainage. Skin: Warm, dry, no erythema, no rash. [] Back: No tenderness, no CVA tenderness. [] Extremities: No tenderness, no cyanosis, no clubbing, ROM intact, no edema. [] Neurologic: Alert and oriented X 3, normal motor function, normal sensory function, no focal deficits noted. [] Psychologic: Affect normal, judgement normal, mood normal. [] (HONG MARTINES APRN) Current Patient Data: Vital Signs: Vital Signs Date Time Temp Pulse Resp B/P (MAP) Pulse Ox O2 Delivery O2 Flow Rate FiO2 09/20/19 17:52 98.2 117 18 132/79 (96) 97 Room Air 98.2 (HONG MARTINES APRN) EKG: EKG: [] (HONG MARTINES APRN) Radiology/Procedures: Radiology/Procedures: [] (HONG MARTINES APRN) Course & Med Decision Making: Course & Med Decision Making Pertinent Labs and Imaging studies reviewed. (See chart for details) This is a 29-year-old female patient presenting to the ED today with a stye to the right lower eyelid. Discharged with erythromycin. Warm compresses recommended. Provided ophthalmology for follow-up. (HONG MARTINES APRN) Dragon Disclaimer: Dragon Disclaimer: This electronic medical record was generated, in whole or in part, using a voice recognition dictation system. (HONG MARTINES APRN) Departure Departure Impression: Primary Impression: Hordeolum externum right lower eyelid Disposition: HOME, SELF-CARE Condition: STABLE Referrals: CLARISSA COLLADO MD (PCP) ALEC JAIME MD follow up in one week Patient Instructions: Sty Additional Instructions: You have a stye to the right lower eyelid. Continue applying warm compresses to the area 3 times a day. Use the prescribed antibiotic eye ointment as ordere d. Follow-up with the provided motor carrier inspector in 1 week. Scripts Erythromycin Base (Erythromycin) 1 Gm Oint...g. 1 APPLIC OP Q4HRS W/A, #1 MISC Apply 1/2 inch to the affected eye every 4 hours while awake for 7 days Prov: HONG MARTINES APRN 09/20/19 Justicifation of Admission Dx: Justifications for Admission: Justification of Admission Dx: N/A (HONG MARTINES APRN) Attending Signature Attending Signature I have participated in the care of this patient and I have reviewed and agree with all pertinent clinical information above including history, exam, and recommendations. (SOFIA COPELAND DO) HONG MARTINES APRN Sep 20, 2019 18:19 SOFIA COPELAND DO Sep 20, 2019 19:07
[2019-09-20] MEDS ORDERED: ERYT1OIN6 OP (18:25)
== END 2019-09-20 18:36 | disposition home or self-care (01) ==
LOC: ER 17:19
DX: H00.012 Hordeolum externum right lower eyelid (principal); E10.9 Type 1 diabetes mellitus without complications; E78.00 Pure hypercholesterolemia, unspecified; I10 Essential (primary) hypertension; F31.9 Bipolar disorder, unspecified; F12.90 Cannabis use, unspecified, uncomplicated; Z98.890 Other specified postprocedural states; Z86.718 Personal history of other venous thrombosis and embolism; Z87.891 Personal history of nicotine dependence; Z91.040 Latex allergy status; Z88.6 Allergy status to analgesic agent; Z88.8 Allergy status to other drugs, medicaments and biological substances
CPT/HCPCS: 99283

== ENCOUNTER → 2019-09-30 | Outpatient (CLI) | payer MEDICARE, OTHER ==
[2019-09-20 17:52] VITALS: BP 132/79
[~2019-09-30] MED LIST changes: +ERYT1OIN6 OP
--- NOTE | 2019-09-30 11:25 | PAIN ---
DATE OF SERVICE: 09/30/2019 PROGRESS NOTE FOR PAIN CLINIC DIAGNOSES: Lumbar radiculopathy with lumbar degenerative disk disease. HISTORY OF PRESENT ILLNESS: The patient is a 29-year-old female who returns for followup status post lumbar epidural steroid injection x 2. The patient reports very high improvement with about 70-80% improvement initially, now about 60% after about the past 3 weeks, still doing much better with the low back and right lower extremity pain. The patient reports the pain is still in the low back, right posterior gluteus, lateral thigh, anterior thigh, medial thigh, medial lower leg and some on the calf on the right as well, but much better. She was increasing her activity with greater ease and comfort, walking greater distances, doing work activities, household activities with mild greater comfort and travelling with greater ease and comfort as well for good 3 weeks. Now, the pain is returning, but still only to about 60% improvement overall after 3 weeks, it was normally 70-80% prior to that. The patient reports no new motor or sensory deficits, no new bowel or bladder incontinence. Rates her pain as a 10 on a scale of 10 at its worst over the past week, 8 on average, 7 at its least and is a 7 today. She describes as stabbing and dull aching in the low back and shooting pain in the right leg as noted. PHYSICAL EXAMINATION: VITAL SIGNS: The patient's blood pressure is 133/88, pulse 101, respirations are 18, temperature is 98.2 degrees Fahrenheit, height is 5 feet 11 inches, weight is 267 pounds. GENERAL: The patient is awake, alert, oriented, appropriate, very pleasant demeanor. HEENT: Shows normocephalic, atraumatic. Extraocular movements are intact and symmetrical. Oral cavity: Mucous membranes moist and pink. Dentition is intact. NECK: Shows anterior throat supple without palpable lymphadenopathy noted. Swallow reflex symmetrical. CHEST: Shows normal on inspection. Breath sounds are clear bilaterally. HEART: Shows S1, S2 clear. No murmurs auscultated. ABDOMEN: Soft, nontender, nondistended. No palpable organomegaly is noted. No rebound or guarding demonstrated. BACK: Shows spine grossly in the midline. Normal appearing thoracic kyphosis and minor flattening of lumbar lordotic curvature. Lumbar paraspinous muscle shows symmetrical on inspection, on palpation shows some moderate tenderness diffusely bilaterally, but only diffusely without significant radiation. The patient has good rotational motion of lumbar spine, both laterally as well as extension and flexion without significant difficulty. EXTREMITIES: The patient's lower extremities show deep tendon reflexes at 1+ in the patellar and tendo calcaneus tendons. Motor exam is approximately 4 on a scale of 5 on the right with dorsiflexion and extension, 5/5 on the left. Peripheral pulses are 1+. No peripheral edema is noted bilaterally. Options were discussed with the patient. The patient's old chart was reviewed as her current medication regimen updated. Current review of systems updated today as well and we will proceed with the preauthorization for a third lumbar epidural steroid injection. The patient did quite a bit better after the last 2 injections, still with some significant radicular pain in the right lower extremity at L4-L5 dermatomal distribution. Again, the patient is doing much better after the last injection. She is still continuing to do stretching and strengthening exercises on her own, we encouraged to do that in the meantime while waiting for preauthorization and walking daily as tolerated. The patient will continue with anti-inflammatories. She has taken [id number] ibuprofen currently, which does help but only about 20%. The patient will return to the clinic, will plan on a translaminar L4-L5 lumbar epidural steroid injection at that time. NICHOLAS RICE MD DR: WILLIAM/bhavik JOB#: [id number] / [id number]
== END | disposition home or self-care (01) ==
LOC: PNCL 09:16
PROVIDERS: ATTEND Anesthesiology
DX: M51.16 Intervertebral disc disorders with radiculopathy, lumbar region (principal); I10 Essential (primary) hypertension; E11.9 Type 2 diabetes mellitus without complications; E78.00 Pure hypercholesterolemia, unspecified; Z79.82 Long term (current) use of aspirin; Z79.4 Long term (current) use of insulin; Z79.899 Other long term (current) drug therapy; Z79.84 Long term (current) use of oral hypoglycemic drugs
CPT/HCPCS: G0463

== ENCOUNTER → 2019-10-16 | Outpatient (CLI) | payer MEDICARE, OTHER ==
[2019-09-20 17:52] VITALS: BP 132/79
[~2019-10-16] MED LIST changes: +IOHEXOL 180 MG/ML 10 ML VIAL. ONE; +methylPREDNISolone ACETATE 40 MG/ML VIAL. ONE; +methylPREDNISolone ACETATE 80 MG/ML VIAL. ONE
--- NOTE | 2019-10-16 09:48 | PAIN ---
DATE OF SERVICE: 10/16/2019 PROGRESS NOTE FOR PAIN CLINIC DIAGNOSES: Lumbar radiculopathy with lumbar degenerative disk disease. HISTORY OF PRESENT ILLNESS: The patient is a 29-year-old female who returns for followup status post lumbar epidural steroid injections x 2, most recently was on 07/01/2019. The patient had waited for preauthorization, has obtained that now and would like to proceed with an injection today. Still some pain noticed in the low back and right lower extremity as it previously was. The patient reports still significant pain across the low back, into right lower extremity, posterior gluteus, posterolateral thigh, lateral anterior thigh and anterior calf as well as the medial lower leg and calf. The patient reports it is a 10 on a scale of 10 at its worst over the past week, 7 on average, 5 at its least and is a 5 today. The patient reports no new motor or sensory deficits, no new bowel or bladder incontinence or other complaints. PHYSICAL EXAMINATION: VITAL SIGNS: The patient's blood pressure is 140/88, pulse is 98, respirations 18, temperature 98.2 degrees Fahrenheit, height is 5 feet 11 inches, weight is 267 pounds. GENERAL: The patient is awake, alert, oriented, appropriate, very pleasant demeanor. HEENT: Shows normocephalic, atraumatic. Extraocular movements are intact and symmetrical. Oral cavity: Mucous membranes moist and pink. Dentition is intact. NECK: Shows anterior throat supple without palpable lymphadenopathy noted. Swallow reflex symmetrical. CHEST: Shows normal on inspection. Breath sounds are clear bilaterally. HEART: Shows S1, S2 clear. No murmurs auscultated. ABDOMEN: Soft, nontender, nondistended. No palpable organomegaly is noted. No rebound or guarding demonstrated. BACK: Shows spine grossly in the midline. Normal appearing thoracic kyphosis and minor flattening of lumbar lordotic curvature. Lumbar paraspinous muscle shows symmetrical on inspection, on palpation shows some moderate tenderness diffusely bilaterally, but only diffusely without significant radiation. The patient has good rotational motion of lumbar spine, both laterally as well as extension and flexion without significant increase in pain. EXTREMITIES: The patient's lower extremities show deep tendon reflexes at 1+/4 in the patellar and tendo calcaneus tendons are equal. Motor exam is approximately 4 on a scale of 5 on the right with dorsiflexion and extension, 5/5 on the left. Peripheral pulses are 1+. No peripheral edema bilaterally. The patient is able to stand, stand on her toes without significant difficulty or loss of balance, walks with a normal appearing gait without any assistive devices. Options were discussed with the patient. The patient's old chart was reviewed as her current medication regimen updated. Current review of systems updated today as well. We will proceed with a third in a series of lumbar epidural steroid injection today with fluoroscopic guidance. Risks were again discussed including, but not limited to bleeding, infection, possibility of epidural hematoma, subsequent neurological compromise, dural puncture, headaches, spinal cord and/or nerve damage, side effects of steroid medication and poor results regarding pain control. The patient understands and wished to proceed. The patient will return to clinic in approximately 2 weeks for followup. She was counseled on return appointment, activity level and side effects to be aware of. DIAGNOSIS: Lumbar radiculopathy with lumbar degenerative disk disease. PROCEDURE: Lumbar epidural steroid injection, translaminar approach at L4-L5 level using C-arm fluoroscopic guidance under sterile prep and drape using local anesthetic. MEDICATION INJECTED: A total of 120 mg of Depo-Medrol plus 10 mL of preservative-free normal saline and 2 mL of contrast. CONDITION AT DISCHARGE: Stable. The patient tolerated procedure well, had no complications. NICHOLAS RICE MD DR: WILLIAM/bhavik JOB#: [id number] / [id number]
== END ==
LOC: PNCL 08:44
PROVIDERS: ATTEND Anesthesiology
DX: M51.16 Intervertebral disc disorders with radiculopathy, lumbar region (principal); Z79.899 Other long term (current) drug therapy; Z98.890 Other specified postprocedural states
CPT/HCPCS: 62323; J1030; J1040; Q9965